=== PATIENT | male | born 1945 | race Caucasian/White ===

== ENCOUNTER 2019-09-21 11:05 | Observation (INO) | payer OTHER, SELFPAY ==
[2019-09-21] VITALS (9 sets, daily range): BP systolic 159–183; BP diastolic 75–100; PULSE 59–91; RESP 0–20; TEMP 36.4–36.6; O2SAT 92–97; BMI 20.9
--- NOTE | 2019-09-21 07:44 | XACV_ITS ---
Wt: 64 kg BSA: 1.77 m2 Any Known Allergies: No known allergies Gender: Male : 1945 Exam Type: Invasive Peripheral Vascular Procedure(s): Procedure Description: Peripheral Cath Diagnostic Procedure Procedure Description: Abdominal aortic angiography Procedure Description: Lower extremities' angiography Exam Priority: Routine Conclusions Abdominal aortic angiogram was performed which showed luminal irregularity, mild infrarenal aortic aneurysmal , right and left renal arteries has luminal irregularity#1 Right common iliac artery has luminal irregularity. Left ostial common iliac artery has mild to moderate stenosis#2 Left and right internal iliac artery has luminal irregularity#3 Right and left external iliac artery has luminal irregularity#8 Left and right common femoral artery has luminal irregularity#9 Right and left profunda femoral artery has luminal irregularity#10 Right then Left SFA has luminal irregularities # 11 Right and left popliteal arteries has luminal irregularities#13 Right and left Tibioperoneal trunk has luminal irregularities #14 Right and left Anterior , posterior tibial and peroneal arteries has luminal irregularities. This is a patient who has lifestyle limiting claudication back pain groin pain upon walking. Patient underwent CT angiogram which was suggestive of highly calcified vessels with questionable moderate stenosis in the lower extremities. Since patient continues to have symptoms therefore he was brought in for peripheral angiogram. Recommendations Continue medical management. Hemodynamic Data Phase:Rest AO : 161.0 mmHg / 72.0 mmHg ( 104.0 mmHg ) @ 4:18:00 AM 133.0 mmHg / 73.0 mmHg ( 95.0 mmHg ) @ 4:26:00 AM 142.0 mmHg / 58.0 mmHg ( 91.0 mmHg ) @ 4:26:00 AM 116.0 mmHg / 52.0 mmHg ( 78.0 mmHg ) @ 4:27:00 AM 141.0 mmHg / 68.0 mmHg ( 100.0 mmHg ) @ 4:39:00 AM Access Site Site: Left Femoral artery Sheath Size: 6 Fr Hemost... Method: Manual Compression Hemost... Success: Successful Procedure Details Findings Procedure Consent Obtained. Pre-Procedure Time Out. Identified patient by full name and date of as verbalized by the patient/guarantor. Does the consent match the physician's order: Yes. Accurate & Complete Informed Consent: Yes. Inpatient/Outpatient History & Physical on Chart: Yes. If H&P is completed, is and addenduem needed: No; If yes, is the addendum complete: N/A. Visualize and Verify Site with Patient/Guarantor: N/A. Relevant Radiology Images available: N/A. Pre-op teaching completed and patient verbalized understanding. The risks, benefits, and alternatives of sedation and/or procedure were discussed by physician. The patient agrees to continue. Procedure started. Correct patient, site and procedure confirmed by cath team. Pre op diagnosis: PVD with bilateral claudication. PERRLA. 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 Lungs clear x 5 lobes. IV Site on Arrival: 18 gauge in the left anticubital. IV Fluids: 0.9% NaCl at KVO. 0 mL infused prior to fence laborer. Pre Procedural Pulses: bilateral dorsalis pedis was 1+. Pre Procedural Pulses: bilateral posterior tibial was 2+. Pre Procedural Pulses: bilateral radial was 2+. Oxygen started at 2liters/min via nasal canula. bilateral groins was prepped with chloroprep then draped in the usual sterile fashion. Physician notified. Baseline sample Acquired. HR: 67 BPM. Equipment: Peripheral. Cardiac Cath Pack. ACIST Manifold Kit Model BT 2000. Heparinized Saline (2 units/mL), 1000 mL bag. Physician arrived. Physician scrubbed in. Time out performed with cath team. Family notified of procedure starting. Lidocaine 1% infiltrated to the left groin. Arterial access obtained with micropuncture set. A 5Fr Contra catheter in over wire. Abdominal aortogram performed in AP @ 10 mL/sec for a total of 30 mL. Abdominal aortogram performed in AP @ 10 mL/sec for a total of 20 mL. Glidewire inserted. A 6 slovenian MPA1 catheter in over wire. Catheter removed over the glide wire. A JJ 5F RIM 65 cm Diagnostic Catheter was advanced over the wire and used for Lower extremity arteriography. A 6 slovenian IM catheter in over wire. Right leg runoff 10 ml for total of 30 ml. Left leg runoff 10 ml for total of 30 ml throught the sheath. Physician scrubbed out. A Manual Compression was successful obtaining hemostatsis at the Left Femoral artery insertion site. Sheath(s) removed and manual pressure held until hemostasis was achieved. Sterile 4x4 and Op-site applied to the puncture site. No oozing or hematoma noted. Post sheath removal instructions were given and the patient verbalized understanding. Post Procedure: Pulses reassessed and unchanged. PERRLA. 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 No VTE prophylaxis required. Medication's Wasted: Lidocaine 1% = 10 mL. Medication's Wasted: Heparin = 1000 units. Medication's Wasted: Other = fentanyl 50 mcg. Total IV fluids: 50 mL. Post-op diagnosis: PVD non obstructive. Complications: none. Estimated blood loss: 5mL-10mL. Procedure completed. Patient transferred by bed to ICU. Vital chart was stopped. Procedure Medications Start: 10:08 AM Stop: 10:08 AM Medication: Versed Amount: 1 mg Route: I.V. Start: 10:08 AM Stop: 10:08 AM Medication: Fentanyl Amount: 25 mcg Route: I.V. Start: 10:13 AM Stop: 10:13 AM Medication: Versed Amount: 1 mg Route: I.V. Start: 10:13 AM Stop: 10:13 AM Medication: Fentanyl Amount: 25 mcg Route: I.V. I, the attending physician, have reviewed and verified all procedure medications. Yes, all medications given per verbal order History/Risk Factors Hypertension: Yes Dyslipidemia: Yes Peripheral Arterial Disease (PAD): Yes Myocardial Infarction (PR): No Obesity: No Renal Disease: No Tobacco Use: Current/Recent(w/in 1 year) Prior Interventions PCI: Yes CABG: No Valve Surgery: No Report Signatures Finalized by:Tomasa Han MD on 10/04/2019 7:52:09 PM
--- NOTE | 2019-09-21 07:50 | SUR.PREOP ---
Pre op note/ MD discussion Patient brought to PRE OP. MD here. Discussion about procedure detail discussed at this time. Awaiting further orders.
--- NOTE | 2019-09-21 08:33 | P.HP_ITS ---
Providers/Chief Complaint Primary Care Provider: Tomasa Han MD History of Present Illness Dae Gupta is a 73 year old male Past medical history significant for Coronary artery disease, hypertension hyperlipidemia lifestyle limiting claudication who has failed exercise therapy, medical management including cilostazol. CT angiogram with runoff was performed showed heavily calcified bilateral common illiacs.Patient think that his claudication in buttock region is getting worse to the point that he cannot perform his daily tasks. He has to sit down after 200 feet for 5-10 minutes to get over the cramps and pains in the buttock region. It is the reason patient has brought in today after detailed discussion 2-3 times during my office sittings through my nurse practitioner and by myself. He is here for peripheral angiogram to assess the severity of the lesion which CTA is ambiguous about. If he has a significant lesions we will proceed with intervention which can include CSI atherectomy/rotablation, usage of non-drug coated or drug-coated balloons and if needed placement of stents which can be drug-coated or non-drug coated. I spent almost 30 minutes with the patient and his in explaining all the risk benefit and alternative for the intervention such as continuous lifestyle modification with conservative management which patient declined and would like to proceed with intervention at this point. Patient has been explained in detail regarding FDA warning about drug-coated balloons, patient has been explained in detail regarding no reflow phenomena complication which can happens during the procedures leading to urgent emergent surgery or loss of limb. He has been explained all the risk benefit and alternative for sedation. He and his agrees to proceed with the intervention. Review of Systems Const: Denies: fever or chills Card: Denies: chest pain, palpitations or irregular heart rhythm Resp: Denies: shortness of breath or productive cough GI: Denies: abdominal pain, nausea or vomiting Musc: Reports: other (Claudication in the buttock region) Neuro: Denies: headache or numbness in extremities Medications/Allergies Home Medications Medication Instructions Recorded Confirmed Last Taken Type L-Arginine(alpha-ketoglutarat) 2,000 mg PO DAILY 09/20/19 09/21/19 09/20/19 22:00 History coenzyme Q10 [Co Q-10] 10 mg PO DAILY 09/20/19 09/21/19 09/20/19 22:00 History omega 8-ygl-cwt-fish oil [Fish Oil] 2 cap PO DAILY 09/20/19 09/21/19 09/20/19 22:00 History Allergies Allergy/AdvReac Type Severity Reaction Status Date / Time No Known Allergies Allergy Verified 09/21/19 09:49 PFSH Acute PFSH: Family History Father Myocardial infarction Social History Smoking and tobacco status: current every day smoker Physical Exam Narrative: EXAM NARRATIVE: GENERAL: Patient is alert, awake and oriented x3. NECK: No jugular vein distension. HEENT: No cyanosis. No icterus. No pallor. HEART: Regular S1 and S2. No murmur, rub or gallop. LUNGS: Clear to auscultate bilaterally. ABDOMEN: Soft, nontender and nondistended. Positive bowel sounds. No guarding, rebound or tenderness. CENTRAL NERVOUS SYSTEM: Grossly nonfocal. EXTREMITIES: Lower extremities without edema bilaterally.Dorsalis pedis 1+ and posterior tibial 2 Data : 09/21/19 09:00 09/21/19 09:00 A&P Assessment and plan (1) Peripheral vascular disease with claudication: Patient has lifestyle limiting claudication. He has failed conservative management including exercise and medical management. He is here today for peripheral angiogram and intervention if needed. As above he has been explained all the risk benefit and alternative for the procedure. He has been explained all the complication regarding the procedure. He and his has given me the consent that they would like to proceed with it. Providing his lab data within normal limit we will proceed. Status: Acute Code(s): I73.9 - Peripheral vascular disease, unspecified Attestations Medical Necessity Statement*: Operative expecting patient's stay to cross more than 2 midnights Coding Level of Care Code New Pt Acute Captain'S Assistant for Chg Fwd Patient Type New History Expanded Problem Focused Exam Expanded Problem Focused Medical Decision Making Moderate Complexity Diagnoses Peripheral vascular disease with claudication I73.9
[2019-09-21] MEDS: diphenhydrAMINE 50 mg Capsule PO (08:48)
[2019-09-21 09:10] LABS: Basophils # 0.1 10^3/uL (0.0-0.1); Basophils % 0.6 %; Eosinophils # 0.4 10^3/uL (0.0-0.8); Eosinophils % 3.9 %; Hemoglobin 13.7 g/dL (11.7-16.6); Lymphocytes # 2.8 10^3/uL (0.8-4.8); Mean Corpuscular HGB Conc 31.9 g/dL (30.0-36.0); Mean Corpuscular Volume 90.9 fL (80-94); Monocytes # 1.2 10^3/uL (0.2-0.9); Neutrophils # 6.2 10^3/uL (1.8-7.7); Neutrophils % 58.2 %; Nucleated Red Blood Cells % 0 %; Platelet Count 292 10^3/cmm (130-400); Red Blood Count 4.73 10^6/uL (4.1-5.3); Red Cell Distribution Width 14.9 % (12.1-15.1); White Blood Count 10.7 10^3/uL (4.0-10.0)
[2019-09-21 09:30] LABS: Anion Gap 13.7 (5-19); Blood Urea Nitrogen 14 mg/dL (8-23); Calcium 10.3 mg/dL (8.5-10.5); Carbon Dioxide 28 mmol/L (22-29); Chloride 99 mmol/L (98-107); Glucose 94 mg/dL (65-115); Osmolality Calculated 280 mOsm/kg (285-295); Potassium 3.7 mmol/L (3.5-5.1); Sodium 137 mmol/L (136-145)
[2019-09-21] MEDS: nitroglycerin 1 gm/inch oint Pkt 1 INCH TOPICAL (11:45)
[2019-09-21] MEDS: hyDRALAzine 20 mg/mL INJ 1 mL 10 MG IVP (11:45)
[2019-09-21] MEDS: HYDROcodone-acetaminophen 5-325 mg Tablet 1 TAB PO (13:06)
[2019-09-21] MEDS: amlodipine 5 mg Tablet PO (13:06)
--- NOTE | 2019-09-21 15:18 | PC.CHAP ---
Pastoral Care Encounter/Spiritual Assessment Type of Contact [] Declined preschool aide visit [] Patient/Family/Request visit [] Outpatient visit [] Follow-up visit [] Physician referral [] Code/Alert [] Routine visit [] Staff referral [] Actively dying [x] Patient sleeping [] Family support [] [] Out of room [] Palliative care [] [] Receiving care in room [] Pre-surgical visit [] Trauma [] Long length of stay [] ICU visit [] Other: Relational/Emotional Strength [] Patient feels connected with others/family/visitors/staff [] Distress [] Loneliness/isolation [] Abandonment Spirituality of Patient [] Person of Griselda [] Attends Sikh of their Griselda [] Believes in Prayer [] Reads Bible or Jew materials [] There are Spiritual issues to be addressed Patrol Supervisor Interventions [] Prayer [] Active listening [] Non-anxious presence [] Spiritual/emotional support [] Crisis/trauma care [] Spiritual counseling [] Bereavement support [] Provided bereavement packet [] Provided Bible/devotional materials [] Provided toy/stuffed animal, coloring book to patient or family member [] Provided Communion [] Anointing/[place] [] Salvation [] Completed spiritual assessment [] Other: Impact on Illness or Injury [] Angry [] Fearful [] Anxious [] Often cries [] Exhaustion [] Unable to work [] Unable to attend religious [] Unable to walk/stand [] Unable to read [] Unable to drive [] Unable to eat/drink [] Unable to sleep [] Unable to be with family [] Patient intubated [] Other: Summary Time spent with patient
--- NOTE | 2019-09-21 17:00 | PC.NURSE ---
Patient walked in the unit. Tolerated well. No c/o chest pain, no shortness of breath. Left groin with drsg intact and unchanged.
== END 2019-09-21 18:48 | disposition home or self-care (01) ==
LOC: ICU 11:19
PROVIDERS: Admitting Provider Internal Medicine Cardiovascular Disease; Family Provider Emergency Medicine Emergency Medical Services; PCP Internal Medicine Cardiovascular Disease; Visit Provider Internal Medicine Cardiovascular Disease
DX: I25.10 Atherosclerotic heart disease of native coronary artery without angina pectoris (principal); I73.9 Peripheral vascular disease, unspecified; I10 Essential (primary) hypertension; E78.5 Hyperlipidemia, unspecified; Z82.49 Family history of ischemic heart disease and other diseases of the circulatory system; F17.210 Nicotine dependence, cigarettes, uncomplicated
CPT/HCPCS: 12345; 75625; 75716; 80048; 85025; 96375; C1769; C1887; C1894; G0378; J0360; J1644; J2001; J2250; J3010; J7030; Q0163; Q9967

== ENCOUNTER 2020-01-21 07:44 | Outpatient (CLI) | payer OTHER, SELFPAY ==
--- NOTE | 2020-01-21 07:49 | MR_ITS ---
WS: [id number] MRI LUMBAR SPINE NONCONTRAST TECHNIQUE: Sagittal T1, T2 and STIR imaging. Axial T1 and T2 imaging. CLINICAL INFORMATION: CHRONIC LOW BACK PAIN FINDINGS: Mild Lumbar curve. No acute compression. Mild disc bulging lumbar spine. Disc desiccation worse at L2 -3. L1-L2: Tiny right pericentral protrusion. Mild facet arthropathy. Spinal canal and foramen are patent . L2-L3: Mild disc bulging with osteophytic ridging. Narrowing of the subarticular recess bilaterally. Mild facet arthropathy. Mild right and no significant left foraminal narrowing. L3-L4: Mild annular bulging with narrowing of the subarticular recess bilaterally. Mild left and no s ignificant right foraminal narrowing. Mild facet arthropathy. L4-L5: Small shallow left pericentral protrusion. Slight impingement traversing left L5 nerve root. M ild right and no significant left foraminal narrowing. Mild facet arthropathy. L5-S1: Mild annular bulging with slight effacement of the ventral thecal sac. Slight encroachment tra versing right greater than left S1 nerve roots. Mild right greater than left foraminal narrowing. Mil d facet arthropathy. Small bilateral renal cysts largest in the left measuring 2.1 CM. Slightly aneurysmal distal abdomina l aorta measuring 2.5 x 2.4 cm AP by transverse. This appears unchanged since the CTA April 13 019 MR/MR lumbar spine wo con* [id number] IMPRESSION: 1. Mild lumbar curve. No acute compression. No high-grade central canal stenos is. 2. Annular bulging L2-3 with narrowing of the subarticular recess bilaterally. Mild to moderate right L2-3 foraminal narrowing. 3. Small left foraminal protrusion L3-4 with slight impingement on the exiting left L3 nerve root. 4. Shallow left pericentral protrusion L4-5 impinges the traversing left L5 ne rve root in the left subarticular recess. 5. Annular bulging L5-S1 eccentric to the right with slight encroachment trave rsing right greater than left S1 nerve roots. Mild right L5-S1 foraminal narrow ing.
== END 2020-01-21 07:45 | disposition home or self-care (01) ==
LOC: RADSHAW 07:47
PROVIDERS: PCP Emergency Medicine Emergency Medical Services; Visit Provider Emergency Medicine Emergency Medical Services
DX: G89.29 Other chronic pain (principal); M51.26 Other intervertebral disc displacement, lumbar region; M48.061 Spinal stenosis, lumbar region without neurogenic claudication
CPT/HCPCS: 72148

== ENCOUNTER → 2020-04-12 12:50 | Outpatient (BNVA) | payer OTHER, SELFPAY | PROVIDERS: PCP Emergency Medicine Emergency Medical Services; Referring Provider Neurological Surgery; Visit Provider Licensed Practical Nurse | DX: R29.898 Other symptoms and signs involving the musculoskeletal system (principal); F17.210 Nicotine dependence, cigarettes, uncomplicated | CPT/HCPCS: 99204 ==

== ENCOUNTER 2020-04-25 06:00 | Outpatient (RCR) | payer OTHER, SELFPAY | END 2020-05-03 23:59 | disposition home or self-care (01) | LOC: GPT 06:00 | PROVIDERS: PCP Emergency Medicine Emergency Medical Services; Referring Provider Licensed Practical Nurse; Visit Provider Licensed Practical Nurse | DX: R53.1 Weakness (principal); R29.898 Other symptoms and signs involving the musculoskeletal system | CPT/HCPCS: 97110; 97161; 97530 ==

== ENCOUNTER 2020-05-04 06:00 | Outpatient (RCR) | payer OTHER, SELFPAY | END 2020-06-03 23:59 | disposition home or self-care (01) | LOC: GPT 06:00 | PROVIDERS: PCP Emergency Medicine Emergency Medical Services; Referring Provider Licensed Practical Nurse; Visit Provider Licensed Practical Nurse | DX: R53.1 Weakness (principal) | CPT/HCPCS: 97110; 97116; 97164; 97530 ==

== ENCOUNTER → 2020-05-10 13:50 | Outpatient (BNVA) | payer OTHER, SELFPAY | PROVIDERS: PCP Emergency Medicine Emergency Medical Services; Visit Provider Licensed Practical Nurse | DX: R29.898 Other symptoms and signs involving the musculoskeletal system (principal); F17.210 Nicotine dependence, cigarettes, uncomplicated | CPT/HCPCS: 99213 ==

== ENCOUNTER 2020-06-04 06:00 | Outpatient (RCR) | payer OTHER, SELFPAY | END 2020-07-03 23:59 | disposition home or self-care (01) | LOC: GPT 06:00 | PROVIDERS: PCP Emergency Medicine Emergency Medical Services; Referring Provider Licensed Practical Nurse; Visit Provider Licensed Practical Nurse | DX: R53.1 Weakness (principal); R29.898 Other symptoms and signs involving the musculoskeletal system | CPT/HCPCS: 97110; 97112; 97530 ==

== ENCOUNTER 2020-08-09 12:55 | Inpatient (IN) | payer OTHER, MEDICARE, SELFPAY ==
[2020-08-09] VITALS (7 sets, daily range): BP systolic 114–186; BP diastolic 64–89; PULSE 50–61; RESP 12–18; TEMP 36.6–37.1; O2SAT 96–99; BMI 19.9
--- NOTE | 2020-08-09 13:08 | XR_ITS ---
WS: [id number] PORTABLE CHEST HISTORY: cp COMPARISON: None available. Mild pulmonary hyperexpansion. No pneumonia. Normal vasculature. No pleural effusion or pneumothorax. Cardiac size: Normal. Mediastinum/Aorta: Mild atherosclerosis aorta. No osseous abnormality seen. XR/XR chest 1V portable [id number] IMPRESSION: Stable chest. No acute cardiopulmonary disease.
--- NOTE | 2020-08-09 13:08 | ECG_ITS ---
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 Measurements Intervals [place] Rate: 59 P: 77 MS: 157 QRS: 66 QRSD: 85 T: 60 QT: 432 QTc: 430 Interpretive Statements SINUS BRADYCARDIA POSSIBLE LEFT ATRIAL ENLARGEMENT [-0.1mV P WAVE IN V1/V2] Compared to ECG 07/21/2017 15:19:14 No significant changes Electronically Signed On 08-09-2020 20:14:26 [employer] by Anjel Spear M.D. [email or web address]
[2020-08-09] MEDS: aspirin 81 mg Chew Tablet PO ×3 (13:34→13:36)
[2020-08-09] MEDS: nitroglycerin 0.4 mg sublingual Tablet SUBLINGUAL (13:36)
--- NOTE | 2020-08-09 13:43 | W.ED.CHESTPA ---
HPI - Chest Pain General: Chief Complaint: Chest Pain Stated Complaint: Chest pains Time Seen by Provider: 08/09/20 12:57 History of Present Illness: HPI narrative: The patient is a 74-year-old male with past medical history of coronary artery disease and 2 MIs who comes to the ER complaining of midsternal chest pressure which feels similar to his previous [place]. He says he has been having it on and off for the past month and taking nitroglycerin which helps relieve his pain however it scared him last night because it woke him from sleep and continued this morning and has been worse. complaint: chest heaviness Pertinent past history: coronary artery disease and prior [place] Timing of current episode: still present Prior episodes: Yes Onset: during rest and awoke with symptoms Pain location: substernal Pain radiation: none Severity: similar to previous episodes Quality: tightness, heaviness and similar to prior [place] Relieving factors: nitroglycerin Exacerbating factors: nothing Associated symptoms: Reports no associated symptoms; Deny abdominal pain, dyspnea or palpitations Review of Systems General: Reports: 10 or more systems reviewed and unremarkable except in HPI and below Const: Denies: fatigue Eyes: Denies: change in vision, blurry vision or eye redness ENMT: Denies: throat pain, swelling of lips/tongue, ear or mastoid pain or nasal congestion Card: Denies: chest pain, palpitations, irregular heart rhythm, edema, dyspnea on exertion or orthopnea Resp: Denies: dyspnea, productive cough or non-productive cough GI: Denies: abdominal pain, diarrhea or GI cramping : Denies: flank pain, urinary frequency or urinary urgency Musc: Denies: neck pain, back pain, extremity pain, joint pain, joint redness, limited range of motion or muscle weakness Skin/Breast: Denies: rash, pruritus, erythema, skin pain or skin tenderness Neuro: Denies: headache(s), numbness in extremities, weakness in extremities, sensory changes, difficulty walking, dizziness, confusion or Slurred speech present Psych: Denies: anxiety or depression Endo: Denies: polyuria All/Imm: Denies: urticaria, throat swelling or tongue swelling PFSH ED PFSH: Medical History (Updated 08/09/20 @ 19:09 by Janis Hidalgo MD) Anxiety BPH (benign prostatic hyperplasia) CAD (coronary artery disease) COPD (chronic obstructive pulmonary disease) Depression HLD (hyperlipidemia) HTN (hypertension) Hypercholesterolemia Leg weakness, bilateral Peripheral vascular disease with claudication PTSD (post-traumatic stress disorder) Surgical History History of coronary artery stent placement Family History Father Myocardial infarction Social History Smoking and tobacco status: current every day smoker Alcohol intake: never Household members: none Marital status: Single Current occupational status: retired History of recent travel: No Physical Exam Const: COMMON NORMALS: no acute distress, average body habitus, patient oriented x3, no limitations, healthy appearing, alert and well nourished GENERAL APPEARANCE: cooperative, comfortable, well kempt and well developed ORIENTATION/CONSCIOUSNESS: Yes awake, Yes oriented to person, Yes oriented to place and Yes oriented to time HENMT: COMMON NORMALS: normocephalic, external ears normal and Normal external nose present HEAD & SCALP: normal to inspection and normocephalic NOSE: Normal external nose present EXTERNAL EAR: Yes external ears normal MOUTH: Normal oral and palatal mucosa present THROAT: posterior oropharynx normal Eye: COMMON NORMALS: Equal, round and reactive pupils present and EOMs intact bilaterally GENERAL EYE: appearance normal, both eyes and all related structures PUPIL: Yes Equal, round and reactive pupils present Neck/C-Spine: COMMON NORMALS: full ROM, no lymphadenopathy, no meningeal signs and no JVD GENERAL: Yes normal visual inspection Lymph: LYMPHATIC: no lymphadenopathy noted Chest: COMMONS NORMALS: normal inspection of the chest and normal palpation of entire chest wall Resp: COMMON NORMALS: normal respiratory effort, No retractions, No use of accessory muscles, clear to auscultation bilaterally and percussion normal EFFORT & INSPECTION: Yes able to speak in complete sentences AUSCULTATION: clear to auscultation bilaterally PERCUSSION: percussion normal Cardio: COMMON NORMALS: no JVD, regular rate, regular rhythm, S1 normal heart sound present, S2 normal heart sound present and Peripheral pulses 2+ throughout RATE: regular rate RHYTHM: regular rhythm HEART SOUNDS: S1 normal heart sound present and S2 normal heart sound present PERIPHERAL PULSES: Peripheral pulses 2+ throughout GI: COMMON NORMALS: Normal to inspection, nondistended, normoactive bowel sounds present, Soft to palpation, non-tender and no masses INSPECTION: Yes normal to inspection PALPATION: Yes Soft to palpation : COMMON NORMALS: Yes no CVA tenderness BLADDER/KIDNEY EXAM: Yes no CVA tenderness Back/Pelvis: COMMON NORMALS: no CVA tenderness, thoracic and lumbar spine normal to inspection, no thoracic nor lumbar tenderness and thoraco-lumbar ROM normal Extremity: COMMON NORMALS: normal to inspection, full ROM, capillary refill normal, no joint enlargement and no pedal edema GENERAL: Yes normal exam except as noted Neuro: COMMON NORMALS: patient oriented x3, CN's II-XII intact bilaterally, moves all extremities, no focal motor deficits, no sensory deficits noted and gait normal SENSORIUM/ORIENTATION: Yes alert, Yes oriented to person, Yes oriented to place and Yes oriented to time MENINGEAL SIGNS: Yes no meningeal signs Psych: COMMON NORMALS: mental status grossly normal, Normal thought process present, cooperative, normal affect and speech normal APPEARANCE: Yes well kempt ATTITUDE: Yes calm SPEECH: Yes normal speech THOUGHT PROCESS: Normal thought process present Skin: COMMON NORMALS: no rashes or lesions noted GENERAL SKIN EXAM: no rashes or lesions noted Course Vital Signs: Vital signs: Vital Signs Temperature 98.7 F 08/09/20 18:56 Pulse Rate 56 L 08/09/20 18:56 Respiratory Rate 18 08/09/20 18:56 Blood Pressure 172/89 08/09/20 18:56 Pulse Oximetry 96 08/09/20 18:56 MDM - Chest Pain MDM Narrative: Medical decision making narrative: The patient came in complaining of typical angina symptoms similar to his previous MIs. Troponin and EKGs were normal. He was stable in the ER and admitted to the floor for observation Lab Data: Labs: Lab Results 08/09/20 08/09/20 08/09/20 Range/Units 13:45 13:45 13:45 WBC 10.1 H (4.0-10.0) 10^3/ uL RBC 4.60 (4.1-5.3) 10^6/u L Hgb 13.8 (11.7-16.6) g/dL Hct 43.6 (42.0-52.0) % MCV 94.8 H (80-94) fL MCH 30.0 (28.0-34.0) pg MCHC 31.7 (30.0-36.0) g/dL RDW 13.9 (12.1-15.1) % Plt Count 251 (130-400) 10^3/c mm MPV 11.0 H (7.4-10.4) fL Neut % (Auto) 53.9 % Lymph % (Auto) 27.4 % [place] % (Auto) 12.1 % Eos % (Auto) 5.6 % Baso % (Auto) 0.7 % Neut # (Auto) 5.45 (1.8-7.7) 10^3/u L Lymph # (Auto) 2.8 (0.8-4.8) 10^3/u L [place] # (Auto) 1.2 H (0.2-0.9) 10^3/u L Eos # (Auto) 0.6 (0.0-0.8) 10^3/u L Baso # (Auto) 0.1 (0.0-0.1) 10^3/u L Nucleated RBC % (a uto) 0 % Nucleated RBCs # 0.0 /100WBC D-Dimer 0.64 H (0-0.59) ug/mIFE U Sodium 138 (136-145) mmol/L Potassium 4.1 (3.5-5.1) mmol/L Chloride 103 (98-107) mmol/L Carbon Dioxide 28 (22-29) mmol/L Anion Gap 11.1 (5-19) BUN 16 (8-23) mg/dL Creatinine 0.8 (0.7-1.2) mg/dL GFR Calculation Not Reportable Glucose 102 (65-115) mg/dL Calculated Osmolal ity 287 (285-295) mOsm/k g Calcium 9.5 (8.5-10.5) mg/dL Total Bilirubin 0.2 (0.15-1.2) mg/dL AST 19 (0-40) U/L ALT 15 (0-41) U/L Alkaline Phosphata se 121 (40-130) IU/L Troponin T Baselin e (0-15) ng/L Troponin T 120 Min ch[place] (0-15) ng/L Delta Troponin T (0-10) ABS# NT-Pro-B Natriuret Pep 484 H (0-125) pg/mL Total Protein 7.1 (6.6-8.7) g/dL Albumin 3.9 (3.5-5.2) g/dL Globulin 3.2 (1.3-4.6) g/dL 08/09/20 08/09/20 Range/Units 13:45 15:40 WBC (4.0-10.0) 10^3/ uL RBC (4.1-5.3) 10^6/u L Hgb (11.7-16.6) g/dL Hct (42.0-52.0) % MCV (80-94) fL MCH (28.0-34.0) pg MCHC (30.0-36.0) g/dL RDW (12.1-15.1) % Plt Count (130-400) 10^3/c mm MPV (7.4-10.4) fL Neut % (Auto) % Lymph % (Auto) % [place] % (Auto) % Eos % (Auto) % Baso % (Auto) % Neut # (Auto) (1.8-7.7) 10^3/u L Lymph # (Auto) (0.8-4.8) 10^3/u L [place] # (Auto) (0.2-0.9) 10^3/u L Eos # (Auto) (0.0-0.8) 10^3/u L Baso # (Auto) (0.0-0.1) 10^3/u L Nucleated RBC % (a uto) % Nucleated RBCs # /100WBC D-Dimer (0-0.59) ug/mIFE U Sodium (136-145) mmol/L Potassium (3.5-5.1) mmol/L Chloride (98-107) mmol/L Carbon Dioxide (22-29) mmol/L Anion Gap (5-19) BUN (8-23) mg/dL Creatinine (0.7-1.2) mg/dL GFR Calculation Glucose (65-115) mg/dL Calculated Osmolal ity (285-295) mOsm/k g Calcium (8.5-10.5) mg/dL Total Bilirubin (0.15-1.2) mg/dL AST (0-40) U/L ALT (0-41) U/L Alkaline Phosphata se (40-130) IU/L Troponin T Baselin e 15 (0-15) ng/L Troponin T 120 Min [place] 14.04 (0-15) ng/L Delta Troponin T -0.96 L (0-10) ABS# NT-Pro-B Natriuret Pep (0-125) pg/mL Total Protein (6.6-8.7) g/dL Albumin (3.5-5.2) g/dL Globulin (1.3-4.6) g/dL Discharge Plan Discharge Admit Provider: Janis Hidalgo Coding Level of Care Code ED Store Promoter for g Fwd Exam Comprehensive
[2020-08-09 14:08] LABS: Basophils # 0.1 10^3/uL (0.0-0.1); Basophils % 0.7 %; Eosinophils # 0.6 10^3/uL (0.0-0.8); Eosinophils % 5.6 %; Hematocrit 43.6 % (42.0-52.0); Hemoglobin 13.8 g/dL (11.7-16.6); Lymphocytes # 2.8 10^3/uL (0.8-4.8); Lymphocytes % 27.4 %; Mean Corpuscular HGB Conc 31.7 g/dL (30.0-36.0); Mean Corpuscular Volume 94.8 fL (80-94); Monocytes # 1.2 10^3/uL (0.2-0.9); Monocytes % 12.1 %; Neutrophils # 5.45 10^3/uL (1.8-7.7); Neutrophils % 53.9 %; Nucleated Red Blood Cells % 0 %; Platelet Count 251 10^3/cmm (130-400); Red Cell Distribution Width 13.9 % (12.1-15.1); White Blood Count 10.1 10^3/uL (4.0-10.0)
[2020-08-09 14:23] LABS: D Dimer 0.64 ug/mIFEU (0-0.59)
[2020-08-09 14:39] LABS: Alanine Aminotransferase 15 U/L (0-41); Albumin Level 3.9 g/dL (3.5-5.2); Alkaline Phosphatase 121 IU/L (40-130); Anion Gap 11.1 (5-19); Aspartate Amino Transferase 19 U/L (0-40); Blood Urea Nitrogen 16 mg/dL (8-23); Calcium 9.5 mg/dL (8.5-10.5); Carbon Dioxide 28 mmol/L (22-29); Chloride 103 mmol/L (98-107); Globulin 3.2 g/dL (1.3-4.6); Glucose 102 mg/dL (65-115); NT Pro B Type Natriuretic Pept 484 pg/mL (0-125); Osmolality Calculated 287 mOsm/kg (285-295); Potassium 4.1 mmol/L (3.5-5.1); Sodium 138 mmol/L (136-145); Total Bilirubin 0.2 mg/dL (0.15-1.2); Total Protein 7.1 g/dL (6.6-8.7)
[2020-08-09 14:55] LABS: Troponin(5th) Baseline 15 ng/L (0-15)
--- NOTE | 2020-08-09 15:08 | ECG_ITS ---
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 Measurements Intervals [place] Rate: 61 P: 79 GA: 150 QRS: 73 QRSD: 84 T: 56 QT: 410 QTc: 416 Interpretive Statements SINUS RHYTHM WITH MARKED SINUS ARRHYTHMIA POSSIBLE LEFT ATRIAL ENLARGEMENT [-0.1mV P WAVE IN V1/V2] Compared to ECG 07/21/2017 15:19:14 Sinus bradycardia no longer present Electronically Signed On 08-09-2020 20:18:36 SUPERVISOR CLOTH WINDING by Anjel Spear M.D. [id number] f
[2020-08-09 16:30] LABS: Troponin 5 2HR 14.04 ng/L (0-15)
[2020-08-09 16:31] LABS: Troponin 5 2HR Delta -0.96 ABS# (0-10)
--- NOTE | 2020-08-09 17:28 | PM.HP ---
Providers/Chief Complaint Admitting Physician: Janis Hidalgo MD Primary Care Provider: Otoniel Yu DO Chief Complaint: Chest pain History of Present Illness Dae Gupta is a 74 year old male with PMHx noted below presents with complaints of chest pain on exertion which he has had for approximately 2 months and up until last night will typically happen with exertion or after he consumes a large meal. Last night he awakened from sleep due to chest discomfort, substernal, pressure-like/squeezing in quality, non-radiating, resolved after having taken nitroglycerin but concerned him enough that he sought medical attention today. He does have a known history of CAD with prior stenting, 1 stent placed in 2013 and 2 stents placed in 2017. 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 He denies any associated symptoms and typically chest pain will resolve after a few minutes of rest or taking sublingual nitroglycerin. He is a chronic smoker but recently quit smoking approximately a week ago. Looking at his medication list it seems that he takes primarily herbal medications with only prescription medication been low-dose aspirin. He had been prescribed other medications including isosorbide mononitrate, statin and beta-cathy which she discontinued at some point last year as he thought they were not working for him. He is currently chest pain-free with relatively normal troponins, no significant delta, no significant ischemic changes on EKG. He is hypertensive and has some bradycardia with heart rates in the 50s, otherwise afebrile and on room air. Discussed need for further work-up including stress testing and better control of blood pressure which he is agreeable to. Review of Systems Const: Reports: change in appetite (decreased appetite) and fatigue; Denies: fever(s) or chills Eyes: Denies: change in vision ENMT: Reports: dry mouth Card: Denies: chest pain, swelling of feet/ankles or lightheadedness Resp: Reports: productive cough (green sputum); Denies: dyspnea GI: Denies: abdominal pain, nausea, vomiting, hematemesis or hematochezia : Reports: urinary frequency; Denies: dysuria Musc: Denies: back pain Skin/Breast: Denies: rash Neuro: Reports: weakness in extremities; Denies: numbness in extremities Psych: Denies: anxiety Medications/Allergies Home Medications Medication Instructions Recorded Confirmed Last Taken Type L-Arginine(alpha-ketoglutarat) 2,000 mg PO DAILY@0900 09/20/19 08/09/20 08/08/20 History coenzyme Q10 [Co Q-10] 10 mg PO DAILY@0900 09/20/19 08/09/20 08/08/20 History omega 3-rdj-ibx-fish oil [Fish Oil] 2 cap PO DAILY@0900 09/20/19 08/09/20 08/08/20 History Cardio For Life 1 tab PO DAILY@0900 08/09/20 08/09/20 08/08/20 History Mercedes's wort See Rx Instructions .ROUTE .COMPLEX 08/09/20 08/09/20 08/08/20 History Vitamin D3 1 tab PO DAILY@0900 08/09/20 08/09/20 08/08/20 History Vitamin E Complex 1 tab PO DAILY@0900 08/09/20 08/09/20 08/08/20 History ascorbic acid (vitamin C) [Vitamin 5,000 mg PO DAILY@0908/09/20 08/09/20 08/08/20 History C] aspirin [Aspir-81] 81 mg PO DAILY@0900 08/09/20 08/09/20 08/09/20 History calcium ydsy-A2-fttioxydo balaji 1 cap PO DAILY@0900 08/09/20 08/09/20 08/08/20 History echinacea 1 cap PO DAILY@0900 08/09/20 08/09/20 08/08/20 History elderberry fruit and flower 1 cap PO DAILY@0900 08/09/20 08/09/20 08/08/20 History garlic oil 5,000 mg PO DAILY@0900 08/09/20 08/09/20 08/08/20 History goldenseal 1 cap PO DAILY@0900 08/09/20 08/09/20 08/08/20 History gotu toyin (Centella asiatica) 1 tab PO DAILY@0900 08/09/20 08/09/20 08/09/20 History hawthorn [Melissa Mg] 500 mg PO DAILY@0900 08/09/20 08/09/20 08/08/20 History horse chestnut 1 cap PO DAILY@0900 08/09/20 08/09/2021 History olive leaf extract 250 mg PO DAILY@0900 08/09/20 08/09/20 08/08/20 History saw palmetto 1 tab PO DAILY@0900 08/09/20 08/09/20 08/08/20 History selenium 1 tab PO DAILY@0900 08/09/20 08/09/20 08/08/20 History vitamin B complex 1 cap PO DAILY@0900 08/09/20 08/09/20 08/08/20 History vitamin K 1 tab PO DAILY@0900 08/09/20 08/09/20 08/08/20 History zinc acetate 50 mg PO DAILY@0900 08/09/20 08/09/20 08/08/20 History Allergies Allergy/AdvReac Type Severity Reaction Status Date / Time No Known Allergies Allergy Verified 05/11/20 11:33 PFSH Acute PFSH: Medical History (Updated 08/09/20 @ 19:09 by Janis Hidalgo MD) Anxiety BPH (benign prostatic hyperplasia) CAD (coronary artery disease) COPD (chronic obstructive pulmonary disease) Depression HLD (hyperlipidemia) HTN (hypertension) Hypercholesterolemia Leg weakness, bilateral Peripheral vascular disease with claudication PTSD (post-traumatic stress disorder) Surgical History History of coronary artery stent placement Family History Father Myocardial infarction Social History Smoking and tobacco status: current every day smoker Alcohol intake: never Household members: none Marital status: Single Current occupational status: retired History of recent travel: No Vitals/I&O/Wt Last Vital Signs Temp 97.9 F 08/09/20 12:57 Pulse 58 L 08/09/20 17:13 Resp 15 08/09/20 17:13 BP 161/80 08/09/20 17:13 Pulse Ox 97 08/09/20 17:13 Weight last 48 hrs Weight 61.235 kg Physical Exam Const: COMMON NORMALS: no acute distress, patient oriented x3 and alert GENERAL APPEARANCE: cooperative and comfortable NUTRITIONAL APPEARANCE: thin ORIENTATION/CONSCIOUSNESS: Yes awake HENMT: COMMON NORMALS: normocephalic, atraumatic, hearing grossly normal bilaterally and moist oral mucous membranes HEAD & SCALP: normocephalic and atraumatic Eye: COMMON NORMALS: Equal, round and reactive pupils present, EOMs intact bilaterally and conjunctivae normal CONJUNCTIVA: Yes conjunctivae normal PUPIL: Yes Equal, round and reactive pupils present Neck/C-Spine: COMMON NORMALS: full ROM GENERAL: Yes normal visual inspection and Yes trachea midline Chest: COMMONS NORMALS: normal inspection of the chest and normal palpation of entire chest wall CHEST: Yes Symmetrical chest wall rise Resp: COMMON NORMALS: normal respiratory effort, No retractions, No use of accessory muscles and clear to auscultation bilaterally EFFORT & INSPECTION: Yes able to speak in complete sentences, Yes symmetric chest movement and No tachypneic AUSCULTATION: clear to auscultation bilaterally OTHER: -on RA Cardio: COMMON NORMALS: regular rate, regular rhythm, S1 normal heart sound present, S2 normal heart sound present and No murmurs present (Cardio) RATE: regular rate RHYTHM: regular rhythm HEART SOUNDS: S1 normal heart sound present and S2 normal heart sound present GI: COMMON NORMALS: Normal to inspection, nondistended, normoactive bowel sounds present, Soft to palpation and non-tender PALPATION: Yes Soft to palpation Extremity: COMMON NORMALS: normal to inspection, full ROM and no clubbing, cyanosis or edema; negative for no pedal edema Neuro: COMMON NORMALS: patient oriented x3, moves all extremities, no focal motor deficits and no sensory deficits noted SENSORIUM/ORIENTATION: Yes alert Psych: COMMON NORMALS: mental status grossly normal, Normal thought process present, cooperative, normal affect and speech normal SPEECH: Yes normal speech THOUGHT PROCESS: Normal thought process present Skin: COMMON NORMALS: no rashes or lesions noted, no jaundice, no petechiae and no mottling GENERAL SKIN EXAM: no rashes or lesions noted Data : 08/09/20 13:45 08/09/20 13:45 A&P Assessment and plan (1) Chest pain: -from history, seems to have underlying angina as has chest pain with exertion or after consuming a large meal, typically in the evenings. Typically alleviated with rest and taking NTG. For the first time, had chest pain last night that woke him up from sleep -has known hx of CAD with prior stenting x 3 -telemetry monitoring -GUSTAVO -troponins x 2 wnl, no significant delta; serial ECGs -stress testing in AM, NPO after midnight -resume ASA, start statin -order Echo -recently quit smoking -start long acting nitrate, BB Status: Acute Qualifiers: Chest pain type: chest pain due to myocardial ischemia Ischemic chest pain type: stable angina pectoris Qualified Code(s): I20.8 - Other forms of angina pectoris (2) HTN (hypertension): -monitor vital signs -start on low dose BB, seems to have discontinued his prescribed meds on his own some time ago Status: Chronic Qualifiers: Hypertension type: essential hypertension Qualified Code(s): I10 - Essential (primary) hypertension (3) CAD (coronary artery disease): -has known hx of CAD s/p stenting x 3 -resume meds Status: Acute Qualifiers: Associated angina: without angina Coronary Disease-Associated Artery/Lesion type: [place] artery [place] vs. transplanted heart: [place] heart Qualified Code(s): I25.10 - Atherosclerotic heart disease of [place] coronary artery without angina pectoris (4) Peripheral vascular disease with claudication: -has known PVD with claudication with peripheral angiogram (09/2019) showing multiple luminal irregularities, mild to moderate stenosis of left ostial common iliac artery Status: Chronic Additional A&P Information -Chronic smoker; recently quit smoking about 1 week ago -COPD, no acute exacerbation, not oxygen dependent at baseline -NPO after midnight -GI ppx with PPI -DVT ppx with lovenox -admit to [facility]SU Attestations Medical Necessity Statement*: Dae Gupta's hospital stay will be less than 2 midnights for management of angina with concern for possible ischemia requiring further workup including stress testing. Time Spent in Patient Care: Greater than 35 minutes (>than 50% of time spent in counselling and/or direct pt care on unit). Coding Level of Care Code Acute Project Control Analyst for Chg Fwd Exam Comprehensive Diagnoses Chest pain I20.8 Chest pain type: chest pain due to myocardial ischemia Ischemic chest pain type: stable angina pectoris HTN (hypertension) I10 Hypertension type: essential hypertension CAD (coronary artery disease) I25.10 Associated angina: without angina Coronary Disease-Associated Artery/Lesion type: [place] artery [place] vs. transplanted heart: [place] heart Peripheral vascular disease with claudication I73.9
--- NOTE | 2020-08-09 18:40 | PC.NURSE ---
TOTAL OF 600 ML OF URINE OUT
[2020-08-09 18:41] LABS: Add Urine Microscopic? NO
[2020-08-09 18:45] LABS: Bilirubin Urine Neg (Negative); Blood Urine Neg (Negative); Glucose Urine UA Norm (Normal); Ketones Urine Negative (Negative); Leukocyte Esterase Urine Negative (Negative); Nitrate Urine Negative (Negative); Protein Urine Neg (Negative); Specific Gravity, Urine 1.015 (1.005-1.030); Urine Appearance Clear (CLEAR); Urine Color Straw (Yellow); Urobilinogen Urine Norm (Negative); pH Urine 6 (5-7)
[2020-08-09 20:46] LABS: Troponin 5 6HR 15.53 ng/L (0-15); Troponin 5 6HR Delta 0.53 ng/L (0-12)
--- NOTE | 2020-08-09 21:21 | ECG_ITS ---
[facility] Test Date: 2020-08-10 Pat Name: Dae Gupta Department: Room: 104 Gender: Male Fancy Needleworker: : 1945 Requested By: Janis Hidalgo Order Number: [id number] Donna MD: Juanjose Drake M.D. Interpretive Statements NAME OF STUDY: LEXISCAN SESTAMIBI STRESS TEST INDICATION: [Chest Pain] Procedure: At the baseline, the blood pressure was 126/93 mmHg,with a heart rate of 57 bpm. The electrocardiogram showed a sinus bradycardia, normal axis with normal ST and T's. The Lexiscan was infused over a duration of 20 seconds. A total of 0.4 mg of Lexiscan was infused. The stress phase was continued for a total of 5 minutes. Heart rate at the end of stress phase was 69 bpm, with a blood pressure of 110/65 mmHg. The EKG at the peak infusion revealed sinus rhythm with no significant ST-T wave changes. Sestamibi was injected 20 seconds after Lexiscan infusion. Blood pressure at the end of recovery phase was 112/73 mmHg, with a heart rate of 86 bpm. Conclusion: 1. Normal EKG response to Lexiscan infusion. 2. No Lexiscan induced chest pain or cardiac arrhythmia. 3. Normal blood pressure and heart rate response. 4. Sestamibi/sestamibi perfusion scan pending; see separate report. Electronically Signed On 08-19-2020 10:06:32 PRODUCT SAFETY LEAD by Juanjose Drake M.D. [id number]
[2020-08-09] MEDS: atorvastatin 40 mg Tablet PO (22:17)
[2020-08-09] MEDS: isosorbide mononitrate ER 30 mg Tablet PO (22:17)
[2020-08-09] MEDS: enoxaparin 40 mg/0.4 mL Syringe SUBCUT (22:17)
[2020-08-09] MEDS: sodium chloride 0.9% 1,000 ML 75 ML IV (22:17)
[2020-08-09] MEDS: metoprolol tartrate 25 mg Tablet PO (22:17)
--- NOTE | 2020-08-09 23:15 | ECG_ITS ---
[facility] Test Date: 2020-08-09 Pat Name: Dae Gupta Department: Room: 104 Gender: Male Food Quality Tester: : 1945 Requested By: Janis Hidalgo Order Number: [id number] Donna MD: Deidre Alegre M.D. Measurements Intervals [place] Rate: 51 P: 74 [place]: 170 QRS: 57 QRSD: 93 T: 41 QT: 486 QTc: 448 Interpretive Statements SINUS BRADYCARDIA WITH OCCASIONAL SUPRAVENTRICULAR PREMATURE COMPLEXES POSSIBLE LEFT ATRIAL ENLARGEMENT [-0.1mV P WAVE IN V1/V2] PROLONGED QT INTERVAL Compared to ECG 08/09/2020 14:53:48 Prolonged QT interval now present Electronically Signed On 08-10-2020 21:33:01 ELECTRICIAN POWERHOUSE by Deidre Alegre M.D. [id number]
--- NOTE | 2020-08-09 23:20 | PC.NURSE ---
Patient states I have arterial disease in the left arm so the blood pressures between my right and left arms will be different. It is best you take blood pressures in the right arm. Patient also states I think I need to see a spinner fixer while I'm here. I have a suspicious mole on my back.
[2020-08-09 23:45] LABS: SARS Covid-2 Antigen Negative (Negative)
[2020-08-10] VITALS (59 sets, daily range): BP systolic 109–140; BP diastolic 54–85; PULSE 46–91; RESP 11–23; TEMP 35.9–36.6; O2SAT 90–98
--- NOTE | 2020-08-10 00:45 | PC.NURSE ---
Dr. Benoit notified of patient's rapid COVID test coming back negative. Ordered to take patient off of isolation precautions.
[2020-08-10] MEDS: acetaminophen 325 mg Tablet 650 MG PO ×2 (03:37→17:28)
--- NOTE | 2020-08-10 03:50 | PC.NURSE ---
Patient's Vitamin C dose was entered incorrectly in med rec as 5000 mg daily. Patient states he takes a total of 2000 mg in a day. This was correct on med rec. Dr. Benoit notified and order changed to match what patient takes at home.
[2020-08-10 04:23] LABS: Chol HDL Ratio 4.73 mg/dL (1.0-5.00); Cholesterol 213 mg/dL (0-200); HDL Cholesterol 45 mg/dL (60-100); LDL Cholesterol Calculated 146 mg/dL (50-129); LDL HDL Ratio 3.24 RATIO (0.00-3.22); Triglycerides 111 mg/dL (0-150)
[2020-08-10 04:33] LABS: Blood Urea Nitrogen 13 mg/dL (8-23); Calcium 8.9 mg/dL (8.5-10.5); Carbon Dioxide 29 mmol/L (22-29); Chloride 104 mmol/L (98-107); Glucose 87 mg/dL (65-115); Magnesium 1.9 mg/dL (1.7-2.3); Osmolality Calculated 287 mOsm/kg (285-295); Sodium 139 mmol/L (136-145); Thyroid Stimulating Hormone 1.95 uIU/mL (0.27-4.20)
--- NOTE | 2020-08-10 06:00 | USCV_ITS ---
Dae Gupta Age: 74 Gender: M : 1945 Exam Date: 08/10/2020 06:02 Ordering Phys: Janis Hidalgo MD Technologist: Norman Dillon Exam Location: [facility] [place] Indication: CHEST PAIN BP: 152 / 80 HR: 55 Rhythm: Sinus Technical Quality: Adequate MEASUREMENTS (Male / Female) Normal Values 2D ECHO LV Diastolic Diameter PLAX 3.7 cm 4.2 - 5.9 / 3.9 - 5.3 cm LV Systolic Diameter PLAX 2.5 cm IVS Diastolic Thickness 1.5 cm 0.6 - 1.0 / 0.6 - 0.9 cm IVS Systolic Thickness 1.4 cm LVPW Diastolic Thickness 1.2 cm 0.6 - 1.0 / 0.6 - 0.9 cm LVPW Systolic Thickness 1.5 cm LVOT Diameter 2.0 cm LV Ejection Fraction 2D Teich 60.5 % LV Ejection Fraction MOD 2C 59.0 % LV Ejection Fraction 2C AL 56.2 % LA Diameter 3.0 cm LA Width 3.6 cm LA Height 3.7 cm RA Width 3.0 cm RA Height 3.9 cm Aorta at Sinotubular Diameter 2.8 cm M-MODE LV Diastolic Diameter MM 4.2 cm 4.2 - 5.9 / 3.9 - 5.3 cm LV Systolic Diameter MM 2.4 cm LV Ejection Fraction MM Teich 76.0 % IVS Diastolic Thickness MM 1.1 cm 0.6 - 1.0 / 0.6 - 0.9 cm IVS Systolic Thickness MM 1.0 cm LVPW Diastolic Thickness MM 1.1 cm 0.6 - 1.0 / 0.6 - 0.9 cm LVPW Systolic Thickness MM 1.4 cm Aortic Annulus Diameter 4.0 cm LA Ao Ratio MM 0.8 MV E Point Septal Separation 0.3 cm DOPPLER AV Peak Velocity 124.0 cm/s LVOT Peak Velocity 90.0 cm/s AV Area Cont Eq vti 2.1 cm squared AV Area Cont Eq pk 2.3 cm squared MV Area PHT 1.7 cm squared Mitral E to A Ratio 0.8 MV E' Velocity 34.0 cm/s Mitral E to MV E' Ratio 6.9 Mitral E to LV E' Lateral Ratio 7.0 Mitral E to LV E' Septal Ratio 6.8 TR Peak Velocity 203.0 cm/s TR Peak Gradient 16.5 mmHg Right Atrial Pressure 3.0 mmHg Pulmonary Artery Systolic Pressu 19.5 mmHg PV Peak Velocity 48.0 cm/s RV Acceleration Time 0.1 s RV Ejection Time 0.4 s RV AcT/ET 0.3 FINDINGS Left Ventricle Normal left ventricular size and systolic function. LVEF is 50 to 55%. No regional wall motion abnormalities are seen. Mild concentric left ventricular hypertrophy is seen. Grade 1 diastolic dysfunction is seen. Right Ventricle The right ventricle is normal in size and function. Right Atrium The right atrium is normal in size. Left Atrium The left atrium is normal in size. Mitral Valve Structurally normal mitral valve without significant stenosis or prolapse. There is mild mitral regurgitation. Aortic Valve Structurally normal aortic valve without significant sclerosis or stenosis. There is no aortic regurgitation. Tricuspid Valve Structurally normal tricuspid valve without significant stenosis or regurgitation. Insufficient TR jet to calculate RVSP. Pulmonic Valve Structurally normal pulmonic valve without significant stenosis. There is no pulmonic regurgitation. Pericardium Normal pericardium without effusion. Aorta Normal ascending aorta dimension. CONCLUSIONS LV systolic function is normal with EF of 50 to 55%. No regional wall motion abnormalities are seen. Mild concentric left ventricular hypertrophy is seen. There are 1 diastolic dysfunction is present. There is mild mitral regurgitation noted. No prior studies are available for comparison. Juanjose Drake MD (Electronically Signed) Final Date: 11 August 2020 17:59 S
[2020-08-10] MEDS: regadenoson 0.4 Mg/5 ml Syringe IVP (08:34)
[2020-08-10] MEDS: aspirin 81 mg EC Tablet PO (09:36)
[2020-08-10] MEDS: ascorbic acid 500 mg Tablet 1000 MG PO ×2 (09:36→17:24)
[2020-08-10] MEDS: pantoprazole DR 40 mg Tablet PO (09:38)
[2020-08-10] MEDS: isosorbide mononitrate ER 30 mg Tablet PO (09:38)
--- NOTE | 2020-08-10 11:00 | PC.CHAP ---
Pastoral Care Encounter/Spiritual Assessment Type of Contact [] Declined route salesman and driver visit [] Patient/Family/Request visit [] Outpatient visit [] Follow-up visit [] Physician referral [] Code/Alert [x] Routine visit [] Staff referral [] Actively dying [] Patient sleeping [] Family support [] [] Out of room [] Palliative care [] [x] Receiving care in room [] Pre-surgical visit [] Trauma [] Long length of stay [] ICU visit [] Other: Relational/Emotional Strength [x] Patient feels connected with others/family/visitors/staff [] Distress [] Loneliness/isolation [] Abandonment Spirituality of Patient [x] Person of Griselda [] Attends Jainism of their Griselda [x] Believes in Prayer [] Reads Bible or Zoroastrian materials [] There are Spiritual issues to be addressed Surface Water Technician Interventions [x] Prayer [x] Active listening [x] Non-anxious presence [x] Spiritual/emotional support [] Crisis/trauma care [x] Spiritual counseling [] Bereavement support [] Provided bereavement packet [] Provided Bible/devotional materials [] Provided toy/stuffed animal, coloring book to patient or family member [] Provided Communion [] Anointing/Severn [] Salvation [x] Completed spiritual assessment [] Other: Impact on Illness or Injury [] Angry [] Fearful [x] Anxious [] Often cries [] Exhaustion [] Unable to work [] Unable to attend taoism [] Unable to walk/stand [] Unable to read [] Unable to drive [] Unable to eat/drink [] Unable to sleep [] Unable to be with family [] Patient intubated [] Other: Summary Has had 3 stents, not sure thinks they give meds at this time what needs to donem has a good attitude Time spent with patient 10 mins
[2020-08-10] MEDS: sodium chloride 0.9% 1,000 ML 75 ML IV (11:16)
--- NOTE | 2020-08-10 13:23 | P.DS_ITS ---
Discharge Providers Date of Admission: 08/09/20 20:54 Date of Discharge: August 12, 2020 Attending Provider at Admission: Janis Hidalgo MD Attending Provider at Discharge: Janis Hidalgo MD Consults: Cardiology, Dr. Drake Primary Care Provider: Otoniel Yu DO Diagnoses at Discharge Discharge Diagnosis (1) Chest pain: Status: Acute Permanent problem details: -Echo: EF=50-55%, no RWMA, G1DD, mild MR -abnormal nuclear stress test with noted small to medium sized reversible perfusion defect noted in inferior and apical lateral wall. s/p coronary angiogram with PCI of mid LCx and stenting (JENNIFER) due to severe instent stenosis. -continue ASA, Plavix -inability to tolerate statins Qualifiers: Chest pain type: chest pain due to myocardial ischemia Ischemic chest pain type: stable angina pectoris Qualified Code(s): I20.8 - Other forms of angina pectoris (2) HTN (hypertension): Status: Chronic Qualifiers: Hypertension type: essential hypertension Qualified Code(s): I10 - Essential (primary) hypertension (3) CAD (coronary artery disease): Status: Chronic Permanent problem details: -has known hx of CAD s/p stenting x 3 Qualifiers: Associated angina: without angina Coronary Disease-Associated Artery/Lesion type: [place] artery [place] vs. transplanted heart: [place] heart Qualified Code(s): I25.10 - Atherosclerotic heart disease of [place] coronary artery without angina pectoris (4) Peripheral vascular disease with claudication: Status: Chronic Permanent problem details: -has known PVD with claudication with peripheral angiogram (09/2019) showing multiple luminal irregularities, mild to moderate stenosis of left ostial common iliac artery Other Information Additional DC diagnoses/information: -Chronic smoker; recently quit smoking about 1 week ago -COPD, no acute exacerbation, not oxygen dependent at baseline Reason for Visit Reason for Visit: Chest pain Hospital Course Hospital Course Patient was admitted to the cardiac stepdown unit and had work-up for chest pain including serial troponins, EKGs, telemetry monitoring, echo and stress testing. He was noted to have an abnormal nuclear stress test as noted below for which cardiology was consulted and recommended coronary angiogram; patient required stenting of LCx. He has been chest pain-free since procedure, hemodynamically stable though with some noted bradycardia potentially due to introduction of beta-cathy so this has been discontinued. He has consistently been on room air. Has had adverse reactions to statins in the past so we will not prescribe this on discharge. He is to continue to follow-up with Dr. Han who is his primary meals on wheels driver as well as his primary care provider. He is to follow-up with Delmis Sotry in 1 week for post cath check. He is advised to seek medical attention immediately should any of his symptoms recur. Of note, initial impression on admission was that observation status would suffice, however, with noted abnormal stress test and additional chest pain with need for coronary angiogram and intervention, he was switched to inpatient status. Physical Exam Const: COMMON NORMALS: no acute distress, patient oriented x3 and alert GENERAL APPEARANCE: cooperative and comfortable NUTRITIONAL APPEARANCE: thin ORIENTATION/CONSCIOUSNESS: Yes awake HENMT: COMMON NORMALS: normocephalic, atraumatic, hearing grossly normal bilaterally and moist oral mucous membranes HEAD & SCALP: normocephalic and atraumatic Eye: COMMON NORMALS: Equal, round and reactive pupils present, EOMs intact bilaterally and conjunctivae normal CONJUNCTIVA: Yes conjunctivae normal PUPIL: Yes Equal, round and reactive pupils present Neck/C-Spine: COMMON NORMALS: full ROM GENERAL: Yes normal visual inspection and Yes trachea midline Chest: COMMONS NORMALS: normal inspection of the chest and normal palpation of entire chest wall CHEST: Yes Symmetrical chest wall rise Resp: COMMON NORMALS: normal respiratory effort, No retractions, No use of accessory muscles and clear to auscultation bilaterally EFFORT & INSPECTION: Yes able to speak in complete sentences, Yes symmetric chest movement and No tachypneic AUSCULTATION: clear to auscultation bilaterally OTHER: -on RA Cardio: COMMON NORMALS: regular rate, regular rhythm, S1 normal heart sound present, S2 normal heart sound present and No murmurs present (Cardio) RATE: regular rate RHYTHM: regular rhythm HEART SOUNDS: S1 normal heart sound present and S2 normal heart sound present GI: COMMON NORMALS: Normal to inspection, nondistended, normoactive bowel sounds present, Soft to palpation and non-tender PALPATION: Yes Soft to palpation Extremity: COMMON NORMALS: normal to inspection, full ROM and no clubbing, cyanosis or edema; negative for no pedal edema Neuro: COMMON NORMALS: patient oriented x3, moves all extremities, no focal motor deficits and no sensory deficits noted SENSORIUM/ORIENTATION: Yes alert Psych: COMMON NORMALS: mental status grossly normal, Normal thought process present, cooperative, normal affect and speech normal SPEECH: Yes normal speech THOUGHT PROCESS: Normal thought process present Skin: COMMON NORMALS: no rashes or lesions noted, no jaundice, no petechiae and no mottling GENERAL SKIN EXAM: no rashes or lesions noted Discharge Data Data Completed and Pending: Completed Studies During Hospitalization Category Date Time Status Sestamibi Stress Test Request Routi ne Exams 08/09/20 21:21 Draft XR chest 1V delmar ble [id number] Stat Exams 08/09/20 13:08 Completed Pending at discharge Category Date Time Status NM shyann perf SPECT r/s* [id number] Routin e Nuc Med 08/10/20 21:21 Taken CV echo complete* [id number] Routine Ultrasound 08/10/20 06:00 Taken Labs from last 24 hours 08/10/20 08/10/20 08/09/20 03:23 03:23 22:20 WBC RBC Hgb Hct MCV MCH MCHC RDW Plt Count MPV Neut % (Auto) Lymph % (Auto) [place] % (Auto) Eos % (Auto) Baso % (Auto) Neut # (Auto) Lymph # (Auto) [place] # (Auto) Eos # (Auto) Baso # (Auto) Nucleated RBC % (a uto) Nucleated RBCs # D-Dimer Sodium 139 Potassium 4.0 Chloride 104 Carbon Dioxide 29 Anion Gap 10.0 BUN 13 Creatinine 0.9 GFR Calculation Not Reportable Glucose 87 Calculated Osmolal ity 287 Calcium 8.9 Magnesium 1.9 Total Bilirubin AST ALT Alkaline Phosphata se Troponin T Baselin e Troponin T 120 Min [place] Delta Troponin T Troponin T Hi Sens 6Hr Troponin T Hi Sens 6Hr [place] NT-Pro-B Natriuret Pep Total Protein Albumin Globulin Triglycerides 111 Cholesterol 213 H LDL Cholesterol, C alc 146 H HDL Cholesterol 45 L LDL/HDL Ratio 3.24 H Cholesterol/HDL Ra mona 4.73 TSH 1.95 Urine Color Urine Appearance Urine pH Ur Specific Gravit y Urine Protein Urine Glucose (UA) Urine Ketones Urine Blood Urine Nitrate Urine Bilirubin Urine Urobilinogen Ur Leukocyte Sol ase SARS-CoV-2 Ag (Rap id) Negative 08/09/20 08/09/20 08/09/20 19:50 18:35 15:40 WBC RBC Hgb Hct MCV MCH MCHC RDW Plt Count MPV Neut % (Auto) Lymph % (Auto) [place] % (Auto) Eos % (Auto) Baso % (Auto) Neut # (Auto) Lymph # (Auto) [place] # (Auto) Eos # (Auto) Baso # (Auto) Nucleated RBC % (a uto) Nucleated RBCs # D-Dimer Sodium Potassium Chloride Carbon Dioxide Anion Gap BUN Creatinine GFR Calculation Glucose Calculated Osmolal ity Calcium Magnesium Total Bilirubin AST ALT Alkaline Phosphata se Troponin T Baselin e Troponin T 120 Min [place] 14.04 Delta Troponin T -0.96 L Troponin T Hi Sens 6Hr 15.53 H Troponin T Hi Sens 6Hr Delta 0.53 NT-Pro-B Natriuret Pep Total Protein Albumin Globulin Triglycerides Cholesterol LDL Cholesterol, C alc HDL Cholesterol LDL/HDL Ratio Cholesterol/HDL Ra mona TSH Urine Color Straw Urine Appearance Clear Urine pH 6 Ur Specific Gravit y 1.015 Urine Protein Neg Urine Glucose (UA) Norm Urine Ketones Negative Urine Blood Neg Urine Nitrate Negative Urine Bilirubin Neg Urine Urobilinogen Norm Ur Leukocyte Sol ase Negative SARS-CoV-2 Ag (Rap id) 08/09/20 08/09/20 08/09/20 13:45 13:45 13:45 WBC RBC Hgb Hct MCV MCH MCHC RDW Plt Count MPV Neut % (Auto) Lymph % (Auto) [place] % (Auto) Eos % (Auto) Baso % (Auto) Neut # (Auto) Lymph # (Auto) [place] # (Auto) Eos # (Auto) Baso # (Auto) Nucleated RBC % (a uto) Nucleated RBCs # D-Dimer 0.64 H Sodium 138 Potassium 4.1 Chloride 103 Carbon Dioxide 28 Anion Gap 11.1 BUN 16 Creatinine 0.8 GFR Calculation Not Reportable Glucose 102 Calculated Osmolal ity 287 Calcium 9.5 Magnesium Total Bilirubin 0.2 AST 19 ALT 15 Alkaline Phosphata se 121 Troponin T Baselin e 15 Troponin T 120 Min [place] Delta Troponin T Troponin T Hi Sens 6Hr Troponin T Hi Sens 6Hr [place] NT-Pro-B Natriuret Pep 484 H Total Protein 7.1 Albumin 3.9 Globulin 3.2 Triglycerides Cholesterol LDL Cholesterol, C alc HDL Cholesterol LDL/HDL Ratio Cholesterol/HDL Ra mona TSH Urine Color Urine Appearance Urine pH Ur Specific Gravit y Urine Protein Urine Glucose (UA) Urine Ketones Urine Blood Urine Nitrate Urine Bilirubin Urine Urobilinogen Ur Leukocyte Sol ase SARS-CoV-2 Ag (Rap id) 08/09/20 13:45 WBC 10.1 H RBC 4.60 Hgb 13.8 Hct 43.6 MCV 94.8 H MCH 30.0 MCHC 31.7 RDW 13.9 Plt Count 251 MPV 11.0 H Neut % (Auto) 53.9 Lymph % (Auto) 27.4 [place] % (Auto) 12.1 Eos % (Auto) 5.6 Baso % (Auto) 0.7 Neut # (Auto) 5.45 Lymph # (Auto) 2.8 [place] # (Auto) 1.2 H Eos # (Auto) 0.6 Baso # (Auto) 0.1 Nucleated RBC % (a uto) 0 Nucleated RBCs # 0.0 D-Dimer Sodium Potassium Chloride Carbon Dioxide Anion Gap BUN Creatinine GFR Calculation Glucose Calculated Osmolal ity Calcium Magnesium Total Bilirubin AST ALT Alkaline Phosphata se Troponin T Baselin e Troponin T 120 Min [place] Delta Troponin T Troponin T Hi Sens 6Hr Troponin T Hi Sens 6Hr [place] NT-Pro-B Natriuret Pep Total Protein Albumin Globulin Triglycerides Cholesterol LDL Cholesterol, C alc HDL Cholesterol LDL/HDL Ratio Cholesterol/HDL Ra mona TSH Urine Color Urine Appearance Urine pH Ur Specific Gravit y Urine Protein Urine Glucose (UA) Urine Ketones Urine Blood Urine Nitrate Urine Bilirubin Urine Urobilinogen Ur Leukocyte Sol ase SARS-CoV-2 Ag (Rap id) Vitals: Last Vital Signs Temp 96.8 F L 08/10/20 11:03 Pulse 62 08/10/20 11:03 Resp 21 H 08/10/20 11:03 BP 109/78 08/10/20 11:03 Pulse Ox 98 08/10/20 11:03 Discharge Plan Discharge Patient Disposition: Home Condition: Stable Prescriptions: New clopidogrel 75 mg Tablet 75 mg PO DAILY 30 Days Qty: 30 RF: 0 metoprolol tartrate 25 mg Tablet 12.5 mg PO BID@0900,2100 Qty: 30 RF: 0 amlodipine 5 mg Tablet 2.5 mg PO DAILY Qty: 60 RF: 3 Continued coenzyme Q10 [Co Q-10] 10 mg Capsule 10 mg PO DAILY@0900 RF: 0 omega 6-dal-all-fish oil [Fish Oil] 1,000 mg (120 mg-180 mg) Capsule 2 cap PO DAILY@0900 RF: 0 L-Arginine(alpha-ketoglutarat) 2,000 MG 2,000 mg PO DAILY@0900 RF: 0 ascorbic acid (vitamin C) [Vitamin C] 1,000 mg Tablet 1,000 mg PO BID RF: 0 zinc acetate 50 mg (zinc) Capsule 50 mg PO DAILY@0900 RF: 0 garlic oil 1,000 mg Capsule 5,000 mg PO DAILY@0900 RF: 0 Lynch Mg 500 mg Capsule 500 mg PO DAILY@0900 RF: 0 vitamin B complex Capsule 1 cap PO DAILY@0900 RF: 0 calcium jufy-Q4-dbwdmgtky balaji 133 mg calcium -133 unit-67 mg Capsule 1 cap PO DAILY@0900 RF: 0 olive leaf extract 250 mg Capsule 250 mg PO DAILY@0900 RF: 0 elderberry fruit and flower 460-115 mg Capsule 1 cap PO DAILY@0900 RF: 0 Cardio For Life 1 tab PO DAILY@0900 RF: 0 [place]'s wort See Rx Instructions .ROUTE .COMPLEX RF: 0 Vitamin D3 1 tab PO DAILY@0900 RF: 0 Vitamin E Complex 1 tab PO DAILY@0900 RF: 0 echinacea 1 cap PO DAILY@0900 RF: 0 goldenseal 1 cap PO DAILY@0900 RF: 0 gotu toyin (Centella asiatica) 1 tab PO DAILY@0900 RF: 0 horse chestnut 1 cap PO DAILY@0900 RF: 0 saw palmetto 1 tab PO DAILY@0900 RF: 0 selenium 1 tab PO DAILY@0900 RF: 0 vitamin K 1 tab PO DAILY@0900 RF: 0 aspirin 81 mg Tablet,Delayed Release (Dr/Ec) 81 mg PO DAILY@0900 Qty: 30 RF: 0 Discharge Orders: Discharge Order (Routine); Ordered 08/12/20 Ordered By: Janis Hidalgo Referrals: Tomasa Han MD [Physician] - 1 month ([facility] will contact to schedule an follow-up appointment with Dr. Han in 1 month. If you haven't heard from them by Friday afternoon. Please call ) Otoniel Yu DO [Primary Care Provider] - 4-7 days (Please call for an follow-up appointment with the [facility] in 4 to 7 days. [phone]) Delmis Story FNP [Nurse Practitioner] - 1 week ([facility] will contact you to schedule an follow-up appointment in 1 week. If you haven't heard from them by Friday afternoon. Please call ) Discharge Diet: Cardiac Discharge Activity: Increase activity as tolerated Patient Instructions: Metoprolol (By mouth), Isosorbide Mononitrate (By mouth), Clopidogrel (By mouth), Left Heart Catheterization (DC), Chest Pain Stoplight, Post Angiogram Home Care Instructions Discharge Attestations Time Spent in Discharge Care*: greater than 30 min Specific Discharge Activities: educating patient, discussing with embedded case manager/social workers/dc planners, documenting/other paperwork and evaluating patient/reviewing data Status at Discharge: Cognitive status at discharge: cognitively intact , Behavioral status at discharge: cooperative and independent in ADL's , Functional status at discharge: independent ambulation Overall status at discharge: patient is progressing back to baseline Quality Metrics Clinical Quality Measures During this hospital stay, did patient experience: None Coding Level of Care Code Acute Pharmacy Technician Per Diem for g Fwd Exam Comprehensive Diagnoses Chest pain I20.8 Chest pain type: chest pain due to myocardial ischemia Ischemic chest pain type: stable angina pectoris HTN (hypertension) I10 Hypertension type: essential hypertension CAD (coronary artery disease) I25.10 Associated angina: without angina Coronary Disease-Associated Artery/Lesion type: [place] artery [place] vs. transplanted heart: [place] heart Peripheral vascular disease with claudication I73.9
--- NOTE | 2020-08-10 17:57 | P.PN_ITS ---
Subjective Subjective: Interval history: Patient sitting comfortably in bed, no apparent distress, no acute overnight events reported. Chest pain-free. Stress testing today. Blood pressure improved. Medications: Reviewed: Yes Medication Review Details: Active Medications Generic Name Dose Route Start Last Admin Trade Name Freq PRN Reason Stop Dose Admin Acetaminophen 650 mg 08/09/20 21:21 08/10/20 17:28 Acetaminophen 32 5 Mg Tablet PO 650 mg Q6H PRN Administration MILD PAIN Aminophylline 25 mg 08/10/20 06:54 Aminophylline 25 Mg/Ml Sdv 10 Ml IVP 08/11/20 06:53 Q2M PRN see dose instruct ions Ascorbic Acid 1,000 mg 08/10/20 09:00 08/10/20 17:24 Ascorbic Acid 50 0 Mg Tablet PO 1,000 mg BID LATOYA Administration Aspirin 81 mg 08/10/20 09:00 08/10/20 09:36 Aspirin 81 Mg Ec Tablet PO 81 mg DAILY@0900 LATOYA Administration Atorvastatin Calci um 40 mg 08/09/20 21:21 08/09/20 22:17 Atorvastatin 40 Mg Tablet PO 40 mg BEDTIME LATOYA Administration Enoxaparin Sodium 40 mg 08/09/20 21:21 08/09/20 22:17 Enoxaparin 40 Mg /0.4 Ml Syringe SUBCUT 40 mg Q24H LATOYA Administration Sodium Chloride 1,000 mls @ 75 ml s/hr 08/09/20 21:21 08/10/20 11:16 Sodium Chloride 0.9% IV 75 mls/hr .[id number] LATOYA Administration Isosorbide Mononit rate 30 mg 08/09/20 21:21 08/10/20 09:38 Isosorbide Draper itrate Er 30 Mg Ta blet PO 30 mg DAILY LATOYA Administration Lorazepam 1 mg 08/09/20 21:21 Lorazepam 2 Mg/M l Inj 1 Ml IVP Q6H PRN ANXIETY Metoprolol Tartrat e 25 mg 08/09/20 21:21 08/10/20 10:13 Metoprolol Tartr ate 25 Mg Tablet PO Not Given BID@0900,2100 LATOYA Nitroglycerin 0.4 mg 08/10/20 06:54 Nitroglycerin 0. 4 Mg Sublingual Ta blet SUBLINGUAL 08/11/20 06:53 Q5M PRN CHEST PAIN Non-Formulary Medi cation 50 mg 08/10/20 09:00 08/10/20 09:39 Zinc Acetate PO Not Given DAILY@0900 [facility] Ondansetron HCl 4 mg 08/09/20 21:21 Ondansetron 2 Mg /Ml Sdv 2 Ml IVP Q6H PRN NAUSEA AND VOMITI NG Ondansetron HCl 4 mg 08/10/20 06:54 Ondansetron 2 Mg /Ml Sdv 2 Ml IVP Q2M PRN NAUSEA Pantoprazole Sodiu m 40 mg 08/10/20 09:00 08/10/20 09:[address] 40 Mg Tablet PO 40 mg DAILY LATOYA Administration Yzspmqv-Cul-Fvo Reductase Inhibitor Adverse Reaction (Intermediate, Verified 08/10/20 13:25) ADR-Cramping of the Muscles Vitals/I&O/Wt Last Vital Signs Temp 96.7 F L 08/10/20 15:31 Pulse 62 08/10/20 15:31 Resp 14 08/10/20 15:31 BP 118/54 08/10/20 15:31 Pulse Ox 96 08/10/20 15:31 08/10/20 08/10/20 08/10/20 06:59 14:59 22:59 Intake Total 300 / 300 1062.5 / 1062.5 Output Total 550 / 750 400 / 400 Balance -250 / -450 662.5 / 662.5 Weight last 48 hrs Weight 61.689 kg Weight 61.235 kg Physical Exam Const: COMMON NORMALS: no acute distress, patient oriented x3 and alert GENERAL APPEARANCE: cooperative and comfortable NUTRITIONAL APPEARANCE: thin ORIENTATION/CONSCIOUSNESS: Yes awake OTHER: -very pleasant, sitting up in bed HENMT: COMMON NORMALS: normocephalic, atraumatic, hearing grossly normal bilaterally and moist oral mucous membranes HEAD & SCALP: normocephalic and atraumatic Eye: COMMON NORMALS: Equal, round and reactive pupils present, EOMs intact bilaterally and conjunctivae normal CONJUNCTIVA: Yes conjunctivae normal PUPIL: Yes Equal, round and reactive pupils present Neck/C-Spine: COMMON NORMALS: full ROM GENERAL: Yes normal visual inspection and Yes trachea midline Chest: COMMONS NORMALS: normal inspection of the chest and normal palpation of entire chest wall CHEST: Yes Symmetrical chest wall rise Resp: COMMON NORMALS: normal respiratory effort, No retractions, No use of accessory muscles and clear to auscultation bilaterally EFFORT & INSPECTION: Yes able to speak in complete sentences, Yes symmetric chest movement and No tachypneic AUSCULTATION: clear to auscultation bilaterally OTHER: -on RA Cardio: COMMON NORMALS: regular rate, regular rhythm, S1 normal heart sound present, S2 normal heart sound present and No murmurs present (Cardio) RATE: regular rate RHYTHM: regular rhythm HEART SOUNDS: S1 normal heart sound present and S2 normal heart sound present GI: COMMON NORMALS: Normal to inspection, nondistended, normoactive bowel sounds present, Soft to palpation and non-tender PALPATION: Yes Soft to palpation Extremity: COMMON NORMALS: normal to inspection, full ROM and no clubbing, cyanosis or edema; negative for no pedal edema Neuro: COMMON NORMALS: patient oriented x3, moves all extremities, no focal motor deficits and no sensory deficits noted SENSORIUM/ORIENTATION: Yes alert Psych: COMMON NORMALS: mental status grossly normal, Normal thought process present, cooperative, normal affect and speech normal SPEECH: Yes normal speech THOUGHT PROCESS: Normal thought process present Skin: COMMON NORMALS: no rashes or lesions noted, no jaundice, no petechiae and no mottling GENERAL SKIN EXAM: no rashes or lesions noted Data : 08/09/20 13:45 08/10/20 03:23 A&P Assessment and plan (1) Chest pain: -from history, seems to have underlying angina as has chest pain with exertion or after consuming a large meal, typically in the evenings. Typically alleviated with rest and taking NTG. For the first time, had chest pain last night that woke him up from sleep -has known hx of CAD with prior stenting x 3 -telemetry monitoring -GUSTAVO -troponins noted, no significant delta; serial ECGs with no significant ischemic changes noted -stress testing with noted small to medium sized reversible perfusion defect no wes in inferior and apical lateral wall. Cardiology consult requested -continue ASA, reports previous adverse reactions to statins -Echo report pending -recently quit smoking -continue long acting nitrate, BB now on hold due to noted bradycardia Status: Acute Qualifiers: Chest pain type: chest pain due to myocardial ischemia Ischemic chest pain type: stable angina pectoris Qualified Code(s): I20.8 - Other forms of angina pectoris (2) HTN (hypertension): -continue to monitor vital signs -noted to be bradycardic on low dose BB, seems to have discontinued his prescribed meds on his own some time ago Status: Chronic Qualifiers: Hypertension type: essential hypertension Qualified Code(s): I10 - Essential (primary) hypertension (3) CAD (coronary artery disease): -has known hx of CAD s/p stenting x 3 -continue meds Status: Chronic Qualifiers: Coronary Disease-Associated Artery/Lesion type: [place] artery [place] vs. transplanted heart: [place] heart Associated angina: without angina Qualified Code(s): I25.10 - Atherosclerotic heart disease of [place] coronary artery without angina pectoris (4) Peripheral vascular disease with claudication: -has known PVD with claudication with peripheral angiogram (09/2019) showing multiple luminal irregularities, mild to moderate stenosis of left ostial common iliac artery Status: Chronic Additional A&P Information -Chronic smoker; recently quit smoking about 1 week ago -COPD, no acute exacerbation, not oxygen dependent at baseline -NPO after midnight if need for angiogram -GI ppx with PPI -DVT ppx with lovenox Attestations Medical Necessity Statement*: Patient requires hospitalization due to noted abnormal stress test requiring further workup including possible coronary angiogram. Time Spent in Patient Care: 16 - 35 minutes (>than 50% of time spent in counselling and/or direct pt care on unit) . Coding Level of Care Code Acute Doctor Of Podiatry for Chg Fwd Diagnoses Chest pain I20.8 Chest pain type: chest pain due to myocardial ischemia Ischemic chest pain type: stable angina pectoris HTN (hypertension) I10 Hypertension type: essential hypertension CAD (coronary artery disease) I25.10 Coronary Disease-Associated Artery/Lesion type: [place] artery [place] vs. transplanted heart: [place] heart Associated angina: without angina Peripheral vascular disease with claudication I73.9
--- NOTE | 2020-08-10 18:13 | P.CONIM_ITS ---
Providers/Reason For Consult Consulting Physican/Specialty*: Juanjose Drake/cardiology Reason for Consult*: Chest Pain/abnormal stress test Attending Physician: Janis Hidalgo MD Primary Care Provider: Otoniel Yu DO History of Present Illness History of Present Illness Dae Gupta is a 74 year old male with PMHx noted below presented with complaints of chest pain on exertion which he has had for approximately 2 months and up until last night will typically happen with exertion or after he consumes a large meal. Night before admission, he awakened from sleep due to chest discomfort, substernal, pressure-like/squeezing in quality, non-radiating, resolved after having taken nitroglycerin but concerned him enough that he sought medical attention. He does have a known history of CAD with prior stenting, 1 stent placed in 2012 and 2 stents placed in 2017. 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 Patient underwent nuclear stress test today that showed reversible ischemia of inferior and apical lateral wall. Cardiology was consulted for recommendation regarding further work-up. According to patient he is still having on and off chest pain since coming to the hospital. Review of Systems Const: Reports: change in appetite (decreased appetite) and fatigue; Denies: fever(s) or chills Eyes: Denies: change in vision ENMT: Reports: dry mouth Card: Reports: chest pain; Denies: swelling of feet/ankles or lightheadedness Resp: Reports: productive cough (green sputum); Denies: dyspnea GI: Denies: abdominal pain, nausea, vomiting, hematemesis or hematochezia : Reports: urinary frequency; Denies: dysuria Musc: Denies: back pain Skin/Breast: Denies: rash Neuro: Reports: weakness in extremities; Denies: numbness in extremities Psych: Denies: anxiety Meds/Allergies Home Medications and Allergies Home Medications Medication Instructions Recorded Confirmed Last Taken Type L-Arginine(alpha-ketoglutarat) 2,000 mg PO DAILY@89909/20/19 08/09/20 08/08/20 History coenzyme Q10 [Co Q-10] 10 mg PO DAILY@89909/20/19 08/09/20 08/08/20 History omega 9-xpa-fbk-fish oil [Fish Oil] 2 cap PO DAILY@0909/20/19 08/09/20 08/08/20 History Cardio For Life 1 tab PO DAILY@0900 08/09/20 08/09/20 08/08/20 History [place]'s wort See Rx Instructions .ROUTE .COMPLEX 08/09/20 08/09/20 08/08/20 History Vitamin D3 1 tab PO DAILY@0900 08/09/20 08/09/20 08/08/20 History Vitamin E Complex 1 tab PO DAILY@0900 08/09/20 08/09/20 08/08/20 History ascorbic acid (vitamin C) [Vitamin 1,000 mg PO BID 08/09/20 08/10/20 08/08/20 History C] calcium wwxm-U6-ttguaxmqu balaji 1 cap PO DAILY@0900 08/09/20 08/09/20 08/08/20 History echinacea 1 cap PO DAILY@0900 08/09/20 08/09/20 08/08/20 History elderberry fruit and flower 1 cap PO DAILY@0900 08/09/20 08/09/20 08/08/20 History garlic oil 5,000 mg PO DAILY@0900 08/09/20 08/09/20 08/08/20 History goldenseal 1 cap PO DAILY@0900 08/09/20 08/09/20 08/08/20 History gotu toyin (Centella asiatica) 1 tab PO DAILY@0900 08/09/20 08/09/20 08/09/20 History hawthorn [Melissa Mg] 500 mg PO DAILY@0900 08/09/20 08/09/20 08/08/20 History horse chestnut 1 cap PO DAILY@0900 08/09/20 08/09/20 08/08/20 History olive leaf extract 250 mg PO DAILY@0900 08/09/20 08/09/20 08/08/20 History saw palmetto 1 tab PO DAILY@0900 08/09/20 08/09/20 08/08/20 History selenium 1 tab PO DAILY@0900 08/09/20 08/09/20 08/08/20 History vitamin B complex 1 cap PO DAILY@0900 08/09/20 08/09/20 08/08/20 History vitamin K 1 tab PO DAILY@0900 08/09/20 08/09/2008/08/21 History zinc acetate 50 mg PO DAILY@0900 08/09/20 08/09/20 08/08/20 History aspirin 81 mg PO DAILY@0900 #30 tab 08/10/20 Unknown Rx isosorbide mononitrate 30 mg PO DAILY #30 tab 08/10/20 Unknown Rx Allergies Allergy/AdvReac Type Severity Reaction Status Date / Time Fdcgyre-Fdg-Khb Reductase AdvReac Intermediate ADR-Cramping Verified 08/10/20 13:25 Inhibitor of the Muscles Current Medications Current Medications Generic Name Dose Route Start Last Admin Trade Name Freq PRN Reason Stop Dose Admin Acetaminophen 650 mg 08/09/20 21:21 08/10/20 17:28 Acetaminophen 325 Mg Tablet PO 650 mg Q6H PRN Administration MILD PAIN Ascorbic Acid 1,000 mg 08/10/20 09:00 08/10/20 17:24 Ascorbic Acid 500 Mg Tablet PO 1,000 mg BID LATOYA Administration Aspirin 81 mg 08/10/20 09:00 08/10/20 09:36 Aspirin 81 Mg Ec Tablet PO 81 mg DAILY@0900 LATOYA Administration Enoxaparin Sodium 40 mg 08/09/20 21:21 08/09/20 22:17 Enoxaparin 40 Mg/0.4 Ml Syringe SUBCUT 40 mg Q24H LATOYA Administration Sodium Chloride 1,000 mls @ 75 mls/hr 08/09/20 21:21 08/10/20 11:16 Sodium Chloride 0.9% IV 75 mls/hr .[id number] LATOYA Administration Isosorbide Mononitrate 30 mg 08/09/20 21:21 08/10/20 09:38 Isosorbide Mononitrate Er 30 Mg Tablet PO 30 mg DAILY LATOYA Administration Metoprolol Tartrate 25 mg 08/09/20 21:21 08/10/20 10:13 Metoprolol Tartrate 25 Mg Tablet PO Not Given BID@0900,2100 [facility] Non-Formulary Medication 50 mg 08/10/20 09:00 08/10/20 09:39 Zinc Acetate PO Not Given DAILY@0900 LATOYA Pantoprazole Sodium 40 mg 08/10/20 09:00 08/10/20 09:[address] 40 Mg Tablet PO 40 mg DAILY LATOYA Administration PFSH Acute PFSH: Medical History Anxiety BPH (benign prostatic hyperplasia) CAD (coronary artery disease) -has known hx of CAD s/p stenting x 3 COPD (chronic obstructive pulmonary disease) Depression HLD (hyperlipidemia) HTN (hypertension) -bradycardic with BB, even low dose Hypercholesterolemia Leg weakness, bilateral Peripheral vascular disease with claudication -has known PVD with claudication with peripheral angiogram (09/2019) showing multiple luminal irregularities, mild to moderate stenosis of left ostial common iliac artery PTSD (post-traumatic stress disorder) Surgical History History of coronary artery stent placement Family History Father Myocardial infarction Social History Smoking and tobacco status: current every day smoker Alcohol intake: never Household members: none Marital status: Single Current occupational status: retired History of recent travel: No Vitals/I&O/Wt Last Vital Signs Temp 96.7 F L 08/10/20 15:31 Pulse 62 08/10/20 15:31 Resp 14 08/10/20 15:31 BP 118/54 08/10/20 15:31 Pulse Ox 96 08/10/20 15:31 08/10/20 08/10/20 08/10/20 06:59 14:59 22:59 Intake Total 300 / 300 1062.5 / 1062.5 Output Total 550 / 750 400 / 400 250 / 650 Balance -250 / -450 662.5 / 662.5 -250 / 412.5 Weight last 48 hrs Weight 136 lb Weight 135 lb Physical Exam Const: COMMON NORMALS: no acute distress, patient oriented x3 and alert GENERAL APPEARANCE: cooperative and comfortable NUTRITIONAL APPEARANCE: thin ORIENTATION/CONSCIOUSNESS: Yes awake OTHER: Pleasant HENMT: COMMON NORMALS: normocephalic, atraumatic, hearing grossly normal bilaterally and moist oral mucous membranes HEAD & SCALP: normocephalic and atraumatic Eye: COMMON NORMALS: Equal, round and reactive pupils present, EOMs intact bilaterally and conjunctivae normal CONJUNCTIVA: Yes conjunctivae normal PUPIL: Yes Equal, round and reactive pupils present Neck/C-Spine: COMMON NORMALS: full ROM GENERAL: Yes normal visual inspection and Yes trachea midline Chest: COMMONS NORMALS: normal inspection of the chest and normal palpation of entire chest wall CHEST: Yes Symmetrical chest wall rise Resp: COMMON NORMALS: normal respiratory effort, No retractions, No use of accessory muscles and clear to auscultation bilaterally EFFORT & INSPECTION: Yes able to speak in complete sentences, Yes symmetric chest movement and No tachypneic AUSCULTATION: clear to auscultation bilaterally OTHER: -on RA Cardio: COMMON NORMALS: regular rate, regular rhythm, S1 normal heart sound present, S2 normal heart sound present and No murmurs present (Cardio) RATE: regular rate RHYTHM: regular rhythm HEART SOUNDS: S1 normal heart sound present and S2 normal heart sound present GI: COMMON NORMALS: Normal to inspection, nondistended, normoactive bowel sounds present, Soft to palpation and non-tender PALPATION: Yes Soft to palpation Extremity: COMMON NORMALS: normal to inspection, full ROM and no clubbing, cyanosis or edema; negative for no pedal edema Neuro: COMMON NORMALS: patient oriented x3, moves all extremities, no focal motor deficits and no sensory deficits noted SENSORIUM/ORIENTATION: Yes alert Psych: COMMON NORMALS: mental status grossly normal, Normal thought process present, cooperative, normal affect and speech normal SPEECH: Yes normal speech THOUGHT PROCESS: Normal thought process present Skin: COMMON NORMALS: no rashes or lesions noted, no jaundice, no petechiae and no mottling GENERAL SKIN EXAM: no rashes or lesions noted A&P Assessment and plan (1) Abnormal stress test: Status: Acute (2) Chest pain: Status: Acute Qualifiers: Chest pain type: chest pain due to myocardial ischemia Ischemic chest pain type: stable angina pectoris Qualified Code(s): I20.8 - Other forms of angina pectoris (3) HTN (hypertension): Status: Chronic Qualifiers: Hypertension type: essential hypertension Qualified Code(s): I10 - Essential (primary) hypertension (4) CAD (coronary artery disease): Status: Chronic Qualifiers: Coronary Disease-Associated Artery/Lesion type: [place] artery [place] vs. transplanted heart: [place] heart Associated angina: without angina Qualified Code(s): I25.10 - Atherosclerotic heart disease of [place] coronary artery without angina pectoris (5) Peripheral vascular disease with claudication: Status: Chronic Patient is having typical chest pain symptoms and has abnormal stress test. Given the symptoms started within the last 2 months and have been worsening, waking him up from sleeping we should proceed with coronary angiography with possible percutaneous coronary intervention. I had a detailed discussion with patient regarding our recommendations. He agrees with undergoing coronary angiography. Risks and benefits of the procedure have been described. Risks including bleeding, infection, abnormal heart rhythm, heart attack, stroke, renal function worsening or have been described. Patient understands the risks and benefits and wants to proceed with the procedure. Continue aspirin. Blood pressure controlled with current medications. N.p.o. past midnight Further recommendations after coronary angiography is performed. Coding Level of Care Code Acute Cyber Workforce Developer And Manager for salma Reyesd Diagnoses Abnormal stress test R94.39 Chest pain I20.8 Chest pain type: chest pain due to myocardial ischemia Ischemic chest pain type: stable angina pectoris HTN (hypertension) I10 Hypertension type: essential hypertension CAD (coronary artery disease) I25.10 Coronary Disease-Associated Artery/Lesion type: [place] artery [place] vs. transplanted heart: [place] heart Associated angina: without angina Peripheral vascular disease with claudication I73.9
[2020-08-10] MEDS: enoxaparin 40 mg/0.4 mL Syringe SUBCUT (20:19)
--- NOTE | 2020-08-10 21:21 | NMCV_ITS ---
NM shyann perf SPECT r/s* [id number] Ashley Guptan Age: 74 Gender: M : 1945 Exam Date: 08/10/2020 07:16 Ordering Phys: Janis Hidalgo MD Technologist: SELAM Ulloa Exam Location: [facility] Indications: Chest pain STRESS TEST [facility] for [facility] IMAGE PROTOCOL Rest/Stress 1 Lexiscan Day Radiopharmaceutical Dose (mCi) Administration Site Administered by Rest: Tc-99m 11.0 IV SELAM Ulloa Sestamibi Stress:Tc-99m 32.7 IV SELAM Ulloa Sestamibi Rest: 10-Aug-2020 60 Discovery 630 Stress: 10-Aug-2020 45 Discovery 630 0.4mg Lexiscan. Images obtained in supine and prone position. SPECT RESULTS Technical Quality: Good Raw Data Analysis: Normal Image Corrections: No attenuation or motion correction applied Summed Stress Score: 3 Summed Rest Score: 0 Summed Difference Score: 3 PERFUSION FINDINGS There is a small to medium sized reversible defect noted in inferior and apical lateral wall. FUNCTIONAL RESULTS (calculated via Gated SPECT) Stress Image LV EF (%): 51 Stress EDV (mL):84 TID: 1.17 Stress ESV (mL):41 FUNCTIONAL FINDINGS: LV systolic function is normal with EF of 51%. IMPRESSIONS 1. There is small to medium sized reversible perfusion defect noted in inferior and apical lateral wall. This likely represents ischemia. 2. LV systolic function is normal with EF of 51%. Juanjose Drake MD (Electronically Signed) Final Date: 10 August 2020 15:44 S
--- NOTE | 2020-08-10 21:51 | PC.NURSE ---
Spoke with Dr. Benoit hospitalist instructional coordinator regarding this patient's order for metoprolol 25mg po. At the time of attempted administration the patient's heart rate was 50-55 sustained. Telephone order with readback received to hold this dose.
[2020-08-11] VITALS (52 sets, daily range): BP systolic 81–166; BP diastolic 49–97; PULSE 56–92; RESP 10–27; TEMP 36.2–36.9; O2SAT 92–99
[2020-08-11] MEDS: sodium chloride 0.9% 1,000 ML 75 ML IV ×2 (00:15→13:26)
[2020-08-11] MEDS: diphenhydrAMINE 50 mg Capsule PO (06:19)
--- NOTE | 2020-08-11 07:00 | XACV_ITS ---
Exam Room: [facility] Ht: 175 cm Wt: 62 kg BSA: 1.73 m2 Gender: Male : 1945 Any Known Allergies: Other Exam Priority: Routine Procedure(s): Procedure Description: Diagnostic procedure Procedure Description: PCI procedure Procedure Description: Drug Eluting Coronary Stent Procedure Description: PTCA Procedure Description: Miscellaneous Procedure Description: ACT Procedure Description: Coronary Angiography Diagnostic Cath Status: Urgent Diagnostic Findings * LAD has luminal irregularities. It gives rise to 2 diagonal branches without significant disease.. * RCA is a small nondominant vessel. No significant stenosis seen. * There are prior stents seen in proximal to mid left circumflex artery and large OM branch. There is severe in-stent restenosis in proximal section of left circumflex stent. pCIRC to Mid Circumflex Coronary Artery: Severe 80% stenosis, [place]: 3 flow. * LM has 0% stenosis. * Coronary angiography shows left dominance. PCI Status: Urgent PCI Indication: New Onset Angina <= 2 months Interventional Findings * We used XB 3 guide catheter to engage left main artery. A 0.014 run-through guidewire was used to cross the proximal to mid left circumflex artery stenosis and was placed in distal left circumflex artery. We predilated the stenosis using 2.5 x 12 mm semicompliant balloon. This was followed by placement of 3.0 x 18 mm resolute [place] drug-eluting stent. We will dilated the distal stent in-stent restenosis with a 2.75 x 8 mm NC balloon. At this time final angiogram was performed that showed excellent stent expansion, [place]-3 flow and no residual stenosis. Guidewire and guide catheter were removed. TR band was placed to achieve hemostasis. Patient left the Completions Engineer in a stable condition.. * pCIRC to Mid Circumflex Coronary Artery: 80% stenosis treated with Drug Eluting Stent. 0% residual stenosis, [place]: 3 flow. * Mid Circumflex Coronary Artery: 80% stenosis treated with AB TREK 2.50X12 RX BALLOON, SIMONE R MYKEL 3.0X18 JENNIFER, and MDFreeman FIGUEROA EUPHORA RX [id number] BALLOON. 0% residual stenosis, [place]: 3 flow. Conclusions 1. There is severe coronary artery disease with one vessel disease. 2. pCIRC to Mid Circumflex Coronary Artery was treated with Drug Eluting Stent. Recommendations * Transfer back to CSU. * Aspirin and Plavix for at least 1 year. * Patient is intolerant to statin therapy. * Beta-cathy therapy. * Follow-up with Dr. Han in 1 month. Interventional RX Recommendation: PCI w/o planned CABG Diagnostic RX Recommendation: PCI w/o planned CABG Pressures Phase:Rest AO : 150 / 90 ( 116 ) @ 1:31:00 AM 162 / 75 ( 115 ) @ 1:34:00 AM 186 / 97 ( 137 ) @ 1:38:00 AM 145 / 56 ( 93 ) @ 1:48:00 AM 173 / 85 ( 126 ) @ 1:49:00 AM 168 / 71 ( 111 ) @ 1:56:00 AM Clinical Evaluation EBL: 5mL-10mL Procedural Details Procedure Consent Obtained. Current Diagnosis : NSTEMI. Pre-Procedure Time Out. Identified patient by full name and date of as verbalized by the patient/guarantor. Does the consent match the physician's order: Yes. Accurate & Complete Informed Consent: Yes. Inpatient/Outpatient History & Physical on Chart: Yes. If H&P is completed, is and addenduem needed: Yes; If yes, is the addendum complete: N/A. Visualize and Verify Site with Patient/Guarantor: N/A. Relevant Radiology Images available: Yes. Pre-op teaching completed and patient verbalized understanding. The risks, benefits, and alternatives of sedation and/or procedure were discussed by physician. The patient agrees to continue. Procedure started. [facility] Clinical Fraility Score: 3: Managing Well. Completions Engineer Indications: Suspected CAD. Chest Pain Symptom Assessment: Typical Angina Symptoms. Correct patient, site and procedure confirmed by cath team. Current diagnosis: NSTEMI. PERRLA. Strong, equal hand brine purifier bilaterally. Lungs clear x 5 lobes. IV Site on Arrival: 18 gauge in the left anticubital. IV Fluids: 0.9% NaCl at KVO. 400 mL infused prior to laborer/key man. Pre Procedural Pulses: right radial was 3+. Oxygen started at 2liters/min via nasal canula. right groin was prepped with chloroprep then draped in the usual sterile fashion. right radial was prepped with chloroprep then draped in the usual sterile fashion. Baseline sample Acquired. HR: 58 BPM. Physician arrived. Patient's family unavailable. Physician scrubbed in. Immediate Pre-Procedure Time Out. Correct Patient: Yes; Correct Procedure: Yes; Correct Site: Yes; Correct Patient Position: Yes; Correct Supplies: Yes; Dried Flammable Prep: Yes; Blood Products Available: N/A;. Lidocaine 1% infiltrated to the right radial. Arterial access obtained. A 5 equatorial guinean TIG catheter in over wire. Multiple views taken of left coronary artery. Catheter redirected to the RCA. Multiple views taken of right coronary artery. Catheter removed over the exchange wire. 6 equatorial guinean XB 3 guide catheter was inserted over the wire. Runthrough guidewire was advanced through the guide catheter to lesion in the mid Circ. Inflation number : 1 A AB TREK 2.50X12 RX BALLOON was prepped and advanced across the Mid CX , then inflated to 12 BRYNN for 0:28 seconds. Inflation number: 2 The AB TREK 2.50X12 RX BALLOON was reinflated across the Mid CX, to 16 BRYNN for 0:15 seconds. Balloon out. Results checked. Inflation Number : 3 Lázaro Franz MYKEL 3.0X18 JENNIFER -Lot Number# _[id number] Exp: 05/04/2022 was prepped and advanced across the Mid CX. The stent was deployed at 12 BRYNN for 0:38 seconds. Stent balloon out over wire. Results checked. Inflation number : 4 A MDT NC EUPHORA RX [id number] BALLOON was prepped and advanced across the Mid CX , then inflated to 18 BRYNN for 0:32 seconds. Inflation number: 5 The MDT NC EUPHORA RX [id number] BALLOON was reinflated across the Mid CX, to 16 BRYNN for 0:25 seconds. Balloon out. Wire out. Guide catheter out. ACT drawn. Results 234 seconds. Therapeutic limits - pre-heparin administration 90-150 seconds and monitoring heparin during a vascular procedure >250 seconds. Physician scrubbed out. TR band placed. Hemostasis obtained. A TR Band was successful obtaining hemostatsis at the Right Radial artery insertion site. Post Procedure: Pulses reassessed and unchanged. PERRLA. Strong, equal hand brine purifier bilaterally. No VTE prophylaxis required. Contrast type used: Omnipaque 300 mgI/mL, 500 mL bottle. Medication's Wasted: Lidocaine 1% = 18 mL. Medication's Wasted: Nitro = 49.6 mcg. Medication's Wasted: Heparin = 4000 units. Total IV fluids: 50 mL. Post-op diagnosis: CAD. Complications: None. Estimated blood loss: 5mL-10mL. Procedure completed. Patient transferred by wheelchair to 1st floor. Vital chart was stopped. Access Site Site: Right Radial artery Sheath Size: 6 Fr Hemostasis Method: TR Band Hemostasis Success: Successful Procedure Medications Start: 7:23 AM Stop: 7:23 AM Medication: Versed Amount: 1 mg Route: I.V. Start: 7:23 AM Stop: 7:23 AM Medication: Fentanyl Amount: 50 mcg Route: I.V. Start: 7:29 AM Stop: 7:29 AM Medication: Nitrogylcerin Amount: 200 mcg Route: I.A. Start: 7:31 AM Stop: 7:31 AM Medication: Heparin Amount: 5000 units Route: I.V. Start: 7:38 AM Stop: 7:38 AM Medication: Heparin Amount: 2000 units Route: I.V. Start: 7:43 AM Stop: 7:43 AM Medication: Hydralazine Amount: 10 mg Route: I.V. Start: 7:55 AM Stop: 7:55 AM Medication: Nitrogylcerin Amount: 200 mcg Route: I.A. Start: 7:57 AM Stop: 7:57 AM Medication: Plavix Amount: 600 mg Route: P.O. Start: 8:01 AM Stop: 8:01 AM Medication: Versed Amount: 1 mg Route: I.V. Start: 8:02 AM Stop: 8:02 AM Medication: Fentanyl Amount: 50 mcg Route: I.V. I, the attending physician, have reviewed and verified all procedure medications. Yes, all medications given per verbal order History/Risk Factors Hypertension: No Dyslipidemia: Yes Peripheral Arterial Disease (PAD): Yes Myocardial Infarction (WI): No Obesity: No Renal Disease: No Tobacco Use: Current/Recent(w/in 1 year) Prior Interventions PCI: Yes CABG: No Valve Surgery: No Date of PCI: 09/21/2018 Report Signatures Finalized by Juanjose Drake MD on 08/12/2020 06:42 PM
--- NOTE | 2020-08-11 07:21 | W.PM.OPSUD ---
Surgery/Procedure H&P Update DATE OF PROCEDURE: August 11, 2020 DATE H&P PERFORMED: 08/10/20 H&P UPDATE INFORMATION: I have reviewed H&P completed within last 30 days, I have examined patient prior to procedure and No changes to prior documentation PREOP DIAGNOSIS: Worsening angina/abnormal stress test PRIMARY INDICATION FOR PROCEDURE: Worsening angina/abnormal stress test PLANNED PROCEDURE: Left heart cath/ possible percutaneous coronary intervention PATIENT REASSESSED PRIOR TO SEDATION, WITH NO CHANGE NOTED: Yes PHYSICAL EXAM: alert, oriented x 3 and clear to auscultation bilaterally AIRWAY EVAL/ANESTHESIA PLAN: ASA II, Risks, benefits & alternatives of sedation and/or procedure discussed and Patient agrees to continue as planned
--- NOTE | 2020-08-11 08:14 | PM.PN ---
Subjective Subjective: Interval history: Patient taken to laborer concrete paving this AM due to noted abnormal stress test; had stenting of circumflex. Findings discussed with Dr. Drake. Had 900 mL urine output overnight, afebrile, hemodynamically stable, on RA. Reports episode of chest pain early this AM before going to laborer concrete paving and upon his return, now resolved following dose of Fentanyl. TR band in place, no complaints currently, hoping to go home tomorrow. Medications: Reviewed: Yes Medication Review Details: Active Medications Generic Name Dose Route Start Last Admin Trade Name Freq PRN Reason Stop Dose Admin Acetaminophen 650 mg 08/09/20 21:21 08/10/20 17:28 Acetaminophen 32 5 Mg Tablet PO 650 mg Q6H PRN Administration MILD PAIN Ascorbic Acid 1,000 mg 08/10/20 09:00 08/10/20 17:24 Ascorbic Acid 50 0 Mg Tablet PO 1,000 mg BID LATOYA Administration Aspirin 81 mg 08/10/20 09:00 08/10/20 09:36 Aspirin 81 Mg Ec Tablet PO 81 mg DAILY@0900 LATOYA Administration Clopidogrel Bisulf ate 75 mg 08/12/20 09:00 Clopidogrel 75 M g Tablet PO DAILY LATOYA Enoxaparin Sodium 40 mg 08/09/20 21:21 08/10/20 20:19 Enoxaparin 40 Mg /0.4 Ml Syringe SUBCUT 40 mg Q24H LATOYA Administration Sodium Chloride 1,000 mls @ 75 ml s/hr 08/09/20 21:21 08/11/20 00:15 Sodium Chloride 0.9% IV 75 mls/hr .[id number] LATOYA Administration Sodium Chloride 1,000 mls @ 50 ml s/hr 08/10/20 21:43 08/11/20 00:06 Sodium Chloride 0.9% IV 08/11/20 17:42 Not Given .Q20H ONE Isosorbide Mononit rate 30 mg 08/09/20 21:21 08/10/20 09:38 Isosorbide [place] itrate Er 30 Mg Ta blet PO 30 mg DAILY LATOYA Administration Lorazepam 1 mg 08/09/20 21:21 Lorazepam 2 Mg/M l Inj 1 Ml IVP Q6H PRN ANXIETY Metoprolol Tartrat e 25 mg 08/09/20 21:21 08/10/20 21:50 Metoprolol Tartr ate 25 Mg Tablet PO Not Given BID@0900,2100 [facility] Non-Formulary Medi cation 50 mg 08/10/20 09:00 08/10/20 09:39 Zinc Acetate PO Not Given DAILY@0900 [facility] Ondansetron HCl 4 mg 08/09/20 21:21 Ondansetron 2 Mg /Ml Sdv 2 Ml IVP Q6H PRN NAUSEA AND VOMITI NG Ondansetron HCl 4 mg 08/10/20 06:54 Ondansetron 2 Mg /Ml Sdv 2 Ml IVP Q2M PRN NAUSEA Pantoprazole Sodiu m 40 mg 08/10/20 09:00 08/10/20 09:[address] 40 Mg Tablet PO 40 mg DAILY [facility] Administration Iqghysr-Doy-Vwo Reductase Inhibitor Adverse Reaction (Intermediate, Verified 08/10/20 13:25) ADR-Cramping of the Muscles Vitals/I&O/Wt Last Vital Signs Temp 97.7 F 08/11/20 04:00 Pulse 89 08/11/20 06:00 Resp 17 08/11/20 04:00 BP 166/97 08/11/20 04:00 Pulse Ox 96 08/11/20 04:00 08/10/20 08/11/20 08/11/20 22:59 06:59 14:59 Intake Total 973.75 / 2036.25 Output Total 450 / 850 700 / 1550 Balance -450 / 212.5 273.75 / 486.25 Weight last 48 hrs Weight 58.74 kg Weight 61.689 kg Weight 61.235 kg Physical Exam Const: COMMON NORMALS: no acute distress, patient oriented x3 and alert GENERAL APPEARANCE: cooperative and comfortable NUTRITIONAL APPEARANCE: thin ORIENTATION/CONSCIOUSNESS: Yes awake OTHER: -very pleasant, sitting up in bed HENMT: COMMON NORMALS: normocephalic, atraumatic, hearing grossly normal bilaterally and moist oral mucous membranes HEAD & SCALP: normocephalic and atraumatic Eye: COMMON NORMALS: Equal, round and reactive pupils present, EOMs intact bilaterally and conjunctivae normal CONJUNCTIVA: Yes conjunctivae normal PUPIL: Yes Equal, round and reactive pupils present Neck/C-Spine: COMMON NORMALS: full ROM GENERAL: Yes normal visual inspection and Yes trachea midline Chest: COMMONS NORMALS: normal inspection of the chest and normal palpation of entire chest wall CHEST: Yes Symmetrical chest wall rise Resp: COMMON NORMALS: normal respiratory effort, No retractions, No use of accessory muscles and clear to auscultation bilaterally EFFORT & INSPECTION: Yes able to speak in complete sentences, Yes symmetric chest movement and No tachypneic AUSCULTATION: clear to auscultation bilaterally OTHER: -on RA Cardio: COMMON NORMALS: regular rate, regular rhythm, S1 normal heart sound present, S2 normal heart sound present and No murmurs present (Cardio) RATE: regular rate RHYTHM: regular rhythm HEART SOUNDS: S1 normal heart sound present and S2 normal heart sound present GI: COMMON NORMALS: Normal to inspection, nondistended, normoactive bowel sounds present, Soft to palpation and non-tender PALPATION: Yes Soft to palpation Extremity: COMMON NORMALS: normal to inspection, full ROM and no clubbing, cyanosis or edema; negative for no pedal edema NARRATIVE EXTREMITY EXAM: -TR band in place on R wrist Neuro: COMMON NORMALS: patient oriented x3, moves all extremities, no focal motor deficits and no sensory deficits noted SENSORIUM/ORIENTATION: Yes alert Psych: COMMON NORMALS: mental status grossly normal, Normal thought process present, cooperative, normal affect and speech normal SPEECH: Yes normal speech THOUGHT PROCESS: Normal thought process present Skin: COMMON NORMALS: no rashes or lesions noted, no jaundice, no petechiae and no mottling GENERAL SKIN EXAM: no rashes or lesions noted Data : 08/09/20 13:45 08/10/20 03:23 A&P Assessment and plan (1) Chest pain: -from history, seems to have underlying angina as has chest pain with exertion or after consuming a large meal, typically in the evenings. Typically alleviated with rest and taking NTG. For the first time, had chest pain last night that woke him up from sleep -has known hx of CAD with prior stenting x 3 -telemetry monitoring -GUSTAVO -troponins noted, no significant delta; serial ECGs with no significant ischemic changes noted -stress testing with noted small to medium sized reversible perfusion defect noted in inferior and apical lateral wall. Cath today with stenting of circumflex -cardiology consult by Dr. Drake appeciated -continue ASA, reports previous adverse reactions to statins -Echo report pending -recently quit smoking -continue long acting nitrate, BB now on hold due to noted bradycardia Status: Acute Qualifiers: Chest pain type: chest pain due to myocardial ischemia Ischemic chest pain type: stable angina pectoris Qualified Code(s): I20.8 - Other forms of angina pectoris (2) HTN (hypertension): -continue to monitor vital signs -noted to be bradycardic on low dose BB, seems to have discontinued his prescribed meds on his own some time ago Status: Chronic Qualifiers: Hypertension type: essential hypertension Qualified Code(s): I10 - Essential (primary) hypertension (3) CAD (coronary artery disease): -has known hx of CAD s/p stenting x 3 -continue meds Status: Chronic Qualifiers: Associated angina: without angina Coronary Disease-Associated Artery/Lesion type: [place] artery [place] vs. transplanted heart: [place] heart Qualified Code(s): I25.10 - Atherosclerotic heart disease of [place] coronary artery without angina pectoris (4) Peripheral vascular disease with claudication: -has known PVD with claudication with peripheral angiogram (09/2019) showing multiple luminal irregularities, mild to moderate stenosis of left ostial common iliac artery Status: Chronic Additional A&P Information -Chronic smoker; recently quit smoking about 1 week ago -COPD, no acute exacerbation, not oxygen dependent at baseline -NPO after midnight, resume cardiac diet when appropriate -GI ppx with PPI -DVT ppx with lovenox Attestations Medical Necessity Statement*: Patient requires hospitalization for continued management of CAD with additional stenting due to noted angina and abnormal stress test. Time Spent in Patient Care: 16 - 35 minutes (>than 50% of time spent in counselling and/or direct pt care on unit). Coding Level of Care Code Acute Director Child for g Fwd Exam Comprehensive Diagnoses Chest pain I20.8 Chest pain type: chest pain due to myocardial ischemia Ischemic chest pain type: stable angina pectoris HTN (hypertension) I10 Hypertension type: essential hypertension CAD (coronary artery disease) I25.10 Associated angina: without angina Coronary Disease-Associated Artery/Lesion type: [place] artery [place] vs. transplanted heart: [place] heart Peripheral vascular disease with claudication I73.9
--- NOTE | 2020-08-11 08:29 | ECG_ITS ---
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 Measurements Intervals [place] Rate: 78 P: 75 MT: 157 QRS: 48 QRSD: 100 T: 60 QT: 417 QTc: 476 Interpretive Statements SINUS RHYTHM POSSIBLE LEFT ATRIAL ENLARGEMENT [-0.1mV P WAVE IN V1/V2] Compared to ECG 08/09/2020 23:53:13 Sinus bradycardia no longer present Prolonged QT interval no longer present Electronically Signed On 08-11-2020 17:16:29 PLATING DEPARTMENT HELPER by Juanjose Drake M.D. [id number]
[2020-08-11] MEDS: nitroglycerin 0.4 mg sublingual Tablet SUBLINGUAL (08:41)
[2020-08-11] MEDS: fentaNYL 50 mcg/mL INJ 2mL 12.5 MCG IVP (08:44)
[2020-08-11] MEDS: ascorbic acid 500 mg Tablet 1000 MG PO ×2 (09:05→17:02)
[2020-08-11] MEDS: pantoprazole DR 40 mg Tablet PO (09:06)
[2020-08-11] MEDS: aspirin 81 mg EC Tablet PO (09:06)
[2020-08-11] MEDS: metoprolol tartrate 25 mg Tablet PO (09:06)
--- NOTE | 2020-08-11 09:30 | PC.NURSE ---
Patient to CSU from labour market economist at 0820. 2 nurse verification of right wrist radial access. TR band intact, no hematoma noted. VSS. Patient reports chest pain, possible telemetry changes noted. [address] Drake rounded on patient, physician reviewed 12 lead. Verbal order received to give patient SL nitro and 12.5 mcg of fentanyl IVP. If CP is not relieved within 10 minutes, obtain another 12 lead EKG. Call physician if any changes. After administering nitro and fentanyl BP was 98/72. Verbal order from Dr. Drake to administer metoprolol now, hold imdur for one hour. If SBP is >100, give imdur. RBVO
[2020-08-11] MEDS: isosorbide mononitrate ER 30 mg Tablet PO (10:33)
--- NOTE | 2020-08-11 15:07 | PC.RESP ---
SMOKING CESSATION AND PULMONARY REHAB INFORMATION SENT TO PATIENT.
--- NOTE | 2020-08-11 16:51 | PC.NURSE ---
TR band off at 1645 per protocol. Site asymptomatic. dressing applied. Nurse to continue to monitor.
--- NOTE | 2020-08-11 18:40 | PC.NURSE ---
Shift Summary CP has resolved, no further episodes. TR band is off. Insertion site asymptomatic. 2 nurse verification at bedside.
[2020-08-11] MEDS: acetaminophen 325 mg Tablet 650 MG PO (20:01)
--- NOTE | 2020-08-11 20:24 | PC.NURSE ---
Spoke with Dr. Alegre Promotions Executive Producer radio division captain regarding this patient's dose of metoprolol 25mg po. The patient's blood pressure on the left arm was 82/57 ([id number]) with a heart rate of 79. 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 The blood pressure could not be checked on the right arm due to a percutanious heart cauterization via the right radial artery that occured less than 24 hours ago. His blood pressure was rechecked on the left ankle with a reading of 110/63 with a map of 78 however his heart rate was only 61. When the patient is resting his baseline heart rate generally gets in the mid 50s. New orders received to give half of the dose 12.5 mg Metoprolol PO for this administration via telephone order with readback.
[2020-08-11] MEDS: enoxaparin 40 mg/0.4 mL Syringe SUBCUT (20:35)
[2020-08-11] MEDS: metoprolol tartrate 25 mg Tablet 12.5 MG PO (20:36)
--- NOTE | 2020-08-11 22:33 | P.PN_ITS ---
Subjective Subjective: Interval history: Patient is s/p PCI of mid LCx today. He had severe instent restenosis that was treated with JENNIFER x1 . He is feeling well. Denies complaints of chest pain, shortness of breath or palpitations. Vitals/I&O/Wt Last Vital Signs Temp 98.4 F 08/11/20 19:04 Pulse 69 08/11/20 22:00 Resp 18 08/11/20 20:00 BP 82/57 08/11/20 20:00 Pulse Ox 94 08/11/20 20:00 08/11/20 08/11/20 08/11/20 06:59 14:59 22:59 Intake Total 973.75 / 2036.25 1691.25 / 1691.25 240 / 1931.25 Output Total 700 / 1550 680 / 680 350 / 1030 Balance 273.75 / 486.25 1011.25 / 1011.25 -110 / 901.25 Weight last 48 hrs Weight 129 lb 8 oz Weight 136 lb Physical Exam Const: COMMON NORMALS: no acute distress, patient oriented x3 and alert GENERAL APPEARANCE: cooperative and comfortable NUTRITIONAL APPEARANCE: thin ORIENTATION/CONSCIOUSNESS: Yes awake OTHER: Pleasant HENMT: COMMON NORMALS: normocephalic, atraumatic, hearing grossly normal bilaterally and moist oral mucous membranes HEAD & SCALP: normocephalic and atraumatic Eye: COMMON NORMALS: Equal, round and reactive pupils present, EOMs intact bilaterally and conjunctivae normal CONJUNCTIVA: Yes conjunctivae normal PUPIL: Yes Equal, round and reactive pupils present Neck/C-Spine: COMMON NORMALS: full ROM GENERAL: Yes normal visual inspection and Yes trachea midline Chest: COMMONS NORMALS: normal inspection of the chest and normal palpation of entire chest wall CHEST: Yes Symmetrical chest wall rise Resp: COMMON NORMALS: normal respiratory effort, No retractions, No use of accessory muscles and clear to auscultation bilaterally EFFORT & INSPECTION: Yes able to speak in complete sentences, Yes symmetric chest movement and No tachypneic AUSCULTATION: clear to auscultation bilaterally OTHER: -on RA Cardio: COMMON NORMALS: regular rate, regular rhythm, S1 normal heart sound present, S2 normal heart sound present and No murmurs present (Cardio) RATE: regular rate RHYTHM: regular rhythm HEART SOUNDS: S1 normal heart sound present and S2 normal heart sound present GI: COMMON NORMALS: Normal to inspection, nondistended, normoactive bowel sounds present, Soft to palpation and non-tender PALPATION: Yes Soft to palpation Extremity: COMMON NORMALS: normal to inspection, full ROM and no clubbing, cyanosis or edema; negative for no pedal edema Neuro: COMMON NORMALS: patient oriented x3, moves all extremities, no focal motor deficits and no sensory deficits noted SENSORIUM/ORIENTATION: Yes alert Psych: COMMON NORMALS: mental status grossly normal, Normal thought process present, cooperative, normal affect and speech normal SPEECH: Yes normal speech THOUGHT PROCESS: Normal thought process present Skin: COMMON NORMALS: no rashes or lesions noted, no jaundice, no petechiae and no mottling GENERAL SKIN EXAM: no rashes or lesions noted Data : 08/09/20 13:45 08/10/20 03:23 A&P Assessment and plan (1) Chest pain: Status: Acute Qualifiers: Chest pain type: chest pain due to myocardial ischemia Ischemic chest pain type: stable angina pectoris Qualified Code(s): I20.8 - Other forms of angina pectoris (2) Abnormal stress test: Status: Acute (3) HTN (hypertension): Status: Chronic Qualifiers: Hypertension type: essential hypertension Qualified Code(s): I10 - Essential (primary) hypertension (4) CAD (coronary artery disease): Status: Chronic Qualifiers: Coronary Disease-Associated Artery/Lesion type: [place] artery [place] vs. transplanted heart: [place] heart Associated angina: without angina Qualified Code(s): I25.10 - Atherosclerotic heart disease of [place] coronary artery without angina pectoris (5) Peripheral vascular disease with claudication: Status: Chronic Patient was having typical chest pain symptoms and had abnormal stress test. He underwent coronary angiogram with PCI of mid LCx severe instent restenosis with JENNIFER x 1. He is doing well. Continue aspirin and Plavix for atleast 1 year. Blood pressure controlled with current medications doses including metoprolol He could not tolerate statins in the past. Patient can be discharged tomorrow morning with followup with Dr Han in office Attestations Medical Necessity Statement*: Care expected to cross 2 midnights. Coding Level of Care Code Acute Tableau Developer for Denisse Gardner Diagnoses Chest pain I20.8 Chest pain type: chest pain due to myocardial ischemia Ischemic chest pain type: stable angina pectoris Abnormal stress test R94.39 HTN (hypertension) I10 Hypertension type: essential hypertension CAD (coronary artery disease) I25.10 Coronary Disease-Associated Artery/Lesion type: [place] artery [place] vs. transplanted heart: [place] heart Associated angina: without angina Peripheral vascular disease with claudication I73.9
--- NOTE | 2020-08-11 22:47 | PC.NURSE ---
Spoke with Dr. Davis regarding this patient's continued headache despite Tylenol administration. New orders received see OCT.
[2020-08-11] MEDS: ketorolac 30 mg/mL INJ 15 MG IVP (23:15)
[2020-08-12 01:56] VITALS: BP 139/73; PULSE 64; RESP 8; O2SAT 95
[2020-08-12 05:00] VITALS: BP 142/70; PULSE 65; RESP 18; TEMP 36.6; O2SAT 96
[2020-08-12 05:43] VITALS: PULSE 82
[2020-08-12 05:57] LABS: Basophils # 0.1 10^3/uL (0.0-0.1); Basophils % 0.9 %; Eosinophils # 0.5 10^3/uL (0.0-0.8); Eosinophils % 4.2 %; Hematocrit 38.8 % (42.0-52.0); Hemoglobin 12.4 g/dL (11.7-16.6); Lymphocytes # 2.9 10^3/uL (0.8-4.8); Lymphocytes % 26.8 %; Mean Corpuscular Hemoglobin 29.8 pg (28.0-34.0); Mean Corpuscular Volume 93.3 fL (80-94); Mean Platelet Volume 11.4 fL (7.4-10.4); Monocytes # 1.3 10^3/uL (0.2-0.9); Monocytes % 11.9 %; Neutrophils # 6.11 10^3/uL (1.8-7.7); Nucleated Red Blood Cells % 0 %; Platelet Count 224 10^3/cmm (130-400); Red Blood Count 4.16 10^6/uL (4.1-5.3); Red Cell Distribution Width 14.1 % (12.1-15.1); White Blood Count 10.9 10^3/uL (4.0-10.0)
[2020-08-12 07:07] VITALS: BP 141/67; PULSE 73; RESP 23; TEMP 37.3; O2SAT 95
[2020-08-12 07:56] LABS: Anion Gap 16.2 (5-19); Blood Urea Nitrogen 19 mg/dL (8-23); Carbon Dioxide 24 mmol/L (22-29); Chloride 105 mmol/L (98-107); Glucose 82 mg/dL (65-115); Osmolality Calculated 293 mOsm/kg (285-295); Potassium 4.2 mmol/L (3.5-5.1); Sodium 141 mmol/L (136-145)
--- NOTE | 2020-08-12 08:53 | P.PN_ITS ---
Subjective Subjective: Interval history: No acute overnight events, remains chest pain free, VSS. Eager to go home. Medications: Reviewed: Yes Medication Review Details: Active Medications Generic Name Dose Route Start Last Admin Trade Name Freq PRN Reason Stop Dose Admin Acetaminophen 650 mg 08/09/20 21:21 08/11/20 20:01 Acetaminophen 32 5 Mg Tablet PO 650 mg Q6H PRN Administration MILD PAIN Ascorbic Acid 1,000 mg 08/10/20 09:00 08/11/20 17:02 Ascorbic Acid 50 0 Mg Tablet PO 1,000 mg BID LATOYA Administration Aspirin 81 mg 08/10/20 09:00 08/11/20 09:06 Aspirin 81 Mg Ec Tablet PO 81 mg DAILY@0900 [facility] Administration Clopidogrel Bisulf ate 75 mg 08/12/20 09:00 Clopidogrel 75 M g Tablet PO DAILY [facility] Enoxaparin Sodium 40 mg 08/09/20 21:21 08/11/20 20:35 Enoxaparin 40 Mg /0.4 Ml Syringe SUBCUT 40 mg Q24H [facility] Administration Isosorbide Mononit rate 30 mg 08/09/20 21:21 08/11/20 10:33 Isosorbide [place] itrate Er 30 Mg Ta blet PO 30 mg DAILY [facility] Administration Lorazepam 1 mg 08/09/20 21:21 Lorazepam 2 Mg/M l Inj 1 Ml IVP Q6H PRN ANXIETY Metoprolol Tartrat e 12.5 mg 08/12/20 09:00 Metoprolol Tartr ate 25 Mg Tablet PO BID@0900,2100 [facility] Nitroglycerin 0.4 mg 08/11/20 08:37 08/11/20 08:41 Nitroglycerin 0. 4 Mg Sublingual Ta blet SUBLINGUAL 1 tab Q5M PRN Administration CHEST PAIN Non-Formulary Medi cation 50 mg 08/10/20 09:00 08/11/20 08:47 Zinc Acetate PO Not Given DAILY@0900 [facility] Ondansetron HCl 4 mg 08/09/20 21:21 Ondansetron 2 Mg /Ml Sdv 2 Ml IVP Q6H PRN NAUSEA AND VOMITI NG Ondansetron HCl 4 mg 08/10/20 06:54 Ondansetron 2 Mg /Ml Sdv 2 Ml IVP Q2M PRN NAUSEA Pantoprazole Sodiu m 40 mg 08/10/20 09:00 08/11/20 09:[address] 40 Mg Tablet PO 40 mg DAILY LATOYA Administration [id number] Reductase Inhibitor Adverse Reaction (Intermediate, Verified 08/10/20 13:25) ADR-Cramping of the Muscles Vitals/I&O/Wt Last Vital Signs Temp 99.1 F 08/12/20 07:07 Pulse 73 08/12/20 07:07 Resp 23 H 08/12/20 07:07 BP 141/67 08/12/20 07:07 Pulse Ox 95 08/12/20 07:07 08/11/20 08/12/20 08/12/20 22:59 06:59 14:59 Intake Total 240 / 1931.25 Output Total 350 / 1030 1050 / 2080 Balance -110 / 901.25 -1050 / -148.75 Weight last 48 hrs Weight 58.74 kg Physical Exam Const: COMMON NORMALS: no acute distress, patient oriented x3 and alert GENERAL APPEARANCE: cooperative and comfortable NUTRITIONAL APPEARANCE: thin ORIENTATION/CONSCIOUSNESS: Yes awake OTHER: -very pleasant, sitting up in bed HENMT: COMMON NORMALS: normocephalic, atraumatic, hearing grossly normal bilaterally and moist oral mucous membranes HEAD & SCALP: normocephalic and atraumatic Eye: COMMON NORMALS: Equal, round and reactive pupils present, EOMs intact bilaterally and conjunctivae normal CONJUNCTIVA: Yes conjunctivae normal PUPIL: Yes Equal, round and reactive pupils present Neck/C-Spine: COMMON NORMALS: full ROM GENERAL: Yes normal visual inspection and Yes trachea midline Chest: COMMONS NORMALS: normal inspection of the chest and normal palpation of entire chest wall CHEST: Yes Symmetrical chest wall rise Resp: COMMON NORMALS: normal respiratory effort, No retractions, No use of accessory muscles and clear to auscultation bilaterally EFFORT & INSPECTION: Yes able to speak in complete sentences, Yes symmetric chest movement and No tachypneic AUSCULTATION: clear to auscultation bilaterally OTHER: -on RA Cardio: COMMON NORMALS: regular rate, regular rhythm, S1 normal heart sound present, S2 normal heart sound present and No murmurs present (Cardio) RATE: regular rate RHYTHM: regular rhythm HEART SOUNDS: S1 normal heart sound present and S2 normal heart sound present GI: COMMON NORMALS: Normal to inspection, nondistended, normoactive bowel sounds present, Soft to palpation and non-tender PALPATION: Yes Soft to palpation Extremity: COMMON NORMALS: normal to inspection, full ROM and no clubbing, cyanosis or edema; negative for no pedal edema NARRATIVE EXTREMITY EXAM: -clean dressing in place on R wrist Neuro: COMMON NORMALS: patient oriented x3, moves all extremities, no focal mo tor deficits and no sensory deficits noted SENSORIUM/ORIENTATION: Yes alert Psych: COMMON NORMALS: mental status grossly normal, Normal thought process present, cooperative, normal affect and speech normal SPEECH: Yes normal speech THOUGHT PROCESS: Normal thought process present Skin: COMMON NORMALS: no rashes or lesions noted, no jaundice, no petechiae and no mottling GENERAL SKIN EXAM: no rashes or lesions noted Data : 08/12/20 04:33 08/12/20 04:33 A&P Assessment and plan (1) Chest pain: -from history, seems to have underlying angina as has chest pain with exertion or after consuming a large meal, typically in the evenings. Typically alleviated with rest and taking NTG. For the first time, had chest pain last night that woke him up from sleep -has known hx of CAD with prior stenting x 3 -telemetry monitoring -GUSTAVO -troponins noted, no significant delta; serial ECGs with no significant ischemic changes noted -stress testing with noted small to medium sized reversible perfusion defect noted in inferior and apical lateral wall. s/p cath with PCI of mid LCX and stenting (JENNIFER) due to noted severe instent stenosis -cardiology consult by Dr. Drake appeciated -continue ASA, reports previous adverse reactions to statins -Echo: EF=50-55%, no RWMA, G1DD, mild MR -recently quit smoking -continue long acting nitrate, BB now on hold due to noted bradycardia Status: Acute Qualifiers: Chest pain type: chest pain due to myocardial ischemia Ischemic chest pain type: stable angina pectoris Qualified Code(s): I20.8 - Other forms of angina pectoris (2) HTN (hypertension): -continue to monitor vital signs -noted to be bradycardic on low dose BB, seems to have discontinued his prescribed meds on his own some time ago Status: Chronic Qualifiers: Hypertension type: essential hypertension Qualified Code(s): I10 - Essential (primary) hypertension (3) CAD (coronary artery disease): -has known hx of CAD s/p stenting x 3 -continue meds Status: Chronic Qualifiers: Associated angina: without angina Coronary Disease-Associated Artery/Lesion type: [place] artery [place] vs. transplanted heart: [place] heart Qualified Code(s): I25.10 - Atherosclerotic heart disease of [place] coronary artery without angina pectoris (4) Peripheral vascular disease with claudication: -has known PVD with claudication with peripheral angiogram (09/2019) showing multiple luminal irregularities, mild to moderate stenosis of left ostial common iliac artery Status: Chronic Additional A&P Information -Chronic smoker; recently quit smoking about 1 week ago -COPD, no acute exacerbation, not oxygen dependent at baseline -NPO after midnight, resume cardiac diet when appropriate -GI ppx with PPI -DVT ppx with lovenox Attestations Medical Necessity Statement*: Discharge home today Time Spent in Patient Care: less than 15 minutes (>than 50% of time spent in counselling and/or direct pt care on unit) . Coding Level of Care Code Acute School Photographer for g Fwd Exam Comprehensive Diagnoses Chest pain I20.8 Chest pain type: chest pain due to myocardial ischemia Ischemic chest pain type: stable angina pectoris HTN (hypertension) I10 Hypertension type: essential hypertension CAD (coronary artery disease) I25.10 Associated angina: without angina Coronary Disease-Associated Artery/Lesion type: [place] artery [place] vs. transplanted heart: [place] heart Peripheral vascular disease with claudication I73.9
--- NOTE | 2020-08-12 09:10 | P.PN_ITS ---
Subjective Subjective: Interval history: Patient is doing well. He denies any complaints of chest pain, shortness of breath or palpitations. He has been noticing headaches since starting Imdur. He underwent successful revascularization using JENNIFER x1 to mid left circumflex artery. His right radial access site is normal. Vitals/I&O/Wt Last Vital Signs Temp 99.1 F 08/12/20 07:07 Pulse 73 08/12/20 07:07 Resp 23 H 08/12/20 07:07 BP 141/67 08/12/20 07:07 Pulse Ox 95 08/12/20 07:07 08/11/20 08/12/20 08/12/20 22:59 06:59 14:59 Intake Total 240 / 1931.25 Output Total 350 / 1030 1050 / 2080 Balance -110 / 901.25 -1050 / -148.75 Weight last 48 hrs Weight 129 lb 8 oz Physical Exam Narrative: EXAM NARRATIVE: GENERAL: Patient is alert, awake and oriented x3. [] NECK: No jugular vein distension. [] HEENT: No cyanosis. No icterus. No pallor. [] HEART: Regular S1 and S2. No murmur, rub or gallop. [] LUNGS: Clear to auscultate bilaterally. [] ABDOMEN: Soft, nontender and nondistended. Positive bowel sounds. No guarding, rebound or tenderness. [] CENTRAL NERVOUS SYSTEM: Grossly nonfocal. [] EXTREMITIES: Lower extremities with no edema bilaterally. Pulses palpable in the lower extremities, both dorsalis pedis and posterior tibial. [] Data : 08/12/20 04:33 08/12/20 04:33 A&P Assessment and plan (1) Chest pain: Status: Acute Qualifiers: Chest pain type: chest pain due to myocardial ischemia Ischemic chest pain type: stable angina pectoris Qualified Code(s): I20.8 - Other forms of angina pectoris (2) Abnormal stress test: Status: Acute (3) HTN (hypertension): Status: Chronic Qualifiers: Hypertension type: essential hypertension Qualified Code(s): I10 - Essential (primary) hypertension (4) CAD (coronary artery disease): Status: Chronic Qualifiers: Coronary Disease-Associated Artery/Lesion type: [place] artery [place] vs. transplanted heart: [place] heart Associated angina: without angina Qualified Code(s): I25.10 - Atherosclerotic heart disease of [place] coronary artery without angina pectoris (5) Peripheral vascular disease with claudication: Status: Chronic Patient was having typical chest pain symptoms and had abnormal stress test. He underwent coronary angiogram with PCI of mid LCx severe instent restenosis with JENNIFER x 1. He is doing well. Continue aspirin and Plavix for atleast 1 year. Continue metoprolol 12.5 mg twice daily. Will stop Imdur as patient complains of headaches since starting it. Initiate amlodipine 2.5 mg daily. He could not tolerate statins in the past. Patient can be discharged today with followup with Dr Han in office Attestations Medical Necessity Statement*: Care expected to cross 2 midnights. Coding Level of Care Code Acute Events Associate for Denisse Gardner Diagnoses Chest pain I20.8 Chest pain type: chest pain due to myocardial ischemia Ischemic chest pain type: stable angina pectoris Abnormal stress test R94.39 HTN (hypertension) I10 Hypertension type: essential hypertension CAD (coronary artery disease) I25.10 Coronary Disease-Associated Artery/Lesion type: [place] artery [place] vs. transplanted heart: [place] heart Associated angina: without angina Peripheral vascular disease with claudication I73.9
[2020-08-12] MEDS: amlodipine 5 mg Tablet 2.5 MG PO (09:42)
[2020-08-12] MEDS: ascorbic acid 500 mg Tablet 1000 MG PO (09:44)
[2020-08-12] MEDS: aspirin 81 mg EC Tablet PO (09:45)
[2020-08-12] MEDS: clopidogrel 75 mg Tablet PO (09:46)
--- NOTE | 2020-08-12 10:00 | PC.NURSE ---
Meds to bed Pt meds was sent to [facility] pharmacy. pt was okay with it. [facility] and [facility]. Talked to pharmacy regarding a bottle of imdur which was discontinued and the bottle was not opened. pt was wondering if he can't get a refund. Pharmacy notified and they will take the imdur back if it has not opened and refund it. Informed pt and he verbalizes understanding.
[2020-08-12] MEDS: metoprolol tartrate 25 mg Tablet 12.5 MG PO (10:12)
--- NOTE | 2020-08-12 10:50 | PC.CHAP ---
Pastoral Care Encounter/Spiritual Assessment Type of Contact [] Declined die stamper visit [] Patient/Family/Request visit [] Outpatient visit [XX] Follow-up visit [] Physician referral [] Code/Alert [] Routine visit [] Staff referral [] Actively dying [] Patient sleeping [] Family support [] [] Out of room [] Palliative care [] [] Receiving care in room [] Pre-surgical visit [] Trauma [] Long length of stay [] ICU visit [] Other: Relational/Emotional Strength [XX] Patient feels connected with others/family/visitors/staff [] Distress [] Loneliness/isolation [] Abandonment Spirituality of Patient [] Person of Griselda [] Attends Uatsdin of their Griselda [] Believes in Prayer [] Reads Bible or Mormon materials [] There are Spiritual issues to be addressed Endodontist Interventions [] Prayer [XX] Active listening [XX] Non-anxious presence [] Spiritual/emotional support [] Crisis/trauma care [] Spiritual counseling [] Bereavement support [] Provided bereavement packet [] Provided Bible/devotional materials [] Provided toy/stuffed animal, coloring book to patient or family member [] Provided Communion [] Anointing/Evening Shade [] Salvation [XX] Completed spiritual assessment [] Other: Impact on Illness or Injury [] Angry [] Fearful [] Anxious [] Often cries [] Exhaustion [] Unable to work [] Unable to attend religion [] Unable to walk/stand [] Unable to read [] Unable to drive [] Unable to eat/drink [] Unable to sleep [] Unable to be with family [] Patient intubated [] Other: Summary: Pt soon to be discharged. His focus was on going home. The stent procedure was not a surprise; he did well. Pt in good spirits and declined any additional emotional or spiritual support, including prayer. Time spent with patient: 5 mins
[2020-08-12 11:03] VITALS: BP 152/74; PULSE 74; RESP 21; TEMP 36.5; O2SAT 97
--- NOTE | 2020-08-12 11:53 | PC.NURSE ---
stent card given.
--- NOTE | 2020-08-12 13:15 | PC.NURSE ---
Discharge to home Instructed pt to ff-up with his pcp and mba internship as instructed. Educated pt on checking his BP at home and keep a log. pt verbalizes. Educated pt on his new meds actions, timing, dosing and duration. Pt verbalizes understanding. Discharge packet provided. ushered pt via wheelchair.
== END 2020-08-12 13:15 | disposition home or self-care (01) | DRG 246 ==
LOC: ER 17:29 → CSU 19:35
PROVIDERS: Internal Medicine; Admitting Provider Family Medicine; Emergency Provider Family Medicine; PCP Emergency Medicine Emergency Medical Services; Visit Provider Family Medicine
PROC: 027034Z Dilation of Coronary Artery, One Artery with Drug-eluting Intraluminal Device, Percutaneous Approach (ICD-10-PCS; principal; 2020-08-11 07:00)
PROC: 027034Z Dilation of Coronary Artery, One Artery with Drug-eluting Intraluminal Device, Percutaneous Approach (ICD-10-PCS; 2020-08-11 07:00)
DX: T82.855A Stenosis of coronary artery stent, initial encounter (principal); I21.4 Non-ST elevation (NSTEMI) myocardial infarction; Y71.2 Prosthetic and other implants, materials and accessory cardiovascular devices associated with adverse incidents; I25.10 Atherosclerotic heart disease of native coronary artery without angina pectoris; Z95.5 Presence of coronary angioplasty implant and graft; Z87.891 Personal history of nicotine dependence; F41.9 Anxiety disorder, unspecified; N40.0 Benign prostatic hyperplasia without lower urinary tract symptoms; J44.9 Chronic obstructive pulmonary disease, unspecified; F32.9 Major depressive disorder, single episode, unspecified; E78.5 Hyperlipidemia, unspecified; I10 Essential (primary) hypertension; E78.00 Pure hypercholesterolemia, unspecified; I73.9 Peripheral vascular disease, unspecified; F43.10 Post-traumatic stress disorder, unspecified
CPT/HCPCS: 12345; 36415; 71045; 78452; 80048; 80053; 80061; 81003; 83735; 83880; 84443; 84484; 85025; 85347; 85378; 87426; 93005; 93017; 93306; 93454; 96372; 99282; A9500; C1725; C1769; C1874; C1887; C1894; C9600; G0378; J0360; J1644; J1650; J1885; J2250; J2785; J3010; J3490; J7030; Q0163; Q9967

== ENCOUNTER → 2020-08-23 10:50 | Outpatient (BNVA) | payer OTHER, SELFPAY | PROVIDERS: PCP Emergency Medicine Emergency Medical Services; Referring Provider Emergency Medicine Emergency Medical Services; Visit Provider Urology | DX: R97.20 Elevated prostate specific antigen [PSA] (principal); N20.1 Calculus of ureter; R39.89 Other symptoms and signs involving the genitourinary system; N40.1 Benign prostatic hyperplasia with lower urinary tract symptoms; N43.42 Spermatocele of epididymis, multiple | CPT/HCPCS: 80048; 81003; 84153 ==

== ENCOUNTER → 2020-10-31 09:53 | Outpatient (BNVA) | payer OTHER, SELFPAY | PROVIDERS: PCP Emergency Medicine Emergency Medical Services; Visit Provider Urology | DX: R39.89 Other symptoms and signs involving the genitourinary system (principal) | CPT/HCPCS: 84153 ==

== ENCOUNTER → 2020-11-01 11:00 | Outpatient (BNVA) | payer OTHER, SELFPAY | PROVIDERS: PCP Emergency Medicine Emergency Medical Services; Visit Provider Urology | DX: N40.1 Benign prostatic hyperplasia with lower urinary tract symptoms (principal); R97.20 Elevated prostate specific antigen [PSA]; R39.89 Other symptoms and signs involving the genitourinary system; N52.9 Male erectile dysfunction, unspecified; F17.210 Nicotine dependence, cigarettes, uncomplicated | CPT/HCPCS: 81003 ==

== ENCOUNTER → 2021-02-06 14:38 | Outpatient (BNVA) | payer OTHER, SELFPAY | PROVIDERS: PCP Emergency Medicine Emergency Medical Services; Visit Provider Urology | DX: N40.1 Benign prostatic hyperplasia with lower urinary tract symptoms (principal) | CPT/HCPCS: 81003 ==

== ENCOUNTER 2021-02-26 12:58 | Emergency (ER) | payer OTHER, SELFPAY ==
[2021-02-26 13:48] VITALS: BP 110/69; PULSE 88; RESP 18; TEMP 36.7; O2SAT 96; BMI 20.3
[2021-02-26 14:39] VITALS: BP 119/74; PULSE 70; RESP 14; O2SAT 97
--- NOTE | 2021-02-26 14:45 | US_ITS ---
WS: [id number] US soft tissue head neck [id number] REASON FOR EXAM: pain,lump right side of neck FINDINGS: The area that the patient indicates a palpable abnormality is the carotid bulb by ultrasound evaluati on. There is a small lymph node 9 x 4 mm, not significant, just inferior to the carotid bulb. There is plaque and wall thickening but no evidence of dissection. No definite fluid or other finding s of inflammatory changes identified. No other findings noted. US/US soft tissue head neck [id number] IMPRESSION: The region of the right neck the patient indicates is painful with a lump is a carotid bulb without any finding that would explain pain.
--- NOTE | 2021-02-26 14:46 | ED_ITS ---
HPI - Neck Pain/Injury General: Chief Complaint: Neck Pain/Injury Stated Complaint: Pain in R side of neck Time Seen by Provider: 02/26/21 14:41 History of Present Illness: HPI Narrative: Patient with history of lump in neck since Friday. Pain was all way up to 6 on Friday and worsened during the weekend, is taken ibuprofen, and he says it feels better pain to 1 now went to be a day they sent him over here for an ultrasound. Patient is a smoker MD complaint: neck pain Onset (ago): day(s) Associated symptoms: Denies headache(s) or nausea Review of Systems Const: Denies: fever(s), chills or body aches Eyes: Denies: change in vision or blurry vision ENMT: Denies: throat pain or nasal congestion Card: Denies: chest pain or dyspnea on exertion Resp: Denies: dyspnea, productive cough or non-productive cough GI: Denies: abdominal pain, nausea or vomiting : Denies: difficulty urinating Musc: Denies: extremity pain Skin/Breast: Reports: other (Lump right side of the neck improving been there since Friday); Denies: rash Neuro: Denies: headache(s) Psych: Denies: anxiety or depression Antonio/Lymph: Denies: easy bruising PFSH ED PFSH: Medical History Abnormal prostate exam Abnormal stress test Anxiety BPH (benign prostatic hyperplasia) BPH loc w urin obs/LUTS CAD (coronary artery disease) -has known hx of CAD s/p stenting x 3 COPD (chronic obstructive pulmonary disease) Depression Elevated PSA Erectile dysfunction HLD (hyperlipidemia) HTN (hypertension) Hypercholesterolemia Leg weakness, bilateral Peripheral vascular disease with claudication -has known PVD with claudication with peripheral angiogram (09/2019) showing multiple luminal irregularities, mild to moderate stenosis of left ostial common iliac artery PTSD (post-traumatic stress disorder) Spermatocele of epididymis, multiple Surgical History History of coronary artery stent placement Family History Father , at age 64 Myocardial infarction Mother , in her 80's Dementia Social History Alcohol intake: never Household members: none Marital status: Single Current occupational status: retired History of recent travel: No Physical Exam Const: COMMON NORMALS: no acute distress GENERAL APPEARANCE: cooperative HENMT: COMMON NORMALS: normocephalic, EAC's normal, TM's normal bilaterally and Normal external nose present HEAD & SCALP: normal to inspection and norm ocephalic FACE & SINUS: normal facial exam NOSE: Normal external nose present EXTERNAL AUDITORY CANAL: EAC's normal TYMPANIC MEMBRANE: TM's normal bilaterally MOUTH: Normal oral and palatal mucosa present THROAT: posterior oropharynx normal Lymph: OTHER: Swollen area right side of neck about 3 inches down from TMJ Skin: COMMON NORMALS: no rashes or lesions noted GENERAL SKIN EXAM: no rashes or lesions noted Course Vital Signs: Vital signs: Vital Signs Temperature 98.1 F 02/26/21 13:48 Pulse Rate 70 02/26/21 14:39 Respiratory Rate 14 02/26/21 14:39 Blood Pressure 119/74 02/26/21 14:39 Pulse Oximetry 97 02/26/21 14:39 MDM - Neck Pain/Injury MDM Narrative: Medical decision making narrative: Discussed radiology results with patient. Appears to be a carotid bulb/possible reactive lymphadenopathy Discharge Plan Discharge Patient Disposition: Home Clinical Impression: Acute neck pain Condition: Stable Prescriptions: No Action mushroom PO DAILY RF: 0 beta carotene 15 mg tablet PO DAILY RF: 0 clopidogrel 75 mg tablet 75 mg PO DAILY Qty: 90 RF: 4 metoprolol tartrate 25 mg tablet 12.5 mg PO BID@0900,2100 Qty: 90 RF: 2 clear lungs PO DAILY RF: 0 anneliese strenght beta sitisterol PO DAILY RF: 0 k-2 5,000 mcg PO DAILY RF: 0 devils claw PO DAILY RF: 0 power chelita with vitamin c PO DAILY PRNRF: 0 coenzyme Q10 [Co Q-10] 10 mg Capsule 10 mg PO DAILY@0900 RF: 0 L-Arginine(alpha-ketoglutarat) 2,000 MG 2,000 mg PO DAILY@0900 RF: 0 vitamin B complex Capsule 1 cap PO DAILY@0900 RF: 0 calcium xzoa-L9-ihkdordyl balaji 133 mg calcium -133 unit-67 mg Capsule 1 cap PO DAILY@0900 RF: 0 Cardio For Life 1 tab PO DAILY@0900 RF: 0 Vitamin D3 1 tab PO DAILY@0900 RF: 0 Vitamin E Complex 1 tab PO DAILY@0900 RF: 0 saw palmetto 1 tab PO DAILY@0900 RF: 0 selenium 1 tab PO DAILY@0900 RF: 0 vitamin K 1 tab PO DAILY@0900 RF: 0 olive leaf extract 250 mg capsule 250 mg PO DAILY@0900 PRNRF: 0 garlic oil 1,000 mg capsule 5,000 mg PO DAILY@0900 PRNRF: 0 horse chestnut 1 cap PO DAILY@0900 PRNRF: 0 Discharge Orders: Discharge ED (Routine); Ordered 02/26/21 Ordered By: Nghia Romero Referrals: Otoniel Yu DO [Primary Care Provider] - Discharge Diet: Usual diet Discharge Activity: Resume usual activity Activity Restrictions/Additional Instructions: [facility] concerning problems about your [facility]. Coding Level of Care Code ED Adaptive Physical Education Specialist for Denisse Fwveronica Exam Expanded Problem Focused
== END 2021-02-26 15:57 | disposition home or self-care (01) ==
PROVIDERS: Emergency Provider Nurse Practitioner Family; PCP Emergency Medicine Emergency Medical Services
DX: M54.2 Cervicalgia (principal); I25.10 Atherosclerotic heart disease of native coronary artery without angina pectoris; J44.9 Chronic obstructive pulmonary disease, unspecified; E78.5 Hyperlipidemia, unspecified; I10 Essential (primary) hypertension; E78.00 Pure hypercholesterolemia, unspecified; Z95.5 Presence of coronary angioplasty implant and graft
CPT/HCPCS: 76536; 99282

== ENCOUNTER → 2021-05-07 13:08 | Outpatient (BNVA) | payer OTHER, SELFPAY | PROVIDERS: PCP Emergency Medicine Emergency Medical Services; Visit Provider Nurse Practitioner Family | DX: R97.20 Elevated prostate specific antigen [PSA] (principal) | CPT/HCPCS: 84153 ==

== ENCOUNTER → 2021-05-08 14:00 | Outpatient (BNVA) | payer OTHER, SELFPAY | PROVIDERS: PCP Emergency Medicine Emergency Medical Services; Visit Provider Urology | DX: N40.1 Benign prostatic hyperplasia with lower urinary tract symptoms (principal); R97.20 Elevated prostate specific antigen [PSA] | CPT/HCPCS: 81003 ==

== ENCOUNTER → 2021-10-25 14:57 | Outpatient (BNVA) | payer OTHER, SELFPAY | PROVIDERS: PCP Emergency Medicine Emergency Medical Services; Visit Provider Nurse Practitioner Family | DX: I25.10 Atherosclerotic heart disease of native coronary artery without angina pectoris (principal); I10 Essential (primary) hypertension; F17.200 Nicotine dependence, unspecified, uncomplicated | CPT/HCPCS: 99214 ==

== ENCOUNTER 2021-11-10 12:03 | Inpatient (IN) | payer OTHER, MEDICARE, SELFPAY ==
[2021-11-10] VITALS (10 sets, daily range): BP systolic 114–137; BP diastolic 70–92; PULSE 50–68; RESP 13–21; TEMP 36.5–36.8; O2SAT 94–98; BMI 18.4; BMI 19.3
--- NOTE | 2021-11-10 12:11 | ECG_ITS ---
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 Measurements Intervals [place] Rate: 59 P: 82 AL: 147 QRS: 71 QRSD: 90 T: 43 QT: 413 QTc: 409 Interpretive Statements SINUS BRADYCARDIA POSSIBLE LEFT ATRIAL ENLARGEMENT [-0.1mV P-WAVE IN V1/V2] Compared to ECG 08/11/2020 08:34:38 Sinus rhythm no longer present Electronically Signed On 11-10-2021 19:06:23 CDT by Anjel Spear M.D. [id number]
--- NOTE | 2021-11-10 12:11 | XRR_ITS ---
PROCEDURE INFORMATION: Exam: XR Chest Exam date and time: 11/10/2021 12:28 PM Age: 75 years old Clinical indication: Pain; Chest pressure; Additional info: Chst pain TECHNIQUE: Imaging protocol: XR of the chest. Views: 1 view. COMPARISON: CR XR chest 1V portable [id number] 08/09/2020 1:06 PM FINDINGS: Lungs: The lungs are over-inflated with flattening of the diaphragm which is consistent with emphysema. No pulmonary infiltrates. Pleural spaces: Unremarkable. No pleural effusion. No pneumothorax. Heart/Mediastinum: Unremarkable. No cardiomegaly. Bones/joints: Unremarkable. XR/XR chest 1V portable [id number] IMPRESSION: Overinflated lungs consistent with emphysema. No acute abnormality.
--- NOTE | 2021-11-10 12:18 | W.ED.CHESTPA ---
HPI - Chest Pain General: Chief Complaint: Chest Pain Stated Complaint: chest pain Time Seen by Provider: 11/10/21 12:17 Source: patient Mode of arrival: ambulatory Limitations: no limitations History of Present Illness: 75-year-old male presents to the emergency room with complaint of chest pain. He is chest pain for the last several weeks. He had 3 episodes in the last week or so where he is used nitroglycerin usually is associated with exertion the episodes of be getting more intense with each episode and then today he had one that began while at rest. The time he taken nitroglycerin it takes 5 to 10 minutes it resolves. The most recent one is about an hour and 1/2 to 2 hours prior to presentation at that particular episode he had pain radiating to his left arm which was a new symptom for him. Patient is a known history of coronary artery disease and previously has had a total of 4 stents with the last one being sometime around 2016 the first 1 in 2012. Patient is a former smoker he quit about 1 week ago. He does not have any history of diabetes. Tells me he also has a left subclavian artery stenosis and at times when he is walking his right leg will go numb for short period of time he does not get any claudication however. MD complaint: chest pain Pertinent past history: coronary artery disease Onset (ago): week(s) Timing of current episode: episodic Prior episodes: Yes Onset: during rest and during exertion Pain location: substernal and left chest Pain radiation: left arm Severity: moderate Quality: tightness, aching and heaviness Relieving factors: nitroglycerin Exacerbating factors: exertion Associated symptoms: Reports dyspnea; Deny abdominal pain, diaphoresis, fever(s), leg edema, nausea, palpitations, sense of impending doom, syncope or vomiting Treatment prior to arrival: nitroglycerin Risk Factors: Coronary artery disease risk factors: smoking history Review of Systems Const: Denies: fever(s), chills, body aches or diaphoresis ENMT: Denies: throat pain, ear or mastoid pain, nasal discharge or nasal congestion Card: Denies: palpitations or syncope Resp: Reports: dyspnea GI: Denies: abdominal pain, nausea or vomiting : Denies: flank pain, dysuria, urinary frequency or urinary urgency Skin/Breast: Denies: rash or pruritus [facility] PFSH: Medical History Abnormal prostate exam Abnormal stress test Anxiety BPH (benign prostatic hyperplasia) BPH loc w urin obs/LUTS CAD (coronary artery disease) -has known hx of CAD s/p stenting x 3 COPD (chronic obstructive pulmonary disease) Depression Elevated PSA Erectile dysfunction HLD (hyperlipidemia) HTN (hypertension) Hypercholesterolemia Leg weakness, bilateral Peripheral vascular disease with claudication -has known PVD with claudication with peripheral angiogram (09/2019) showing multiple luminal irregularities, mild to moderate stenosis of left ostial common iliac artery PTSD (post-traumatic stress disorder) Spermatocele of epididymis, multiple Surgical History History of coronary artery stent placement Family History Father , at age 64 Myocardial infarction Mother , in her 80's Dementia Social History Smoking and tobacco status: current every day smoker Alcohol intake: never Household members: none Marital status: Single Current occupational status: retired History of recent travel: No Physical Exam Const: GENERAL APPEARANCE: cooperative and comfortable ORIENTATION/CONSCIOUSNESS: Yes awake, Yes oriented to person, Yes oriented to place and Yes oriented to time HENMT: COMMON NORMALS: normocephalic, atraumatic, hearing grossly normal bilaterally, external ears normal, EAC's normal, TM's normal bilaterally, Normal nasal mucous membranes and turbinates present, moist oral mucous membranes and oropharynx normal HEAD & SCALP: normocephalic and atraumatic NOSE: Normal nasal mucous membranes and turbinates present EXTERNAL EAR: Yes external ears normal EXTERNAL AUDITORY CANAL: EAC's normal TYMPANIC MEMBRANE: TM's normal bilaterally Eye: COMMON NORMALS: Equal, round and reactive pupils present, EOMs intact bilaterally, conjunctivae normal and no scleral icterus CONJUNCTIVA: Yes conjunctivae normal PUPIL: Yes Equal, round and reactive pupils present Neck/C-Spine: COMMON NORMALS: full ROM, no lymphadenopathy, supple and no JVD Lymph: LYMPHATIC: no lymphadenopathy noted and no lymphedema noted Resp: COMMON NORMALS: normal respiratory effort, No retractions, No use of accessory muscles and clear to auscultation bilaterally AUSCULTATION: clear to auscultation bilaterally Cardio: COMMON NORMALS: no JVD, regular rate, regular rhythm and No murmurs present (Cardio) RATE: regular rate RHYTHM: regular rhythm GI: COMMON NORMALS: Soft to palpation and No hepatosplenomegaly present AUSCULTATION: Yes normoactive bowel sounds PALPATION: Yes Soft to palpation, No Tenderness to palpation present (GI), No Guarding due to palpation present (GI) and Yes No hepatosplenomegaly present Extremity: COMMON NORMALS: normal to inspection, capillary refill normal, no clubbing, cyanosis or edema, no calf tenderness and no pedal edema Neuro: SENSORIUM/ORIENTATION: Yes oriented to person, Yes oriented to place and Yes oriented to time Skin: COMMON NORMALS: no rashes or lesions noted GENERAL SKIN EXAM: no rashes or lesions noted Course Vital Signs: Vital signs: Vital Signs Temperature 98.2 F 11/10/21 12:12 Pulse Rate 67 11/10/21 12:45 Respiratory Rate 18 11/10/21 12:45 Blood Pressure 123/80 11/10/21 12:45 Pulse Oximetry 94 11/10/21 12:45 MDM - Chest Pain Medical Decision Making No acute ST changes on the EKG. Patient is pain-free at this time he has a fairly significant heart score he told me his last intervention was in 2016 however reviewing his chart I found he did have an angiogram in August 2019 when he had a RCA stent placed at that time. He the year prior he had an abdominal aortogram and examination of his lower extremities because of intermittent claudication he still has some of the claudication he described to me today although it sounds more neurogenic in nature. Patient states he had been taking clopidogrel but he cannot recall exactly when he stopped he thinks he took it for a full year but has not been taking it for some time now not on his medicine list he is on isosorbide mononitrate 30 a day. He is given aspirin and topical nitro half-inch will admit to the hospitalist due to his high heart score and his increasing anginal symptoms cardiology consulted. Medical Records I reviewed the patient's medical records. Lab Data I reviewed the patient's lab results. : 11/10/21 12:28 11/10/21 12:28 Radiology Impressions Chest X-Ray 11/10/21 12:11 IMPRESSION: Overinflated lungs consistent with emphysema. No acute abnormality. Laboratory Results WBC 9.2 10^3/uL (4.0-10.0) 11/10/21 12: RBC 4.50 10^6/uL (4.1-5.3) 11/10/21 12:28 Hgb 13.4 g/dL (11.7-16.6) 11/10/21 12:28 Hct 41.7 % (42.0-52.0) L 11/10/21 12:28 MCV 92.7 fl (80-94) 11/10/21 12:28 MCH 29.8 pg (28.0-34.0) 11/10/21 12: MCHC 32.1 g/dL (30.0-36.0) 11/10/21 12: RDW 14.6 % (12.1-15.1) 11/10/21 12:28 Plt Count 238 10^3/cmm (130-400) 11/10/21 12:28 MPV 11.1 fL (7.4-10.4) H 11/10/21 12:28 Neut % (Auto) 56.7 % 11/10/21 12:28 Lymph % (Auto) 25.4 % 11/10/21 12:28 [place] % (Auto) 11.9 % 11/10/21 12:28 Eos % (Auto) 4.9 % 11/10/21 12: Baso % (Auto) 0.9 % 11/10/21 12:28 Neut # (Auto) 5.19 10^3/uL (1.8-7.7) 11/10/21 12:28 Lymph # (Auto) 2.3 10^3/uL (0.8-4.8) 11/10/21 12:28 [place] # (Auto) 1.1 10^3/uL (0.2-0.9) H 11/10/21 12:28 Eos # (Auto) 0.5 10^3/uL (0.0-0.8) 11/10/21 12:28 Baso # (Auto) 0.1 10^3/uL (0.0-0.1) 11/10/21 12:28 Nucleated RBC % (auto) 0 % 11/10/21 12:28 Nucleated RBCs # 0.0 /100WBC 11/10/21 12:28 Sodium 137 mmol/L (136-145) 11/10/21 12:28 Potassium 4.4 mmol/L (3.5-5.1) 11/10/21 12:28 Chloride 103 mmol/L (98-107) 11/10/21 12:28 Carbon Dioxide 27 mmol/L (22-29) 11/10/21 12:28 Anion Gap 11.4 (5-19) 11/10/21 12:28 BUN 13 mg/dL (8-23) 11/10/21 12:28 Creatinine 0.9 mg/dL (0.7-1.2) 11/10/21 12:28 GFR Calculation Not Reportable 11/10/21 12:28 Glucose 76 mg/dL (65-115) 11/10/21 12:28 Calculated Osmolality 283 mOsm/kg (285-295) L 11/10/21 12:28 Calcium 9.3 mg/dL (8.5-10.5) 11/10/21 12:28 Troponin T Baseline 23 ng/L (0-15) H 11/10/21 12:50 Discharge Plan Discharge Patient Disposition: Admitted As Inpatient Clinical Impression: Unstable angina pectoris, CAD (coronary artery disease), Peripheral vascular disease with claudication Condition: Stable Prescriptions: No Action beta carotene 15 mg tablet PO DAILY 0RF nitroglycerin 0.4 mg tablet, sublingual 0.4 mg sublingual Q5M PRN0RF Rx Instructions: do not exceed 3 doses per episode tamsulosin 0.4 mg capsule 0.4 mg PO .at bedtime Qty: 90 3RF clear lungs PO DAILY 0RF anneliese strenght beta sitisterol PO DAILY 0RF k-2 5,000 mcg PO DAILY 0RF devils claw PO DAILY 0RF power chelita with vitamin c PO DAILY PRN0RF isosorbide mononitrate 30 mg tablet extended release 24 hr 15 mg PO DAILY Qty: 90 1RF coenzyme Q10 [Co Q-10] 10 mg Capsule 10 mg PO DAILY@0900 0RF L-Arginine(alpha-ketoglutarat) 2,000 MG 2,000 mg PO DAILY@0900 0RF vitamin B complex Capsule 1 cap PO DAILY@0900 0RF calcium dbov-C0-xkkduftev balaji 133 mg calcium -133 unit-67 mg Capsule 1 cap PO DAILY@0900 0RF Cardio For Life 1 tab PO DAILY@0900 0RF Vitamin D3 1 tab PO DAILY@0900 0RF Vitamin E Complex 1 tab PO DAILY@0900 0RF saw palmetto 1 tab PO DAILY@0900 0RF selenium 1 tab PO DAILY@0900 0RF vitamin K 1 tab PO DAILY@0900 0RF olive leaf extract 250 mg capsule 250 mg PO DAILY@0900 PRN0RF garlic oil 1,000 mg capsule 5,000 mg PO DAILY@0900 PRN0RF horse chestnut 1 cap PO DAILY@0900 PRN0RF Referrals: Otoniel Yu DO [Primary Care Provider] - Coding Level of Care Code ED Visual Merchandising Specialist for Chavezg Fwd Exam Comprehensive
[2021-11-10 12:46] LABS: Basophils # 0.1 10^3/uL (0.0-0.1); Basophils % 0.9 %; Eosinophils # 0.5 10^3/uL (0.0-0.8); Eosinophils % 4.9 %; Hematocrit 41.7 % (42.0-52.0); Hemoglobin 13.4 g/dL (11.7-16.6); Lymphocytes # 2.3 10^3/uL (0.8-4.8); Lymphocytes % 25.4 %; Mean Corpuscular HGB Conc 32.1 g/dL (30.0-36.0); Mean Corpuscular Hemoglobin 29.8 pg (28.0-34.0); Mean Corpuscular Volume 92.7 fl (80-94); Mean Platelet Volume 11.1 fL (7.4-10.4); Monocytes # 1.1 10^3/uL (0.2-0.9); Monocytes % 11.9 %; Neutrophils # 5.19 10^3/uL (1.8-7.7); Neutrophils % 56.7 %; Nucleated Red Blood Cells % 0 %; Platelet Count 238 10^3/cmm (130-400); Red Cell Distribution Width 14.6 % (12.1-15.1); White Blood Count 9.2 10^3/uL (4.0-10.0)
[2021-11-10 13:01] LABS: Blood Urea Nitrogen 13 mg/dL (8-23); Calcium 9.3 mg/dL (8.5-10.5); Carbon Dioxide 27 mmol/L (22-29); Chloride 103 mmol/L (98-107); Glucose 76 mg/dL (65-115); Osmolality Calculated 283 mOsm/kg (285-295); Sodium 137 mmol/L (136-145)
[2021-11-10 13:07] LABS: Anion Gap 11.4 (5-19); Potassium 4.4 mmol/L (3.5-5.1)
[2021-11-10 13:24] LABS: Troponin(5th) Baseline 23 ng/L (0-15)
[2021-11-10] MEDS: nitroglycerin 1 gm/inch oint Pkt 0.5 INCH TOPICAL (14:10)
[2021-11-10] MEDS: aspirin 81 mg Chew Tablet 324 MG PO (14:10)
--- NOTE | 2021-11-10 14:11 | ECG_ITS ---
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 Measurements Intervals [place] Rate: 57 P: 76 IL: 160 QRS: 58 QRSD: 82 T: 37 QT: 443 QTc: 434 Interpretive Statements SINUS BRADYCARDIA WITH SINUS ARRHYTHMIA POSSIBLE LEFT ATRIAL ENLARGEMENT [-0.1mV P-WAVE IN V1/V2] Compared to ECG 11/10/2021 12:20:04 No significant changes Electronically Signed On 11-10-2021 19:09:57 CDT by Anjel Spear M.D. [id number]
--- NOTE | 2021-11-10 14:19 | P.HP_ITS ---
Providers/Chief Complaint Admitting Physician: Tomasa Hughes MD Primary Care Provider: Otoniel Yu DO Chief Complaint: chest pain History of Present Illness Dae Gupta is a 75 year old male who has established history of coronary disease, last known intervention 08/29/2020 mid left circumflex, he also has history of hypertension, peripheral arterial disease status post angiogram 2019 mild to moderate stenosis of left ostial common iliac artery, history of prostate cancer, presented to the hospital for chief complaint of chest pain. Patient is stating that he has stopped taking his aspirin since starting of the seizure, he has been taking a lot of herbal medications. For last few weeks he has been having on and off chest pain which she describing as achy in nature he would experience chest pain, midsternal which would radiate towards his left arm, initially it was on exertion now it has been happening at the time of rest, last night he woke up multiple times because of worsening of chest pain. He came to the hospital around 10 AM. He has not experienced any shortness of breath, fever, diaphoresis, orthopnea, PND. In the ER first troponin is 23, he is chest pain-free has Nitropaste on his chest, EKG without ischemic or infarctive changes Chest x-ray unremarkable Normal hemodynamically I have started him on aspirin, Plavix ER physician has consulted Dr. Spear Review of Systems Const: Denies: fever(s) Eyes: Denies: change in vision ENMT: Denies: throat pain Card: Reports: chest pain Resp: Denies: dyspnea GI: Denies: abdominal pain or excessive flatus : Denies: flank pain Musc: Denies: neck pain Skin/Breast: Denies: rash Neuro: Denies: headache(s) Psych: Denies: anxiety Endo: Denies: polyuria All/Imm: Denies: urticaria Medications/Allergies Home Medications Medication Instructions Recorded Confirmed Last Taken Type coenzyme Q10 10 mg capsule (Co 10 mg PO DAILY@0900 09/20/19 10/25/21 08/08/20 History Q-10) Cardio For Life 1 tab PO DAILY@0900 08/09/20 10/25/21 08/08/20 History Vitamin D3 1 tab PO DAILY@89908/09/20 10/25/21 08/08/20 History Vitamin E Complex 1 tab PO DAILY@00 08/09/20 10/25/21 08/08/20 History saw palmetto 1 tab PO DAILY@0900 08/09/20 10/25/21 08/08/20 History selenium 1 tab PO DAILY@0900 08/09/20 10/25/21 08/08/20 History vitamin B complex 1 cap PO DAILY@0900 08/09/20 10/25/21 08/08/20 History vitamin K 1 tab PO DAILY@0900 08/09/20 10/25/21 08/08/20 History clear lungs PO DAILY 08/23/20 10/25/21 Unknown History garlic 1,000 mg capsule (garlic 5,000 mg PO DAILY@0900 PRN 01/23/21 10/25/21 Unknown History oil) nitroglycerin 0.4 mg sublingual 0.4 mg SUBLINGUAL Q5M PRN 10/25/21 10/25/21 Unknown History tablet isosorbide mononitrate 30 mg 15 mg PO DAILY #90 tab 11/09/21 Unknown Rx tablet,extended release 24 hr aspirin 81 mg chewable tablet 81 mg PO DAILY 11/10/21 11/10/21 11/09/21 History Allergies Allergy/AdvReac Type Severity Reaction Status Date / Time Ivlodlg-KCW-EvD Reductase AdvReac Intermediate ADR-Cramping Verified 10/25/21 15:08 Inhibitor of the [Jrqgtww-Hqh-Hbu Reductase Muscles Inhibitor] tamsulosin AdvReac chest pains Verified 10/25/21 15:08 PFSH Acute PFSH: Medical History Abnormal prostate exam Abnormal stress test Anxiety BPH (benign prostatic hyperplasia) BPH loc w urin obs/LUTS CAD (coronary artery disease) -has known hx of CAD s/p stenting x 3 COPD (chronic obstructive pulmonary disease) Depression Elevated PSA Erectile dysfunction HLD (hyperlipidemia) HTN (hypertension) Hypercholesterolemia Leg weakness, bilateral Peripheral vascular disease with claudication -has known PVD with claudication with peripheral angiogram (09/2019) showing multiple luminal irregularities, mild to moderate stenosis of left ostial common iliac artery PTSD (post-traumatic stress disorder) Spermatocele of epididymis, multiple Surgical History History of coronary artery stent placement Family History Father , at age 64 Myocardial infarction Mother , in her 80's Dementia Social History Smoking and tobacco status: current every day smoker Alcohol intake: never Household members: none Marital status: Single Current occupational status: retired History of recent travel: No Vitals/I&O/Wt Last Vital Signs Temp 98.2 F 11/10/21 12:12 Pulse 67 11/10/21 12:45 Resp 18 11/10/21 12:45 BP 123/80 11/10/21 12:45 Pulse Ox 94 11/10/21 12:45 Weight last 48 hrs Weight 56.699 kg Physical Exam Narrative: Patient is comfortable No active chest pain Nitropaste on Hemodynamically stable S1, S2 Pleasant Cooperative Well-groomed Lean S1, S2 Abdomen soft No signs of edema Pleasant cooperative Appropriate mood and affect Saturating well on room air Data : 11/10/21 12:28 11/10/21 12:28 A&P Assessment and plan (1) Unstable angina pectoris: Status: Acute (2) Peripheral vascular disease with claudication: Status: Acute (3) Elevated PSA: Status: Acute (4) Erectile dysfunction: Status: Acute Qualifiers: Erectile dysfunction type: unspecified Qualified Code(s): N52.9 - Male erectile dysfunction, unspecified (5) CAD (coronary artery disease): Status: Acute Plan Unstable angina No signs of ischemia or infarction on EKG Hold off on initiating ACS protocol Dr. Spear consulted Continue cardiac diet for now Chest pain-free On Nitropaste Established coronary disease, noncompliant with medications, he has been taking herbal medications, started aspirin, Plavix, BPH: Continue tamsulosin Tamsulosin is not associated with chest pain Cardiac diet for now Serial troponin and EKG No active leg pain He consider himself fairly active He is full code DVT prophylaxis Lovenox Attestations Medical Necessity Statement*: Anticipating less than 2 midnights in the hospital for further evaluation and management of chest pain, cardiology is consulted, further plan will be made after consultation Time Spent in Patient Care: 40mins Coding Level of Care Code Acute Superannuation Funds Manager for g Fwd Diagnoses Unstable angina pectoris I20.0 Peripheral vascular disease with claudication I73.9 Elevated PSA R97.20 Erectile dysfunction N52.9 Erectile dysfunction type: unspecified CAD (coronary artery disease) I25.10
--- NOTE | 2021-11-10 14:34 | PC.NURSE ---
Report called, transfer pending room being ready.
--- NOTE | 2021-11-10 15:17 | P.CONIM_ITS ---
Providers/Reason For Consult Consulting Physician/Specialty*: KACIE Spear MD/cardiology Reason for Consult*: Patient with chest pain/history of coronary artery disease, status post multiple PCI's, now presenting with chest pain and elevated troponin T Mr. Gupta is known to have coronary artery disease. He has been having episodes of chest pain for the last 2 weeks. He has been having chest pains almost every day, each time lasting anywhere from 10 to 15 minutes and then goes away by itself or with a sublingual nitro. So far he took nitroglycerin 3 times. Last night, he was having chest pain throughout. Initially the pain was mild to moderate. Usually the pain is confined to the lower substernal region. Her last night the pain was radiating to the left arm. He did not have any associated nausea, vomiting or sweating. He may have had some shortness of breath. No palpitation or dizziness. As he woke up this morning, he was feeling better. As he started getting up and moving around, started having the pain again. For this reason, he decided to come to the hospital. His friend brought him to the hospital emergency room. He has not had any recurrence of chest pain since then. At the time of my examination, patient is pain-free. His initial troponin T was 23. The 2-hour and a 6-hour troponin T's are pending. In 2012, he presented with acute myocardial infarction. At that time he was airlifted to [facility]. He had PCI of the circumflex artery at that time. In 2016, he presented with unstable anginal symptoms to this hospital. He was transferred to the [facility] where he underwent a cardiac catheterization followed by PCI. In August 2020, he came to this hospital with clinical features consistent with a non-ST elevation myocardial infarction. Cardiac colorization revealed high-grade in-stent stenosis in the circumflex artery. He underwent PCI by Dr. Drake. He has been on Plavix for a year. Then he stopped taking the Plavix and aspirin on his own. He denies any fever or chills. No cough. No unusual shortness of breath. Patient has a history of posttraumatic stress disorder. Also known to have left subclavian artery occlusion? And peripheral artery disease. No history for CVA. No history for any kidney disease, liver disease or bleeding disorders. Requesting Physician: Dr. Hughes Attending Physician: Tomasa Hughes MD Primary Care Provider: Otoniel Yu, DO History of Present Illness History of Present Illness Dae Gupta is a 75 year old male ?He does have a known history of CAD with prior stenting, 1 stent placed in 2012 and 2 stents placed in 2017.? He is typically seen at the [facility] and follows up with Dr. Han as his psychologist experimental. Review of Systems Narrative: CONSTITUTIONAL: No fever or chills. EYES: No blurring of vision or other visual disturbances lately. ENT: No hoarseness of voice, auditory disturbances or sore throat. CARDIOVASCULAR: As mentioned above. RESPIRATORY: No significant cough. GASTROINTESTINAL: No hematemesis or melena. GENITOURINARY: No dysuria or hematuria. INTEGUMENTARY: No skin rashes or history of skin cancer. NEURO: No transient ischemic attacks or amaurosis. PSYCHIATRIC: History of posttraumatic stress disorder HEMATOLOGIC: No bleeding disorders or significant anemia. ENDOCRINE: No history of polyuria or polydipsia. MUSCULOSKELETAL: No recent joint pain or swelling. ALLERGY/IMMUNOLOGY: As mentioned above. Medications/Allergies Home Medications Medication Instructions Recorded Confirmed Last Taken Type coenzyme Q10 10 mg capsule (Co 10 mg PO DAILY@0900 09/20/19 11/10/21 11/09/21 History Q-10) Cardio For Life 1 tab PO DAILY@0900 08/09/20 11/10/21 11/09/21 History Vitamin D3 1 tab PO DAILY@0900 08/09/20 11/10/21 11/09/21 History Vitamin E Complex 1 tab PO DAILY@0900 08/09/20 11/10/21 11/09/21 History saw palmetto 1 tab PO DAILY@0900 08/09/20 11/10/21 11/09/21 History selenium 1 tab PO DAILY@0900 08/09/20 11/10/21 11/09/21 History vitamin B complex 1 cap PO DAILY@0900 08/09/20 11/10/21 11/09/21 History vitamin K 1 tab PO DAILY@0900 08/09/20 11/10/21 11/09/21 History clear lungs 1 tab PO DAILY 08/23/20 11/10/21 11/09/21 History garlic 1,000 mg capsule (garlic 5,000 mg PO DAILY@0900 PRN 01/23/21 11/10/21 Unknown History oil) nitroglycerin 0.4 mg sublingual 0.4 mg SUBLINGUAL Q5M PRN 10/25/21 11/10/21 Unknown History tablet isosorbide mononitrate 30 mg 15 mg PO DAILY #90 tab 11/09/21 11/10/21 Unknown Rx tablet,extended release 24 hr aspirin 81 mg chewable tablet 81 mg PO DAILY 11/10/21 11/10/21 11/09/21 History Allergies Allergy/AdvReac Type Severity Reaction Status Date / Time Yltjoeo-JOS-XvT Reductase AdvReac Intermediate ADR-Cramping Verified 10/25/21 15:08 Inhibitor of the [Mdxhtke-Xqb-Hcx Reductase Muscles Inhibitor] tamsulosin AdvReac chest pains Verified 10/25/21 15:08 PFSH Acute PFSH: Medical History Abnormal prostate exam Abnormal stress test Anxiety BPH (benign prostatic hyperplasia) BPH loc w urin obs/LUTS CAD (coronary artery disease) -has known hx of CAD s/p stenting x 3 COPD (chronic obstructive pulmonary disease) Depression Elevated PSA Erectile dysfunction HLD (hyperlipidemia) HTN (hypertension) Hypercholesterolemia Leg weakness, bilateral Peripheral vascular disease with claudication -has known PVD with claudication with peripheral angiogram (09/2019) showing multiple luminal irregularities, mild to moderate stenosis of left ostial common iliac artery PTSD (post-traumatic stress disorder) Spermatocele of epididymis, multiple Surgical History History of coronary artery stent placement Family History Father , at age 64 Myocardial infarction Mother , in her 80's Dementia Social History Smoking and tobacco status: current every day smoker Alcohol intake: never Household members: none Marital status: Single Current occupational status: retired History of recent travel: No Vitals/I&O/Wt Last Vital Signs Temp 98.2 F 11/10/21 12:12 Pulse 61 11/10/21 14:24 Resp 18 11/10/21 14:24 BP 137/92 11/10/21 14:24 Pulse Ox 96 11/10/21 14:24 Weight last 48 hrs Weight 125 lb Physical Exam Narrative: GENERAL: The patient is alert and oriented times three. Not in any acute distress. Lean HEENT: No significant pallor, icterus or lymphadenopathy. The pupils are reactant to light. Oral cavity: There are no mucous membrane lesions. Funduscopic examination: The fundus is not visualized. NECK: Trachea appears to be central. No masses noted. No JVD or thyromegaly appreciated. No carotid bruit. RESPIRATORY: Chest is symmetrical. No intercostals muscle retraction or any accessory muscle activation. There is no chest wall tenderness. Breath sounds are heard bilaterally. No rales or rhonchi heard. No evidence of any consolidation. BREASTS: Deferred. HEART: The PMI is in the 5th left intercostals space just inside the midclavicular line. No palpable precordial events. S1 and S2 are normal. No S3 or S4 heard. No pericardial rub or any click heard. ABDOMEN: No vessel pulsations or distention. No tenderness. No organomegaly appreciated. No abdominal bruit. Bowel sounds are normally heard. : Deferred. RECTAL: Deferred. LYMPHATIC: No lymphadenopathy noted in the neck or groin. EXTREMITIES: No edema or cyanosis. No clubbing. The peripheral pulses are palpable and fairly good volume and amplitude. The left radial pulses relatively weak. MUSCULOSKELETAL: No acute joint deformities or swelling. SKIN: There are no significant scars or skin rash noted. NEUROPSYCHIATRIC: The patient is alert and oriented x3. Appears to be in a good mood. The higher functions are grossly within normal limits. No tremors or rigidity noted. Data : 11/10/21 12:28 11/10/21 12:28 Other Labs: Laboratory Last Values WBC 9.2 10^3/uL (4.0-10.0) 11/10/21 12:28 RBC 4.50 10^6/uL (4.1-5.3) 11/10/21 12:28 Hgb 13.4 g/dL (11.7-16.6) 11/10/21 12:28 Hct 41.7 % (42.0-52.0) L 11/10/21 12:28 MCV 92.7 fl (80-94) 11/10/21 12: MCH 29.8 pg (28.0-34.0) 11/10/21 12: MCHC 32.1 g/dL (30.0-36.0) 11/10/21 12: RDW 14.6 % (12.1-15.1) 11/10/21 12:28 Plt Count 238 10^3/cmm (130-400) 11/10/21 12:28 MPV 11.1 fL (7.4-10.4) H 11/10/21 12:28 Neut % (Auto) 56.7 % 11/10/21 12: Lymph % (Auto) 25.4 % 11/10/21 12: [place] % (Auto) 11.9 % 11/10/21 12: Eos % (Auto) 4.9 % 11/10/21 12: Baso % (Auto) 0.9 % 11/10/21 12: Neut # (Auto) 5.19 10^3/uL (1.8-7.7) 11/10/21 12:28 Lymph # (Auto) 2.3 10^3/uL (0.8-4.8) 11/10/21 12:28 [place] # (Auto) 1.1 10^3/uL (0.2-0.9) H 11/10/21 12:28 Eos # (Auto) 0.5 10^3/uL (0.0-0.8) 11/10/21 12: Baso # (Auto) 0.1 10^3/uL (0.0-0.1) 11/10/21 12: Nucleated RBC % (auto) 0 % 11/10/21 12: Nucleated RBCs # 0.0 /100WBC 11/10/21 12:28 Sodium 137 mmol/L (136-145) 11/10/21 12:28 Potassium 4.4 mmol/L (3.5-5.1) 11/10/21 12:28 Chloride 103 mmol/L (98-107) 11/10/21 12:28 Carbon Dioxide 27 mmol/L (22-29) 11/10/21 12:28 Anion Gap 11.4 (5-19) 11/10/21 12:28 BUN 13 mg/dL (8-23) 11/10/21 12:28 Creatinine 0.9 mg/dL (0.7-1.2) 11/10/21 12:28 GFR Calculation Not Reportable 11/10/21 12:28 Glucose 76 mg/dL (65-115) 11/10/21 12:28 Calculated Osmolality 283 mOsm/kg (285-295) L 11/10/21 12:28 Calcium 9.3 mg/dL (8.5-10.5) 11/10/21 12:28 Troponin T Baseline 23 ng/L (0-15) H 11/10/21 12:50 Peripheral angiogram on 09/21/2019: My impression: #1 Right? common iliac artery has luminal irregularity. Left ostial common iliac artery has mild to moderate stenosis#2 Left and right internal iliac artery has luminal irregularity#3 Right and left external iliac artery has luminal irregularity#8 Left and? right common femoral artery has luminal irregularity#9 Right and left profunda femoral artery has luminal irregularity#10 Right then Left SFA has luminal irregularities # 11 Right and left? popliteal arteries has luminal irregularities#13 Right and left Tibioperoneal trunk has luminal irregularities #14 Right and left Anterior , posterior tibial and peroneal arteries has luminal irregularities. Coronary angiogram on 08/11/2020: My impression: * LAD has luminal irregularities. It gives rise to 2 diagonal branches without significant disease.. ? * RCA is a small nondominant vessel.? No significant stenosis seen. ? * There are prior stents seen in proximal to mid left circumflex artery and large OM branch.? There is severe in-stent restenosis in proximal section of left circumflex stent.? pCIRC to Mid Circumflex Coronary Artery: Severe 80% stenosis, [place]: 3 flow. ? * LM has 0% stenosis. ? * Coronary angiography shows left dominance. EKG 1: My Interpretation: Sinus bradycardia with a heart rate of 57 bpm. Possible left atrial large man. No acute ST-T changes. Repeat EKG also has similar findings. No significant ST-T changes. EKG computer-generated impression: Chest X-Ray 11/10/21 12:11 IMPRESSION: Overinflated lungs consistent with emphysema. No acute abnormality. A&P Assessment and plan (1) Atherosclerotic heart disease of [place] coronary artery with unstable angina pectoris: Patient symptoms may suggest unstable angina. EKG is unremarkable. Elevated troponin T, suggesting a non-ST elevation myocardial infarction. Currently the patient is asymptomatic. The vital signs remained stable. Patient may be started on subcu Lovenox. I may go ahead and give him Plavix 30 mg p.o. now followed by 75 mg p.o. daily. May continue on the aspirin. Also may start him on a statin drug. Based on his clinical progress, further recommendations will be made. An echocardiogram to be helpful to evaluate LV function and rule out any other pathology. Status: Acute (2) Peripheral vascular disease with claudication: Patient currently has no specific symptoms of peripheral arterial insufficiency. He has good dorsalis pedis and posterior tibial pulses bilaterally. Status: Acute (3) Dyslipidemia: I may start him on Lipitor 40 mg p.o. now and daily. Status: Acute (4) Elevated blood pressure reading: We will start him on a low-dose of BRANDT inhibitor namely lisinopril 5 mg p.o. now and daily. Status: Acute Plan Based on the patient's clinical progress and the results of the above, further recommendations will be made. Thank you for the opportunity to eval this patient make these recommendations Coding Level of Care Code Acute Drafter Electromechanical for Denisse Gardner History Detailed Exam Detailed Medical Decision Making High Complexity Diagnoses Peripheral vascular disease with claudication I73.9 Atherosclerotic heart disease of [place] coronary artery with unstable angina pectoris I25.110 Dyslipidemia E78.5 Elevated blood pressure reading R03.0
[2021-11-10 15:28] LABS: Troponin 5 2HR 26.93 ng/L (0-15)
[2021-11-10 15:43] LABS: Troponin 5 2HR Delta 3.93 ABS# (0-10)
--- NOTE | 2021-11-10 16:07 | USCV_ITS ---
Transthoracic Echo Dae Gupta Age: 75 Gender: M : 1945 Exam Date: 11/10/2021 23:54 Ordering Phys: Anjel Spear MD ([email or web address]) Technologist: Yuniel Colby Exam Location: [facility] [place] Indication: chest pain hx of cad BP: 122 / 72 HR: 54 Rhythm: Sinus Technical Quality: Adequate MEASUREMENTS (Male / Female) Normal Values 2D ECHO LV Diastolic Diameter PLAX 4.1 cm 4.2 - 5.9 / 3.9 - 5.3 cm LV Systolic Diameter PLAX 2.6 cm IVS Diastolic Thickness 0.9 cm 0.6 - 1.0 / 0.6 - 0.9 cm IVS Systolic Thickness 1.5 cm LVPW Diastolic Thickness 1.8 cm 0.6 - 1.0 / 0.6 - 0.9 cm LVPW Systolic Thickness 2.2 cm LVOT Diameter 1.9 cm LV Ejection Fraction 2D Teich 53.9 % LV Ejection Fraction MOD 2C 58.8 % LV Ejection Fraction 2C AL 61.1 % LA Diameter 3.0 cm LA Width 4.8 cm LA Height 3.2 cm Aorta at Sinotubular Diameter 2.7 cm M-MODE Aortic Annulus Diameter 2.9 cm LA Ao Ratio MM 0.9 MV E Point Septal Separation 0.5 cm DOPPLER AV Peak Velocity 92.0 cm/s LVOT Peak Velocity 73.0 cm/s AV Area Cont Eq vti 2.5 cm squared AV Area Cont Eq pk 2.3 cm squared MV Area PHT 2.9 cm squared Mitral E to A Ratio 0.7 MV E' Velocity 31.0 cm/s Mitral E to MV E' Ratio 5.8 Mitral E to LV E' Lateral Ratio 5.8 Mitral E to LV E' Septal Ratio 5.8 TR Peak Velocity 66.8 cm/s TR Peak Gradient 1.8 mmHg TR Mean Velocity 58.0 cm/s TR Mean Gradient 1.4 mmHg TR Velocity Time Integral 17.4 cm PV Peak Velocity 97.0 cm/s FINDINGS Left Ventricle Normal LV size with ejection fraction 55%. Relative hypokinesia of the basal inferolateral wall segment. Right Ventricle The right ventricle is normal in size and function. Right Atrium The right atrium is normal in size. Left Atrium The left atrium is normal in size. Mitral Valve Trace mitral valve regurgitation. Aortic Valve Thickened aortic valve. Tricuspid Valve No gross abnormalities noted Pulmonic Valve Trace pulmonary valve regurgitation. Pericardium Normal pericardium without effusion. Aorta Normal ascending aorta dimension. CONCLUSIONS Normal LV size with ejection fraction 55%. Relative hypokinesia of the basal inferolateral wall segment. Trace pulmonary valve regurgitation. Trace mitral valve regurgitation. Thickened aortic valve. Technically somewhat difficult study Compared to the study from 08/10/2020, there may not be a significant change Dr Anjel Spear MD FACC (Electronically Signed) Final Date: 11 November 2021 08:49 S
[2021-11-10 16:12] LABS: Thyroid Stimulating Hormone 1.38 uIU/mL (0.27-4.20)
[2021-11-10] MEDS: clopidogrel 300 mg Tablet PO (16:36)
[2021-11-10] MEDS: enoxaparin 60 mg/0.6 mL Syringe SUBCUT (16:36)
--- NOTE | 2021-11-10 18:11 | ECG_ITS ---
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 Measurements Intervals [place] Rate: 56 P: 77 UT: 155 QRS: 67 QRSD: 94 T: 54 QT: 454 QTc: 438 Interpretive Statements SINUS BRADYCARDIA POSSIBLE LEFT ATRIAL ENLARGEMENT [-0.1mV P-WAVE IN V1/V2] Compared to ECG 11/10/2021 14:08:06 Sinus arrhythmia no longer present Electronically Signed On 11-10-2021 19:10:13 CDT by Anjel Spear M.D. [email or web address] [email or web address] ([email or web address])[id number]
[2021-11-10] MEDS: lisinopril 5 mg Tablet PO (18:21)
--- NOTE | 2021-11-10 18:43 | PC.NURSE ---
admitted into room 104 from er via w/c.report received.pt is alert and oriented x 4.sb on monitor.significant cardiac history with last cardiac stent placed 08/24.states stopped plavix on his own about 6 months ago .denies chest pain at present.states has had chest pain off and on for about [address] lara examined pt.pt loaded with 300 mg plavix and therapeutic dose of lovenox given as ordered.oriented to room environment .instructed to notify staff for any chest pain,dizziness,sob,or for any concerns at all.pt verb understanding of instructions
[2021-11-10 19:15] LABS: D Dimer 0.71 ug/mIFEU (0-0.59)
[2021-11-10 19:22] LABS: Troponin 5 6HR 27.28 ng/L (0-15)
[2021-11-10 19:26] LABS: Troponin 5 6HR Delta 4.28 ng/L (0-12)
[2021-11-10 19:47] LABS: Amphetamines Screen Urine Negative (Negative); Barbiturates Screen Urine Negative (Negative); Benzodiazepines Screen Urine Negative (Negative); Cocaine Screen Urine Negative (Negative); Opiate Screen Urine Negative (Negative); PCP Screen Urine Negative (Negative); THC Screen Urine Negative (Negative)
[2021-11-11] VITALS (16 sets, daily range): BP systolic 101–141; BP diastolic 58–81; PULSE 48–79; RESP 8–19; TEMP 36.4–37; O2SAT 93–100
[2021-11-11] MEDS: enoxaparin 60 mg/0.6 mL Syringe SUBCUT (04:10)
[2021-11-11 05:56] LABS: Basophils # 0.1 10^3/uL (0.0-0.1); Basophils % 0.9 %; Eosinophils # 0.5 10^3/uL (0.0-0.8); Eosinophils % 5.3 %; Hematocrit 40.3 % (42.0-52.0); Lymphocytes # 2.4 10^3/uL (0.8-4.8); Lymphocytes % 28.2 %; Mean Corpuscular HGB Conc 32.3 g/dL (30.0-36.0); Mean Corpuscular Hemoglobin 29.7 pg (28.0-34.0); Mean Platelet Volume 11.4 fL (7.4-10.4); Monocytes # 1.2 10^3/uL (0.2-0.9); Monocytes % 13.5 %; Neutrophils # 4.43 10^3/uL (1.8-7.7); Neutrophils % 51.9 %; Nucleated Red Blood Cells % 0 %; Platelet Count 227 10^3/cmm (130-400); Red Blood Count 4.38 10^6/uL (4.1-5.3); Red Cell Distribution Width 14.5 % (12.1-15.1); White Blood Count 8.5 10^3/uL (4.0-10.0)
[2021-11-11 06:21] LABS: Anion Gap 13.3 (5-19); Blood Urea Nitrogen 13 mg/dL (8-23); Calcium 9.5 mg/dL (8.5-10.5); Carbon Dioxide 27 mmol/L (22-29); Chloride 104 mmol/L (98-107); Glucose 89 mg/dL (65-115); Magnesium 2.2 mg/dL (1.7-2.3); Osmolality Calculated 290 mOsm/kg (285-295); Potassium 4.3 mmol/L (3.5-5.1); Sodium 140 mmol/L (136-145)
[2021-11-11] MEDS: clopidogrel 75 mg Tablet PO (08:09)
[2021-11-11] MEDS: aspirin 81 mg EC Tablet PO (08:09)
--- NOTE | 2021-11-11 08:32 | P.PN_ITS ---
Subjective Subjective: This morning patient is doing well overnight other than low heart rate he has not been experiencing any chest pain shortness of breath confusion He has been started on ACS protocol prior Dr. Spear I have asked him to stay n.p.o. until today's evaluation by Dr. Spear He is not on any AV karine blocking agent I have asked his nurse to remove Nitropaste his blood pressure is 107/70 mmHg At the time my evaluation heart rate is 78, sinus bradycardia on EKG, incomplete right bundle branch block Vitals/I&O/Wt Last Vital Signs Temp 97.9 F 11/11/21 08:00 Pulse 78 11/11/21 08:00 Resp 12 11/11/21 08:00 BP 101/70 11/11/21 08:00 Pulse Ox 95 11/11/21 08:00 11/10/21 11/11/21 11/11/21 22:59 06:59 14:59 Intake Total 600 / 600 0 / 600 Output Total 600 / 600 200 / 200 Balance 600 / 600 -600 / 0 -200 / -200 Weight last 48 hrs Weight 59.421 kg Weight 56.699 kg Physical Exam Narrative: Patient is laying comfortably in his bed Saturating well on room air Not bradycardic at the time of evaluation No chest pain confusion or shortness of breath Doing well on room air Nonfocal neuro exam Abdomen soft Data : 11/11/21 04:44 11/11/21 04:44 A&P Assessment and plan (1) Dyslipidemia: Status: Acute (2) Atherosclerotic heart disease of [place] coronary artery with unstable angina pectoris: Status: Acute (3) Unstable angina pectoris: Status: Acute (4) Peripheral vascular disease with claudication: Status: Acute (5) CAD (coronary artery disease): Status: Acute (6) Bradycardia: Status: Acute Plan 75-year-old male who has history of established coronary disease, last stent placedin August last year has stopped taking aspirin and Plavix, he is on multiple herbal medications presented with unstable angina presentation, cardiology started ACS protocol, troponin and EKG unremarkable Unstable angina ACS protocol started I will keep him n.p.o. until Dr. Spear's evaluation today No active chest pain Condition incomplete bundle branch block Echo is pending Continue aspirin, Plavix, he is allergic to statins, holding indoor because of low blood pressure, there is some reports of using Viagra in the past as well would avoid nitrates at the time of discharge Hold lisinopril for now because of low blood pressure Remove Nitropaste Complaining of headache due to nitro Peripheral arterial disease without acute exacerbation Would recommend long-term aspirin use No active discomfort at rest or exertion Sinus bradycardia Noted overnight No active chest pain Incomplete bundle branch block Heart rate is better in the morning Likely vagal tone overnight Modified diet after cardiology evaluation Full code DVT prophylaxis currently on therapeutic regimen of Lovenox Echo is pending D-dimer unremarkable Attestations Medical Necessity Statement*: Likely will be discharged on Friday Time Spent in Patient Care: 30min Coding Level of Care Code Acute Lean Manager for Chavezg Fwd Diagnoses Dyslipidemia E78.5 Atherosclerotic heart disease of [place] coronary artery with unstable angina pectoris I25.110 Unstable angina pectoris I20.0 Peripheral vascular disease with claudication I73.9 CAD (coronary artery disease) I25.10 Bradycardia R00.1
--- NOTE | 2021-11-11 10:27 | PM.PN ---
Subjective Subjective: Patient is feeling okay. He has not had any significant chest pain, since hospital admission. His initial troponin T was found to be elevated. The echocardiogram which revealed relative hypokinesia of the inferolateral wall segment. Medications: Medication Review Details: Current Medications Acetaminophen (Acetaminophen 500 Mg Tablet) 500 mg PO Q4H PRN PRN Reason: fever Al Hydrox/Mg Hydrox/Simethicone (Jmww-Cqi-Acicctswe-Paolo 30 Ml Udc) 30 ml PO Q15M PRN PRN Reason: INDIGESTION Albuterol/Ipratropium (Ipratropium-Albuterol 3 Ml Neb) 3 ml INHALATION Q6H PRN PRN Reason: SHORTNESS OF BREATH Aspirin (Aspirin 81 Mg Ec Tablet) 81 mg PO DAILY [facility] Last Admin: 11/11/21 08:09 Dose: 81 mg Documented by: Atropine Sulfate (Atropine 1 Mg/Ml Sdv 1 Ml) 0.5 mg IVP PRN PRN PRN Reason: Symptomatic bradycardia Clopidogrel Bisulfate (Clopidogrel 75 Mg Tablet) 75 mg PO DAILY [facility] Last Admin: 11/11/21 08:09 Dose: 75 mg Documented by: Diphenhydramine HCl (Diphenhydramine 50 Mg Capsule) 50 mg PO ONCE ONE Stop: 11/11/21 10:24 Enoxaparin Sodium (Enoxaparin 60 Mg/0.6 Ml Syringe) 60 mg SUBCUT Q12H [facility] Last Admin: 11/11/21 04:10 Dose: 60 mg Documented by: Dextrose/Sodium Chloride (Dextrose 5%-Sod Chloride 0.45%) 1,000 mls @ 125 mls/hr IV .Q8H [facility] Isosorbide Mononitrate (Isosorbide Mononitrate Er 30 Mg Tablet) 15 mg PO DAILY [facility] Last Admin: 11/11/21 08:09 Dose: Not Given Documented by: Lisinopril (Lisinopril 5 Mg Tablet) 5 mg PO DAILY [facility] Last Admin: 11/11/21 08:09 Dose: Not Given Documented by: Magnesium Hydroxide (Magnesium Hydroxide 30 Ml Udc) 30 ml PO DAILY PRN PRN Reason: CONSTIPATION Morphine Sulfate (Morphine Ir 15 Mg Tablet) 15 mg PO Q6H PRN PRN Reason: pAIN Naloxone HCl (Naloxone 0.4 Mg/Ml Sdv) 0.1 mg IVP Q2M PRN PRN Reason: RESPIRATORY RATE < 8/MIN Nitroglycerin (Nitroglycerin 0.4 Mg Sublingual Tablet) 0.4 mg SUBLINGUAL Q5M PRN PRN Reason: CHEST PAIN Ondansetron HCl (Ondansetron 2 Mg/Ml Sdv 2 Ml) 4 mg IVP Q6H PRN PRN Reason: NAUSEA AND VOMITING Senna/Docusate Sodium (Sennosides-Docusate Tablet) 1 tab PO DAILY [facility] Last Admin: 11/11/21 08:12 Dose: Not Given Documented by: Tamsulosin HCl (Tamsulosin 0.4 Mg Capsule) 0.4 mg PO BEDTIME [facility] Last Admin: 11/10/21 19:52 Dose: Not Given Documented by: Temazepam (Temazepam 15 Mg Capsule) 15 mg PO BEDTIME PRN PRN Reason: INSOMNIA Vitals/I&O/Wt Last Vital Signs Temp 97.9 F 11/11/21 08:00 Pulse 78 11/11/21 08:00 Resp 12 11/11/21 08:00 BP 101/70 11/11/21 08:00 Pulse Ox 95 11/11/21 08:00 11/10/21 11/11/21 11/11/21 22:59 06:59 14:59 Intake Total 600 / 600 0 / 600 0 / 0 Output Total 600 / 600 200 / 200 Balance 600 / 600 -600 / 0 -200 / -200 Weight last 48 hrs Weight 131 lb Weight 125 lb Physical Exam Narrative: GENERAL: The patient is alert and oriented times three. Not in any acute distress. Lean HEENT: No significant pallor, icterus or lymphadenopathy. The pupils are symmetrical NECK: Trachea appears to be central. No masses noted. No JVD or thyromegaly appreciated. No carotid bruit. RESPIRATORY: Chest is symmetrical. No intercostals muscle retraction or any accessory muscle activation. There is no chest wall tenderness. Breath sounds are heard bilaterally. No rales or rhonchi heard. No evidence of any consolidation. BREASTS: Deferred. HEART: The PMI is in the 5th left intercostals space just inside the midclavicular line. No palpable precordial events. S1 and S2 are normal. No S3 or S4 heard. No pericardial rub or any click heard. ABDOMEN: No vessel pulsations or distention. No tenderness. No organomegaly appreciated. No abdominal bruit. Bowel sounds are normally heard. : Deferred. RECTAL: Deferred. LYMPHATIC: No lymphadenopathy noted in the neck or groin. EXTREMITIES: No edema or cyanosis. No clubbing. The peripheral pulses are palpable and fairly good volume and amplitude. The left radial pulses relatively weak. MUSCULOSKELETAL: No acute joint deformities or swelling. SKIN: There are no significant scars or skin rash noted. NEUROPSYCHIATRIC: The patient is alert and oriented x3. Appears to be in a good mood. The higher functions are grossly within normal limits. No tremors or rigidity noted. Data : 11/11/21 04:44 11/11/21 04:44 Other Labs: Laboratory Last Values WBC 8.5 10^3/uL (4.0-10.0) 11/11/21 04:44 RBC 4.38 10^6/uL (4.1-5.3) 11/11/21 04:44 Hgb 13.0 g/dL (11.7-16.6) 11/11/21 04:44 Hct 40.3 % (42.0-52.0) L 11/11/21 04:44 MCV 92.0 fl (80-94) 11/11/21 04:44 MCH 29.7 pg (28.0-34.0) 11/11/21 04:44 MCHC 32.3 g/dL (30.0-36.0) 11/11/21 04:44 RDW 14.5 % (12.1-15.1) 11/11/21 04:44 Plt Count 227 10^3/cmm (130-400) 11/11/21 04:44 MPV 11.4 fL (7.4-10.4) H 11/11/21 04:44 Neut % (Auto) 51.9 % 11/11/21 04:44 Lymph % (Auto) 28.2 % 11/11/21 04:44 Brantley % (Auto) 13.5 % 11/11/21 04:44 Eos % (Auto) 5.3 % 11/11/21 04:44 Baso % (Auto) 0.9 % 11/11/21 04:44 Neut # (Auto) 4.43 10^3/uL (1.8-7.7) 11/11/21 04:44 Lymph # (Auto) 2.4 10^3/uL (0.8-4.8) 11/11/21 04:44 Brantley # (Auto) 1.2 10^3/uL (0.2-0.9) H 11/11/21 04:44 Eos # (Auto) 0.5 10^3/uL (0.0-0.8) 11/11/21 04:44 Baso # (Auto) 0.1 10^3/uL (0.0-0.1) 11/11/21 04:44 Nucleated RBC % (auto) 0 % 11/11/21 04:44 Nucleated RBCs # 0.0 /100WBC 11/11/21 04:44 D-Dimer 0.71 ug/mIFEU (0-0.59) H 11/10/21 18:45 Sodium 140 mmol/L (136-145) 11/11/21 04:44 Potassium 4.3 mmol/L (3.5-5.1) 11/11/21 04:44 Chloride 104 mmol/L (98-107) 11/11/21 04:44 Carbon Dioxide 27 mmol/L (22-29) 11/11/21 04:44 Anion Gap 13.3 (5-19) 11/11/21 04:44 BUN 13 mg/dL (8-23) 11/11/21 04:44 Creatinine 0.8 mg/dL (0.7-1.2) 11/11/21 04:44 GFR Calculation Not Reportable 11/11/21 04:44 Glucose 89 mg/dL (65-115) 11/11/21 04:44 Calculated Osmolality 290 mOsm/kg (285-295) 11/11/21 04:44 Calcium 9.5 mg/dL (8.5-10.5) 11/11/21 04:44 Magnesium 2.2 mg/dL (1.7-2.3) 11/11/21 04:44 Magnesium Cancelled 11/11/21 04:44 Troponin T Baseline 23 ng/L (0-15) H 11/10/21 12:50 Troponin T 120 Minute 26.93 ng/L (0-15) H 11/10/21 14:45 Delta Troponin T 3.93 ABS# (0-10) 11/10/21 14:45 Troponin T Hi Sens 6Hr 27.28 ng/L (0-15) H 11/10/21 18:45 Troponin T Hi Sens 6Hr Delta 4.28 ng/L (0-12) 11/10/21 18:45 TSH 1.38 uIU/mL (0.27-4.20) 11/10/21 12:50 Urine Opiates Screen Negative ng/mL (Negative) 11/10/21 19:00 Ur Barbiturates Screen Negative ng/mL (Negative) 11/10/21 19:00 Ur Phencyclidine Scrn Negative ng/mL (Negative) 11/10/21 19:00 Ur Amphetamines Screen Negative ng/mL (Negative) 11/10/21 19:00 U Benzodiazepines Scrn Negative ng/mL (Negative) 11/10/21 19:00 Urine Cocaine Screen Negative ng/mL (Negative) 11/10/21 19:00 U Marijuana (THC) Screen Negative ng/mL (Negative) 11/10/21 19:00 A&P Assessment and plan (1) Atherosclerotic heart disease of [place] coronary artery with unstable angina pectoris: In view of the patient's presenting symptoms and elevated troponin T, in order to further evaluate his coronary status, a cardiac catheterization would be appropriate. The risk of bleeding, hematoma, vascular injury, myocardial infarction, CVA, renal failure and other concomitant complications were explained in detail. Patient understood this well and consented to proceed. We may coordinate scheduling the procedure as early as possible. CHEST X-RAY: [] ECHOCARDIOGRAM: [] PREVIOUS CATH/CABG: [] OTHER RADIOLOGY: [] Status: Acute (2) Peripheral vascular disease with claudication: Patient currently has no specific symptoms of peripheral arterial insufficiency. He has good dorsalis pedis and posterior tibial pulses bilaterally. Status: Acute (3) Dyslipidemia: May continue on the current medications Status: Acute (4) Elevated blood pressure reading: Patient seems to be responding to the medication. Currently the blood pressure is in the normal range. We will continue on the current medications. Status: Acute Plan After reviewing the results of the cardiac catheterization, further management decisions will be made. Attestations Medical Necessity Statement*: Patient requires continued hospital stay for close monitoring and further management Coding Level of Care Code Acute Private Inquiry Agent for Denisse Fwveronica History Detailed Exam Detailed Medical Decision Making Moderate Complexity Diagnoses Atherosclerotic heart disease of [place] coronary artery with unstable angina pectoris I25.110 Peripheral vascular disease with claudication I73.9 Dyslipidemia E78.5 Elevated blood pressure reading R03.0
[2021-11-11] MEDS: dextrose 5%-sod chloride 0.45% 1,000 ML 125 ML IV (11:16)
--- NOTE | 2021-11-11 13:35 | XACV_ITS ---
Exam Room: 2 Ht: 175 cm Wt: 59 kg BSA: 1.69 m2 Gender: Male : 1945 Any Known Allergies: Other Exam Priority: Routine Procedure(s): Procedure Description: Diagnostic procedure Procedure Description: Left ventriculography Procedure Description: Coronary Angiography Rainer ALMANZAR; Diagnostic Cath Status: Elective Diagnostic Findings * The patient actually after he was found to be totally occluded. So coronary angiogram was performed through the right femoral artery. Patient was found to have heavy plaques in the iliac artery as well. * The left main is a medium caliber short vessel with no significant stenotic lesion. * The left no TIAs or amaurosis descending artery is a medium caliber vessel which appears to wrap around the LV apex. The proximal LAD was found to have a tubular around 50% narrowing. The first diagonal branch also was found to have proximal around 50% tubular narrowing. The mid LAD was found to have 20 to 30% diffuse tubular narrowing. Distal LAD was found no significant lesions.. * The circumflex artery is the dominant vessel which appears to bifurcate proximally giving off a high obtuse marginal branch. A long stented segment starting from the proximal circumflex artery into the mid circumflex was noted. A high-grade in-stent stenosis was noted just above the origin of the first obtuse marginal branch. There was a long stented segment in the first obtuse marginal branch extending up to the ostium. High-grade in-stent stenosis was noted near the ostium of the first obtuse marginal artery as well. Multiple overlapping of stents were noted in the mid circumflex, near to the origin of the obtuse marginal branch. There is 40% stenosis in the obtuse marginal branch, distal to the stented area. No other significant stenotic lesions were noted.. * The right coronary artery is a nondominant small caliber vessel with no significant stenotic lesions. Conclusions 1. 75-year-old white male with a history of coronary disease, status post multiple PCI's in the circumflex artery, presenting with prolonged episode of chest pain and elevated troponin T. The clinical features where consistent with a non-ST elevation myocardial infarction. For further evaluation of his coronary status, a repeat cardiac catheterization was recommended. Patient underwent left heart catheterization with left and right coronary angiogram today. The findings are as follows.. 2. 1. Short left main with no significant is lesions. 2. 50% tubular narrowing in the proximal LAD. Mild diffuse disease in the mid LAD. 3. High-grade in-stent stenosis in the proximal circumflex artery and near to the ostium of the first obtuse marginal branch. Nondominant right coronary artery with no significant lesions.LVEDP of 22 mmHg. incidentally the patient was found to have occluded axillary artery and heavy plaques in the right iliac artery.. 3. I reviewed and discussed the cardiac catheterization data with the Dr. Spivey. Intervention of the circumflex and obtuse marginal artery lesions were thought to be technically challenging and with a high chance of restenosis. The better option was thought to be a surgical revascularization. It was discussed with the patient. Patient is agreeable for surgical intervention. We will be consulting Dr. Wilson to consider surgical coronary revascularization. Diagnostic RX Recommendation: CABG LV EDP: 22 mmHg Left Ventriculography Findings: * LV gram was not performed. LVEDP was 20 mmHg. Pressures Phase:Rest AO : 88 / 26 ( 50 ) @ 3:45:00 PM 148 / 72 ( 102 ) @ 3:46:00 PM 149 / 74 ( 103 ) @ 3:46:00 PM 138 / 76 ( 103 ) @ 3:57:00 PM LV : 161 / 0 / 16 @ 3:46:00 PM 154 / -6 / 11 @ 3:46:00 PM Valves Phase:DefaultPhase AV : 9.0 @ 3:20:40 PM AV Mean Gradient: 11.0 @ 3:20:40 PM Clinical Evaluation EBL: 5mL-10mL Procedural Details Pre-Procedure Time Out. Identified patient by full name and date of as verbalized by the patient/guarantor. Does the consent match the physician's order: Yes. Accurate & Complete Informed Consent: Yes. Inpatient/Outpatient History & Physical on Chart: Yes. If H&P is completed, is and addenduem needed: Yes; If yes, is the addendum complete: Yes. Visualize and Verify Site with Patient/Guarantor: N/A. Relevant Radiology Images available: Yes. Pre-op teaching completed and patient verbalized understanding. The risks, benefits, and alternatives of sedation and/or procedure were discussed by physician. The patient agrees to continue. Procedure started. [facility] Clinical Fraility Score: 3: Managing Well. [place] Indications: ACS > 24 hours. Chest Pain Symptom Assessment: Typical Angina Symptoms. Cardiovascular Instability: No. Patient's family unavailable. Mr Gupta stated to this nurse that he would call his family after the procedure when he gets back to his room. Equipment: 6F - Radial. Cardiac Cath Pack. ACJust around Us Manifold Kit Model BT 2000. Heparinized Saline (2 units/mL), 1000 mL bag. Physician arrived. Physician scrubbed in. Immediate Pre-Procedure Time Out. Correct Patient: Yes; Correct Procedure: Yes; Correct Site: Yes; Correct Patient Position: Yes; Correct Supplies: Yes; Dried Flammable Prep: Yes; Blood Products Available: N/A;. Lidocaine 1% infiltrated to the right radial. Arterial access obtained. A 5 rwandan Amrit catheter in over wire. right radial was prepped with chloroprep then draped in the usual sterile fashion. right groin was prepped with chloroprep then draped in the usual sterile fashion. Wire out, hand injection performed. Unable to thread wire past clavicle region, will move to femoral access. Correct patient, site and procedure confirmed by cath team. PERRLA. Strong, equal hand sql ssis developer bilaterally. Lungs clear x 5 lobes. IV Site on Arrival: 20 gauge in the right anticubital. IV Fluids: 0.9% NaCl at KVO. 0 mL infused prior to laborer. Pre Procedural Pulses: bilateral dorsalis pedis was Doppled. Pre Procedural Pulses: bilateral posterior tibial was Doppled. Pre Procedural Pulses: bilateral radial was 2+. Oxygen started at 2liters/min via nasal canula. Physician notified. A TR Band was successful obtaining hemostatsis at the Right Radial artery insertion site. Baseline sample Acquired. HR: 75 BPM. Lidocaine 1% infiltrated to the right groin. Arterial access obtained with micropuncture set. A 5 rwandan JR4 catheter in over wire. Standard wire out, hand injection performed. Standard wire in. Standard wire out. Glidewire in through the JR catheter. Glidewire out. Hand injection performed. Current Diagnosis : NSTEMI. Catheter removed over the standard wire. A 5 rwandan JR4 catheter in over the glidewire. EDP Sample taken: LV 161/-1,16; HR: 103 BPM; SpO2: 98%. Pullback taken: LV 154/-7,11; AO 148/72(102); Mean: 11mmHg, Peak to Peak: 9mmHg, SEP: 19sec/min; HR: 75 BPM; SpO2: 98%. Catheter removed over the exchange wire. A 5 rwandan JL4 catheter in over exchange wire. Multiple views taken of right coronary artery. Multiple views taken of left coronary artery. Dr Spear and Dr Spivey reviewing cine. Side port of sheath attached to Normal Saline flush at KVO to maintain patency. Catheter removed over the standard wire. Sheath(s) removed and manual pressure held until hemostasis was achieved. Sterile 4x4 and Op-site applied to the puncture site. No oozing or hematoma noted. Post sheath removal instructions were given and the patient verbalized understanding. A Manual Compression was successful obtaining hemostatsis at the Right Femoral artery insertion site. Post Procedure: Pulses reassessed and unchanged. PERRLA. Strong, equal hand sql ssis developer bilaterally. No VTE prophylaxis required. Medication's Wasted: Heparin = 4500 units. Medication's Wasted: Nitro = 49.8 mg. Total IV fluids: 336 mL. Post-op diagnosis: High grade in-stent stenosis of the OM and mid CX. Moderate diseaes in the LAD. Complications: none. Estimated blood loss: 5mL-10mL. Responsiveness - Normal response to verbal stimuli; alert and oriented, PERRLA. Airway - Unaffected, no intervention required; spontaneous ventilation. Circulation: W/N/L, pulses unchanged. Nausea/Vomiting: No. Vital chart was stopped. Procedure completed. Patient transferred by bed to 1st floor. Access Site Site: Right Femoral artery Sheath Size: 5 Fr Hemostasis Method: Manual Compression Hemostasis Success: Successful Site: Right Radial artery Sheath Size: 6 Fr Hemostasis Method: TR Band Hemostasis Success: Successful Procedure Medications Start: 2:09 PM Stop: 2:09 PM Medication: Benadryl Amount: 25 mg Route: I.V. Start: 2:09 PM Stop: 2:09 PM Medication: Versed Amount: 1 mg Route: I.V. Start: 2:09 PM Stop: 2:09 PM Medication: Fentanyl Amount: 50 mcg Route: I.V. Start: 2:32 PM Stop: 2:32 PM Medication: Versed Amount: 1 mg Route: I.V. Start: 2:33 PM Stop: 2:33 PM Medication: Fentanyl Amount: 25 mcg Route: I.V. Start: 2:45 PM Stop: 2:45 PM Medication: Heparin Amount: 1500 units Route: I.V. I, the attending physician, have reviewed and verified all procedure medications. Yes, all medications given per verbal order History/Risk Factors Hypertension: Yes Dyslipidemia: Yes Peripheral Arterial Disease (PAD): Yes Myocardial Infarction (ME): No Obesity: Yes Renal Disease: Yes Tobacco Use: Current/Recent(w/in 1 year) Dialysis: Current Prior Interventions PCI: Yes CABG: No Valve Surgery: No Date of PCI: 08/11/2020 Report Signatures Finalized by Dr Anjel Spear MD [facility] on 11/11/2021 09:45 PM
--- NOTE | 2021-11-11 13:37 | W.PM.OPSUD ---
Surgery/Procedure H&P Update DATE OF PROCEDURE: November 11, 2021 DATE H&P PERFORMED: 11/10/21 H&P UPDATE INFORMATION: I have reviewed H&P completed within last 30 days, I have examined patient prior to procedure and No changes to prior documentation PREOP DIAGNOSIS: Worsening angina/abnormal stress test PRIMARY INDICATION FOR PROCEDURE: Unstable angina/elevated troponin T/previous multiple PCI PLANNED PROCEDURE: Operation Date: 11/11/21 14:00 Proposed Procedures p Cardiac Catheterization(Left) - Anjel Spear MD Left heart catheterization with left and right coronary angiogram, LV angiogram and possible PCI PATIENT REASSESSED PRIOR TO SEDATION, WITH NO CHANGE NOTED: Yes PHYSICAL EXAM: alert, oriented x 3, clear to auscultation bilaterally and regular rate & rhythm AIRWAY EVAL/ANESTHESIA PLAN: normal airway, ASA III, Monitored Anesthesia, Local Anesthesia, Risks, benefits & alternatives of sedation and/or procedure discussed and Patient agrees to continue as planned
[2021-11-12] VITALS (13 sets, daily range): BP systolic 92–141; BP diastolic 57–80; PULSE 54–86; RESP 11–24; TEMP 36.3–36.7; O2SAT 93–98
[2021-11-12] MEDS: sennosides-docusate Tablet 1 TAB PO (08:10)
[2021-11-12] MEDS: isosorbide mononitrate ER 30 mg Tablet 15 MG PO (08:10)
[2021-11-12] MEDS: aspirin 81 mg EC Tablet PO (08:10)
--- NOTE | 2021-11-12 09:50 | PC.CHAP ---
Pastoral Care Encounter/Spiritual Assessment Type of Contact [] Declined special needs teacher visit [] Patient/Family/Request visit [] Outpatient visit [] Follow-up visit [] Physician referral [] Code/Alert [x] Routine visit [] Staff referral [] Actively dying [] Patient sleeping [] Family support [] [] Out of room [] Palliative care [] [] Receiving care in room [] Pre-surgical visit [] Trauma [] Long length of stay [] ICU visit [] Other: Relational/Emotional Strength [] Patient feels connected with others/family/visitors/staff [] Distress [] Loneliness/isolation [] Abandonment Spirituality of Patient [] Person of Griselda [] Attends Sikhism of their Griselda [] Believes in Prayer [] Reads Bible or Anabaptist materials [] There are Spiritual issues to be addressed Range Rider Interventions [x] Prayer [x] Active listening [x] Non-anxious presence [x] Spiritual/emotional support [] Crisis/trauma care [] Spiritual counseling [] Bereavement support [] Provided bereavement packet [] Provided Bible/devotional materials [] Provided toy/stuffed animal, coloring book to patient or family member [] Provided Communion [] Anointing/Ramer [] Salvation [x] Completed spiritual assessment [] Other: Impact on Illness or Injury [] Angry [] Fearful [] Anxious [] Often cries [] Exhaustion [] Unable to work [] Unable to attend sabianist [] Unable to walk/stand [] Unable to read [] Unable to drive [] Unable to eat/drink [] Unable to sleep [] Unable to be with family [] Patient intubated [] Other: Summary experienced a couple of little twinges... waiting for doctor Time spent with patient 10 min
[2021-11-12] MEDS: metoprolol tartrate 25 mg Tablet 12.5 MG PO ×2 (10:33→19:37)
--- NOTE | 2021-11-12 10:57 | P.PN_ITS ---
Subjective Subjective: No acute events overnight. Patient being followed by cardiology. Patient did report he does have chest pains on and off that last for a few seconds. He was started on Toprol this morning by Dr. Spear. Blood pressure and heart rate have been stable. He is awaiting cardiothoracic surgery consult. Medications: Medication Review Details: Reviewed Vitals/I&O/Wt Last Vital Signs Temp 97.9 F 11/12/21 08:07 Pulse 81 11/12/21 08:39 Resp 16 11/12/21 08:39 BP 125/78 11/12/21 08:07 Pulse Ox 94 11/12/21 08:39 11/11/21 11/12/21 11/12/21 22:59 06:59 14:59 Intake Total 1009.167 / 1009.167 240 / 1249.167 240 / 240 Output Total 725 / 1075 700 / 1775 400 / 400 Balance 284.167 / -65.833 -460 / -525.833 -160 / -160 Weight last 48 hrs Weight 59.421 kg Weight 56.699 kg Physical Exam Narrative: Patient is laying comfortably in his bed. Thin frail appearing male sitting up in bed. Saturating well on room air Normal S1-S2, chest pain not reproducible at this time. Lungs clear to auscultation with diminished breath sounds at bases. Nonfocal neuro exam Abdomen soft No lower extremity edema. ? Data : 11/11/21 04:44 11/11/21 04:44 A&P Assessment and plan (1) Atherosclerotic heart disease of [place] coronary artery with unstable angina pectoris: Status: Acute (2) Peripheral vascular disease with claudication: Status: Acute (3) CAD (coronary artery disease): Status: Acute (4) Unstable angina: Status: Acute Plan 75-year-old male who has history of established coronary disease, last stent placed in August last year has stopped taking aspirin and Plavix, he is on multiple herbal medications presented with unstable angina presentation, cardiology started ACS protocol, troponin and EKG unremarkable. Patient went for an angiogram which revealed high-grade stenosis and lesions were not stent double. Patient has been recommended CABG. Cardiothoracic surgery consult has been placed for further recommendations and evaluation. Unstable angina Complete 48 hours of ACS protocol. Echo completed, cardiac angiogram completed. Official report pending. Awaiting CT surgery consult today. Continue aspirin Plavix, Imdur. Avoid Viagra at discharge. Toprol added today. Lisinopril on hold due to low blood pressure previously. Will monitor blood pressure and be started when able Peripheral arterial disease without acute exacerbation Would recommend long-term aspirin use No active discomfort at rest or exertion Sinus bradycardia Incomplete bundle branch block Heart rate is better in the morning Likely vagal tone overnight Toprol started today by cardiology. Cardiac diet. Full code DVT prophylaxis?Lovenox D-dimer unremarkable Attestations Medical Necessity Statement*: >24 hr. needs cts eval Coding Level of Care Code Acute Dining Service Supervisor for Chg Fwd Diagnoses Atherosclerotic heart disease of [place] coronary artery with unstable angina pectoris I25.110 Peripheral vascular disease with claudication I73.9 CAD (coronary artery disease) I25.10 Unstable angina I20.0 Time Spent (min) 15
--- NOTE | 2021-11-12 13:05 | USCV_ITS ---
Dae Gupta Age: 75 Gender: M : 1945 Exam Date: 11/12/2021 15:13 Ordering Phys: Milton Wilson MD (Andy) ([email or web address]) Technologist: Norman Dillon [place] [facility] [place]: [place] RIGHT LEFT LOWER EXTREMITY Diameter Diameter (cm) (cm) 0.31 High Thigh 0.40 0.32 Mid Thigh 0.34 0.34 Above Knee 0.39 0.32 Below Knee 0.37 0.24 Mid Calf 0.21 0.21 Ankle 0.21 RIGHT LEFT Findings The veins identified as above performed no evidence of thrombosis. Conclusions Patent normal caliber veins bilaterally in the lower extremities No evidence of thrombosis Venous dimensions as mentioned above Dr Anjel Spear MD [facility] (Electronically Signed) Final Date: 12 November 2021 22:45 S
--- NOTE | 2021-11-12 13:06 | PM.CONSULT ---
Providers/Reason For Consult Consulting Physician/Specialty*: Dr. Wilson/cardiothoracic surgery Reason for Consult*: Unstable angina with severe circumflex coronary artery disease not addressable percutaneously Requesting Physician: Dr. Spear/cardiology Attending Physician: Ethel Elise MD Primary Care Provider: Otoniel Yu DO History of Present Illness History of Present Illness Dae Gupta is a 75 year old male whom I been consulted on in relation to severe recurrent proximal circumflex artery disease he has had 3 prior interventions dating back to 2012, 2016, and again 2020 all addressing the similar area in the proximal dominant circumflex artery. RCA is nondominant and small. LAD does not have substantial disease. He presented with chest pain which is been present for over 12 hours and he states was similar to what he has known previously to be his anginal equivalent. He was acutely treated medically with improvement of his pain. He did have a troponin leak. He was evaluated by Dr. Spear and underwent left heart catheterization yesterday revealing recurrent disease and restenosis in the circumflex artery at the stented region. This was evaluated by Dr. Spivey who felt that related to the prior interventions of numerous stents in this area that percutaneous approach would not be the best modality at this time. Therefore I been consulted to consider surgery revascularization. Currently, Mr. Gupta is resting comfortably in room 104 of the cardiac stepdown unit. He did have a bit of chest discomfort yesterday which resolved spontaneously very quickly. He has no other complaints. Has a long history of tobacco use and is smoked up until the time of his presentation. He has emphysematous changes on his chest x-ray no no history for oxygen dependency. Review of Systems Const: Denies: fever(s), chills, change in appetite, change in weight, fatigue or night sweats Eyes: Denies: change in vision or blurry vision ENMT: Denies: odynophagia or hoarseness Card: Reports: chest pain, lightheadedness, pre-syncope and dyspnea on exertion; Denies: palpitations, irregular heart rhythm, edema or swelling of feet/ankles Resp: Denies: dyspnea, productive cough, pain on inspiration or hemoptysis GI: Denies: abdominal pain, nausea, vomiting, dysphagia, heartburn or change in bowel habits : Denies: difficulty urinating, dysuria, urinary frequency, urinary urgency or urinary hesitancy Musc: Denies: extremity pain or extremity swelling Skin/Breast: Denies: rash Neuro: Denies: headache(s), numbness in extremities, weakness in extremities or sensory changes Psych: Denies: anxiety, depression or change in appetite Endo: Denies: polyuria, polydipsia or cold intolerance Antonio/Lymph: Denies: easy bruising, easy bleeding, petechiae or enlarged lymph nodes Medications/Allergies Home Medications Medication Instructions Recorded Confirmed Last Taken Type coenzyme Q10 10 mg capsule (Co 10 mg PO DAILY@0900 09/20/19 11/10/21 11/09/21 History Q-10) Cardio For Life 1 tab PO DAILY@0900 08/09/20 11/10/21 11/09/21 History Vitamin D3 1 tab PO DAILY@0900 08/09/20 11/10/21 11/09/21 History Vitamin E Complex 1 tab PO DAILY@0900 08/09/20 11/10/21 11/09/21 History saw palmetto 1 tab PO DAILY@0900 08/09/20 11/10/21 11/09/21 History selenium 1 tab PO DAILY@0900 08/09/20 11/10/21 11/09/21 History vitamin B complex 1 cap PO DAILY@0900 08/09/20 11/10/21 11/09/21 History vitamin K 1 tab PO DAILY@0900 08/09/20 11/10/21 11/09/21 History clear lungs 1 tab PO DAILY 08/23/20 11/10/21 11/09/21 History garlic 1,000 mg capsule (garlic 5,000 mg PO DAILY@0900 PRN 01/23/21 11/10/21 Unknown History oil) nitroglycerin 0.4 mg sublingual 0.4 mg SUBLINGUAL Q5M PRN 10/25/21 11/10/21 Unknown History tablet isosorbide mononitrate 30 mg 15 mg PO DAILY #90 tab 11/09/21 11/10/21 Unknown Rx tablet,extended release 24 hr aspirin 81 mg chewable tablet 81 mg PO DAILY 11/10/21 11/10/21 11/09/21 History Allergies Allergy/AdvReac Type Severity Reaction Status Date / Time Eozfzwa-REV-FfD Reductase AdvReac Intermediate ADR-Cramping Verified 10/25/21 15:08 Inhibitor of the [Vkcxwbn-Jxe-Ghk Reductase Muscles Inhibitor] tamsulosin AdvReac chest pains Verified 10/25/21 15:08 Current Medications Generic Name Dose Route Start Last Admin Trade Name David GANN Reason Stop Dose Admin Aspirin 81 mg 11/11/21 09:00 11/12/21 08:10 Aspirin 81 Mg Ec Tablet PO 81 mg DAILY LATOYA Administration Isosorbide Mononitrate 15 mg 11/11/21 09:00 11/12/21 08:10 Isosorbide Mononitrate Er 30 Mg Tablet PO 15 mg DAILY LATOYA Administration Lisinopril 5 mg 11/10/21 16:55 11/11/21 08:09 Lisinopril 5 Mg Tablet PO Not Given DAILY LATOYA Senna/Docusate Sodium 1 tab 11/11/21 09:00 11/12/21 08:10 Sennosides-Docusate Tablet PO 1 tab DAILY LATOYA Administration Tamsulosin HCl 0.4 mg 11/10/21 21:00 11/10/21 19:52 Tamsulosin 0.4 Mg Capsule PO Not Given BEDTIME LATOYA PFSH Acute PFSH: Medical History Abnormal prostate exam Abnormal stress test Anxiety BPH (benign prostatic hyperplasia) BPH loc w urin obs/LUTS CAD (coronary artery disease) -has known hx of CAD s/p stenting x 3 COPD (chronic obstructive pulmonary disease) Depression Elevated PSA Erectile dysfunction HLD (hyperlipidemia) HTN (hypertension) Hypercholesterolemia Leg weakness, bilateral Peripheral vascular disease with claudication -has known PVD with claudication with peripheral angiogram (09/2019) showing multiple luminal irregularities, mild to moderate stenosis of left ostial common iliac artery PTSD (post-traumatic stress disorder) Spermatocele of epididymis, multiple Surgical History History of coronary artery stent placement Family History Father , at age 64 Myocardial infarction Mother , in her 80's Dementia Social History Smoking and tobacco status: current every day smoker Alcohol intake: never Household members: none Marital status: Single Current occupational status: retired History of recent travel: No Vitals/I&O/Wt Last Vital Signs Temp 97.9 F 11/12/21 08:07 Pulse 74 11/12/21 11:40 Resp 11 L 11/12/21 11:40 BP 101/60 11/12/21 11:40 Pulse Ox 96 11/12/21 11:40 11/11/21 11/12/21 11/12/21 22:59 06:59 14:59 Intake Total 1009.167 / 1009.167 240 / 1249.167 240 / 240 Output Total 725 / 1075 700 / 1775 400 / 400 Balance 284.167 / -65.833 -460 / -525.833 -160 / -160 Weight last 48 hrs Weight 131 lb Physical Exam Const: COMMON NORMALS: patient oriented x3 HENMT: COMMON NORMALS: normocephalic, atraumatic, hearing grossly normal bilaterally and external ears normal HEAD & SCALP: normocephalic and atraumatic EXTERNAL EAR: Yes external ears normal Eye: COMMON NORMALS: Equal, round and reactive pupils present, EOMs intact bilaterally and no scleral icterus PUPIL: Yes Equal, round and reactive pupils present Neck/C-Spine: COMMON NORMALS: full ROM, no lymphadenopathy and No carotid bruits Chest: COMMONS NORMALS: normal inspection of the chest and normal palpation of entire chest wall Resp: COMMON NORMALS: clear to auscultation bilaterally AUSCULTATION: clear to auscultation bilaterally and abnormal I/E ratio Cardio: COMMON NORMALS: regular rate, regular rhythm and S1 normal heart sound present RATE: regular rate RHYTHM: regular rhythm HEART SOUNDS: S1 normal heart sound present PERIPHERAL PULSES: radial pulses present positive right diminished and femoral pulses present positive bilateral 2+ GI: COMMON NORMALS: Normal to inspection, nondistended, normoactive bowel sounds present, Soft to palpation, no masses and no bruits PALPATION: Yes Soft to palpation Extremity: COMMON NORMALS: no clubbing, cyanosis or edema Neuro: COMMON NORMALS: patient oriented x3, no focal motor deficits and no sensory deficits noted Psych: COMMON NORMALS: mental status grossly normal, Normal thought process present, cooperative, normal affect and speech normal SPEECH: Yes normal speech THOUGHT PROCESS: Normal thought process present Data : 11/12/21 13:22 11/12/21 13:22 A&P Assessment and plan (1) Atherosclerotic heart disease of [place] coronary artery with unstable angina pectoris: 75-year-old gentleman with complex in-stent restenosis of the proximal circumflex artery with at least 3 prior interventions dating back to 2012. Left heart catheterization yesterday by Dr. Spear confirmed in-stent restenosis. Dr. Spivey does not feel that it is advisable to consider intervention in this region related to the numerous stents and prior procedures. I have reviewed the left heart catheterization. I have discussed very frankly Mr. Gupta the opinion of our cardiology colleagues and the recommendation to consider surgery revascularization. Rationale for this was carefully reviewed. I utilized our written education materials to review his anatomy and the general conduct of coronary artery bypass grafting. I discussed very frankly related to his heavy tobacco use and potential pulmonary complications. As well, he has received Plavix up until yesterday., Therefore, he will have an increased bleeding risk. Given his ongoing episodes of unstable angina, even while at rest with medical management, I feel it prudent to consider expeditious revascularization..; Details and risks of CABG were carefully and frankly reviewed. Risks discussed include the possibility of , stroke, heart attack, major bleeding possibly requiring the need to reopen chest, infection, pneumonia, organ failure, failure to benefit, early closure of the bypass grafts, inability to complete the procedure, prolonged hospitalization, blood clots to lungs or other organs, need for further interventions, continued pain after surgery, need for future surgery, and possible long-term bleeding risk secondary to medication requirements. All questions were answered. Mr. Gupta stated understanding. We will proceed with preoperative evaluation with appropriate diagnostic studies in preparation for tentative CABG tomorrow midday. Increased risk related to his unstable angina, in-stent restenosis of the circumflex artery, and long history of tobacco use were frankly reviewed. All questions have been answered. He wishes to proceed. Status: Acute Consult Attestations Medical Necessity Statement: High-grade circumflex artery in-stent restenosis. Coding Level of Care Code Acute Wireless Technician for Denisse Gardner Diagnoses Atherosclerotic heart disease of [place] coronary artery with unstable angina pectoris I25.110
--- NOTE | 2021-11-12 13:09 | PC.NURSE ---
Addendum entered by Leticia Felix RN 11/12/21 13:10: instructions to stop lovenox Original Note: spoke with Dr muller about starting lovenox with possible procedure tomorrow
[2021-11-12 13:32] LABS: Basophils # 0.1 10^3/uL (0.0-0.1); Basophils % 0.7 %; Eosinophils # 0.4 10^3/uL (0.0-0.8); Eosinophils % 4.2 %; Hematocrit 40.5 % (42.0-52.0); Hemoglobin 13.2 g/dL (11.7-16.6); Lymphocytes # 1.9 10^3/uL (0.8-4.8); Lymphocytes % 21.7 %; Mean Corpuscular HGB Conc 32.6 g/dL (30.0-36.0); Monocytes # 1.2 10^3/uL (0.2-0.9); Monocytes % 13.9 %; Neutrophils % 59.3 %; Nucleated Red Blood Cells % 0 %; Platelet Count 235 10^3/cmm (130-400); Red Cell Distribution Width 14.6 % (12.1-15.1); White Blood Count 8.6 10^3/uL (4.0-10.0)
--- NOTE | 2021-11-12 13:47 | PC.OT ---
OT pre op CABG education completed. Will await orders post surgery.
[2021-11-12] MEDS: chlorhexidine gluconate 4% Btl 118 mL 1 APPLIC TOPICAL ×2 (14:00→19:38)
[2021-11-12 14:05] LABS: Alanine Aminotransferase 10 U/L (0-41); Albumin Level 3.6 g/dL (3.5-5.2); Alkaline Phosphatase 126 IU/L (40-130); Anion Gap 12.3 (5-19); Aspartate Amino Transferase 13 U/L (0-40); Blood Urea Nitrogen 14 mg/dL (8-23); Calcium 9.4 mg/dL (8.5-10.5); Carbon Dioxide 27 mmol/L (22-29); Chloride 100 mmol/L (98-107); Free T4 Free Thyroxine 1.03 ng/dL (0.82-1.77); Globulin 2.4 g/dL (1.3-4.6); Glucose 122 mg/dL (65-115); Osmolality Calculated 282 mOsm/kg (285-295); Potassium 4.3 mmol/L (3.5-5.1); Sodium 135 mmol/L (136-145); Thyroid Stimulating Hormone 1.97 uIU/mL (0.27-4.20); Total Bilirubin 0.3 mg/dL (0.15-1.2)
[2021-11-12 17:28] LABS: INR 0.97 (0.8-1.2); Partial Thromboplastin Time 28.6 SECONDS (23.9-36.7)
--- NOTE | 2021-11-12 17:45 | PM.PN ---
Subjective Subjective: Patient had a few episodes of chest pain through the night. The episodes spontaneously resolved. Does not have any pain this morning. His vital signs remained stable. No hematoma bleeding from the groin. Medications: Medication Review Details: Current Medications Acetaminophen (Acetaminophen 500 Mg Tablet) 500 mg PO Q4H PRN PRN Reason: fever Al Hydrox/Mg Hydrox/Simethicone (Yyep-Hhp-Ojvfmldvp-Paolo 30 Ml Udc) 30 ml PO Q15M PRN PRN Reason: INDIGESTION Al Hydrox/Mg Hydrox/Simethicone (Okts-Zlt-Hgyqaobjt-Paolo 30 Ml Udc) 30 ml PO Q15M PRN PRN Reason: INDIGESTION Albuterol/Ipratropium (Ipratropium-Albuterol 3 Ml Neb) 3 ml INHALATION Q6H PRN PRN Reason: SHORTNESS OF BREATH Aspirin (Aspirin 81 Mg Ec Tablet) 81 mg PO DAILY [facility] Last Admin: 11/12/21 08:10 Dose: 81 mg Documented by: Atropine Sulfate (Atropine 1 Mg/Ml Sdv 1 Ml) 0.5 mg IVP PRN PRN PRN Reason: Symptomatic bradycardia Atropine Sulfate (Atropine 1 Mg/Ml Sdv 1 Ml) 0.5 mg IVP PRN PRN PRN Reason: Symptomatic bradycardia Chlorhexidine Gluconate (Chlorhexidine Gluconate 0.12% Btl 473 Ml) 15 ml MUCOUS MEM BID [facility] Chlorhexidine Gluconate (Chlorhexidine Gluconate 4% Btl 118 Ml) 1 applic TOPICAL BID [facility] Last Admin: 11/12/21 14:00 Dose: 1 applic Documented by: Enoxaparin Sodium (Enoxaparin 40 Mg/0.4 Ml Syringe) 40 mg SUBCUT Q24H [facility] Last Admin: 11/12/21 13:09 Dose: Not Given Documented by: Papaverine HCl 240 mg/ N/A/ (Sodium Chloride) 40 mls @ 0 mls/hr IV ONCE ONE Stop: 11/13/21 06:01 Cefuroxime Sodium 1,500 mg/ (Sodium Chloride) 50 mls @ 100 mls/hr IV ONCE ONE Stop: 11/13/21 06:29 Cefuroxime Sodium 1,500 mg/ (Sodium Chloride) 50 mls @ 100 mls/hr IV ONCE ONE Stop: 11/13/21 12:29 Isosorbide Mononitrate (Isosorbide Mononitrate Er 30 Mg Tablet) 15 mg PO DAILY [facility] Last Admin: 11/12/21 08:10 Dose: 15 mg Documented by: Lisinopril (Lisinopril 5 Mg Tablet) 5 mg PO DAILY [facility] Last Admin: 11/11/21 08:09 Dose: Not Given Documented by: Magnesium Hydroxide (Magnesium Hydroxide 30 Ml Udc) 30 ml PO DAILY PRN PRN Reason: CONSTIPATION Magnesium Hydroxide (Magnesium Hydroxide 30 Ml Udc) 30 ml PO DAILY PRN PRN Reason: CONSTIPATION Metoprolol Tartrate (Metoprolol Tartrate 25 Mg Tablet) 12.5 mg PO BID@0900,2100 [facility] Morphine Sulfate (Morphine Ir 15 Mg Tablet) 15 mg PO Q6H PRN PRN Reason: pAIN Mupirocin (Mupirocin Oint 22 Gm) 1 applic NASAL BID [facility] Naloxone HCl (Naloxone 0.4 Mg/Ml Sdv) 0.1 mg IVP Q2M PRN PRN Reason: RESPIRATORY RATE < 8/MIN Nitroglycerin (Nitroglycerin 0.4 Mg Sublingual Tablet) 0.4 mg SUBLINGUAL Q5M PRN PRN Reason: CHEST PAIN Ondansetron HCl (Ondansetron 2 Mg/Ml Sdv 2 Ml) 4 mg IVP Q6H PRN PRN Reason: NAUSEA AND VOMITING Senna/Docusate Sodium (Sennosides-Docusate Tablet) 1 tab PO DAILY [facility] Last Admin: 11/12/21 08:10 Dose: 1 tab Documented by: Tamsulosin HCl (Tamsulosin 0.4 Mg Capsule) 0.4 mg PO BEDTIME [facility] Last Admin: 11/10/21 19:52 Dose: Not Given Documented by: Temazepam (Temazepam 15 Mg Capsule) 15 mg PO BEDTIME PRN PRN Reason: INSOMNIA Vitals/I&O/Wt Last Vital Signs Temp 97.9 F 11/12/21 08:07 Pulse 64 11/12/21 16:20 Resp 12 11/12/21 16:20 BP 92/57 11/12/21 16:20 Pulse Ox 94 11/12/21 16:20 11/12/21 11/12/21 11/12/21 06:59 14:59 22:59 Intake Total 240 / 1249.167 360 / 360 Output Total 700 / 1775 700 / 700 Balance -460 / -525.833 -340 / -340 Physical Exam Narrative: GENERAL: The patient is alert and oriented times three. Not in any acute distress. Lean HEENT: No significant pallor, icterus or lymphadenopathy. The pupils are symmetrical NECK: Trachea appears to be central. No masses noted. No JVD or thyromegaly appreciated. No carotid bruit. RESPIRATORY: Chest is symmetrical. No intercostals muscle retraction or any accessory muscle activation. There is no chest wall tenderness. Breath sounds are heard bilaterally. No rales or rhonchi heard. No evidence of any consolidation. BREASTS: Deferred. HEART: The PMI is in the 5th left intercostals space just inside the midclavicular line. No palpable precordial events. S1 and S2 are normal. No S3 or S4 heard. No pericardial rub or any click heard. ABDOMEN: No vessel pulsations or distention. No tenderness. No organomegaly appreciated. No abdominal bruit. Bowel sounds are normally heard. : Deferred. RECTAL: Deferred. LYMPHATIC: No lymphadenopathy noted in the neck or groin. EXTREMITIES: No edema or cyanosis. No clubbing. The peripheral pulses are weak bilaterally. Dorsalis pedis pulses are nonpalpable on both sides. the left radial pulses relatively weak. MUSCULOSKELETAL: No acute joint deformities or swelling. SKIN: There are no significant scars or skin rash noted. NEUROPSYCHIATRIC: The patient is alert and oriented x3. Appears to be in a good mood. The higher functions are grossly within normal limits. No tremors or rigidity noted. Data : 11/12/21 13:22 11/12/21 13:22 A&P Assessment and plan (1) Atherosclerotic heart disease of [place] coronary artery with unstable angina pectoris: She had a cardiac catheterization yesterday. He was found to have high-grade lesion in the circumflex and the obtuse marginal artery. Moderate disease in the proximal LAD. LVEDP 22 mmHg. Has unstable anginal symptoms. In view of the recurrent stenosis of the circumflex artery lesions, surgical revascularization was thought to be appropriate. Patient was evaluated by Dr. Wilson. His surgery is tentatively scheduled for tomorrow. Status: Acute (2) Peripheral vascular disease with claudication: Patient currently has no specific symptoms of peripheral arterial insufficiency. May continue on the current medications. Status: Acute (3) Dyslipidemia: May continue on the current medications Status: Acute (4) Elevated blood pressure reading: Patient seems to be responding to the medication. Currently the blood pressure is in the normal range. We will continue on the current medications. Status: Acute Plan Patient is scheduled for coronary artery bypass surgery by Dr. Wilson tomorrow. Attestations Medical Necessity Statement*: Patient requires continued hospital stay for close monitoring and further management Coding Level of Care Code Acute Rn Emergency for Denisse Fwd History Detailed Exam Detailed Medical Decision Making Moderate Complexity Diagnoses Atherosclerotic heart disease of [place] coronary artery with unstable angina pectoris I25.110 Peripheral vascular disease with claudication I73.9 Dyslipidemia E78.5 Elevated blood pressure reading R03.0
[2021-11-12] MEDS: mupirocin oint 22 gm 1 APPLIC NASAL (18:00)
[2021-11-12] MEDS: chlorhexidine gluconate 0.12% Btl 473 mL 15 ML MUCOUS MEM (18:01)
[2021-11-12 18:09] LABS: Add Urine Microscopic? NO; Charge for UA Resulting for Rev
[2021-11-12 18:25] LABS: Bilirubin Urine Neg (Negative); Blood Urine Neg (Negative); Glucose Urine UA Norm (Normal); Ketones Urine Negative (Negative); Leukocyte Esterase Urine Negative (Negative); Nitrate Urine Negative (Negative); Protein Urine Neg (Negative); Specific Gravity, Urine 1.015 (1.005-1.030); Urine Appearance Clear (CLEAR); Urine Color Yellow (Yellow); Urobilinogen Urine Norm (Negative); pH Urine 7 (5-7)
[2021-11-13] VITALS (29 sets, daily range): BP systolic 65–129; BP diastolic 45–77; PULSE 51–110; RESP 9–22; TEMP 36.6–37.7; O2SAT 92–100
[2021-11-13 04:59] LABS: Basophils # 0.1 10^3/uL (0.0-0.1); Basophils % 0.7 %; Eosinophils # 0.6 10^3/uL (0.0-0.8); Hematocrit 41.4 % (42.0-52.0); Hemoglobin 13.3 g/dL (11.7-16.6); Lymphocytes # 2.3 10^3/uL (0.8-4.8); Lymphocytes % 20.7 %; Mean Corpuscular HGB Conc 32.1 g/dL (30.0-36.0); Mean Corpuscular Hemoglobin 29.5 pg (28.0-34.0); Mean Corpuscular Volume 91.8 fl (80-94); Mean Platelet Volume 11.1 fL (7.4-10.4); Monocytes # 1.7 10^3/uL (0.2-0.9); Neutrophils # 6.44 10^3/uL (1.8-7.7); Neutrophils % 58.1 %; Nucleated Red Blood Cells % 0 %; Platelet Count 226 10^3/cmm (130-400); Red Blood Count 4.51 10^6/uL (4.1-5.3); Red Cell Distribution Width 14.5 % (12.1-15.1); White Blood Count 11.1 10^3/uL (4.0-10.0)
[2021-11-13] MEDS: chlorhexidine gluconate 4% Btl 118 mL 1 APPLIC TOPICAL (05:15)
[2021-11-13 05:25] LABS: Anion Gap 13.2 (5-19); Blood Urea Nitrogen 17 mg/dL (8-23); Calcium 9.6 mg/dL (8.5-10.5); Carbon Dioxide 24 mmol/L (22-29); Chloride 105 mmol/L (98-107); Glucose 99 mg/dL (65-115); Magnesium 2.3 mg/dL (1.7-2.3); Osmolality Calculated 288 mOsm/kg (285-295); Potassium 4.2 mmol/L (3.5-5.1); Sodium 138 mmol/L (136-145)
--- NOTE | 2021-11-13 07:06 | P.PN_ITS ---
Subjective Subjective: Appears in good spirits this morning, though understandably, a bit nervous. Denies any chest pain. Lovenox and aspirin to be held this morning. Vitals/I&O/Wt Last Vital Signs Temp 98 F 11/13/21 03:02 Pulse 56 L 11/13/21 03:05 Resp 22 H 11/13/21 03:02 BP 120/77 11/13/21 03:02 Pulse Ox 92 11/13/21 03:02 11/12/21 11/13/21 11/13/21 22:59 06:59 14:59 Intake Total 120 / 480 200 / 680 Output Total 200 / 900 1050 / 1950 Balance -80 / -420 -850 / -1270 Physical Exam Chest: COMMONS NORMALS: normal inspection of the chest and normal palpation of entire chest wall Resp: COMMON NORMALS: normal respiratory effort and clear to auscultation bilaterally AUSCULTATION: clear to auscultation bilaterally Cardio: COMMON NORMALS: regular rate, regular rhythm, S1 normal heart sound present and No murmurs present (Cardio) RATE: regular rate RHYTHM: regular rhythm HEART SOUNDS: S1 normal heart sound present Extremity: COMMON NORMALS: normal to inspection and no clubbing, cyanosis or edema Data : 11/13/21 04:49 11/13/21 04:49 A&P Assessment and plan (1) Atherosclerotic heart disease of [place] coronary artery with unstable angina pectoris: For CABG later this morning. All questions answered. Mr. Gupta is eager to proceed. Status: Acute Attestations Medical Necessity Statement*: In-stent restenosis of the circumflex artery with unstable angina. Coding Level of Care Code Acute Cut Roll Machine Offbearer for Denisse Gardner Diagnoses Atherosclerotic heart disease of [place] coronary artery with unstable angina pectoris I25.110
--- NOTE | 2021-11-13 07:12 | PC.NURSE ---
received bedside report from ira quiroz. Dr. Moreno at bedside. Reviewed poc, cabg scheduled for 11 am. pt has no needs at this time. assumed care of patient.
[2021-11-13] MEDS: metoprolol tartrate 25 mg Tablet 12.5 MG PO (08:05)
[2021-11-13] MEDS: isosorbide mononitrate ER 30 mg Tablet 15 MG PO (08:05)
[2021-11-13] MEDS: mupirocin oint 22 gm 1 APPLIC NASAL (08:05)
--- NOTE | 2021-11-13 08:07 | PC.NURSE ---
Dr Moreno in cathode ray tube assembler procedure johnson MOREIRA confirmed with him about PO metoprolol and imdur ok to give now patient took prescribed dose with a small sip of water at this time
--- NOTE | 2021-11-13 10:16 | ANES.PREANE2 ---
Pre-Anesthetic Assessment Height/Weight: Height 1.75 m Weight 59.421 kg Temp Pulse Resp BP Pulse Ox 98 F 85 18 120/77 96 11/13/21 03:02 11/13/21 07:48 11/13/21 07:48 11/13/21 03:02 11/13/21 07:48 Preop Diagnosis: Coronary artery disease Operation Date: 11/11/21 14:00 Proposed Procedures p Cardiac Catheterization(Left) - Anjel Spear MD Operation Date: 11/13/21 11:10 Proposed Procedures p CABG(Not Applicable) - Milton Wilson MD Familial anesthetic complications: None Was Beta [place] taken within 24 hours: N/A Was Clonidine taken within 24 hours: N/A Social Tobacco and No alcohol Exam alert, oriented x 3, clear to auscultation bilaterally and regular rate & rhythm Airway Submandibular: within normal limits Cervical ROM: within normal limits Mallampati: Class II Dentition: false (upper) Comments: Comments: poor dentition on lower Pulmonary Chronic Obstructive Pulmonary Disease CV/HEM Arrythmia, Coronary Artery Disease (stents), Hypertension, Myocardial Infarction and Peripheral Vascular Disease Metabolic Hyperlipidemia Anesthetic Plan ASA status: 4 Anesthesia: General Other: A.line, CVL/PAC, DAISY, transfusion OK Medications/Allergies Home Medications Medication Instructions Recorded Confirmed Last Taken Type coenzyme Q10 10 mg capsule (Co 10 mg PO DAILY@0900 09/20/19 11/10/21 11/09/21 History Q-10) Cardio For Life 1 tab PO DAILY@0900 08/09/20 11/10/21 11/09/21 History Vitamin D3 1 tab PO DAILY@0900 08/09/20 11/10/21 11/09/21 History Vitamin E Complex 1 tab PO DAILY@0900 08/09/20 11/10/21 11/09/21 History saw palmetto 1 tab PO DAILY@0900 08/09/20 11/10/21 11/09/21 History selenium 1 tab PO DAILY@0900 08/09/20 11/10/21 11/09/21 History vitamin B complex 1 cap PO DAILY@0900 08/09/20 11/10/21 11/09/21 History vitamin K 1 tab PO DAILY@0900 08/09/20 11/10/21 11/09/21 History clear lungs 1 tab PO DAILY 08/23/20 11/10/21 11/09/21 History garlic 1,000 mg capsule (garlic 5,000 mg PO DAILY@0900 PRN 01/23/21 11/10/21 Unknown History oil) nitroglycerin 0.4 mg sublingual 0.4 mg SUBLINGUAL Q5M PRN 10/25/21 11/10/21 Unknown History tablet isosorbide mononitrate 30 mg 15 mg PO DAILY #90 tab 11/09/21 11/10/21 Unknown Rx tablet,extended release 24 hr aspirin 81 mg chewable tablet 81 mg PO DAILY 11/10/21 11/10/21 11/09/21 History Allergies Allergy/AdvReac Type Severity Reaction Status Date / Time Jfixftb-KUC-RmR Reductase AdvReac Intermediate ADR-Cramping Verified 10/25/21 15:08 Inhibitor of the [Qyqdfin-Tlx-Dcs Reductase Muscles Inhibitor] tamsulosin AdvReac chest pains Verified 10/25/21 15:08 Current Medications Generic Name Dose Route Start Last Admin Trade Name David PRN Reason Stop Dose Admin Aspirin 81 mg 11/11/21 09:00 11/13/21 07:10 Aspirin 81 Mg Ec Tablet PO Not Given DAILY [facility] Chlorhexidine Gluconate 15 ml 11/12/21 18:00 11/12/21 18:01 Chlorhexidine Gluconate 0.12% Btl 473 Ml MUCOUS MEM 15 ml BID LATOYA Administration Chlorhexidine Gluconate 1 applic 11/12/21 14:00 11/13/21 05:15 Chlorhexidine Gluconate 4% Btl 118 Ml TOPICAL 1 applic BID [facility] Administration Enoxaparin Sodium 40 mg 11/12/21 12:00 11/12/21 13:09 Enoxaparin 40 Mg/0.4 Ml Syringe SUBCUT Not Given Q24H [facility] Isosorbide Mononitrate 15 mg 11/11/21 09:00 11/13/21 08:05 Isosorbide Mononitrate Er 30 Mg Tablet PO 15 mg DAILY [facility] Administration Lisinopril 5 mg 11/10/21 16:55 11/11/21 08:09 Lisinopril 5 Mg Tablet PO Not Given DAILY [facility] Metoprolol Tartrate 12.5 mg 11/12/21 21:00 11/13/21 08:05 Metoprolol Tartrate 25 Mg Tablet PO 12.5 mg BID@0900,2100 [facility] Administration Mupirocin 1 applic 11/12/21 18:00 11/13/21 08:05 Mupirocin Oint 22 Gm NASAL 1 applic BID LATOYA Administration Senna/Docusate Sodium 1 tab 11/11/21 09:00 11/13/21 08:39 Sennosides-Docusate Tablet PO Not Given DAILY LATOYA Tamsulosin HCl 0.4 mg 11/10/21 21:00 11/10/21 19:52 Tamsulosin 0.4 Mg Capsule PO Not Given BEDTIME [facility] Anesthesia Medical History Abnormal prostate exam Abnormal stress test Anxiety BPH (benign prostatic hyperplasia) BPH loc w urin obs/LUTS CAD (coronary artery disease) -has known hx of CAD s/p stenting x 3 COPD (chronic obstructive pulmonary disease) Depression Elevated PSA Erectile dysfunction HLD (hyperlipidemia) HTN (hypertension) Hypercholesterolemia Leg weakness, bilateral Peripheral vascular disease with claudication -has known PVD with claudication with peripheral angiogram (09/2019) showing multiple luminal irregularities, mild to moderate stenosis of left ostial common iliac artery PTSD (post-traumatic stress disorder) Spermatocele of epididymis, multiple Surgical History History of coronary artery stent placement Family History Father , at age 64 Myocardial infarction Mother , in her 80's Dementia Social History Smoking and tobacco status: current every day smoker Alcohol intake: never Household members: none Marital status: Single Current occupational status: retired History of recent travel: No Data Anesthesia : 11/13/21 04:49 11/13/21 04:49 Short CBC 11/12/21 11/13/21 Range/Units 13:22 04:49 WBC 8.6 11.1 H (4.0-10.0) 10^3/uL Hgb 13.2 13.3 (11.7-16.6) g/dL Hct 40.5 L 41.4 L (42.0-52.0) % MCV 92.0 91.8 (80-94) fl Plt Count 235 226 (130-400) 10^3/cmm Neut % (Auto) 59.3 58.1 % Neut # (Auto) 5.10 6.44 (1.8-7.7) 10^3/uL BMP 11/12/21 11/13/21 13:22 04:49 Sodium 135 L 138 Potassium 4.3 4.2 Chloride 100 105 Carbon Dioxide 27 24 BUN 14 17 Creatinine 0.9 0.8 Glucose 122 H 99 Calcium 9.4 9.6 Liver Function 11/12/21 Range/Units 13:22 Total Bilirubin 0.3 (0.15-1.2) mg/dL Direct Bilirubin 0.20 (0.00-0.30) mg/dL AST 13 (0-40) U/L ALT 10 (0-41) U/L Alkaline Phosphatase 126 (40-130) IU/L Albumin 3.6 (3.5-5.2) g/dL Urine 11/12/21 Range/Units 18:02 Urine Color Yellow (Yellow) Urine Appearance Clear (CLEAR) Urine pH 7 (5-7) Ur Specific [place] 1.015 (1.005-1.030) Urine Protein Neg (Negative) Urine Glucose (UA) Norm (Normal) Urine Ketones Negative (Negative) Urine Nitrate Negative (Negative) Urine Bilirubin Neg (Negative) Ur Leukocyte Esterase Negative (Negative) Blood Bank 11/12/21 13:22 Blood Type O Positive Rho(D) Type Positive Antibody Screen Negative Coags 11/12/21 13:22 PT 13.20 INR 0.97 APTT 28.6 Cardiac Studies: Echocardiogram 11/10/21 Echocardiogram Ultrasound 08/10/20 Sestamibi Stress Test (Cardiology) 08/09/20
--- NOTE | 2021-11-13 10:50 | PC.NURSE ---
or nurse here to take patient. all belongings sent with patient, prep completed for surgery per orders.
[2021-11-13] MEDS: HYDROmorphone 1 mg/mL INJ 1 mL 0.5 MG IVP (11:21)
[2021-11-13] MEDS: sodium chloride 0.9% 1,000 ML 30 ML IV (11:21)
--- NOTE | 2021-11-13 11:25 | XRR_ITS ---
PROCEDURE INFORMATION: Exam: XR Chest Exam date and time: 11/13/2021 6:35 PM Age: 75 years old Clinical indication: Screening exam; Other screening; Prior surgery; Surgery date: Post-operative (0-2 days); Surgery type: Open heart surgery today. ; Additional info: Status post open heart. In or 1. Will call when ready TECHNIQUE: Imaging protocol: XR of the chest. Views: 1 view. COMPARISON: CR (CHEST, ) 11/10/2021 12:28 PM FINDINGS: Tubes, catheters and devices: [place]-Rosenda catheter tip overlies the pulmonary outflow tract. Enteric tube tip near the GE junction. Large bore left-sided chest tube with tip at the lateral mid lung. Lungs: Pulmonary vascular congestion without significant edema. No focal consolidation. The apices and right costophrenic angle are excluded from the field of view. Pleural spaces: No visible pleural effusion or pneumothorax. Heart/Mediastinum: Unremarkable. No cardiomegaly. Bones/joints: Median sternotomy wires. XR/XR chest 1V portable [id number] IMPRESSION: 1. Postoperative radiograph with evidence of mild pulmonary vascular congestion but no significant edema. 2. Support devices as described. Enteric tube tip near the GE junction, consider advancing for more secure placement.
[2021-11-13 11:31] LABS: Glucose Point of Care 100 mg/dL (70-110)
[2021-11-13] MEDS: diphenhydrAMINE 50 mg/mL SDV 1mL 12.5 MG IVP (11:35)
--- NOTE | 2021-11-13 11:53 | SUR.PREOP ---
blood glucose 100mg/dL
--- NOTE | 2021-11-13 11:54 | SUR.PREOP ---
relief of nausea. resting comfortably.denies chest pain. SB on monitor.
--- NOTE | 2021-11-13 12:08 | P.PN_ITS ---
Subjective Subjective: No acute events overnight. Patient will be going for CABG today. He states he is doing well and did not have any chest pain overnight. Denies shortness of breath. Vitals/I&O/Wt Last Vital Signs Temp 98.8 F 11/13/21 10:53 Pulse 51 L 11/13/21 12:03 Resp 12 11/13/21 12:03 BP 119/74 11/13/21 12:03 Pulse Ox 95 11/13/21 12:03 11/12/21 11/13/21 11/13/21 22:59 06:59 14:59 Intake Total 120 / 480 200 / 680 Output Total 200 / 900 1050 / 1950 Balance -80 / -420 -850 / -1270 Physical Exam Narrative: Patient is laying comfortably in his bed.? Saturating well on room air Normal S1-S2, chest pain not reproducible at this time. Lungs clear to auscultation with diminished breath sounds at bases. Nonfocal neuro exam Abdomen soft No lower extremity edema. Data : 11/13/21 04:49 11/13/21 04:49 A&P Assessment and plan (1) Unstable angina: Status: Acute (2) Dyslipidemia: Status: Acute (3) Peripheral vascular disease with claudication: Status: Acute (4) Erectile dysfunction: Status: Acute Qualifiers: Erectile dysfunction type: unspecified Qualified Code(s): N52.9 - Male erectile dysfunction, unspecified (5) CAD (coronary artery disease): Status: Acute Plan 75-year-old male who has history of established coronary disease, last stent placed in August last year has stopped taking aspirin and Plavix, he is on multiple herbal medications presented with unstable angina presentation, cardiology started ACS protocol, troponin and EKG unremarkable.? Patient went for an angiogram which revealed high-grade stenosis and lesions were not stent double.? Patient will be going for CABG today. #Unstable angina #Peripheral arterial disease #Sinus bradycardia #Abnormal angiogram, CABG candidate Complete 48 hours of ACS protocol.? Echo completed, cardiac angiogram completed.? Official report pending.? CT surgery consult complete. Continue aspirin Plavix, Imdur., Beta-cathy. Avoid Viagra at discharge. Patient will be going for CABG today. Cardiac diet. Full code DVT prophylaxis?on hold for surgery today. D-dimer unremarkable Attestations Medical Necessity Statement*: Requires inpatient level of care. Will be going for CABG today. Coding Level of Care Code Acute Two Way Radio Technician for Chg Fwd Diagnoses Unstable angina I20.0 Dyslipidemia E78.5 Peripheral vascular disease with claudication I73.9 Erectile dysfunction N52.9 Erectile dysfunction type: unspecified CAD (coronary artery disease) I25.10 Time Spent (min) 15
[2021-11-13] MEDS: cefUROXime 1,500 MG in sodium chloride 0.9% (plus) 50 ML 100 MG IV ×2 (13:35→17:26)
[2021-11-13] MEDS: vancomycin 1,000 MG SDV 3000 MG IRRIGATION (14:20)
[2021-11-13] MEDS: heparin, porcine 1,000 unit/mL INJ 10 mL 1750 UNIT IRRIGATION (14:20)
[2021-11-13] MEDS: DOBUTamine drip 500 MG/250 ML PREMIX 5.35 MG IV (19:00)
[2021-11-13] MEDS: nitroglycerin drip 50 MG/250 ML PREMIX IV (19:00)
[2021-11-13] MEDS: propofol 1,000 MG/100 ML INJ 3.57 MG IV (19:00)
[2021-11-13] MEDS: insulin regular-human 250 UNIT in sodium chloride 0.9% 250 ML IV (19:00)
--- NOTE | 2021-11-13 19:21 | ECG_ITS ---
[facility] Test Date: 2021-11-13 Pat Name: Dae Gupta Department: Room: ICU11 Gender: Male Bottom Presser: : 1945 Requested By: Milton Wilson Order Number: [id number] Donna MD: Deidre Alegre M.D. Measurements Intervals [place] Rate: 110 P: 92 MT: 130 QRS: 72 QRSD: 84 T: 226 QT: 321 QTc: 436 Interpretive Statements SINUS TACHYCARDIA ST DEVIATION AND MODERATE T-WAVE ABNORMALITY, CONSIDER ANTEROLATERAL ISCHEMIA [-0.1+ mV T-WAVE IN V3-V6] ST DEVIATION AND MODERATE T-WAVE ABNORMALITY, CONSIDER INFERIOR ISCHEMIA [-0.1+ mV T-WAVE IN II/aVF] Compared to ECG 11/10/2021 17:53:28 T-wave abnormality now present Possible ischemia now present Sinus bradycardia no longer present Electronically Signed On 11-14-2021 6:47:03 CDT by Deidre Alegre M.D. [id number]
--- NOTE | 2021-11-13 19:43 | P.OP_ITS ---
Operative Report Date of procedure: November 13, 2021 Pre-op diagnosis: Preop Diagnosis Coronary artery disease Post-op diagnosis: same Procedure done: Coronary artery bypass grafting x1 utilizing reverse saphenous vein graft from the aorta to the distal obtuse marginal branch of the circumflex artery. Pathology: none sent Surgeon: Milton Wilson Anesthesia: General Complications: None Brief History: Mr. Gupta is a pleasant 75-year-old gentleman with a several year history of coronary artery disease involving the proximal circumflex artery. He states he has had prior interventions back in 2012, 2016, 2020, all involving the proximal circumflex artery. Mr. Gupta presented this hospitalization with again chest discomfort which lasted over 12 hours. He was evaluated and found to have a troponin leak. He underwent left heart catheterization by Dr. Spear and was revealed to have in-stent restenosis in the proximal circumflex vessel. This was evaluated by Dr. Spivey and it was felt that related to the several previous interventions, and surgical revascularization should be considered. I had a lengthy discussion with Mr. Gupta concerning coronary artery bypass grafting. Details the risk of the procedure were carefully reviewed. Preoperative patient education was completed. He wished to proceed. Appropriate consents have been reviewed and signed. Procedure: Details and risks of the surgery were carefully and frankly explained to the patient and the family. Particular risks of this surgery carefully reviewed with them included the possibility of , stroke, heart attack, major bleeding, infection, pneumonia, pain, organ failure, failure to benefit, early closure of the bypass grafts, prolonged hospital stay and subsequent need for further procedures. Increased risks for complications secondary to long history of tobacco use, recent Plavix administration up until the day prior to surgery, and recurrent proximal circumflex disease were carefully reviewed. Mr. Gupta stated that he did understand these increased risks. All questions were answered and appropriate consents were reviewed and signed. Preoperative education for the patient and the family included both written and video materials. He wished to proceed with plans for attempted surgical revascularization for severe coronary artery disease of the circumflex artery. PROCEDURE: Preoperative evaluation was obtained from our Anesthesia colleagues and adequate IVs were confirmed. Mr. Gupta was then taken to the Operating Room Suite where general anesthesia was induced. Appropriate invasive monitoring lines were placed, including large bore peripheral IVs, central line, [place]-Rosenda catheter, Hinson catheter and associated monitoring leads. . After careful positioning on the Operating Room table, the patient was subsequently sterilely prepped and draped. Due to inconsistent readings from the left radial arterial line, I placed a left femoral arterial line which was much more stable. Saphenous vein was harvested by endoscopic technique from the right thigh. Branches were secured with ligature and clips and the vein was extracted from the tunnel without tension. It was then flushed with a Heparin and albumin solution and prepared for grafting. Vein harvest sites were irrigated, platelet poor plasma infused into the tunnel and port sites closed with 3-0 and 4-0 Vicryl Plus suture. Simultaneously with vein harvesting, a median sternotomy was created utilizing a #10 scalpel blade with hemostasis controlled with cautery. After reaching the sternal table, the sternum was divided with a reciprocating saw. Bleeding was controlled with cautery and judicious use of bone wax. Due to the distal aspect of the terminal portion of the obtuse marginal branch of the circumflex artery as well as hyperinflation of his lungs due to longstanding tobacco use, I elected not to harvest the internal mammary artery as I was concerned of potential stretch if used as a primary conduit. . The sternum was then and the pericardium opened and secured with stay sutures. After inspection, 2-0 pledgeted Ethibond sutures were placed at cannulation sites, at which time the patient was fully heparinized. Next, the heart was cannulated with a 22-[place]ijani aortic cannula, two-stage venous cannula and aortic root vent. The patient was subsequently placed on cardiopulmonary bypass and cooled systemically to 34 degrees. Aortic cross-clamp was then carefully placed and 4 degree Celsius cold blood cardioplegia was administered through the aortic root in antegrade fashion. Prompt diastolic arrest was obtained. Left ventricular decompression was confirmed. The heart was cooled systemically with iced saline with an insulation pad in place to protect the phrenic nerve. Throughout the cross-clamp period, at 20-30 minute intervals, antegrade blood cardioplegia was administered to maintain asystole. We then inspected the cardiac surface and coronary anatomy. Terminal portion of the obtuse marginal branch was found posteriorly and distally of the inferior surface. It was carefully exposed and the distal vessel was opened up with a [place] blade. It was 2 mm in size. A 2 mm shunt was placed. A portion of saphenous vein was then brought into the field and anastomosed in an end to side fashion with running 7-0 Prolene to this coronary vessel. Just prior to securing the anastomosis, the intracoronary shunt was removed. This vein was brought up to the aorta where a 4 mm aortotomy was created and the proximal anastomosis was completed with running 5-0 Prolene suture. Systemic temperature was allowed to drift during this anastomosis and active systemic cooling was not utilized. Following this, aortic cross-clamp was released and de-airing maneuvers were performed through the aortic root vent, as well as being confirmed by transesophageal echocardiography. Dobutamine at 3 mcg per kilogram per minute was administered with good chronotropic and inotropic affect. The heart returned to spontaneous sinus rhythm and did not require cardioversion or pacing. After adequate recovery from the cross-clamp period and confirmation of cardiac stability, the patient was weaned from bypass without difficulty. Venous cannula was removed. Heparin was reversed with Protamine and confirmed by measurement of activated clotting time. The heart was then decannulated and cannulation sites were oversewn as required. Pacing wires were placed and brought through the skin and secured. Radiopaque marker was placed on the vein graft at the level of aorta. Two mediastinal drains were placed and connected to Pleur-evac suction. The wound was carefully irrigated and hemostasis was confirmed. Ankeney retractor was removed and sponge and needle count was correct. The sternum was then reapproximated very carefully with interrupted #7 stainless steel wire with Surgicel strips used beneath the sternal table. Fascia was closed with #1 Vicryl suture with the next layers being closed with 2-0 and 3-0 suture. The skin was reapproximated carefully in a subcuticular manner. Sterile dressings were applied, followed by a vacuum-assisted dressing. Mr. Gupta was carefully removed from the operating room table and transferred to the Intensive Care Unit. Dr. Spear was notified of our operative findings and procedure details.
[2021-11-13 20:08] LABS: Basophils % 0.3 %; Eosinophils # 0.1 10^3/uL (0.0-0.8); Eosinophils % 0.8 %; Hematocrit 32.3 % (42.0-52.0); Hemoglobin 10.6 g/dL (11.7-16.6); Lymphocytes # 1.4 10^3/uL (0.8-4.8); Lymphocytes % 11.3 %; Mean Corpuscular HGB Conc 32.8 g/dL (30.0-36.0); Mean Corpuscular Hemoglobin 31.1 pg (28.0-34.0); Mean Corpuscular Volume 94.7 fl (80-94); Mean Platelet Volume 10.5 fL (7.4-10.4); Monocytes # 1.3 10^3/uL (0.2-0.9); Monocytes % 10.8 %; Neutrophils # 9.04 10^3/uL (1.8-7.7); Nucleated Red Blood Cells % 0 %; Platelet Count 178 10^3/cmm (130-400); Red Blood Count 3.41 10^6/uL (4.1-5.3); Red Cell Distribution Width 14.7 % (12.1-15.1); White Blood Count 11.9 10^3/uL (4.0-10.0)
[2021-11-13 20:23] LABS: INR 1.23 (0.8-1.2); Partial Thromboplastin Time 29.7 SECONDS (23.9-36.7)
[2021-11-13 20:26] LABS: Anion Gap 15.5 (5-19); Blood Urea Nitrogen 15 mg/dL (8-23); Calcium 7.9 mg/dL (8.5-10.5); Carbon Dioxide 21 mmol/L (22-29); Chloride 111 mmol/L (98-107); Glucose 112 mg/dL (65-115); Magnesium 3.3 mg/dL (1.7-2.3); Osmolality Calculated 298 mOsm/kg (285-295); Potassium 4.5 mmol/L (3.5-5.1); Sodium 143 mmol/L (136-145)
[2021-11-13] MEDS: albumin 12.5 GM/250 ML VIAL IV (20:54)
[2021-11-13 20:56] LABS: ABG PCO2 35.2 mmHg (35-45); ABG PH Result 7.39 (7.35-7.45); Alveolar-Arterial Oxygen Gradi 36.2 mmHg (5-10); Arterial Blood Gas Hematocrit 24.9 % (42-52); Blood Gas Sample Site Femoral, right; Blood Gas Sample Type Arterial; HCO3 ABG 21.5 mmol/L (22-26); HGB O2 Sat 98.3 % (95-100); Ionized Calcium Level - ABG 1.1 mmol/L (1.1-1.4); Methemoglobin 0.8 % (0.4-1.5); Oxygen Device VENT; Oxygen Saturation ABG > 100.0; Potassium Level - ABG 4.1 mmol/L (3.5-5.0); Total Hemoglobin 8.1 g/dL (14-18)
[2021-11-13] MEDS: fentaNYL 50 mcg/mL INJ 2mL IVP ×2 (21:17→22:41)
[2021-11-13] MEDS: sodium chloride 0.9% 1,000 ML 75 ML IV (22:29)
[2021-11-13 22:40] LABS: Basophils # 0.1 10^3/uL (0.0-0.1); Basophils % 0.4 %; Eosinophils # 0.1 10^3/uL (0.0-0.8); Eosinophils % 0.5 %; Hematocrit 28.9 % (42.0-52.0); Hemoglobin 9.5 g/dL (11.7-16.6); Lymphocytes # 1.4 10^3/uL (0.8-4.8); Lymphocytes % 9.7 %; Mean Corpuscular HGB Conc 32.9 g/dL (30.0-36.0); Mean Corpuscular Hemoglobin 30.1 pg (28.0-34.0); Mean Corpuscular Volume 91.5 fl (80-94); Mean Platelet Volume 10.5 fL (7.4-10.4); Monocytes % 14.2 %; Neutrophils # 10.62 10^3/uL (1.8-7.7); Neutrophils % 74.7 %; Nucleated Red Blood Cells % 0 %; Platelet Count 205 10^3/cmm (130-400); Red Blood Count 3.16 10^6/uL (4.1-5.3); Red Cell Distribution Width 14.9 % (12.1-15.1); White Blood Count 14.2 10^3/uL (4.0-10.0)
[2021-11-13 23:01] LABS: Anion Gap 12.2 (5-19); Blood Urea Nitrogen 15 mg/dL (8-23); Calcium 8.1 mg/dL (8.5-10.5); Carbon Dioxide 22 mmol/L (22-29); Chloride 110 mmol/L (98-107); Glucose 100 mg/dL (65-115); Osmolality Calculated 291 mOsm/kg (285-295); Potassium 4.2 mmol/L (3.5-5.1); Sodium 140 mmol/L (136-145)
[2021-11-13] MEDS: aspirin 81 mg Chew Tablet PO (23:57)
[2021-11-13] MEDS: oxyCODONE-APAP 5-325 mg Tablet PO (23:57)
[2021-11-14] VITALS (42 sets, daily range): BP systolic 94–140; BP diastolic 53–85; PULSE 87–108; RESP 3–94; TEMP 36.7–37.9; O2SAT 95–100
[2021-11-14 00:10] LABS: Glucose Point of Care 102 mg/dL (70-110)
[2021-11-14 00:10] LABS: Glucose Point of Care 83 mg/dL (70-110)
[2021-11-14 00:10] LABS: Glucose Point of Care 103 mg/dL (70-110)
[2021-11-14 00:10] LABS: Glucose Point of Care 83 mg/dL (70-110)
[2021-11-14 00:10] LABS: Glucose Point of Care 100 mg/dL (70-110)
[2021-11-14 00:10] LABS: Glucose Point of Care 104 mg/dL (70-110)
[2021-11-14] MEDS: fentaNYL 50 mcg/mL INJ 2mL IVP ×9 (01:37→23:12)
[2021-11-14 03:06] LABS: Anion Gap 13.1 (5-19); Blood Urea Nitrogen 18 mg/dL (8-23); Carbon Dioxide 22 mmol/L (22-29); Chloride 110 mmol/L (98-107); Glucose 96 mg/dL (65-115); Glucose Fasting 96 mg/dL (74-106); Magnesium 2.7 mg/dL (1.7-2.3); Osmolality Calculated 294 mOsm/kg (285-295); Potassium 4.1 mmol/L (3.5-5.1); Sodium 141 mmol/L (136-145)
[2021-11-14 03:07] LABS: ABG PCO2 25.4 mmHg (35-45); ABG PH Result 7.49 (7.35-7.45); Alveolar-Arterial Oxygen Gradi 9.5 mmHg (5-10); Base Excess ABG -2.9 mmol/L (-2.0-2.0); Blood Gas Sample Site Femoral, left; Blood Gas Sample Type Arterial; Carboxyhemoglobin 1.1 %THgb (0.4-20.1); HCO3 ABG 19.5 mmol/L (22-26); HGB O2 Sat 94.8 % (95-100); Ionized Calcium Level - ABG 1.1 mmol/L (1.1-1.4); Oxygen Device VENT; Oxygen Saturation ABG 96.8; PO2 ABG 69.7 mmHg (80.0-100.0); Potassium Level - ABG 3.6 mmol/L (3.5-5.0); Total Hemoglobin 9.1 g/dL (14-18)
[2021-11-14 03:16] LABS: INR 1.22 (0.8-1.2); Partial Thromboplastin Time 27.9 SECONDS (23.9-36.7)
[2021-11-14 03:28] LABS: Basophils % 0.3 %; Eosinophils % 0.2 %; Hematocrit 27.6 % (42.0-52.0); Hemoglobin 9.1 g/dL (11.7-16.6); Lymphocytes # 1.1 10^3/uL (0.8-4.8); Lymphocytes % 9.1 %; Mean Corpuscular Hemoglobin 30.5 pg (28.0-34.0); Mean Corpuscular Volume 92.6 fl (80-94); Mean Platelet Volume 11.2 fL (7.4-10.4); Monocytes # 1.5 10^3/uL (0.2-0.9); Monocytes % 13.1 %; Neutrophils # 8.87 10^3/uL (1.8-7.7); Neutrophils % 76.9 %; Nucleated Red Blood Cells % 0 %; Platelet Count 206 10^3/cmm (130-400); Red Blood Count 2.98 10^6/uL (4.1-5.3); Red Cell Distribution Width 15.4 % (12.1-15.1); White Blood Count 11.5 10^3/uL (4.0-10.0)
--- NOTE | 2021-11-14 05:46 | PM.PN ---
Subjective Subjective: Postop day #1 status post CABG. Rather uneventful night as reported by nurses. One episode of arrhythmia for about 10 seconds around 3 AM which resolved spontaneously. Chest tube output 569 cc since surgery. Chest x-ray at 315 this morning was very clear. Cardiac silhouette is narrow. Mediastinum is unremarkable. Support lines are in good position. Inotrope is all. Cardiac index 2.1. Heart rate 100. Blood pressure 1 20-1 30 systolic. Intake and output is up approximate 1.1 L. Vitals/I&O/Wt Last Vital Signs Temp 98.6 F 11/13/21 19:43 Pulse 99 11/14/21 04:45 Resp 14 11/14/21 04:45 BP 112/58 11/14/21 04:45 Pulse Ox 97 11/14/21 04:45 11/13/21 11/13/21 11/14/21 14:59 22:59 06:59 Intake Total / 3482.454 / 3572.454 81.272 / 3653.726 Output Total 1969 / 1969 552 / 2522 Balance 90 / 90 1512.454 / 1602.454 -470.728 / 1131.726 Physical Exam Chest: COMMONS NORMALS: normal inspection of the chest OTHER: Wound VAC dressing and support lines are in position. Chest wall is stable. Resp: COMMON NORMALS: clear to auscultation bilaterally AUSCULTATION: clear to auscultation bilaterally OTHER: Remains orally intubated. Sedation is off. Beginning to arouse. Cardio: COMMON NORMALS: regular rate, S1 normal heart sound present and No murmurs present (Cardio) RATE: regular rate HEART SOUNDS: S1 normal heart sound present OTHER: Some noise from the mediastinal drains. GI: OTHER: Hypoactive bowel sounds. Abdomen is soft and nondistended. Extremity: COMMON NORMALS: no clubbing, cyanosis or edema Urinary Catheter Management: Hinson: Cath Placed During This Visit: yes Reason for Continuing Indwelling Catheter: Accurate Measurement of Urinary Output in Critically Ill Patients Urinary Catheter Date of Insertion: 11/13/21 Urinary Catheter Time of Insertion: 13:18 Data : 11/14/21 02:10 11/14/21 02:10 A&P Assessment and plan (1) Status post aorto-coronary artery bypass graft: POD #1 status post CABG Plan: CBC, BMP, chest x-ray a.m. Aspirin 81 mg daily; metoprolol 12.5 mg twice daily; Lipitor 40 mg nightly Continue ventilator weaning with plans for extubation later this morning. Up on side of bed or in chair this afternoon Will discontinue PA catheter later this morning. Status: Acute Attestations Medical Necessity Statement*: Postop day #1 status post CABG Coding Level of Care Code Acute Mule Spinner for Denisse Gardner Diagnoses Status post aorto-coronary artery bypass graft Z95.1
--- NOTE | 2021-11-14 06:00 | ECG_ITS ---
[facility] Test Date: 2021-11-14 Pat Name: Dae Gupta Department: Room: ICU11 Gender: Male Assurance Services Manager Health Care: : 1945 Requested By: Milton Wilson Order Number: [id number] Donna MD: Anjel Spear M.D. Measurements Intervals [place] Rate: 94 P: 80 NC: 143 QRS: 67 QRSD: 89 T: 32 QT: 351 QTc: 440 Interpretive Statements SINUS RHYTHM NONSPECIFIC T-WAVE ABNORMALITY Compared to ECG 11/13/2021 21:17:22 Sinus tachycardia no longer present Possible ischemia no longer present T-wave abnormality still present Electronically Signed On 11-14-2021 23:31:43 CDT by Anjel Spear M.D. [id number]
--- NOTE | 2021-11-14 06:00 | XR_ITS ---
WS: [id number] PORTABLE CHEST HISTORY: pod#1 s/p cabg COMPARISON: 11/13/2021 Endotracheal tube is in good position. Nasogastric tube is not in good position. The proximal port en ds in the mid to distal esophagus and the distal port just above above the GE junction. [place]-Rosenda cat heter is present with tip directed towards the RIGHT outflow tract. There is an additional right-side d central line with tip terminating in the mid SVC. Single left-sided chest tube. There is a very tin y apical pneumothorax. Mild hyperexpansion of the lungs. Significantly improved aeration as compared to the prior study. The re is less pulmonary edema. Focal area of minimal atelectasis or pleural fluid along the fissure in t he RIGHT lower lung. There is small LEFT pleural effusion. Small mediastinal drains. Cardiac size: Normal. Mediastinum/Aorta: Normal mediastinum. No osseous abnormality seen. XR/XR chest 1V portable [id number] IMPRESSION: 1. Marked improvement in aeration and pulmonary edema as seen on 11/13/2021. Mi nimal atelectasis or fluid along the fissure in the RIGHT lower lung. 2. Status post CABG. 3. Nasogastric tube in unsatisfactory position. The tip is above the GE juncti on. 4. Single left-sided chest tube. Very tiny LEFT apical pneumothorax.
[2021-11-14] MEDS: metoprolol tartrate 25 mg Tablet 12.5 MG PO (06:18)
[2021-11-14] MEDS: oxyCODONE-APAP 5-325 mg Tablet PO ×2 (06:19→19:05)
--- NOTE | 2021-11-14 07:20 | ANE.PACU2 ---
Inpatient post-anesthesia follow up: Airway intact: Yes (Intubated) Vital signs: Temperature 98.6 F Pulse Rate 96 Respiratory Rate 12 Blood Pressure 112/58 Pulse Oximetry 98 Oxygen Delivery Me thod Room Air Oxygen Flow Rate 100 Fraction of Inspir ed Oxygen 25 Hydration adequate: Yes Nausea and vomiting: No Pain level: 3 Mental status: Baseline (Mostly baseline, awake and following commands)
[2021-11-14 07:22] LABS: Glucose Point of Care 90 mg/dL (70-110)
[2021-11-14 07:22] LABS: Glucose Point of Care 93 mg/dL (70-110)
[2021-11-14 07:22] LABS: Glucose Point of Care 90 mg/dL (70-110)
[2021-11-14 07:22] LABS: Glucose Point of Care 87 mg/dL (70-110)
[2021-11-14 07:22] LABS: Glucose Point of Care 89 mg/dL (70-110)
[2021-11-14 07:22] LABS: Glucose Point of Care 94 mg/dL (70-110)
[2021-11-14 07:22] LABS: Glucose Point of Care 96 mg/dL (70-110)
[2021-11-14 07:57] LABS: ABG PCO2 39.7 mmHg (35-45); ABG PH Result 7.35 (7.35-7.45); Arterial Blood Gas Hematocrit 36.3 % (42-52); Base Excess ABG -3.6 mmol/L (-2.0-2.0); Blood Gas Sample Site Not specified; Blood Gas Sample Type Arterial; Carboxyhemoglobin 0.8 %THgb (0.4-20.1); HCO3 ABG 21.8 mmol/L (22-26); HGB O2 Sat 98.7 % (95-100); Ionized Calcium Level - ABG 1.1 mmol/L (1.1-1.4); Methemoglobin 0.7 % (0.4-1.5); Oxygen Saturation ABG > 100.0; Potassium Level - ABG 3.9 mmol/L (3.5-5.0); Total Hemoglobin 11.8 g/dL (14-18)
[2021-11-14 08:03] LABS: ABG PCO2 35.4 mmHg (35-45); ABG PH Result 7.43 (7.35-7.45); Arterial Blood Gas Hematocrit 21.5 % (42-52); Blood Gas Sample Site Not specified; Blood Gas Sample Type Arterial; Carboxyhemoglobin 1.1 %THgb (0.4-20.1); HCO3 ABG 23.2 mmol/L (22-26); HGB O2 Sat 97.9 % (95-100); Methemoglobin 1.5 % (0.4-1.5); Oxygen Saturation ABG > 100.0; Potassium Level - ABG 5.3 mmol/L (3.5-5.0)
[2021-11-14 08:05] LABS: ABG PCO2 36.4 mmHg (35-45); ABG PH Result 7.46 (7.35-7.45); Arterial Blood Gas Hematocrit 23.5 % (42-52); Base Excess ABG 1.7 mmol/L (-2.0-2.0); Blood Gas Sample Site Not specified; Blood Gas Sample Type Arterial; Carboxyhemoglobin 1.2 %THgb (0.4-20.1); HCO3 ABG 25.7 mmol/L (22-26); Methemoglobin 1.3 % (0.4-1.5); Oxygen Saturation ABG > 100.0; Potassium Level - ABG 5.4 mmol/L (3.5-5.0); Total Hemoglobin 7.7 g/dL (14-18)
[2021-11-14 08:06] LABS: ABG PCO2 36.8 mmHg (35-45); ABG PH Result 7.44 (7.35-7.45); Arterial Blood Gas Hematocrit 27.2 % (42-52); Base Excess ABG 0.6 mmol/L (-2.0-2.0); Blood Gas Sample Site Not specified; Blood Gas Sample Type Arterial; HCO3 ABG 24.7 mmol/L (22-26); HGB O2 Sat 98.2 % (95-100); Methemoglobin 1.2 % (0.4-1.5); Oxygen Saturation ABG > 100.0; Potassium Level - ABG 5.5 mmol/L (3.5-5.0); Total Hemoglobin 8.9 g/dL (14-18)
[2021-11-14 08:07] LABS: ABG PCO2 42.7 mmHg (35-45); ABG PH Result 7.36 (7.35-7.45); Arterial Blood Gas Hematocrit 27.7 % (42-52); Base Excess ABG -1.1 mmol/L (-2.0-2.0); Blood Gas Sample Site Not specified; Blood Gas Sample Type Arterial; Carboxyhemoglobin 1.2 %THgb (0.4-20.1); HCO3 ABG 24.3 mmol/L (22-26); HGB O2 Sat 96.8 % (95-100); Ionized Calcium Level - ABG 1.3 mmol/L (1.1-1.4); Methemoglobin 1.5 % (0.4-1.5); Oxygen Saturation ABG 99.5; Potassium Level - ABG 4.7 mmol/L (3.5-5.0)
[2021-11-14 08:15] LABS: ABG PCO2 42.5 mmHg (35-45); ABG PH Result 7.36 (7.35-7.45); Base Excess ABG -1.7 mmol/L (-2.0-2.0); HCO3 ABG 23.7 mmol/L (22-26); Oxygen Saturation ABG 88.2; PO2 ABG 55.2 mmHg (80.0-100.0)
[2021-11-14 08:16] LABS: Arterial Blood Gas Hematocrit 25.3 % (42-52); Blood Gas Sample Type VENOUS; Carboxyhemoglobin 1.3 %THgb (0.4-20.1); HGB O2 Sat 85.8 % (95-100); Methemoglobin 1.4 % (0.4-1.5); Total Hemoglobin 8.3 g/dL (14-18)
[2021-11-14 08:20] LABS: Glucose Point of Care 74 mg/dL (70-110)
--- NOTE | 2021-11-14 08:22 | PC.OT ---
HOLD OT EVALUATION TODAY DUE TO PATIENT INTUBATED
--- NOTE | 2021-11-14 08:42 | PC.RESP ---
pt extubated and placed on 3lpm nc tolerated well
--- NOTE | 2021-11-14 08:50 | PC.NURSE ---
Extubated PT following all commands. Pt extubated with the help of RT and nursing. Pt placed on 3L nasal canula. Pt's contact Janis notified per pt wishes.
[2021-11-14 09:19] LABS: Glucose Point of Care 96 mg/dL (70-110)
[2021-11-14] MEDS: pantoprazole 40 mg SDV IVP (09:34)
--- NOTE | 2021-11-14 09:46 | PM.PN ---
Subjective Subjective: Seen this morning. Patient got extubated around 8:30 AM. He states he is having pain while breathing and is requesting pain medication. No acute events overnight reported by nursing staff. Chest x-ray reviewed. Vitals/I&O/Wt Last Vital Signs Temp 98.6 F 11/13/21 19:43 Pulse 96 11/14/21 06:00 Resp 16 11/14/21 07:29 BP 112/58 11/14/21 04:45 Pulse Ox 98 11/14/21 07:29 11/13/21 11/14/21 11/14/21 22:59 06:59 14:59 Intake Total 3482.454 / 3572.454 183.350 / 3755.804 2400 / 2400 Output Total 1969 / 1969 609 / 2579 1367 / 1367 Balance 1512.454 / 1602.454 -425.650 / 7687.736 4448 / 1033 Weight last 48 hrs Weight 64.864 kg Physical Exam Narrative: General: Alert oriented x3, patient seen laying in bed HEENT: Normocephalic, atraumatic, EOMI, normal respiratory effort. Patient extubated at 8:30 AM. Cardio: Regular rate rhythm, normal S1-S2, no murmurs, mediastinal drains in place. Drains draining freely. Right IJ line present. Respiratory: Slightly diminished air entry bilaterally, no gross wheezes or rhonchi. Does complain of pain every time he breathes. GI: Abdomen soft, nontender, nondistended, bowel sounds + Behavior: Appropriate and cooperative Extremities: Pulses 2+, no edema, no cyanosis Urinary Catheter Management: Hinson: Cath Placed During This Visit: yes Reason for Continuing Indwelling Catheter: Accurate Measurement of Urinary Output in Critically Ill Patients Urinary Catheter Date of Insertion: 11/13/21 Urinary Catheter Time of Insertion: 13:18 Data : 11/14/21 02:10 11/14/21 02:10 A&P Assessment and plan (1) Status post aorto-coronary artery bypass graft: Status: Acute (2) Unstable angina: Status: Acute (3) Dyslipidemia: Status: Acute (4) Peripheral vascular disease with claudication: Status: Acute (5) CAD (coronary artery disease): Status: Acute Plan 75-year-old male who has history of established coronary disease, last stent placed in August last year has stopped taking aspirin and Plavix, he is on multiple herbal medications presented with unstable angina presentation, cardiology started ACS protocol, troponin and EKG unremarkable.? Patient went for an angiogram which revealed high-grade stenosis and lesions were not stent double.? Patient had CABG 11/13/2021. Today is postop day 1. #CABG 11/13/2021 #Unstable angina #Peripheral arterial disease #Sinus bradycardia #Abnormal angiogram, CABG candidate Complete 48 hours of ACS protocol.? Echo completed, cardiac angiogram completed.? Today's postop day 1. Patient has been extubated. He does complain of pain when he breathes. We will manage pain. We will follow recommendations from CT surgery for further management. Continue aspirin Plavix, Imdur.,? Beta-cathy.? Avoid Viagra at discharge. Full code Attestations Medical Necessity Statement*: Requires ICU level care. Patient is post CABG 11/13/2021. Coding Level of Care Code Acute Instructional Assistant for Denisse Gardner Diagnoses Status post aorto-coronary artery bypass graft Z95.1 Unstable angina I20.0 Dyslipidemia E78.5 Peripheral vascular disease with claudication I73.9 CAD (coronary artery disease) I25.10
--- NOTE | 2021-11-14 11:04 | PC.SOCIAL ---
IMM update IMM updated with patient. Verbalized an understanding. Copy PG 2 provided. Initialled, dated, timed, and placed in chart.
[2021-11-14 11:57] LABS: Glucose Point of Care 102 mg/dL (70-110)
--- NOTE | 2021-11-14 13:27 | PC.NURSE ---
D/C swan and cordis Warren and Cordis d/c per phys orders. Pt tolerated well and no signs of ectopy.
[2021-11-14] MEDS: morphine 4 mg/mL SDV 1 mL 2 MG IVP ×2 (13:54→17:06)
[2021-11-14] MEDS: aspirin 81 mg Chew Tablet PO (14:34)
--- NOTE | 2021-11-14 15:30 | PC.NURSE ---
Dressing change [place] to right leg removed. No edema noted. Both island dressings removed. Sites show minimal bruising and dermabond is dry. Both sites painted with betadine and [place] applied.
[2021-11-14 18:17] LABS: Glucose Point of Care 112 mg/dL (70-110)
[2021-11-14] MEDS: metoprolol tartrate 25 mg Tablet PO (20:28)
[2021-11-14] MEDS: tamsulosin 0.4 mg Capsule PO (20:29)
[2021-11-14 20:41] LABS: Glucose Point of Care 112 mg/dL (70-110)
--- NOTE | 2021-11-14 20:51 | PC.NURSE ---
Patient has tamulosin listed as an adverse reaction. Medication is ordered to be administered. Patient states he does not have an allergy to the medication. He thought it was contributing to his chest pain, but does not know that for sure. He says that it does help and would like to continue taking it.
[2021-11-15] VITALS (50 sets, daily range): BP systolic 108–180; BP diastolic 53–99; PULSE 76–103; RESP 12–41; TEMP 36.6–37.4; O2SAT 86–98
[2021-11-15] MEDS: oxyCODONE-APAP 5-325 mg Tablet PO ×2 (00:58→11:33)
[2021-11-15] MEDS: morphine 4 mg/mL SDV 1 mL 2 MG IVP (03:05)
[2021-11-15 05:19] LABS: Basophils # 0.1 10^3/uL (0.0-0.1); Basophils % 0.4 %; Eosinophils # 0.1 10^3/uL (0.0-0.8); Eosinophils % 0.5 %; Hematocrit 26.8 % (42.0-52.0); Hemoglobin 8.7 g/dL (11.7-16.6); Lymphocytes # 1.7 10^3/uL (0.8-4.8); Lymphocytes % 11.6 %; Mean Corpuscular HGB Conc 32.5 g/dL (30.0-36.0); Mean Corpuscular Hemoglobin 30.6 pg (28.0-34.0); Mean Corpuscular Volume 94.4 fl (80-94); Mean Platelet Volume 11.2 fL (7.4-10.4); Monocytes # 2.4 10^3/uL (0.2-0.9); Monocytes % 16.8 %; Neutrophils # 10.01 10^3/uL (1.8-7.7); Neutrophils % 70.3 %; Nucleated Red Blood Cells % 0 %; Platelet Count 180 10^3/cmm (130-400); Red Blood Count 2.84 10^6/uL (4.1-5.3); Red Cell Distribution Width 15.3 % (12.1-15.1); White Blood Count 14.3 10^3/uL (4.0-10.0)
[2021-11-15] MEDS: fentaNYL 50 mcg/mL INJ 2mL IVP ×2 (05:34→13:17)
[2021-11-15 05:39] LABS: Anion Gap 14.4 (5-19); Blood Urea Nitrogen 17 mg/dL (8-23); Calcium 8.6 mg/dL (8.5-10.5); Carbon Dioxide 23 mmol/L (22-29); Chloride 104 mmol/L (98-107); Glucose 123 mg/dL (65-115); Osmolality Calculated 287 mOsm/kg (285-295); Potassium 4.4 mmol/L (3.5-5.1); Sodium 137 mmol/L (136-145)
--- NOTE | 2021-11-15 06:00 | XR_ITS ---
WS: [id number] Portable AP semiupright chest, 11/15/2021 Clinical Data: POD #2 status post CABG Comparison: Portable chest, 11/14/2021 Findings: The [place]-Ros[place] catheter has been removed. The endotracheal tube and nasogastric tube are no longer present. Mediastinal tubes are unchanged. There is a right internal jugular venous catheter en ding in the superior vena cava. There is an inferior vena caval catheter which appears to end in the superior vena cava. A left chest tube remains in position. Bilateral lower lobe atelectasis and/or ef fusion have developed since yesterday. The left apical pneumothorax is no longer present. Midline dara rnotomy sutures are present There are monitor leads on the chest wall. There is a poor inspiratory ef fort which accentuates the heart size. XR/XR chest 1V portable [id number] Impression: 1. Removal of multiple tubes. 2. Left chest tube, right internal jugular venous catheter, mediastinal tube an d right internal jugular venous catheter remain in position. 3. Bibasilar atelectasis and/or effusions have developed.
--- NOTE | 2021-11-15 06:55 | PC.NURSE ---
Left femoral art line removed. Pressure dressing applied. Site is clean and clear. No hematoma.
[2021-11-15 07:42] LABS: Glucose Point of Care 133 mg/dL (70-110)
--- NOTE | 2021-11-15 07:52 | PM.PN ---
Subjective Subjective: Postop day #2 status post CABG. Making steady progress. Chest tube output 222 cc past 24 hours. No arrhythmias. Mild tachycardia in the low 90s. Systolic blood pressure 130. Postop sternotomy discomfort under good control. Chest x-ray reveals that he appears to be developing a right pleural effusion. He does have a right pleural drain and though it is situated medially. Vitals/I&O/Wt Last Vital Signs Temp 99.3 F 11/15/21 07:00 Pulse 92 11/15/21 06:00 Resp 18 11/15/21 06:00 BP 136/72 11/15/21 06:00 Pulse Ox 95 11/15/21 06:00 11/14/21 11/15/21 11/15/21 22:59 06:59 14:59 Intake Total 250 / 2850 1200 / 4050 Output Total 700 / 2176 576 / 2752 Balance -450 / 674 624 / 1298 Weight last 48 hrs Weight 142 lb 3.17 oz Weight 143 lb Physical Exam Chest: COMMONS NORMALS: normal inspection of the chest and normal palpation of entire chest wall OTHER: Dressings and drains are in good position. Chest wall is stable. Resp: OTHER: Decreased breath sounds in the bases, right greater than left, consistent with right pleural effusion Cardio: COMMON NORMALS: regular rate, regular rhythm, S1 normal heart sound present and No murmurs present (Cardio) RATE: regular rate RHYTHM: regular rhythm HEART SOUNDS: S1 normal heart sound present GI: OTHER: Abdomen is soft with hypoactive bowel sounds. Urinary Catheter Management: Hinson: Cath Placed During This Visit: yes, but has since been removed by the nurse Reason for Continuing Indwelling Catheter: Decision to DC Catheter Urinary Catheter Date of Insertion: 11/13/21 Urinary Catheter Time of Insertion: 13:18 Date Urinary Catheter Removed: 11/15/21 Time Urinary Catheter Discontinued: 05:54 Data : 11/15/21 04:47 11/15/21 04:47 A&P Assessment and plan (1) Status post aorto-coronary artery bypass graft: Postop day #2 status post CABG. Right pleural effusion. Anemia. Plan: Lasix 20 mg IV now. Transfuse 1 unit packed RBCs. CBC, BMP, chest x-ray in a.m. Increase activity. I will assess tachycardia later with follow-up H&H. If this is adequate and he remains tachycardic, will consider increasing metoprolol. Status: Acute Attestations Medical Necessity Statement*: Postop day #2 status post CABG Coding Level of Care Code Acute Business Analytics Analyst for Denisse Gardner Diagnoses Status post aorto-coronary artery bypass graft Z95.1
[2021-11-15] MEDS: FUROsemide 10 mg/mL SDV 2mL 20 MG IVP (08:05)
[2021-11-15] MEDS: metoprolol tartrate 25 mg Tablet PO ×2 (08:05→20:53)
[2021-11-15] MEDS: aspirin 81 mg Chew Tablet PO (08:05)
[2021-11-15] MEDS: mupirocin oint 22 gm 1 APPLIC NASAL ×2 (08:11→17:06)
[2021-11-15] MEDS: chlorhexidine gluconate 0.12% Btl 473 mL 15 ML MUCOUS MEM ×2 (08:11→17:06)
[2021-11-15] MEDS: sodium chloride 0.9% (100 ml) 100 ML 25 ML (09:41)
--- NOTE | 2021-11-15 11:43 | P.PN_ITS ---
Subjective Subjective: Postop day 2 status post CABG. No acute events overnight. Patient seen this morning. He states he is feeling much better compared to yesterday. He still has pain/discomfort but it is improved compared to yesterday. Hemoglobin 8.7 this morning. He has been ordered 1 unit packed RBC. Vitals/I&O/Wt Last Vital Signs Temp 98.3 F 11/15/21 09:38 Pulse 94 11/15/21 11:00 Resp 21 H 11/15/21 11:33 BP 149/79 11/15/21 11:00 Pulse Ox 98 11/15/21 11:33 11/14/21 11/15/21 11/15/21 22:59 06:59 14:59 Intake Total 250 / 2850 1200 / 4050 260 / 260 Output Total 700 / 2176 576 / 2752 952 / 952 Balance -450 / 674 624 / 1298 -692 / -692 Weight last 48 hrs Weight 64.5 kg Weight 64.864 kg Physical Exam Narrative: General: Alert oriented x3, patient seen laying in bed with pillow in his lap. Patient taking sips of water. HEENT: Normocephalic, atraumatic, EOMI, normal respiratory effort.? Patient extubated at 8:30 AM. Cardio: Regular rate rhythm, normal S1-S2, no murmurs, mediastinal drains in place.? Drains draining freely. Right IJ line present. Respiratory: Slightly diminished air entry bilaterally, mild crackles at right base, no gross wheezes or rhonchi.? Does complain of pain every time he breathes.? GI: Abdomen soft, nontender, nondistended, bowel sounds + with slightly hypoactive. Behavior: Appropriate and cooperative Extremities: no edema, no cyanosis ? Urinary Catheter Management: Hinson: Cath Placed During This Visit: yes, but has since been removed by the nurse Reason for Continuing Indwelling Catheter: Decision to DC Catheter Urinary Catheter Date of Insertion: 11/13/21 Urinary Catheter Time of Insertion: 13:18 Date Urinary Catheter Removed: 11/15/21 Time Urinary Catheter Discontinued: 05:54 Data : 11/15/21 04:47 11/15/21 04:47 A&P Assessment and plan (1) Status post aorto-coronary artery bypass graft: Status: Acute (2) Unstable angina: Status: Acute (3) Bradycardia: Status: Acute (4) Dyslipidemia: Status: Acute (5) Atherosclerotic heart disease of [place] coronary artery with unstable angina pectoris: Status: Acute (6) Peripheral vascular disease with claudication: Status: Acute Plan 75-year-old male who has history of established coronary disease, last stent placed in August last year has stopped taking aspirin and Plavix, he is on multiple herbal medications presented with unstable angina presentation, cardiology started ACS protocol, troponin and EKG unremarkable.? Patient went for an angiogram which revealed high-grade stenosis and lesions were not stent double.? Patient had CABG 11/13/2021.? Today is postop day 2. #CABG 11/13/2021 #Unstable angina #Peripheral arterial disease #Sinus bradycardia #Abnormal angiogram, CABG candidate Complete 48 hours of ACS protocol.? Echo completed, cardiac angiogram completed.? Today's postop day 2.? Patient has been extubated, [place]-Rosenda removed. Right pleural effusion noted. Lasix 20 IV ordered this morning by Dr. Wilson. Hemoglobin 8.7. 1 unit packed RBC ordered as well. Continue monitoring H&H. We will follow recommendations from CT surgery for further management. Continue aspirin Plavix, Imdur.,? Beta-cathy.? Avoid Viagra at discharge. Full code Attestations Medical Necessity Statement*: Status post CABG postop day 2. Requires ICU [facility] care. Coding Level of Care Code Acute Advertisement Compositor for Denisse Fwveronica Diagnoses Status post aorto-coronary artery bypass graft Z95.1 Unstable angina I20.0 Bradycardia R00.1 Dyslipidemia E78.5 Atherosclerotic heart disease of [place] coronary artery with unstable angina pectoris I25.110 Peripheral vascular disease with claudication I73.9
[2021-11-15 11:46] LABS: Glucose Point of Care 128 mg/dL (70-110)
[2021-11-15 17:05] LABS: Glucose Point of Care 134 mg/dL (70-110)
--- NOTE | 2021-11-15 17:50 | PM.PN ---
Subjective Subjective: Patient status post single-vessel coronary artery bypass surgery. Currently is extubated. Chest tube is still in place. Seems to be slowly recuperating. The vital signs are stable. Remains afebrile. No arrhythmias on the monitor. Medications: Medication Review Details: Current Medications Aspirin (Aspirin 81 Mg Ec Tablet) 81 mg PO DAILY [facility] Last Admin: 11/13/21 07:10 Dose: Not Given Documented by: Aspirin (Aspirin 81 Mg Chew Tablet) 81 mg PO DAILY [facility] Last Admin: 11/15/21 08:05 Dose: 81 mg Documented by: Chlorhexidine Gluconate (Chlorhexidine Gluconate 0.12% Btl 473 Ml) 15 ml MUCOUS MEM BID [facility] Last Admin: 11/15/21 17:06 Dose: 15 ml Documented by: Chlorhexidine Gluconate (Chlorhexidine Gluconate 0.12% Btl 473 Ml) 15 ml MUCOUS MEM BID [facility] Last Admin: 11/15/21 17:01 Dose: Not Given Documented by: Dextrose (Dextrose 50% Syringe 50 Ml) 25 ml IVP ONCE PRN; Protocol PRN Reason: hypoglycemia protocol Dextrose (Dextrose 50% Syringe 50 Ml) 50 ml IVP PRN PRN; Protocol PRN Reason: hypoglycemia protocol Epinephrine (Racepinephrine 0.5 Ml Neb) 0.5 ml INHALATION Q6H.RESPIRATORY PRN PRN Reason: Stridor Fentanyl (Fentanyl 50 Mcg/Ml Inj 2ml) 50 mcg IVP Q1H PRN PRN Reason: SEVERE PAIN Last Admin: 11/15/21 13:17 Dose: 50 mcg Documented by: Glucagon (Glucagon 1 Mg/Ml Inj 1 Ml) 1 mg IM ONCE PRN; Protocol PRN Reason: Adult Acute Hypoglycemia Prot Hydralazine HCl (Hydralazine 20 Mg/Ml Inj 1 Ml) 5 mg IVP ONCE PRN PRN Reason: Systolic BP > 140 mmHg Dobutamine HCl/Dextrose (Dobutamine Drip) 500 mg in 250 mls @ 0 mls/hr IV .Q0M PRN; Protocol PRN Reason: Cardiac Output Last Titration: 11/14/21 02:00 Dose: 0 mcg/kg/min, 0 mls/hr Documented by: Dopamine HCl/Dextrose (Intropin Drip) 400 mg in 250 mls @ 11.141 mls/hr IV CONT PRN; Protocol PRN Reason: Hypotension Albumin Human (Albumin) 12.5 gm in 250 mls @ 600 mls/hr IV PRN PRN PRN Reason: For CVP < 4 or SBP< 90 Last Infusion: 11/13/21 21:20 Dose: Infused Documented by: Dextrose (D5w) 500 mls @ 100 mls/hr IV ONCE PRN; Protocol PRN Reason: Adult Acute Hypoglycemia Prot Norepinephrine Bitartrate 4 mg (/ Dextrose) 254 mls @ 10.583 mls/hr IV .Q24H PRN; Protocol PRN Reason: HYPOTENSION Last Titration: 11/13/21 21:40 Dose: 0 mcg/min, 0 mls/hr Documented by: Phenylephrine HCl 25 mg/ (Sodium Chloride) 252.5 mls @ 0 mls/hr IV .Q0M PRN; Protocol PRN Reason: HYPOTENSION Nitroglycerin/Dextrose (Nitroglycerin Drip) 50 mg in 250 mls @ 0 mls/hr IV .Q0M [facility]; Protocol Last Titration: 11/13/21 20:45 Dose: 0 mcg/min, 0 mls/hr Documented by: Sodium Nitroprusside 50 mg/ (Dextrose) 252 mls @ 0 mls/hr IV .Q0M [facility]; Protocol Propofol (Diprivan) 1,000 mg in 100 mls @ 0 mls/hr IV .Q0M [facility]; Protocol Last Titration: 11/14/21 02:15 Dose: 0 mcg/kg/min, 0 mls/hr Documented by: Labetalol HCl 300 mg/ Sodium (Chloride) 300 mls @ 0 mls/hr IV .Q0M [facility]; Protocol Insulin Human Lispro (Insulin Lispro 100 Unit/1 Ml) 0 unit SUBCUT WM&BEDTIME [facility]; Protocol Last Admin: 11/15/21 17:03 Dose: Not Given Documented by: Labetalol HCl (Labetalol 5 Mg/Ml Sdv 20ml) 10 mg IVP Q5M PRN PRN Reason: Systolic BP >140 mmHG Metoprolol Tartrate (Metoprolol Tartrate 25 Mg Tablet) 25 mg PO BID@0900,2100 [facility] Last Admin: 11/15/21 08:05 Dose: 25 mg Documented by: Midazolam HCl (Midazolam 1 Mg/Ml Inj 2 Ml) 1 mg IVP Q1H PRN PRN Reason: Sedation for [place] score < 4. Morphine Sulfate (Morphine 4 Mg/Ml Sdv 1 Ml) 2 mg IVP Q1H PRN PRN Reason: BREAKTHROUGH PAIN Last Admin: 11/15/21 03:05 Dose: 2 mg Documented by: Mupirocin (Mupirocin Oint 22 Gm) 1 applic NASAL BID [facility] Last Admin: 11/15/21 17:06 Dose: 1 applic Documented by: Naloxone HCl (Naloxone 0.4 Mg/Ml Sdv) 0.1 mg IVP Q2M PRN PRN Reason: RESPIRATORY RATE < 8/MIN Naloxone HCl (Naloxone 0.4 Mg/Ml Sdv) 0.1 mg IVP Q2M PRN PRN Reason: OPIATERV Nitroglycerin (Nitroglycerin 0.4 Mg Sublingual Tablet) 0.4 mg SUBLINGUAL Q5M PRN PRN Reason: CHEST PAIN Ondansetron HCl (Ondansetron 2 Mg/Ml Sdv 2 Ml) 4 mg IVP Q6H PRN PRN Reason: NAUSEA Oxycodone/Acetaminophen (Oxycodone-Apap 5-325 Mg Tablet) 1 - 2 tab PO Q6H PRN PRN Reason: MILD TO MODERATE PAIN Last Admin: 11/15/21 11:33 Dose: 2 tab Documented by: Tamsulosin HCl (Tamsulosin 0.4 Mg Capsule) 0.4 mg PO BEDTIME [facility] Last Admin: 11/14/21 20:29 Dose: 0.4 mg Documented by: Temazepam (Temazepam 15 Mg Capsule) 15 mg PO BEDTIME PRN PRN Reason: INSOMNIA Vitals/I&O/Wt Last Vital Signs Temp 98.3 F 11/15/21 09:38 Pulse 84 11/15/21 16:30 Resp 20 H 11/15/21 16:30 BP 129/67 11/15/21 16:30 Pulse Ox 93 11/15/21 16:30 11/15/21 11/15/21 11/15/21 06:59 14:59 22:59 Intake Total 1200 / 4050 730 / 730 Output Total 576 / 2752 1002 / 1002 150 / 1152 Balance 624 / 1298 -272 / -272 -150 / -422 Weight last 48 hrs Weight 142 lb 3.17 oz Weight 143 lb Physical Exam Narrative: GENERAL: The patient is alert and oriented times three. Not in any acute distress. HEENT: Minimal pallor. No icterus or lymphadenopathy. Oral cavity: There are no mucous membrane lesions. NECK: Trachea appears to be central. No masses noted. No JVD or thyromegaly appreciated. RESPIRATORY: Sternotomy wound has a wound VAC. Chest tubes are in place. Breath sounds are heard bilaterally with no rales or rhonchi. BREASTS: Deferred. HEART: The heart sounds are normal. No S3 or S4. No significant murmurs. No pericardial rub ABDOMEN: No vessel pulsations or distention. No tenderness. No organomegaly appreciated. Bowel sounds are normally heard. : Deferred. RECTAL: Deferred. LYMPHATIC: No lymphadenopathy noted in the neck. EXTREMITIES: No edema or cyanosis. No clubbing. MUSCULOSKELETAL: No acute joint deformities or swelling SKIN: There are no significant rashes or ecchymosis NEUROPSYCHIATRIC: The patient is alert and oriented x3. Appears to be in a good mood. No tremors or rigidity noted. Urinary Catheter Management: Hinson: Cath Placed During This Visit: yes, but has since been removed by the nurse Reason for Continuing Indwelling Catheter: Decision to DC Catheter Urinary Catheter Date of Insertion: 11/13/21 Urinary Catheter Time of Insertion: 13:18 Date Urinary Catheter Removed: 11/15/21 Time Urinary Catheter Discontinued: 05:54 Data : 11/15/21 04:47 11/15/21 04:47 Other Labs: Laboratory Last Values WBC 14.3 10^3/uL (4.0-10.0) H 11/15/21 04:47 RBC 2.84 10^6/uL (4.1-5.3) L 11/15/21 04:47 Hgb 8.7 g/dL (11.7-16.6) L 11/15/21 04:47 Hct 26.8 % (42.0-52.0) L 11/15/21 04:47 MCV 94.4 fl (80-94) H 11/15/21 04:47 MCH 30.6 pg (28.0-34.0) 11/15/21 04:47 MCHC 32.5 g/dL (30.0-36.0) 11/15/21 04:47 RDW 15.3 % (12.1-15.1) H 11/15/21 04:47 Plt Count 180 10^3/cmm (130-400) 11/15/21 04:47 MPV 11.2 fL (7.4-10.4) H 11/15/21 04:47 Neut % (Auto) 70.3 % 11/15/21 04:47 Lymph % (Auto) 11.6 % 11/15/21 04:47 [place] % (Auto) 16.8 % 11/15/21 04:47 Eos % (Auto) 0.5 % 11/15/21 04:47 Baso % (Auto) 0.4 % 11/15/21 04:47 Neut # (Auto) 10.01 10^3/uL (1.8-7.7) H 11/15/21 04:47 Lymph # (Auto) 1.7 10^3/uL (0.8-4.8) 11/15/21 04:47 [place] # (Auto) 2.4 10^3/uL (0.2-0.9) H 11/15/21 04:47 Eos # (Auto) 0.1 10^3/uL (0.0-0.8) 11/15/21 04:47 Baso # (Auto) 0.1 10^3/uL (0.0-0.1) 11/15/21 04:47 Nucleated RBC % (auto) 0 % 11/15/21 04:47 Nucleated RBCs # 0.0 /100WBC 11/15/21 04:47 PT 15.70 SECONDS (12.1-14.9) H 11/14/21 02:10 PT Cancelled 11/14/21 02:10 INR 1.22 (0.8-1.2) H 11/14/21 02:10 INR Cancelled 11/14/21 02:10 APTT 27.9 SECONDS (23.9-36.7) 11/14/21 02:10 D-Dimer 0.71 ug/mIFEU (0-0.59) H 11/10/21 18:45 Specimen Type Arterial 11/14/21 03:05 Sample Site Femoral, left 11/14/21 03:05 ABG pH 7.49 (7.35-7.45) H 11/14/21 03:05 ABG pCO2 25.4 mmHg (35-45) L 11/14/21 03:05 ABG pO2 69.7 mmHg (80.0-100.0) L 11/14/21 03:05 ABG HCO3 19.5 mmol/L (22-26) L 11/14/21 03:05 ABG O2 Saturation 96.8 11/14/21 03:05 ABG Base Excess -2.9 mmol/L (-2.0-2.0) L 11/14/21 03:05 Russel Test N/a 11/14/21 03:05 A-a O2 Gradient 9.5 mmHg (5-10) 11/14/21 03:05 Hematocrit 28.0 % (42-52) L 11/14/21 03:05 Hgb O2 Saturation 94.8 % (95-100) L 11/14/21 03:05 Carboxyhemoglobin 1.1 %THgb (0.4-20.1) 11/14/21 03:05 Methemoglobin 1.0 % (0.4-1.5) 11/14/21 03:05 Total Hemoglobin 9.1 g/dL (14-18) L 11/14/21 03:05 Sodium 144.0 mmol/L (131-143) H 11/14/21 03:05 Potassium 3.6 mmol/L (3.5-5.0) 11/14/21 03:05 Glucose 90.0 mg/dL (70-115) 11/14/21 03:05 Ionized Calcium 1.1 mmol/L (1.1-1.4) 11/14/21 03:05 O2 Delivery Device Vent 11/14/21 03:05 SIMV 14.0 11/13/21 20:20 FiO2 25.0 % 11/14/21 03:05 Tidal Volume 0.60 11/14/21 03:05 PEEP 5.0 cmH20 11/14/21 03:05 Process Control Programmer ID [email or web address] 11/14/21 03:05 Sodium 137 mmol/L (136-145) 11/15/21 04:47 Potassium 4.4 mmol/L (3.5-5.1) 11/15/21 04:47 Chloride 104 mmol/L (98-107) 11/15/21 04:47 Carbon Dioxide 23 mmol/L (22-29) 11/15/21 04:47 Anion Gap 14.4 (5-19) 11/15/21 04:47 BUN 17 mg/dL (8-23) 11/15/21 04:47 Creatinine 0.7 mg/dL (0.7-1.2) 11/15/21 04:47 GFR Calculation Not Reportable 11/15/21 04:47 Glucose 123 mg/dL (65-115) H 11/15/21 04:47 POC Glucose 134 mg/dL (70-110) H 11/15/21 17:03 Fasting Glucose 96 mg/dL (74-106) 11/14/21 02:10 Calculated Osmolality 287 mOsm/kg (285-295) 11/15/21 04:47 Calcium 8.6 mg/dL (8.5-10.5) 11/15/21 04:47 Magnesium 2.7 mg/dL (1.7-2.3) H 11/14/21 02:10 Total Bilirubin 0.3 mg/dL (0.15-1.2) 11/12/21 13:22 Direct Bilirubin 0.20 mg/dL (0.00-0.30) 11/12/21 13:22 AST 13 U/L (0-40) 11/12/21 13:22 ALT 10 U/L (0-41) 11/12/21 13:22 Alkaline Phosphatase 126 IU/L (40-130) 11/12/21 13:22 Troponin T Baseline 23 ng/L (0-15) H 11/10/21 12:50 Troponin T 120 Minute 26.93 ng/L (0-15) H 11/10/21 14:45 Delta Troponin T 3.93 ABS# (0-10) 11/10/21 14:45 Troponin T Hi Sens 6Hr 27.28 ng/L (0-15) H 11/10/21 18:45 Troponin T Hi Sens 6Hr Delta 4.28 ng/L (0-12) 11/10/21 18:45 Total Protein 6.0 g/dL (6.6-8.7) L 11/12/21 13:22 Albumin 3.6 g/dL (3.5-5.2) 11/12/21 13:22 Globulin 2.4 g/dL (1.3-4.6) 11/12/21 13:22 TSH 1.97 uIU/mL (0.27-4.20) 11/12/21 13:22 Free T4 1.03 ng/dL (0.82-1.77) 11/12/21 13:22 Urine Color Yellow (Yellow) 11/12/21 18:02 Urine Appearance Clear (CLEAR) 11/12/21 18: Urine pH 7 (5-7) 11/12/21 18:02 Ur Specific [place] 1.015 (1.005-1.030) 11/12/21 18:02 Urine Protein Neg (Negative) 11/12/21 18:02 Urine Glucose (UA) Norm (Normal) 11/12/21 18:02 Urine Ketones Negative (Negative) 11/12/21 18:02 Urine Blood Neg (Negative) 11/12/21 18: Urine Nitrate Negative (Negative) 11/12/21 18: Urine Bilirubin Neg (Negative) 11/12/21 18:02 Urine Urobilinogen Norm mg/dL (Negative) 11/12/21 18:02 Ur Leukocyte Esterase Negative (Negative) 11/12/21 18:02 Urine Opiates Screen Negative ng/mL (Negative) 11/10/21 19:00 Ur Barbiturates Screen Negative ng/mL (Negative) 11/10/21 19:00 Ur Phencyclidine Scrn Negative ng/mL (Negative) 11/10/21 19:00 Ur Amphetamines Screen Negative ng/mL (Negative) 11/10/21 19:00 U Benzodiazepines Scrn Negative ng/mL (Negative) 11/10/21 19:00 Urine Cocaine Screen Negative ng/mL (Negative) 11/10/21 19:00 U Marijuana (THC) Screen Negative ng/mL (Negative) 11/10/21 19:00 Blood Type O Positive 11/12/21 13:22 Rho(D) Type Positive 11/12/21 13:22 Antibody Screen Negative 11/12/21 13:22 Crossmatch See Detail 11/12/21 13:22 CXR: My impression: Near normal cardiac silhouette. Has minimal pulmonary venous congestion. Some features of atelectasis and minimal pleural effusions bilaterally A&P Assessment and plan (1) Atherosclerotic heart disease of [place] coronary artery with unstable angina pectoris: Patient status post single-vessel coronary bypass surgery, currently seems to be stable. Vital signs are stable. Status: Acute (2) Status post aorto-coronary artery bypass graft: Patients seems to be recuperating fairly well. No signs of infection or bleeding. Vital signs remained stable. May continue on the current medication. Status: Acute (3) Elevated blood pressure reading: Since the blood pressure is in the normal range, patient may not require any medication changes at this time. Advised to continue on the current measures. Status: Acute (4) Peripheral vascular disease with claudication: Since the patient has no specific symptoms of peripheral artery insufficiency, is advised to continue on the current medications and exercise program. Current medications were reviewed. May start on Plavix, once the chest tube is removed Status: Resolved Plan May continue on the current medications. Attestations Medical Necessity Statement*: Patient requires continued hospital stay for close monitoring and further management Coding Level of Care Code Acute Ekg Tech for Denisse Gardner History Detailed Exam Detailed Medical Decision Making Moderate Complexity Diagnoses Peripheral vascular disease with claudication I73.9 Atherosclerotic heart disease of [place] coronary artery with unstable angina pectoris I25.110 Elevated blood pressure reading R03.0 Status post aorto-coronary artery bypass graft Z95.1
--- NOTE | 2021-11-15 20:30 | PC.NURSE ---
Dr. Wilson gave order to remove central line via telephone.
[2021-11-15 20:44] LABS: Glucose Point of Care 175 mg/dL (70-110)
[2021-11-15] MEDS: insulin lispro 100 unit/1 mL SUBCUT (20:54)
[2021-11-16] VITALS (55 sets, daily range): BP systolic 99–155; BP diastolic 52–80; PULSE 76–94; RESP 5–33; TEMP 36.6–37.1; O2SAT 79–98
[2021-11-16] MEDS: morphine 4 mg/mL SDV 1 mL 2 MG IVP ×3 (00:37→09:06)
[2021-11-16] MEDS: oxyCODONE-APAP 5-325 mg Tablet PO ×2 (02:23→19:31)
[2021-11-16 02:57] LABS: Basophils % 0.2 %; Eosinophils # 0.1 10^3/uL (0.0-0.8); Eosinophils % 0.9 %; Hematocrit 29.5 % (42.0-52.0); Hemoglobin 9.5 g/dL (11.7-16.6); Lymphocytes # 1.6 10^3/uL (0.8-4.8); Lymphocytes % 11.5 %; Mean Corpuscular HGB Conc 32.2 g/dL (30.0-36.0); Mean Corpuscular Hemoglobin 29.1 pg (28.0-34.0); Mean Corpuscular Volume 90.5 fl (80-94); Mean Platelet Volume 11.5 fL (7.4-10.4); Monocytes # 2.3 10^3/uL (0.2-0.9); Monocytes % 16.5 %; Neutrophils # 9.92 10^3/uL (1.8-7.7); Neutrophils % 70.5 %; Nucleated Red Blood Cells % 0 %; Platelet Count 183 10^3/cmm (130-400); Red Blood Count 3.26 10^6/uL (4.1-5.3); Red Cell Distribution Width 16.1 % (12.1-15.1); White Blood Count 14.1 10^3/uL (4.0-10.0)
[2021-11-16 03:17] LABS: Anion Gap 12.8 (5-19); Blood Urea Nitrogen 18 mg/dL (8-23); Calcium 8.7 mg/dL (8.5-10.5); Carbon Dioxide 27 mmol/L (22-29); Chloride 102 mmol/L (98-107); Glucose 137 mg/dL (65-115); Osmolality Calculated 290 mOsm/kg (285-295); Potassium 3.8 mmol/L (3.5-5.1); Sodium 138 mmol/L (136-145)
--- NOTE | 2021-11-16 06:00 | XR_ITS ---
WS: [id number] Portable AP upright chest, 11/16/2021 Clinical Data: pod#3 s/p cabg Comparison: Portable chest, 11/15/2021 Findings: The right internal jugular venous catheter has been removed. The inferior vena caval cathet er remains in position. The heart is normal. The mediastinal tubes not changed. The left chest tube r emains in position. No pneumothorax is seen. There is bibasilar atelectasis with more on the right. Monitor leads are on the chest wall. XR/XR chest 1V portable [id number] Impression: 1. No change in bibasilar atelectasis. 2. Removal of right internal jugular venous catheter.
[2021-11-16 07:40] LABS: Glucose Point of Care 119 mg/dL (70-110)
--- NOTE | 2021-11-16 07:56 | ECG_ITS ---
[facility] Test Date: 2021-11-16 Pat Name: Dae Gupta Department: Room: ICU11 Gender: Male Inspector Penetrant: : [id number] Requested By: Milton Wilson Order Number: [id number] Donna MD: Anjel Spear M.D. Measurements Intervals [place] Rate: 93 P: 57 VT: 139 QRS: 33 QRSD: 86 T: 0 QT: 348 QTc: 433 Interpretive Statements SINUS RHYTHM WITH OCCASIONAL ECTOPIC PREMATURE COMPLEXES NONSPECIFIC T-WAVE ABNORMALITY Compared to ECG 11/14/2021 06:24:23 No significant changes Electronically Signed On 11-16-2021 18:17:58 CDT by Anjel Spear M.D. [email or web address]
--- NOTE | 2021-11-16 08:35 | P.PN_ITS ---
Subjective Subjective: Postop day #3 status post CABG. Quite a bit of chest tube discomfort this morning, though vital signs and laboratory data unremarkable. Chest x-ray reveals some slight improvement in the right lower lobe atelectasis/effusion. Mediastinum is otherwise unremarkable. EKG this morning reveals normal sinus rhythm with no acute changes. Chest tube output 230 cc past 24 hours. Vitals/I&O/Wt Last Vital Signs Temp 98.7 F 11/16/21 04:00 Pulse 78 11/16/21 08:25 Resp 20 H 11/16/21 07:48 BP 126/71 11/16/21 07:30 Pulse Ox 96 11/16/21 08:25 11/15/21 11/16/21 11/16/21 22:59 06:59 14:59 Intake Total 700 / 1530 Output Total 250 / 1252 431 / 1683 Balance 450 / 278 -431 / -153 Weight last 48 hrs Weight 63 lb 5 oz Weight 142 lb 3.17 oz Physical Exam Chest: COMMONS NORMALS: normal inspection of the chest and normal palpation of entire chest wall OTHER: Chest wall is stable. Drains are in good position. Drains were discontinued today. Pacing wire was discontinued. Resp: COMMON NORMALS: normal respiratory effort, No use of accessory muscles and clear to auscultation bilaterally (Slightly decreased in the right base consistent with probable small effusio) AUSCULTATION: clear to auscultation bilaterally (Slightly decreased in the right base consistent with probable small effusio) Cardio: COMMON NORMALS: regular rate, regular rhythm, S1 normal heart sound present and No murmurs present (Cardio) RATE: regular rate RHYTHM: regular rhythm HEART SOUNDS: S1 normal heart sound present GI: COMMON NORMALS: Normal to inspection, nondistended, normoactive bowel sounds present Extremity: COMMON NORMALS: no clubbing, cyanosis or edema Urinary Catheter Management: Hinson: Cath Placed During This Visit: yes, but has since been removed by the nurse Reason for Continuing Indwelling Catheter: Decision to DC Catheter Urinary Catheter Date of Insertion: 11/13/21 Urinary Catheter Time of Insertion: 13:18 Date Urinary Catheter Removed: 11/15/21 Time Urinary Catheter Discontinued: 05:54 Data : 11/16/21 02:22 11/16/21 02:22 A&P Assessment and plan (1) Status post aorto-coronary artery bypass graft: Postop day #3 status post CABG. Mediastinal and pleural drain is discontinued. Temporary pacing wire discontinued. Plan: Continue increasing activity and pulmonary toilet. May consider transfer to [facility] (intermediate care) later this afternoon or tomorrow. We will need to arrange home health services. I did visit with his significant other today. We also learned that he does have a daughter in [place]. During our preop evaluation he would not give us any family contact information Greatly appreciate the expertise and oversight of our cardiology and hospitalist colleagues. Status: Acute Attestations Medical Necessity Statement*: Postop day #3 status post CABG Coding Level of Care Code Acute Pull Out Operator for Chg Fwd Diagnoses Status post aorto-coronary artery bypass graft Z95.1
[2021-11-16] MEDS: metoprolol tartrate 25 mg Tablet PO ×2 (09:25→20:48)
[2021-11-16] MEDS: aspirin 81 mg Chew Tablet PO (09:25)
[2021-11-16] MEDS: chlorhexidine gluconate 0.12% Btl 473 mL 15 ML MUCOUS MEM ×2 (09:28→17:31)
[2021-11-16] MEDS: mupirocin oint 22 gm 1 APPLIC NASAL ×2 (09:28→17:31)
--- NOTE | 2021-11-16 10:19 | P.PN_ITS ---
Subjective Subjective: All the chest tubes are discontinued today. Vital signs remained stable. Afebrile. Has some cough. No unusual shortness of breath. Intake output is satisfactory. Medications: Medication Review Details: Current Medications Aspirin (Aspirin 81 Mg Ec Tablet) 81 mg PO DAILY [facility] Last Admin: 11/13/21 07:10 Dose: Not Given Documented by: Aspirin (Aspirin 81 Mg Chew Tablet) 81 mg PO DAILY [facility] Last Admin: 11/16/21 09:25 Dose: 81 mg Documented by: Chlorhexidine Gluconate (Chlorhexidine Gluconate 0.12% Btl 473 Ml) 15 ml MUCOUS MEM BID [facility] Last Admin: 11/16/21 09:28 Dose: 15 ml Documented by: Chlorhexidine Gluconate (Chlorhexidine Gluconate 0.12% Btl 473 Ml) 15 ml MUCOUS MEM BID [facility] Last Admin: 11/16/21 09:07 Dose: Not Given Documented by: Dextrose (Dextrose 50% Syringe 50 Ml) 25 ml IVP ONCE PRN; Protocol PRN Reason: hypoglycemia protocol Dextrose (Dextrose 50% Syringe 50 Ml) 50 ml IVP PRN PRN; Protocol PRN Reason: hypoglycemia protocol Epinephrine (Racepinephrine 0.5 Ml Neb) 0.5 ml INHALATION Q6H.RESPIRATORY PRN PRN Reason: Stridor Fentanyl (Fentanyl 50 Mcg/Ml Inj 2ml) 50 mcg IVP Q1H PRN PRN Reason: SEVERE PAIN Last Admin: 11/15/21 13:17 Dose: 50 mcg Documented by: Glucagon (Glucagon 1 Mg/Ml Inj 1 Ml) 1 mg IM ONCE PRN; Protocol PRN Reason: Adult Acute Hypoglycemia Prot Hydralazine HCl (Hydralazine 20 Mg/Ml Inj 1 Ml) 5 mg IVP ONCE PRN PRN Reason: Systolic BP > 140 mmHg Dobutamine HCl/Dextrose (Dobutamine Drip) 500 mg in 250 mls @ 0 mls/hr IV .Q0M PRN; Protocol PRN Reason: Cardiac Output Last Titration: 11/14/21 02:00 Dose: 0 mcg/kg/min, 0 mls/hr Documented by: Dopamine HCl/Dextrose (Intropin Drip) 400 mg in 250 mls @ 11.141 mls/hr IV CONT PRN; Protocol PRN Reason: Hypotension Albumin Human (Albumin) 12.5 gm in 250 mls @ 600 mls/hr IV PRN PRN PRN Reason: For CVP < 4 or SBP< 90 Last Infusion: 11/13/21 21:20 Dose: Infused Documented by: Dextrose (D5w) 500 mls @ 100 mls/hr IV ONCE PRN; Protocol PRN Reason: Adult Acute Hypoglycemia Prot Norepinephrine Bitartrate 4 mg (/ Dextrose) 254 mls @ 10.583 mls/hr IV .Q24H PRN; Protocol PRN Reason: HYPOTENSION Last Titration: 11/13/21 21:40 Dose: 0 mcg/min, 0 mls/hr Documented by: Phenylephrine HCl 25 mg/ (Sodium Chloride) 252.5 mls @ 0 mls/hr IV .Q0M PRN; Protocol PRN Reason: HYPOTENSION Nitroglycerin/Dextrose (Nitroglycerin Drip) 50 mg in 250 mls @ 0 mls/hr IV .Q0M LATOYA; Protocol Last Titration: 11/13/21 20:45 Dose: 0 mcg/min, 0 mls/hr Documented by: Sodium Nitroprusside 50 mg/ (Dextrose) 252 mls @ 0 mls/hr IV .Q0M LATOYA; Protocol Propofol (Diprivan) 1,000 mg in 100 mls @ 0 mls/hr IV .Q0M [facility]OYA; Protocol Last Titration: 11/14/21 02:15 Dose: 0 mcg/kg/min, 0 mls/hr Documented by: Labetalol HCl 300 mg/ Sodium (Chloride) 300 mls @ 0 mls/hr IV .Q0M LATOYA; Protocol Insulin Human Lispro (Insulin Lispro 100 Unit/1 Ml) 0 unit SUBCUT WM&BEDTIME [facility]OYA; Protocol Last Admin: 11/16/21 07:58 Dose: Not Given Documented by: Labetalol HCl (Labetalol 5 Mg/Ml Sdv 20ml) 10 mg IVP Q5M PRN PRN Reason: Systolic BP >140 mmHG Metoprolol Tartrate (Metoprolol Tartrate 25 Mg Tablet) 25 mg PO BID@0900,2100 [facility] Last Admin: 11/16/21 09:25 Dose: 25 mg Documented by: Midazolam HCl (Midazolam 1 Mg/Ml Inj 2 Ml) 1 mg IVP Q1H PRN PRN Reason: Sedation for [place] score < 4. Morphine Sulfate (Morphine 4 Mg/Ml Sdv 1 Ml) 2 mg IVP Q1H PRN PRN Reason: BREAKTHROUGH PAIN Last Admin: 11/16/21 09:06 Dose: 2 mg Documented by: Mupirocin (Mupirocin Oint 22 Gm) 1 applic NASAL BID [facility] Last Admin: 11/16/21 09:28 Dose: 1 applic Documented by: Naloxone HCl (Naloxone 0.4 Mg/Ml Sdv) 0.1 mg IVP Q2M PRN PRN Reason: RESPIRATORY RATE < 8/MIN Naloxone HCl (Naloxone 0.4 Mg/Ml Sdv) 0.1 mg IVP Q2M PRN PRN Reason: OPIATERV Nitroglycerin (Nitroglycerin 0.4 Mg Sublingual Tablet) 0.4 mg SUBLINGUAL Q5M PRN PRN Reason: CHEST PAIN Ondansetron HCl (Ondansetron 2 Mg/Ml Sdv 2 Ml) 4 mg IVP Q6H PRN PRN Reason: NAUSEA Oxycodone/Acetaminophen (Oxycodone-Apap 5-325 Mg Tablet) 1 - 2 tab PO Q6H PRN PRN Reason: MILD TO MODERATE PAIN Last Admin: 11/16/21 02:23 Dose: 2 tab Documented by: Tamsulosin HCl (Tamsulosin 0.4 Mg Capsule) 0.4 mg PO BEDTIME [facility] Last Admin: 11/15/21 21:02 Dose: Not Given Documented by: Temazepam (Temazepam 15 Mg Capsule) 15 mg PO BEDTIME PRN PRN Reason: INSOMNIA Vitals/I&O/Wt Last Vital Signs Temp 97.8 F 11/16/21 09:30 Pulse 89 11/16/21 10:00 Resp 18 11/16/21 10:00 BP 138/74 11/16/21 10:00 Pulse Ox 93 11/16/21 09:30 11/15/21 11/16/21 11/16/21 22:59 06:59 14:59 Intake Total 700 / 1530 60 / 60 Output Total 250 / 1252 431 / 1683 200 / 200 Balance 450 / 278 -431 / -153 -140 / -140 Weight last 48 hrs Weight 63 lb 5 oz Weight 142 lb 3.17 oz Physical Exam Narrative: GENERAL: The patient is alert and oriented times three. Not in any acute distress. HEENT: Minimal pallor.? No icterus or lymphadenopathy.? Oral cavity: There are no mucous membrane lesions. NECK: Trachea appears to be central. No masses noted. No JVD or thyromegaly appreciated. RESPIRATORY: Sternotomy wound has a wound VAC.? Chest tubes are currently discontinued. Breath sounds are heard bilaterally. Diminished breath sounds at the right base. Occasional coarse crackles in the bases. BREASTS: Deferred. HEART: The heart sounds are normal.? No S3 or S4. ? No significant murmurs.? No pericardial rub ABDOMEN: No vessel pulsations or distention. No tenderness. No organomegaly appreciated.? Bowel sounds are normally heard. : Deferred. RECTAL: Deferred. LYMPHATIC: No lymphadenopathy noted in the neck. EXTREMITIES: No edema or cyanosis. No clubbing. MUSCULOSKELETAL: No acute joint deformities or swelling SKIN: There are no significant rashes or ecchymosis NEUROPSYCHIATRIC: The patient is alert and oriented x3. Appears to be in a good mood. No tremors or rigidity noted. Urinary Catheter Management: Hinson: Cath Placed During This Visit: yes, but has since been removed by the nurse Reason for Continuing Indwelling Catheter: Decision to DC Catheter Urinary Catheter Date of Insertion: 11/13/21 Urinary Catheter Time of Insertion: 13:18 Date Urinary Catheter Removed: 11/15/21 Time Urinary Catheter Discontinued: 05:54 Data : 11/16/21 02:22 11/16/21 02:22 Other Labs: Laboratory Last Values WBC 14.1 10^3/uL (4.0-10.0) H 11/16/21 02:22 RBC 3.26 10^6/uL (4.1-5.3) L 11/16/21 02:22 Hgb 9.5 g/dL (11.7-16.6) L 11/16/21 02:22 Hct 29.5 % (42.0-52.0) L 11/16/21 02:22 MCV 90.5 fl (80-94) 11/16/21 02:22 MCH 29.1 pg (28.0-34.0) 11/16/21 02: MCHC 32.2 g/dL (30.0-36.0) 11/16/21 02:22 RDW 16.1 % (12.1-15.1) H 11/16/21 02:22 Plt Count 183 10^3/cmm (130-400) 11/16/21 02:22 MPV 11.5 fL (7.4-10.4) H 11/16/21 02: Neut % (Auto) 70.5 % 11/16/21 02: Lymph % (Auto) 11.5 % 11/16/21 02: [place] % (Auto) 16.5 % 11/16/21 02: Eos % (Auto) 0.9 % 11/16/21 02: Baso % (Auto) 0.2 % 11/16/21 02: Neut # (Auto) 9.92 10^3/uL (1.8-7.7) H 11/16/21 02:22 Lymph # (Auto) 1.6 10^3/uL (0.8-4.8) 11/16/21 02: [place] # (Auto) 2.3 10^3/uL (0.2-0.9) H 11/16/21 02: Eos # (Auto) 0.1 10^3/uL (0.0-0.8) 11/16/21 02: Baso # (Auto) 0.0 10^3/uL (0.0-0.1) 11/16/21 02: Nucleated RBC % (auto) 0 % 11/16/21 02: Nucleated RBCs # 0.0 /100WBC 11/16/21 02:22 PT 15.70 SECONDS (12.1-14.9) H 11/14/21 02:10 PT Cancelled 11/14/21 02:10 INR 1.22 (0.8-1.2) H 11/14/21 02:10 INR Cancelled 11/14/21 02:10 APTT 27.9 SECONDS (23.9-36.7) 11/14/21 02:10 D-Dimer 0.71 ug/mIFEU (0-0.59) H 11/10/21 18:45 Specimen Type Arterial 11/14/21 03:05 Sample Site Femoral, left 11/14/21 03:05 ABG pH 7.49 (7.35-7.45) H 11/14/21 03:05 ABG pCO2 25.4 mmHg (35-45) L 11/14/21 03:05 ABG pO2 69.7 mmHg (80.0-100.0) L 11/14/21 03:05 ABG HCO3 19.5 mmol/L (22-26) L 11/14/21 03:05 ABG O2 Saturation 96.8 11/14/21 03:05 ABG Base Excess -2.9 mmol/L (-2.0-2.0) L 11/14/21 03:05 Russel Test N/a 11/14/21 03:05 A-a O2 Gradient 9.5 mmHg (5-10) 11/14/21 03:05 Hematocrit 28.0 % (42-52) L 11/14/21 03:05 Hgb O2 Saturation 94.8 % (95-100) L 11/14/21 03:05 Carboxyhemoglobin 1.1 %THgb (0.4-20.1) 11/14/21 03:05 Methemoglobin 1.0 % (0.4-1.5) 11/14/21 03:05 Total Hemoglobin 9.1 g/dL (14-18) L 11/14/21 03:05 Sodium 144.0 mmol/L (131-143) H 11/14/21 03:05 Potassium 3.6 mmol/L (3.5-5.0) 11/14/21 03:05 Glucose 90.0 mg/dL (70-115) 11/14/21 03:05 Ionized Calcium 1.1 mmol/L (1.1-1.4) 11/14/21 03:05 O2 Delivery Device Vent 11/14/21 03:05 SIMV 14.0 11/13/21 20:20 FiO2 25.0 % 11/14/21 03:05 Tidal Volume 0.60 11/14/21 03:05 PEEP 5.0 cmH20 11/14/21 03:05 Industrial Equipment Mechanic ID ellpe 11/14/21 03:05 Sodium 138 mmol/L (136-145) 11/16/21 02:22 Potassium 3.8 mmol/L (3.5-5.1) 11/16/21 02:22 Chloride 102 mmol/L (98-107) 11/16/21 02:22 Carbon Dioxide 27 mmol/L (22-29) 11/16/21 02:22 Anion Gap 12.8 (5-19) 11/16/21 02:22 BUN 18 mg/dL (8-23) 11/16/21 02:22 Creatinine 0.6 mg/dL (0.7-1.2) L 11/16/21 02:22 GFR Calculation Not Reportable 11/16/21 02:22 Glucose 137 mg/dL (65-115) H 11/16/21 02:22 POC Glucose 119 mg/dL (70-110) H 11/16/21 07:38 Fasting Glucose 96 mg/dL (74-106) 11/14/21 02:10 Calculated Osmolality 290 mOsm/kg (285-295) 11/16/21 02:22 Calcium 8.7 mg/dL (8.5-10.5) 11/16/21 02:22 Magnesium 2.7 mg/dL (1.7-2.3) H 11/14/21 02:10 Total Bilirubin 0.3 mg/dL (0.15-1.2) 11/12/21 13:22 Direct Bilirubin 0.20 mg/dL (0.00-0.30) 11/12/21 13:22 AST 13 U/L (0-40) 11/12/21 13:22 ALT 10 U/L (0-41) 11/12/21 13:22 Alkaline Phosphatase 126 IU/L (40-130) 11/12/21 13:22 Troponin T Baseline 23 ng/L (0-15) H 11/10/21 12:50 Troponin T 120 Minute 26.93 ng/L (0-15) H 11/10/21 14:45 Delta Troponin T 3.93 ABS# (0-10) 11/10/21 14:45 Troponin T Hi Sens 6Hr 27.28 ng/L (0-15) H 11/10/21 18:45 Troponin T Hi Sens 6Hr Delta 4.28 ng/L (0-12) 11/10/21 18:45 Total Protein 6.0 g/dL (6.6-8.7) L 11/12/21 13:22 Albumin 3.6 g/dL (3.5-5.2) 11/12/21 13:22 Globulin 2.4 g/dL (1.3-4.6) 11/12/21 13:22 TSH 1.97 uIU/mL (0.27-4.20) 11/12/21 13:22 Free T4 1.03 ng/dL (0.82-1.77) 11/12/21 13:22 Urine Color Yellow (Yellow) 11/12/21 18:02 Urine Appearance Clear (CLEAR) 11/12/21 18:02 Urine pH 7 (5-7) 11/12/21 18:02 Ur Specific [place] 1.015 (1.005-1.030) 11/12/21 18:02 Urine Protein Neg (Negative) 11/12/21 18:02 Urine Glucose (UA) Norm (Normal) 11/12/21 18:02 Urine Ketones Negative (Negative) 11/12/21 18:02 Urine Blood Neg (Negative) 11/12/21 18:02 Urine Nitrate Negative (Negative) 11/12/21 18:02 Urine Bilirubin Neg (Negative) 11/12/21 18:02 Urine Urobilinogen Norm mg/dL (Negative) 11/12/21 18:02 Ur Leukocyte Esterase Negative (Negative) 11/12/21 18:02 Urine Opiates Screen Negative ng/mL (Negative) 11/10/21 19:00 Ur Barbiturates Screen Negative ng/mL (Negative) 11/10/21 19:00 Ur Phencyclidine Scrn Negative ng/mL (Negative) 11/10/21 19:00 Ur Amphetamines Screen Negative ng/mL (Negative) 11/10/21 19:00 U Benzodiazepines Scrn Negative ng/mL (Negative) 11/10/21 19:00 Urine Cocaine Screen Negative ng/mL (Negative) 11/10/21 19:00 U Marijuana (THC) Screen Negative ng/mL (Negative) 11/10/21 19:00 Blood Type O Positive 11/12/21 13:22 Rho(D) Type Positive 11/12/21 13:22 Antibody Screen Negative 11/12/21 13:22 Crossmatch See Detail 11/12/21 13:22 EKG 3: My Interpretation: Sinus rhythm at the rate of [address]-T changes in the inferior leads. Occasional PVCs. EKG computer-generated impression: Chest X-Ray 11/16/21 06:00 Borderline cardiac silhouette. Bibasilar atelectasis, more so on the right side. Small pleural effusion on the right side A&P Assessment and plan (1) Atherosclerotic heart disease of [place] coronary artery with unstable angina pectoris: Patient status post single-vessel coronary bypass surgery, day #3, currently seems to be stable. Vital signs are stable. We will continue on the current medication. Restart Plavix tomorrow, if okay with Dr. Wilson. May continue on the other current medications Status: Acute (2) Status post aorto-coronary artery bypass graft: Patients seems to be recuperating fairly well. No signs of infection or bleeding. Vital signs remained stable. May continue on the current medication. Status: Acute (3) Elevated blood pressure reading: Since the blood pressure is in the normal range, patient may not require any medication changes at this time. Advised to continue on the current measures. Status: Acute (4) Peripheral vascular disease with claudication: Since the patient has no specific symptoms of peripheral artery insufficiency, is advised to continue on the current medications and exercise program. Current medications were reviewed. May start on Plavix, once the chest tube is removed Status: Resolved Plan May continue on the current medications. Attestations Medical Necessity Statement*: Patient requires continued hospital stay for close monitoring and further management Coding Level of Care Code Acute Card Game Operator for Denisse Fwd History Expanded Problem Focused Exam Detailed Medical Decision Making Low Complexity Diagnoses Atherosclerotic heart disease of [place] coronary artery with unstable angina pectoris I25.110 Status post aorto-coronary artery bypass graft Z95.1 Elevated blood pressure reading R03.0 Peripheral vascular disease with claudication I73.9
--- NOTE | 2021-11-16 10:53 | PC.CHAP ---
Pastoral Care Encounter/Spiritual Assessment Type of Contact [] Declined molding and trim installer visit [] Patient/Family/Request visit [] Outpatient visit [] Follow-up visit [] Physician referral [] Code/Alert [x] Routine visit [] Staff referral [] Actively dying [] Patient sleeping [] Family support [] [] Out of room [] Palliative care [] [] Receiving care in room [] Pre-surgical visit [] Trauma [] Long length of stay [x] ICU visit [] Other: Relational/Emotional Strength [] Patient feels connected with others/family/visitors/staff [] Distress [] Loneliness/isolation [] Abandonment Spirituality of Patient [] Person of Griselda [] Attends Gnosticism of their Griselda [] Believes in Prayer [] Reads Bible or Hoahaoism materials [] There are Spiritual issues to be addressed Curriculum Development Coordinator Interventions [x] Prayer [] Active listening [] Non-anxious presence [] Spiritual/emotional support [] Crisis/trauma care [] Spiritual counseling [] Bereavement support [] Provided bereavement packet [] Provided Bible/devotional materials [] Provided toy/stuffed animal, coloring book to patient or family member [] Provided Communion [] Anointing/Sn[place] [] Salvation [x] Completed spiritual assessment [] Other: Impact on Illness or Injury [] Angry [] Fearful [] Anxious [] Often cries [] Exhaustion [] Unable to work [] Unable to attend congregation [] Unable to walk/stand [] Unable to read [] Unable to drive [] Unable to eat/drink [] Unable to sleep [] Unable to be with family [] Patient intubated [] Other: Summary Time spent with patient
[2021-11-16 11:27] LABS: Glucose Point of Care 119 mg/dL (70-110)
[2021-11-16] MEDS: magnesium lactate 84 mg Tablet PO (11:45)
--- NOTE | 2021-11-16 12:29 | P.PN_ITS ---
Subjective Subjective: Seen this morning. Patient feels much better compared to yesterday. Says he had a lot of discomfort this morning when drains are being taken out. He got nauseous yesterday after eating. Today is postop day 3. EKG normal sinus rhythm. Vitals/I&O/Wt Last Vital Signs Temp 97.8 F 11/16/21 09:30 Pulse 82 11/16/21 11:30 Resp 23 H 11/16/21 11:30 BP 130/65 11/16/21 11:30 Pulse Ox 95 11/16/21 11:30 11/15/21 11/16/21 11/16/21 22:59 06:59 14:59 Intake Total 700 / 1530 60 / 60 Output Total 250 / 1252 431 / 1683 200 / 200 Balance 450 / 278 -431 / -153 -140 / -140 Weight last 48 hrs Weight 28.718 kg Weight 64.5 kg Physical Exam 2 Narrative: General: Alert oriented x3, patient seen laying in bed.? Significant other at bedside. HEENT: Normocephalic, atraumatic, EOMI, normal respiratory effort.? On nasal cannula. Cardio: Regular rate rhythm, normal S1-S2, no murmurs, wound VAC in place at sternotomy site. Respiratory: Slightly diminished air entry bilaterally, no gross wheezes or rhonchi. GI: Abdomen soft, nontender, nondistended, bowel sounds normoactive. Behavior: Appropriate and cooperative Extremities: no edema, no cyanosis Urinary Catheter Management: Hinson: Cath Placed During This Visit: yes, but has since been removed by the nurse Reason for Continuing Indwelling Catheter: Decision to DC Catheter Urinary Catheter Date of Insertion: 11/13/21 Urinary Catheter Time of Insertion: 13:18 Date Urinary Catheter Removed: 11/15/21 Time Urinary Catheter Discontinued: 05:54 Data : 11/16/21 02:22 11/16/21 02:22 A&P Assessment and plan (1) Status post aorto-coronary artery bypass graft: Status: Acute (2) Unstable angina: Status: Acute (3) Bradycardia: Status: Acute (4) Elevated blood pressure reading: Status: Acute (5) Dyslipidemia: Status: Acute (6) Atherosclerotic heart disease of [place] coronary artery with unstable angina pectoris: Status: Acute (7) Unstable angina pectoris: Status: Acute (8) Elevated PSA: Status: Acute (9) CAD (coronary artery disease): Status: Acute (10) Erectile dysfunction: Status: Acute Qualifiers: Erectile dysfunction type: unspecified Qualified Code(s): N52.9 - Male erectile dysfunction, unspecified (11) BPH loc w urin obs/LUTS: Status: Acute Plan #CABG 11/13/2021 #Unstable angina #Peripheral arterial disease #Sinus bradycardia #Abnormal angiogram, CABG candidate Complete 48 hours of ACS protocol.? Echo completed, cardiac angiogram completed.? Today's postop day 3.? Mediastinal and pleural drain discontinued. Temporary pacing wire discontinued. Continue increasing activity and pulmonary toilet. Potential transfer to floor today or tomorrow We will follow recommendations from CT surgery for further management. Full code Attestations Medical Necessity Statement*: > 24-48 hr stay. Coding Level of Care Code Acute Applications Manager for g Fwd Diagnoses Status post aorto-coronary artery bypass graft Z95.1 Unstable angina I20.0 Bradycardia R00.1 Elevated blood pressure reading R03.0 Dyslipidemia E78.5 Atherosclerotic heart disease of [place] coronary artery with unstable angina pectoris I25.110 Unstable angina pectoris I20.0 Elevated PSA R97.20 CAD (coronary artery disease) I25.10 Erectile dysfunction N52.9 Erectile dysfunction type: unspecified BPH loc w urin obs/LUTS N40.1
--- NOTE | 2021-11-16 15:49 | PC.SOCIAL ---
IMM Update pg 2 of IMM updated and reviewed w/ patient. Copy provided and copy in chart updated.
[2021-11-16 17:15] LABS: Glucose Point of Care 182 mg/dL (70-110)
[2021-11-16] MEDS: insulin lispro 100 unit/1 mL SUBCUT (17:38)
[2021-11-16 20:32] LABS: Glucose Point of Care 114 mg/dL (70-110)
[2021-11-16] MEDS: tamsulosin 0.4 mg Capsule PO (20:49)
[2021-11-17] VITALS (44 sets, daily range): BP systolic 90–167; BP diastolic 52–85; PULSE 75–104; RESP 14–27; TEMP 36.7–36.9; O2SAT 83–98
[2021-11-17] MEDS: oxyCODONE-APAP 5-325 mg Tablet PO ×3 (05:37→17:46)
[2021-11-17 07:17] LABS: Glucose Point of Care 120 mg/dL (70-110)
[2021-11-17] MEDS: magnesium lactate 84 mg Tablet PO (08:50)
[2021-11-17] MEDS: aspirin 81 mg Chew Tablet PO (08:51)
[2021-11-17] MEDS: metoprolol tartrate 25 mg Tablet PO ×2 (08:51→20:00)
[2021-11-17] MEDS: chlorhexidine gluconate 0.12% Btl 473 mL 15 ML MUCOUS MEM ×2 (08:55→17:36)
[2021-11-17] MEDS: mupirocin oint 22 gm 1 APPLIC NASAL ×2 (08:55→17:36)
--- NOTE | 2021-11-17 10:16 | PM.PN ---
Subjective Subjective: Seen this morning. He says he feels a lot better but has not had a bowel movement so far. Diet was advanced to cardiac diet today. No acute events overnight. Vitals/I&O/Wt Last Vital Signs Temp 98.5 F 11/17/21 06:00 Pulse 91 11/17/21 09:30 Resp 18 11/17/21 09:30 BP 103/67 11/17/21 09:30 Pulse Ox 89 L 11/17/21 09:30 11/16/21 11/17/21 11/17/21 22:59 06:59 14:59 Intake Total 720 / 1280 120 / 1400 Output Total 375 / 575 575 / 1150 Balance 345 / 705 -455 / 250 Weight last 48 hrs Weight 61.5 kg Weight 28.718 kg Physical Exam Narrative: General: Alert oriented x3, patient seen sitting up in bed appearing comfortable. Having his breakfast. Wound VAC in place. HEENT: Normocephalic, atraumatic, EOMI, normal respiratory effort.? On room air at this time. Cardio: Regular rate rhythm, normal S1-S2, no murmurs, wound VAC in place at sternotomy site. Respiratory: Slightly diminished air entry bilaterally, no gross wheezes or rhonchi. GI: Abdomen soft, nontender, nondistended, bowel sounds normoactive. Behavior: Appropriate and cooperative Extremities: no edema, no cyanosis Urinary Catheter Management: Hinson: Cath Placed During This Visit: yes, but has since been removed by the nurse Reason for Continuing Indwelling Catheter: Decision to DC Catheter Urinary Catheter Date of Insertion: 11/13/21 Urinary Catheter Time of Insertion: 13:18 Date Urinary Catheter Removed: 11/15/21 Time Urinary Catheter Discontinued: 05:54 Data : 11/17/21 10:39 11/17/21 10:39 A&P Assessment and plan (1) Unstable angina: Status: Acute (2) Status post aorto-coronary artery bypass graft: Status: Acute (3) Dyslipidemia: Status: Acute (4) Atherosclerotic heart disease of [place] coronary artery with unstable angina pectoris: Status: Acute (5) CAD (coronary artery disease): Status: Acute (6) BPH loc w urin obs/LUTS: Status: Acute Plan #CABG 11/13/2021 #Unstable angina #Peripheral arterial disease #Sinus bradycardia #Abnormal angiogram, CABG candidate Complete 48 hours of ACS protocol.? Echo completed, cardiac angiogram completed.? Today's postop day 4.? Mediastinal and pleural drain discontinued.? Temporary pacing wire discontinued. Continue increasing activity and pulmonary toilet.? We will follow recommendations from CT surgery for further management. Transfer to floor today cardiac diet stool softener restart plavix Full code Attestations Medical Necessity Statement*: potential dc in AM Coding Level of Care Code Acute Track Moving Machine Operator for Chg Fwd Diagnoses Unstable angina I20.0 Status post aorto-coronary artery bypass graft Z95.1 Dyslipidemia E78.5 Atherosclerotic heart disease of [place] coronary artery with unstable angina pectoris I25.110 CAD (coronary artery disease) I25.10 BPH loc w urin obs/LUTS N40.1
[2021-11-17 11:20] LABS: Basophils % 0.3 %; Eosinophils # 0.1 10^3/uL (0.0-0.8); Eosinophils % 0.7 %; Hematocrit 31.4 % (42.0-52.0); Hemoglobin 10.1 g/dL (11.7-16.6); Lymphocytes # 1.5 10^3/uL (0.8-4.8); Lymphocytes % 11.9 %; Mean Corpuscular HGB Conc 32.2 g/dL (30.0-36.0); Mean Corpuscular Hemoglobin 29.6 pg (28.0-34.0); Mean Corpuscular Volume 92.1 fl (80-94); Mean Platelet Volume 11.4 fL (7.4-10.4); Monocytes # 1.8 10^3/uL (0.2-0.9); Monocytes % 14.2 %; Neutrophils # 8.89 10^3/uL (1.8-7.7); Neutrophils % 72.3 %; Nucleated Red Blood Cells % 0 %; Platelet Count 239 10^3/cmm (130-400); Red Blood Count 3.41 10^6/uL (4.1-5.3); Red Cell Distribution Width 15.3 % (12.1-15.1); White Blood Count 12.3 10^3/uL (4.0-10.0)
--- NOTE | 2021-11-17 11:27 | PM.PN ---
Subjective Subjective: Postop day #4 s/p CABG x1 (SVG to circumflex by Dr. Wilson) Patient was seen sitting in chair. Mediastinal and pleural drains were discontinued yesterday and temporary pacing wire were discontinued yesterday as well. No events on telemetry. Vitals/I&O/Wt Last Vital Signs Temp 98.5 F 11/17/21 06:00 Pulse 91 11/17/21 09:30 Resp 18 11/17/21 09:30 BP 103/67 11/17/21 09:30 Pulse Ox 89 L 11/17/21 09:30 11/16/21 11/17/21 11/17/21 22:59 06:59 14:59 Intake Total 720 / 1280 120 / 1400 Output Total 375 / 575 575 / 1150 Balance 345 / 705 -455 / 250 Weight last 48 hrs Weight 135 lb 9.349 oz Weight 63 lb 5 oz Physical Exam Narrative: GENERAL: Averagely built and averagely nourished in no acute distress HEENT: Extraocular movement intact, No pallor or icterus. NECK: No JVD, No carotid bruit. CARDIOVASCULAR SYSTEM: S1-S2 regular. No murmur rubs or gallops. Midline sternotomy incision dressed, wound VAC in place RESPIRATORY SYSTEM: Chest clear to auscultation. No wheezes rhonchi or rubs heard. No use of accessory muscles. ABDOMEN: Soft, nontender and nondistended. Normal bowel sounds present. EXTREMITIES: No cyanosis, trace edema. No signs of chronic venous insufficiency. AUDIENCE COORDINATOR: Patient is alert oriented ?3. No focal neurological deficits. PSYCH: Normal insight and judgment. No suicidal or homicidal ideations. Urinary Catheter Management: Hinson: Cath Placed During This Visit: yes, but has since been removed by the nurse Reason for Continuing Indwelling Catheter: Decision to DC Catheter Urinary Catheter Date of Insertion: 11/13/21 Urinary Catheter Time of Insertion: 13:18 Date Urinary Catheter Removed: 11/15/21 Time Urinary Catheter Discontinued: 05:54 Data : 11/17/21 10:39 11/16/21 02:22 A&P Assessment and plan (1) Status post aorto-coronary artery bypass graft: Patient doing well after CABG x1; POD #4 -Continue post CABG care per Dr. Wilson -He is due for to be transferred out of unit today Status: Acute (2) Atherosclerotic heart disease of [place] coronary artery with unstable angina pectoris: Patient status post single-vessel coronary bypass surgery, day #4, -Restart Plavix 75 mg daily, not on statins because of muscular symptoms. -We will start on Zetia. Plan to add PCSK9 inhibitor as an outpatient. -Preserved left ventricular systolic function. Status: Acute (3) Elevated blood pressure reading: continue current meds Status: Acute (4) Peripheral vascular disease with claudication: Status: Resolved Plan Postop anemia. Attestations Medical Necessity Statement*: Needs hospital stay post CABG Coding Level of Care Code Acute Head Mechanic for Denisse Gardner Diagnoses Atherosclerotic heart disease of [place] coronary artery with unstable angina pectoris I25.110 Status post aorto-coronary artery bypass graft Z95.1 Elevated blood pressure reading R03.0 Peripheral vascular disease with claudication I73.9
[2021-11-17 11:36] LABS: Anion Gap 13.2 (5-19); Blood Urea Nitrogen 14 mg/dL (8-23); Calcium 8.4 mg/dL (8.5-10.5); Carbon Dioxide 28 mmol/L (22-29); Chloride 98 mmol/L (98-107); Glucose 174 mg/dL (65-115); Osmolality Calculated 285 mOsm/kg (285-295); Potassium 4.2 mmol/L (3.5-5.1); Sodium 135 mmol/L (136-145)
[2021-11-17 11:39] LABS: Glucose Point of Care 138 mg/dL (70-110)
[2021-11-17] MEDS: clopidogrel 75 mg Tablet PO (12:10)
--- NOTE | 2021-11-17 16:45 | PC.NURSE ---
Patient HR noted to be sustaining in the 150's, see vital signs as documented. notified. This nurse suggested getting an EKG. Dr. Shelton stated, No, give him time to come down on his own. Patient denies chest pain at this time and BP noted to be WNL. and daughter noted to be at bedside.
[2021-11-17 17:35] LABS: Glucose Point of Care 134 mg/dL (70-110)
[2021-11-17 19:55] LABS: Glucose Point of Care 125 mg/dL (70-110)
[2021-11-17] MEDS: tamsulosin 0.4 mg Capsule PO (20:00)
[2021-11-18] VITALS (30 sets, daily range): BP systolic 113–167; BP diastolic 57–80; PULSE 78–108; RESP 15–24; TEMP 37–38; O2SAT 89–99
[2021-11-18] MEDS: oxyCODONE-APAP 5-325 mg Tablet PO ×3 (00:49→19:07)
[2021-11-18 03:58] LABS: Basophils # 0.1 10^3/uL (0.0-0.1); Basophils % 0.6 %; Eosinophils # 0.2 10^3/uL (0.0-0.8); Eosinophils % 1.8 %; Hematocrit 30.6 % (42.0-52.0); Hemoglobin 9.8 g/dL (11.7-16.6); Lymphocytes # 1.5 10^3/uL (0.8-4.8); Lymphocytes % 13.5 %; Mean Corpuscular Hemoglobin 29.3 pg (28.0-34.0); Mean Corpuscular Volume 91.3 fl (80-94); Monocytes # 1.6 10^3/uL (0.2-0.9); Monocytes % 14.6 %; Neutrophils # 7.51 10^3/uL (1.8-7.7); Neutrophils % 68.9 %; Nucleated Red Blood Cells % 0 %; Platelet Count 267 10^3/cmm (130-400); Red Blood Count 3.35 10^6/uL (4.1-5.3); Red Cell Distribution Width 14.9 % (12.1-15.1); White Blood Count 10.9 10^3/uL (4.0-10.0)
[2021-11-18 04:28] LABS: Anion Gap 13.3 (5-19); Blood Urea Nitrogen 15 mg/dL (8-23); Carbon Dioxide 27 mmol/L (22-29); Chloride 101 mmol/L (98-107); Glucose 121 mg/dL (65-115); Osmolality Calculated 288 mOsm/kg (285-295); Potassium 3.3 mmol/L (3.5-5.1); Sodium 138 mmol/L (136-145)
[2021-11-18] MEDS: potassium chloride ER 20 mEq Tablet 40 MEQ PO (05:35)
[2021-11-18 07:03] LABS: Glucose Point of Care 129 mg/dL (70-110)
[2021-11-18] MEDS: mupirocin oint 22 gm 1 APPLIC NASAL ×2 (08:36→18:36)
[2021-11-18] MEDS: aspirin 81 mg Chew Tablet PO (08:36)
[2021-11-18] MEDS: magnesium lactate 84 mg Tablet PO (08:36)
[2021-11-18] MEDS: chlorhexidine gluconate 0.12% Btl 473 mL 15 ML MUCOUS MEM ×2 (08:36→18:37)
[2021-11-18] MEDS: metoprolol tartrate 25 mg Tablet PO ×2 (08:36→20:30)
[2021-11-18] MEDS: clopidogrel 75 mg Tablet PO (08:36)
[2021-11-18] MEDS: ezetimibe 10 mg Tablet PO (08:36)
[2021-11-18 10:52] LABS: Glucose Point of Care 144 mg/dL (70-110)
[2021-11-18] MEDS: insulin lispro 100 unit/1 mL SUBCUT (11:00)
--- NOTE | 2021-11-18 11:51 | PM.PN ---
Subjective Subjective: Postop day #4 s/p CABG x1 (SVG to circumflex by Dr. Wilson) Patient was seen sitting in chair. No events on telemetry. Vitals/I&O/Wt Last Vital Signs Temp 98.7 F 11/18/21 05:47 Pulse 85 11/18/21 10:53 Resp 24 H 11/18/21 09:30 BP 113/80 11/18/21 10:00 Pulse Ox 97 11/18/21 10:53 11/17/21 11/18/21 11/18/21 22:59 06:59 14:59 Intake Total 150 / 750 400 / 1150 120 / 120 Output Total 300 / 300 300 / 600 Balance -150 / 450 100 / 550 120 / 120 Weight last 48 hrs Weight 135 lb 9.349 oz Physical Exam Narrative: GENERAL: Averagely built and averagely nourished in no acute distress HEENT: Extraocular movement intact, No pallor or icterus. NECK: No JVD, No carotid bruit. CARDIOVASCULAR SYSTEM: S1-S2 regular. No murmur rubs or gallops. Midline sternotomy incision dressed RESPIRATORY SYSTEM: Chest clear to auscultation. No wheezes rhonchi or rubs heard. No use of accessory muscles. ABDOMEN: Soft, nontender and nondistended. Normal bowel sounds present. EXTREMITIES: No cyanosis, trace edema. No signs of chronic venous insufficiency. CLIENT SERVICES COORDINATOR: Patient is alert oriented ?3. No focal neurological deficits. PSYCH: Normal insight and judgment. No suicidal or homicidal ideations. Urinary Catheter Management: Hinson: Cath Placed During This Visit: yes, but has since been removed by the nurse Reason for Continuing Indwelling Catheter: Decision to DC Catheter Urinary Catheter Date of Insertion: 11/13/21 Urinary Catheter Time of Insertion: 13:18 Date Urinary Catheter Removed: 11/15/21 Time Urinary Catheter Discontinued: 05:54 Data : 11/18/21 02:30 11/18/21 02:30 A&P Assessment and plan (1) Status post aorto-coronary artery bypass graft: Patient doing well after CABG x1; POD #5 -Continue post CABG care per Dr. Wilson -He is due for to be transferred out of unit today -Possible discharge tomorrow at Dr. Wilson's discretion Status: Acute (2) Atherosclerotic heart disease of [place] coronary artery with unstable angina pectoris: Patient status post single-vessel coronary bypass surgery, day #4, -Restart Plavix 75 mg daily, not on statins because of muscular symptoms. -continue Zetia. Tried atorvastatin, simvastatin with s/e of muscle ache, headache and HTN. -Plan to add PCSK9 inhibitor as an outpatient based on lipid panel results. -Preserved left ventricular systolic function. Status: Acute (3) Elevated blood pressure reading: continue current meds Status: Acute (4) Peripheral vascular disease with claudication: Status: Resolved Plan Postop anemia. Attestations Medical Necessity Statement*: Needs hospital stay post CABG Coding Level of Care Code Acute Computer Field Technician for Denisse Fwveronica Diagnoses Status post aorto-coronary artery bypass graft Z95.1 Atherosclerotic heart disease of [place] coronary artery with unstable angina pectoris I25.110 Elevated blood pressure reading R03.0 Peripheral vascular disease with claudication I73.9
[2021-11-18] MEDS: potassium chloride oral liq 20 mEq/15 mL UDC 40 MEQ PO (13:05)
--- NOTE | 2021-11-18 13:23 | P.PN_ITS ---
Subjective Subjective: Seen this morning. Patient has still not had a bowel movement. He is tolerating a cardiac diet just fine. He states he has a lot of aches and pains all over his body at different areas which he says are expected because he just had surgery. He is comfortable for the most part however. No acute events overnight. Patient will be transferred to the floor today. Vitals/I&O/Wt Last Vital Signs Temp 98.7 F 11/18/21 05:47 Pulse 84 11/18/21 13:00 Resp 23 H 11/18/21 13:00 BP 115/66 11/18/21 13:00 Pulse Ox 95 11/18/21 13:00 11/17/21 11/18/21 11/18/21 22:59 06:59 14:59 Intake Total 150 / 750 400 / 1150 360 / 360 Output Total 300 / 300 300 / 600 Balance -150 / 450 100 / 550 360 / 360 Weight last 48 hrs Weight 61.5 kg Physical Exam Narrative: General: Alert oriented x3, patient seen sitting up in in recliner. Wound VAC removed. HEENT: Normocephalic, atraumatic, EOMI, normal respiratory effort.? On room air at this time. Cardio: Regular rate rhythm, normal S1-S2, no murmurs, sternotomy covered with Band-Aid. Respiratory: Slightly diminished air entry bilaterally, no gross wheezes or rhon chi. GI: Abdomen soft, nontender, nondistended, bowel sounds normoactive. Behavior: Appropriate and cooperative Extremities: no edema, no cyanosis Urinary Catheter Management: Hinson: Cath Placed During This Visit: yes, but has since been removed by the nurse Reason for Continuing Indwelling Catheter: Decision to DC Catheter Urinary Catheter Date of Insertion: 11/13/21 Urinary Catheter Time of Insertion: 13:18 Date Urinary Catheter Removed: 11/15/21 Time Urinary Catheter Discontinued: 05:54 Data : 11/18/21 02:30 11/18/21 02:30 A&P Assessment and plan (1) Status post aorto-coronary artery bypass graft: Status: Acute (2) Dyslipidemia: Status: Acute (3) Atherosclerotic heart disease of [place] coronary artery with unstable angina pectoris: Status: Acute (4) CAD (coronary artery disease): Status: Acute (5) BPH loc w urin obs/LUTS: Status: Acute Plan #CABG 11/13/2021 #Unstable angina?resolved #Peripheral arterial disease #Sinus bradycardia?resolved #Abnormal angiogram, CABG candidate Complete 48 hours of ACS protocol.? Echo completed, cardiac angiogram completed.? Today's postop day 5.? Mediastinal and pleural drain discontinued.? Temporary pacing wire discontinued. Wound VAC removed 11/17/2021. Continue increasing activity and pulmonary toilet.? We will follow recommendations from CT surgery for further management. Transfer to floor today cardiac diet stool softener Continue on Plavix, aspirin, metoprolol 25 twice daily, tamsulosin, Zetia. Cardiology following Continue to work with physical therapy. We will wait for final evaluation recommendation. Home health to be set up Full code DVT prophylaxis: Lovenox Attestations Medical Necessity Statement*: Possible discharge Friday versus Friday. Coding Level of Care Code Acute Steel Pan Form Placing Supervisor for Chg Fwd Diagnoses Status post aorto-coronary artery bypass graft Z95.1 Dyslipidemia E78.5 Atherosclerotic heart disease of [place] coronary artery with unstable angina pectoris I25.110 CAD (coronary artery disease) I25.10 BPH loc w urin obs/LUTS N40.1
[2021-11-18] MEDS: enoxaparin 40 mg/0.4 mL Syringe SUBCUT (14:11)
--- NOTE | 2021-11-18 14:36 | PC.SOCIAL ---
IMM Updated Updated pt on IMM. No questions voiced. Provided pt a copy. Initialed, dated, & timed copy in chart.
--- NOTE | 2021-11-18 15:12 | PC.NURSE ---
Report called to HARISH Grider on [facility]. Patient to be transferred to room 269.
[2021-11-18 18:46] LABS: Glucose Point of Care 93 mg/dL (70-110)
[2021-11-18] MEDS: tamsulosin 0.4 mg Capsule PO (20:30)
[2021-11-19] VITALS (13 sets, daily range): BP systolic 105–147; BP diastolic 65–81; PULSE 85–112; RESP 16–20; TEMP 36.6–37.7; O2SAT 90–98
[2021-11-19] MEDS: oxyCODONE-APAP 5-325 mg Tablet 1 TAB PO ×3 (00:25→18:58)
[2021-11-19 05:02] LABS: Basophils # 0.1 10^3/uL (0.0-0.1); Basophils % 0.6 %; Eosinophils # 0.3 10^3/uL (0.0-0.8); Hemoglobin 9.3 g/dL (11.7-16.6); Lymphocytes # 1.9 10^3/uL (0.8-4.8); Lymphocytes % 18.1 %; Mean Corpuscular HGB Conc 32.1 g/dL (30.0-36.0); Mean Corpuscular Hemoglobin 29.7 pg (28.0-34.0); Mean Corpuscular Volume 92.7 fl (80-94); Mean Platelet Volume 11.2 fL (7.4-10.4); Monocytes # 1.9 10^3/uL (0.2-0.9); Monocytes % 18.2 %; Neutrophils # 6.27 10^3/uL (1.8-7.7); Neutrophils % 59.4 %; Nucleated Red Blood Cells % 0 %; Platelet Count 286 10^3/cmm (130-400); Red Blood Count 3.13 10^6/uL (4.1-5.3); Red Cell Distribution Width 15.1 % (12.1-15.1); White Blood Count 10.6 10^3/uL (4.0-10.0)
[2021-11-19 05:10] LABS: Anion Gap 13.7 (5-19); Blood Urea Nitrogen 17 mg/dL (8-23); Carbon Dioxide 26 mmol/L (22-29); Chloride 103 mmol/L (98-107); Glucose 90 mg/dL (65-115); Magnesium 2.1 mg/dL (1.7-2.3); Osmolality Calculated 289 mOsm/kg (285-295); Potassium 3.7 mmol/L (3.5-5.1); Sodium 139 mmol/L (136-145)
[2021-11-19 06:40] LABS: Glucose Point of Care 105 mg/dL (70-110)
--- NOTE | 2021-11-19 07:24 | P.PN_ITS ---
Subjective Subjective: Postop day #6 status post CABG. Nurses report no concerns overnight. Sleeping on rounds upon my arrival this morning. Vitals/I&O/Wt Last Vital Signs Temp 99.0 F 11/19/21 04:00 Pulse 87 11/19/21 05:44 Resp 20 H 11/19/21 05:01 BP 147/75 11/19/21 04:00 Pulse Ox 94 11/19/21 05:01 11/18/21 11/19/21 11/19/21 22:59 06:59 14:59 Intake Total 120 / 480 200 / 680 Output Total 300 / 300 Balance 120 / 480 -100 / 380 Weight last 48 hrs Weight 132 lb Physical Exam Chest: OTHER: Chest wall is stable. Dressing in place over sternotomy incision and drain sites. Resp: COMMON NORMALS: normal respiratory effort and clear to auscultation bilaterally AUSCULTATION: clear to auscultation bilaterally Cardio: COMMON NORMALS: regular rate, regular rhythm, S1 normal heart sound present and No murmurs present (Cardio) RATE: regular rate RHYTHM: regular rhythm HEART SOUNDS: S1 normal heart sound present Extremity: COMMON NORMALS: no clubbing, cyanosis or edema Urinary Catheter Management: Hinson: Cath Placed During This Visit: yes, but has since been removed by the nurse Reason for Continuing Indwelling Catheter: Decision to DC Catheter Urinary Catheter Date of Insertion: 11/13/21 Urinary Catheter Time of Insertion: 13:18 Date Urinary Catheter Removed: 11/15/21 Time Urinary Catheter Discontinued: 05:54 Data : 11/19/21 03:40 11/19/21 03:40 A&P Assessment and plan (1) Status post aorto-coronary artery bypass graft: Postop day #6 status post CABG Plan: Home O2 evaluation. Betasept shower today May discharge at discretion of our hospitalist and cardiology colleagues. Follow-up in [facility] to see me in 1 week Discharge instructions are listed on the discharge plan. Greatly appreciate expertise of our hospitalist and cardiology colleagues. Status: Acute Attestations Medical Necessity Statement*: Postop day #6 status post CABG Coding Level of Care Code Acute Branner Machine Tender for Chg Fwd Diagnoses Status post aorto-coronary artery bypass graft Z95.1
[2021-11-19] MEDS: magnesium lactate 84 mg Tablet PO (08:44)
[2021-11-19] MEDS: clopidogrel 75 mg Tablet PO (08:44)
[2021-11-19] MEDS: ezetimibe 10 mg Tablet PO (08:44)
[2021-11-19] MEDS: aspirin 81 mg Chew Tablet PO (08:44)
[2021-11-19] MEDS: metoprolol tartrate 25 mg Tablet PO ×2 (08:45→20:21)
[2021-11-19] MEDS: chlorhexidine gluconate 4% Btl 118 mL 1 APPLIC TOPICAL (08:45)
[2021-11-19] MEDS: mupirocin oint 22 gm 1 APPLIC NASAL ×2 (08:47→18:08)
[2021-11-19] MEDS: chlorhexidine gluconate 0.12% Btl 473 mL 15 ML MUCOUS MEM ×2 (08:47→18:09)
[2021-11-19 11:20] LABS: Glucose Point of Care 188 mg/dL (70-110)
[2021-11-19 13:16] LABS: Glucose Point of Care 104 mg/dL (70-110)
[2021-11-19 13:21] LABS: Hematocrit 31.3 % (42.0-52.0)
--- NOTE | 2021-11-19 15:21 | PM.PN ---
Subjective Subjective: The patient reports constipation. Reports hard stool this morning. He reports evidence of blood on toilet paper. Reports prior history of hemorrhoids. No abdominal pain. No nausea or vomiting. No chest pain or shortness of breath. No fever or chills. Medications: Medication Review Details: Generic Name Dose Route Start Last Admin Trade Name Freq PRN Reason Stop Dose Admin Aspirin 81 mg 11/14/21 09:00 11/19/21 08:44 Aspirin 81 Mg Ch ew Tablet PO 81 mg DAILY LATOYA Administration Chlorhexidine Gluc hema 15 ml 11/12/21 18:00 11/19/21 08:47 Chlorhexidine Gl uconate 0.12% Btl 473 Ml MUCOUS MEM 15 ml BID LATOYA Administration Chlorhexidine Gluc hema 1 applic 11/19/21 09:00 11/19/21 08:45 Chlorhexidine Gl uconate 4% Btl 118 Ml TOPICAL 1 applic DAILY LATOYA Administration Clopidogrel Bisulf ate 75 mg 11/17/21 12:00 11/19/21 08:44 Clopidogrel 75 M g Tablet PO 75 mg DAILY LATOYA Administration Ezetimibe 10 mg 11/18/21 09:00 11/19/21 08:44 Ezetimibe 10 Mg Tablet PO 10 mg DAILY LATOYA Administration Insulin Human Lisp ro 0 unit 11/14/21 12:00 11/19/21 13:56 Insulin Lispro 1 00 Unit/1 Ml SUBCUT Not Given WM&BEDTIME [facility] Protocol Magnesium Lactate 84 mg 11/16/21 12:00 11/19/21 08:44 Magnesium Lactat e 84 Mg Tablet PO 84 mg DAILY LATOYA Administration Metoprolol Tartrat e 25 mg 11/14/21 21:00 11/19/21 08:45 Metoprolol Tartr ate 25 Mg Tablet PO 25 mg BID@0900,2100 LATOYA Administration Mupirocin 1 applic 11/12/21 18:00 11/19/21 08:47 Mupirocin Oint 2 2 Gm NASAL 1 applic BID LATOYA Administration Oxycodone/Acetamin ophen 1 tab 11/18/21 19:43 11/19/21 05:01 Oxycodone-Apap 5 -325 Mg Tablet PO 1 tab Q3H PRN Administration MODERATE PAIN Tamsulosin HCl 0.4 mg 11/10/21 21:00 11/18/21 20:30 Tamsulosin 0.4 M g Capsule PO 0.4 mg BEDTIME LATOYA Administration Vitals/I&O/Wt Last Vital Signs Temp 98.1 F 11/19/21 12:05 Pulse 91 11/19/21 12:05 Resp 18 11/19/21 12:05 BP 109/70 11/19/21 12:05 Pulse Ox 95 11/19/21 12:05 11/19/21 11/19/21 11/19/21 06:59 14:59 22:59 Intake Total 200 / 680 Output Total 300 / 300 210 / 210 Balance -100 / 380 -210 / -210 Weight last 48 hrs Weight 59.874 kg Physical Exam Narrative: General: Alert oriented x3, patient seen sitting up in in recliner. Wound VAC removed. NAD Mood and affect are appropriate. Responses are adequate. HEENT: Normocephalic, atraumatic, EOMI, normal respiratory effort.? On room air at this time. Cardio: Regular rate rhythm, normal S1-S2, no murmurs Respiratory: Slightly diminished air entry bilaterally, no gross wheezes or rhonchi. GI: Abdomen soft, nontender, nondistended, bowel sounds normoactive. Extremities: no edema, no cyanosis Neuro exam is nonfocal. Urinary Catheter Management: Hinson: Cath Placed During This Visit: yes, but has since been removed by the nurse Reason for Continuing Indwelling Catheter: Decision to DC Catheter Urinary Catheter Date of Insertion: 11/13/21 Urinary Catheter Time of Insertion: 13:18 Date Urinary Catheter Removed: 11/15/21 Time Urinary Catheter Discontinued: 05:54 Data : 11/19/21 13:00 11/19/21 03:40 A&P Assessment and plan (1) Status post aorto-coronary artery bypass graft: Status: Acute (2) Dyslipidemia: Status: Acute (3) Atherosclerotic heart disease of [place] coronary artery with unstable angina pectoris: Status: Acute (4) CAD (coronary artery disease): Status: Acute (5) BPH loc w urin obs/LUTS: Status: Acute Plan #CABG 11/13/2021 #Unstable angina?resolved #Peripheral arterial disease #Sinus bradycardia?resolved #Abnormal angiogram, CABG candidate Complete 48 hours of ACS protocol.? Echo completed, cardiac angiogram completed.? Today's postop day 5.? Mediastinal and pleural drain discontinued.? Temporary pacing wire discontinued. Wound VAC removed 11/17/2021. Continue increasing activity and pulmonary toilet.? We will follow recommendations from CT surgery for further management. Transfer to floor today cardiac diet stool softener Continue on Plavix, aspirin, metoprolol 25 twice daily, tamsulosin, Zetia. Cardiology following Continue to work with physical therapy. We will wait for final evaluation recommendation. Home health to be set up Full code DVT prophylaxis: Lovenox [place] Coronary artery disease, status post CABG. Doing well. Continuing current management including dual antiplatelet therapy. Hypertension. Stable. Continuing current management including beta-cathy. Dyslipidemia. Did not tolerate statins. Continuing ezetimibe. Further management per Dr. Noble after DC Atelectasis. Instructed him to continue using incentive spirometry. Rectal blood. Most likely due to hemorrhoids. We will hold Lovenox for DVT prophylaxis. We will monitor H&H. We will consider GI consultation and transfusions if H&H drops. Starting PPI. Constipation. Ordering bowel regiment. DVT prophylaxis. SCDs. Lovenox is on hold due to concerns of possible bleeding. The plan of care was discussed with the patient. Her blood consent and agreement. Discussed with multidisciplinary team. Attestations Medical Necessity Statement*: The plan of care requires that he remains hospitalized. Coding Level of Care Code Acute Sash Assembler for Denisse Gardner Diagnoses Status post aorto-coronary artery bypass graft Z95.1 Dyslipidemia E78.5 Atherosclerotic heart disease of [place] coronary artery with unstable angina pectoris I25.110 CAD (coronary artery disease) I25.10 BPH loc w urin obs/LUTS N40.1
[2021-11-19 17:24] LABS: Glucose Point of Care 132 mg/dL (70-110)
[2021-11-19] MEDS: docusate sodium 100 mg Capsule PO (18:08)
[2021-11-19] MEDS: pantoprazole DR 40 mg Tablet PO (18:08)
[2021-11-19 18:45] LABS: Hematocrit 31.9 % (42.0-52.0); Hemoglobin 9.6 g/dL (11.7-16.6)
--- NOTE | 2021-11-19 21:10 | P.PN_ITS ---
Subjective Subjective: Patient is slowly recuperating. He still has difficulty in getting out of the bed without help. Denies any unusual shortness of breath. No fever or chills. Medications: Medication Review Details: Current Medications Aspirin (Aspirin 81 Mg Chew Tablet) 81 mg PO DAILY [facility] Last Admin: 11/19/21 08:44 Dose: 81 mg Documented by: Chlorhexidine Gluconate (Chlorhexidine Gluconate 0.12% Btl 473 Ml) 15 ml MUCOUS MEM BID [facility] Last Admin: 11/19/21 18:09 Dose: 15 ml Documented by: Chlorhexidine Gluconate (Chlorhexidine Gluconate 4% Btl 118 Ml) 1 applic TOPICAL DAILY [facility] Last Admin: 11/19/21 08:45 Dose: 1 applic Documented by: Clopidogrel Bisulfate (Clopidogrel 75 Mg Tablet) 75 mg PO DAILY [facility] Last Admin: 11/19/21 08:44 Dose: 75 mg Documented by: Dextrose (Dextrose 50% Syringe 50 Ml) 25 ml IVP ONCE PRN; Protocol PRN Reason: hypoglycemia protocol Dextrose (Dextrose 50% Syringe 50 Ml) 50 ml IVP PRN PRN; Protocol PRN Reason: hypoglycemia protocol Docusate Sodium (Docusate Sodium 100 Mg Capsule) 100 mg PO BID [facility] Last Admin: 11/19/21 18:08 Dose: 100 mg Documented by: Ezetimibe (Ezetimibe 10 Mg Tablet) 10 mg PO DAILY [facility] Last Admin: 11/19/21 08:44 Dose: 10 mg Documented by: Glucagon (Glucagon 1 Mg/Ml Inj 1 Ml) 1 mg IM ONCE PRN; Protocol PRN Reason: Adult Acute Hypoglycemia Prot Dextrose (D5w) 500 mls @ 100 mls/hr IV ONCE PRN; Protocol PRN Reason: Adult Acute Hypoglycemia Prot Insulin Human Lispro (Insulin Lispro 100 Unit/1 Ml) 0 unit SUBCUT WM&BEDTIME [facility]; Protocol Last Admin: 11/19/21 17:50 Dose: Not Given Documented by: Lactulose (Lactulose Oral Liq 20 Gm/30 Ml Udc) 10 gm PO DAILY [facility] Magnesium Lactate (Magnesium Lactate 84 Mg Tablet) 84 mg PO DAILY [facility] Last Admin: 11/19/21 08:44 Dose: 84 mg Documented by: Metoprolol Tartrate (Metoprolol Tartrate 25 Mg Tablet) 25 mg PO BID@0900,2100 [facility] Last Admin: 11/19/21 20:21 Dose: 25 mg Documented by: Mupirocin (Mupirocin Oint 22 Gm) 1 applic NASAL BID [facility] Last Admin: 11/19/21 18:08 Dose: 1 applic Documented by: Naloxone HCl (Naloxone 0.4 Mg/Ml Sdv) 0.1 mg IVP Q2M PRN PRN Reason: OPIATERV Nitroglycerin (Nitroglycerin 0.4 Mg Sublingual Tablet) 0.4 mg SUBLINGUAL Q5M PRN PRN Reason: CHEST PAIN Ondansetron HCl (Ondansetron 2 Mg/Ml Sdv 2 Ml) 4 mg IVP Q6H PRN PRN Reason: NAUSEA Oxycodone/Acetaminophen (Oxycodone-Apap 5-325 Mg Tablet) 1 tab PO Q3H PRN PRN Reason: MODERATE PAIN Last Admin: 11/19/21 18:58 Dose: 1 tab Documented by: Pantoprazole Sodium (Pantoprazole Dr 40 Mg Tablet) 40 mg PO BID [facility] Last Admin: 11/19/21 18:08 Dose: 40 mg Documented by: Tamsulosin HCl (Tamsulosin 0.4 Mg Capsule) 0.4 mg PO BEDTIME [facility] Last Admin: 11/19/21 20:21 Dose: Not Given Documented by: Vitals/I&O/Wt Last Vital Signs Temp 99.8 F H 11/19/21 20:00 Pulse 100 11/19/21 20:00 Resp 17 11/19/21 20:00 BP 105/72 11/19/21 20:00 Pulse Ox 90 11/19/21 20:00 11/19/21 11/19/21 11/19/21 06:59 14:59 22:59 Intake Total 200 / 680 120 / 120 Output Total 300 / 300 210 / 210 Balance -100 / 380 -210 / -210 120 / -90 Weight last 48 hrs Weight 132 lb Physical Exam Narrative: GENERAL: The patient is alert and oriented times three. Not in any acute distress. HEENT: No significant pallor, icterus or lymphadenopathy.Oral cavity: There are no mucous membrane lesions. NECK: Trachea appears to be central. No masses noted. No JVD or thyromegaly appreciated. RESPIRATORY: The sternotomy site appears to be healing okay. No signs of infection or bleeding. BREASTS: Deferred. HEART: The heart sounds are normal. No S3 or S4. No significant murmurs. No pericardial rub ABDOMEN: No vessel pulsations or distention. No tenderness. No organomegaly appreciated. Bowel sounds are normally heard. : Deferred. RECTAL: Deferred. LYMPHATIC: No lymphadenopathy noted in the neck. EXTREMITIES: No edema or cyanosis. No clubbing. MUSCULOSKELETAL: No acute joint deformities or swelling SKIN: There are no significant rashes or ecchymosis NEUROPSYCHIATRIC: The patient is alert and oriented x3. Appears to be in a good mood. No tremors or rigidity noted. Urinary Catheter Management: Hinson: Cath Placed During This Visit: yes, but has since been removed by the nurse Reason for Continuing Indwelling Catheter: Decision to DC Catheter Urinary Catheter Date of Insertion: 11/13/21 Urinary Catheter Time of Insertion: 13:18 Date Urinary Catheter Removed: 11/15/21 Time Urinary Catheter Discontinued: 05:54 Data : 11/19/21 18:20 11/19/21 03:40 Other Labs: Laboratory Last Values WBC 10.6 10^3/uL (4.0-10.0) H 11/19/21 03:40 RBC 3.13 10^6/uL (4.1-5.3) L 11/19/21 03:40 Hgb 9.6 g/dL (11.7-16.6) L 11/19/21 18:20 Hct 31.9 % (42.0-52.0) L 11/19/21 18:20 MCV 92.7 fl (80-94) 11/19/21 03:40 MCH 29.7 pg (28.0-34.0) 11/19/21 03:40 MCHC 32.1 g/dL (30.0-36.0) 11/19/21 03:40 RDW 15.1 % (12.1-15.1) 11/19/21 03:40 Plt Count 286 10^3/cmm (130-400) 11/19/21 03:40 MPV 11.2 fL (7.4-10.4) H 11/19/21 03:40 Neut % (Auto) 59.4 % 11/19/21 03:40 Lymph % (Auto) 18.1 % 11/19/21 03:40 [place] % (Auto) 18.2 % 11/19/21 03:40 Eos % (Auto) 3.0 % 11/19/21 03:40 Baso % (Auto) 0.6 % 11/19/21 03:40 Neut # (Auto) 6.27 10^3/uL (1.8-7.7) 11/19/21 03:40 Lymph # (Auto) 1.9 10^3/uL (0.8-4.8) 11/19/21 03:40 [place] # (Auto) 1.9 10^3/uL (0.2-0.9) H 11/19/21 03:40 Eos # (Auto) 0.3 10^3/uL (0.0-0.8) 11/19/21 03:40 Baso # (Auto) 0.1 10^3/uL (0.0-0.1) 11/19/21 03:40 Nucleated RBC % (auto) 0 % 11/19/21 03:40 Nucleated RBCs # 0.0 /100WBC 11/19/21 03:40 PT 15.70 SECONDS (12.1-14.9) H 11/14/21 02:10 PT Cancelled 11/14/21 02:10 INR 1.22 (0.8-1.2) H 11/14/21 02:10 INR Cancelled 11/14/21 02:10 APTT 27.9 SECONDS (23.9-36.7) 11/14/21 02:10 D-Dimer 0.71 ug/mIFEU (0-0.59) H 11/10/21 18:45 Specimen Type Arterial 11/14/21 03:05 Sample Site Femoral, left 11/14/21 03:05 ABG pH 7.49 (7.35-7.45) H 11/14/21 03:05 ABG pCO2 25.4 mmHg (35-45) L 11/14/21 03:05 ABG pO2 69.7 mmHg (80.0-100.0) L 11/14/21 03:05 ABG HCO3 19.5 mmol/L (22-26) L 11/14/21 03:05 ABG O2 Saturation 96.8 11/14/21 03:05 ABG Base Excess -2.9 mmol/L (-2.0-2.0) L 11/14/21 03:05 Russel Test N/a 11/14/21 03:05 A-a O2 Gradient 9.5 mmHg (5-10) 11/14/21 03:05 Hematocrit 28.0 % (42-52) L 11/14/21 03:05 Hgb O2 Saturation 94.8 % (95-100) L 11/14/21 03:05 Carboxyhemoglobin 1.1 %THgb (0.4-20.1) 11/14/21 03:05 Methemoglobin 1.0 % (0.4-1.5) 11/14/21 03:05 Total Hemoglobin 9.1 g/dL (14-18) L 11/14/21 03:05 Sodium 144.0 mmol/L (131-143) H 11/14/21 03:05 Potassium 3.6 mmol/L (3.5-5.0) 11/14/21 03:05 Glucose 90.0 mg/dL (70-115) 11/14/21 03:05 Ionized Calcium 1.1 mmol/L (1.1-1.4) 11/14/21 03:05 O2 Delivery Device Vent 11/14/21 03:05 SIMV 14.0 11/13/21 20:20 FiO2 25.0 % 11/14/21 03:05 Tidal Volume 0.60 11/14/21 03:05 PEEP 5.0 cmH20 11/14/21 03:05 Talent Acquisition Lead ID [email or web address] 11/14/21 03:05 Sodium 139 mmol/L (136-145) 11/19/21 03:40 Potassium 3.7 mmol/L (3.5-5.1) 11/19/21 03:40 Chloride 103 mmol/L (98-107) 11/19/21 03:40 Carbon Dioxide 26 mmol/L (22-29) 11/19/21 03:40 Anion Gap 13.7 (5-19) 11/19/21 03:40 BUN 17 mg/dL (8-23) 11/19/21 03:40 Creatinine 0.8 mg/dL (0.7-1.2) 11/19/21 03:40 GFR Calculation Not Reportable 11/19/21 03:40 Glucose 90 mg/dL (65-115) 11/19/21 03:40 POC Glucose 132 mg/dL (70-110) H 11/19/21 17:17 Fasting Glucose 96 mg/dL (74-106) 11/14/21 02:10 Calculated Osmolality 289 mOsm/kg (285-295) 11/19/21 03:40 Calcium 8.0 mg/dL (8.5-10.5) L 11/19/21 03:40 Magnesium 2.1 mg/dL (1.7-2.3) 11/19/21 03:40 Total Bilirubin 0.3 mg/dL (0.15-1.2) 11/12/21 13: Direct Bilirubin 0.20 mg/dL (0.00-0.30) 11/12/21 13:22 AST 13 U/L (0-40) 11/12/21 13: ALT 10 U/L (0-41) 11/12/21 13: Alkaline Phosphatase 126 IU/L (40-130) 11/12/21 13:22 Troponin T Baseline 23 ng/L (0-15) H 11/10/21 12:50 Troponin T 120 Minute 26.93 ng/L (0-15) H 11/10/21 14:45 Delta Troponin T 3.93 ABS# (0-10) 11/10/21 14:45 Troponin T Hi Sens 6Hr 27.28 ng/L (0-15) H 11/10/21 18:45 Troponin T Hi Sens 6Hr Delta 4.28 ng/L (0-12) 11/10/21 18:45 Total Protein 6.0 g/dL (6.6-8.7) L 11/12/21 13:22 Albumin 3.6 g/dL (3.5-5.2) 11/12/21 13:22 Globulin 2.4 g/dL (1.3-4.6) 11/12/21 13:22 TSH 1.97 uIU/mL (0.27-4.20) 11/12/21 13:22 Free T4 1.03 ng/dL (0.82-1.77) 11/12/21 13:22 Urine Color Yellow (Yellow) 11/12/21 18:02 Urine Appearance Clear (CLEAR) 11/12/21 18:02 Urine pH 7 (5-7) 11/12/21 18:02 Ur Specific [place] 1.015 (1.005-1.030) 11/12/21 18:02 Urine Protein Neg (Negative) 11/12/21 18:02 Urine Glucose (UA) Norm (Normal) 11/12/21 18:02 Urine Ketones Negative (Negative) 11/12/21 18:02 Urine Blood Neg (Negative) 11/12/21 18:02 Urine Nitrate Negative (Negative) 11/12/21 18:02 Urine Bilirubin Neg (Negative) 11/12/21 18:02 Urine Urobilinogen Norm mg/dL (Negative) 11/12/21 18:02 Ur Leukocyte Esterase Negative (Negative) 11/12/21 18:02 Urine Opiates Screen Negative ng/mL (Negative) 11/10/21 19:00 Ur Barbiturates Screen Negative ng/mL (Negative) 11/10/21 19:00 Ur Phencyclidine Scrn Negative ng/mL (Negative) 11/10/21 19:00 Ur Amphetamines Screen Negative ng/mL (Negative) 11/10/21 19:00 U Benzodiazepines Scrn Negative ng/mL (Negative) 11/10/21 19:00 Urine Cocaine Screen Negative ng/mL (Negative) 11/10/21 19:00 U Marijuana (THC) Screen Negative ng/mL (Negative) 11/10/21 19:00 Blood Type O Positive 11/12/21 13:22 Rho(D) Type Positive 11/12/21 13:22 Antibody Screen Negative 11/12/21 13:22 Crossmatch See Detail 11/12/21 13:22 A&P Assessment and plan (1) Status post aorto-coronary artery bypass graft: Clinically improving. Status: Acute (2) Unstable angina: Has not had a recurrence of chest pain. May continue on the current medications. Status: Acute (3) Dyslipidemia: We will continue on the current medications. Status: Acute Plan [id number] Attestations Medical Necessity Statement*: Disposition as per the primary Coding Level of Care Code Acute Steel Erector for Denisse Fwd History Detailed Exam Detailed Medical Decision Making Low Complexity Diagnoses Status post aorto-coronary artery bypass graft Z95.1 Unstable angina I20.0 Dyslipidemia E78.5
[2021-11-20] VITALS (13 sets, daily range): BP systolic 99–162; BP diastolic 61–82; PULSE 81–116; RESP 16–18; TEMP 36.5–37.7; O2SAT 90–96
[2021-11-20 00:15] LABS: Hematocrit 28.8 % (42.0-52.0); Hemoglobin 9.2 g/dL (11.7-16.6)
[2021-11-20] MEDS: oxyCODONE-APAP 5-325 mg Tablet 1 TAB PO ×4 (03:51→22:54)
[2021-11-20 06:18] LABS: Basophils # 0.1 10^3/uL (0.0-0.1); Basophils % 0.6 %; Eosinophils # 0.3 10^3/uL (0.0-0.8); Eosinophils % 2.3 %; Lymphocytes # 1.7 10^3/uL (0.8-4.8); Lymphocytes % 13.4 %; Mean Corpuscular HGB Conc 32.3 g/dL (30.0-36.0); Mean Corpuscular Hemoglobin 29.6 pg (28.0-34.0); Mean Corpuscular Volume 91.7 fl (80-94); Monocytes # 1.8 10^3/uL (0.2-0.9); Monocytes % 14.8 %; Neutrophils # 8.45 10^3/uL (1.8-7.7); Neutrophils % 68.1 %; Nucleated Red Blood Cells % 0 %; Platelet Count 393 10^3/cmm (130-400); Red Blood Count 3.38 10^6/uL (4.1-5.3); Red Cell Distribution Width 14.9 % (12.1-15.1); White Blood Count 12.4 10^3/uL (4.0-10.0)
[2021-11-20 06:37] LABS: Albumin Level 3.2 g/dL (3.5-5.2); Anion Gap 15.6 (5-19); Blood Urea Nitrogen 14 mg/dL (8-23); Calcium 9.3 mg/dL (8.5-10.5); Carbon Dioxide 23 mmol/L (22-29); Chloride 101 mmol/L (98-107); Glucose 130 mg/dL (65-115); Magnesium 2.1 mg/dL (1.7-2.3); Phosphorus 2.9 mg/dL (2.5-4.5); Potassium 3.6 mmol/L (3.5-5.1); Sodium 136 mmol/L (136-145)
[2021-11-20 08:16] LABS: Glucose Point of Care 110 mg/dL (70-110)
[2021-11-20 08:16] LABS: Glucose Point of Care 109 mg/dL (70-110)
[2021-11-20] MEDS: magnesium lactate 84 mg Tablet PO (09:13)
[2021-11-20] MEDS: docusate sodium 100 mg Capsule PO ×2 (09:13→17:32)
[2021-11-20] MEDS: aspirin 81 mg Chew Tablet PO (09:13)
[2021-11-20] MEDS: pantoprazole DR 40 mg Tablet PO ×2 (09:13→17:32)
[2021-11-20] MEDS: clopidogrel 75 mg Tablet PO (09:13)
[2021-11-20] MEDS: ezetimibe 10 mg Tablet PO (09:13)
[2021-11-20] MEDS: chlorhexidine gluconate 4% Btl 118 mL 1 APPLIC TOPICAL (09:14)
[2021-11-20] MEDS: mupirocin oint 22 gm 1 APPLIC NASAL (09:14)
[2021-11-20] MEDS: chlorhexidine gluconate 0.12% Btl 473 mL 15 ML MUCOUS MEM ×2 (09:14→17:34)
--- NOTE | 2021-11-20 09:25 | PC.OT ---
OT tx attempted at this time for shower training. Pts significant other in room and requests therapist come back at later time as she states he needs to take his pills and eat his breakfast . Pt requires extra time to complete these tasks as observed yesterday ( 30+ minutes). Therapist to return later today to assist with shower.
--- NOTE | 2021-11-20 11:17 | P.DS_ITS ---
Discharge Providers Date of Admission: 11/11/21 15:08 Date of Discharge: November 20, 2021 Attending Provider at Admission: Tomasa Hughes MD Attending Provider at Discharge: Dandy Vo Primary Care Provider: Otoniel Yu DO Diagnoses at Discharge Discharge Diagnosis (1) Status post aorto-coronary artery bypass graft: Status: Acute (2) Unstable angina: Status: Acute (3) Dyslipidemia: Status: Acute Reason for Visit Reason for Visit: chest pain Hospital Course Hospital Course Please see patient's H&P, consult notes, progress notes and procedure notes for more details. Discharge diagnoses and problem list. Coronary artery disease, status post CABG.? Doing well.? Continuing current management including dual antiplatelet therapy. Stable and cleared for dis charge. Denies any chest pain, shortness of breath, diaphoresis, dizziness or lightheadedness. Eager to go home. He is instructed to come back to emergency room if he develops any new chest pain, shortness of breath, diaphoresis, dizziness or lightheadedness, any signs of bleeding, black stool or rectal blood or any other new complaints. Outpatient follow-up with manager interface and Dr. Wilson. Hypertension.? Stable.? Continuing current management including beta-cathy. Dyslipidemia.? Did not tolerate statins.? Continuing ezetimibe.? Further management per Dr. Noble after DC Atelectasis.? Instructed him to continue using incentive spirometry. Constipation. Still no bowel movements since yesterday. We will wait for a bowel movement before discharge. If he remains in the hospital this summary will be considered as progress note for billing purposes. Rectal blood.? Most likely due to hemorrhoids.? No new evidence of bleeding since yesterday. Hemoglobin remained stable. Will wait for bowel movements. If there is blood in the stool but will hold the discharge. DVT prophylaxis.? SCDs.? Lovenox is on hold due to concerns of possible bleeding. The plan of care was discussed with the patient and family. They verbalized understanding and agreement. Discussed with multidisciplinary team. 35 minutes were spent on this encounter today Physical Exam Narrative: General: Alert oriented x3, patient seen sitting up in in recliner. Wound VAC removed. NAD Mood and affect are appropriate. Responses are adequate. HEENT: Normocephalic, atraumatic, EOMI, normal respiratory effort.? On room air at this time. Cardio: Regular rate rhythm, normal S1-S2, no murmurs Respiratory: Slightly diminished air entry bilaterally, no gross wheezes or rhonchi. GI: Abdomen soft, nontender, nondistended, bowel sounds normoactive. Extremities: no edema, no cyanosis Neuro exam is nonfocal. Urinary Catheter Management: Hinson: Cath Placed During This Visit: yes, but has since been removed by the nurse Reason for Continuing Indwelling Catheter: Decision to DC Catheter Urinary Catheter Date of Insertion: 11/13/21 Urinary Catheter Time of Insertion: 13:18 Date Urinary Catheter Removed: 11/15/21 Time Urinary Catheter Discontinued: 05:54 Discharge Data Studies Completed and Pending Completed Studies During Hospitalization Category Date Time Status MIRROR POLISHER request for service Routine Exams 11/11/21 13:35 Completed XR chest 1V portable [id number] Routine Exams 11/13/21 11:25 Completed XR chest 1V portable [id number] Routine Exams 11/14/21 06:00 Completed XR chest 1V portable [id number] Routine Exams 11/15/21 06:00 Completed XR chest 1V portable [id number] Routine Exams 11/16/21 06:00 Completed XR chest 1V portable [id number] Stat Exams 11/10/21 12:11 [place] [id number] Routine Ultrasound 11/12/21 13:05 Completed US echo complete [CV. echo complete* [id number]] Routine Ultrasound 11/10/21 16:07 Completed Pending at discharge Category Date Time Status Complete Crossmatch Routine Lab 11/12/21 13:22 Results Leukocyte Reduced RBC Routine Lab 11/12/21 13:22 Results Leukrd/Plat Pheresis 1st Cont Routine Lab 11/12/21 13:22 Results Type and Screen Routine Lab 11/12/21 13:22 Results Radiology Impressions Chest X-Ray 11/16/21 06:00 Impression: 1. No change in bibasilar atelectasis. 2. Removal of right internal jugular venous catheter. Laboratory Results WBC 12.4 10^3/uL (4.0-10.0) H 11/20/21 04:40 RBC 3.38 10^6/uL (4.1-5.3) L 11/20/21 04:40 Hgb 10.0 g/dL (11.7-16.6) L 11/20/21 04:40 Hct 31.0 % (42.0-52.0) L 11/20/21 04:40 MCV 91.7 fl (80-94) 11/20/21 04:40 MCH 29.6 pg (28.0-34.0) 11/20/21 04:40 MCHC 32.3 g/dL (30.0-36.0) 11/20/21 04:40 RDW 14.9 % (12.1-15.1) 11/20/21 04:40 Plt Count 393 10^3/cmm (130-400) D 11/20/21 04:40 MPV 11.0 fL (7.4-10.4) H 11/20/21 04:40 Neut % (Auto) 68.1 % 11/20/21 04:40 Lymph % (Auto) 13.4 % 11/20/21 04:40 [place] % (Auto) 14.8 % 11/20/21 04:40 Eos % (Auto) 2.3 % 11/20/21 04:40 Baso % (Auto) 0.6 % 11/20/21 04:40 Neut # (Auto) 8.45 10^3/uL (1.8-7.7) H 11/20/21 04:40 Lymph # (Auto) 1.7 10^3/uL (0.8-4.8) 11/20/21 04:40 [place] # (Auto) 1.8 10^3/uL (0.2-0.9) H 11/20/21 04:40 Eos # (Auto) 0.3 10^3/uL (0.0-0.8) 11/20/21 04:40 Baso # (Auto) 0.1 10^3/uL (0.0-0.1) 11/20/21 04:40 Nucleated RBC % (auto) 0 % 11/20/21 04:40 Nucleated RBCs # 0.0 /100WBC 11/20/21 04:40 PT 15.70 SECONDS (12.1-14.9) H 11/14/21 02:10 PT Cancelled 11/14/21 02:10 INR 1.22 (0.8-1.2) H 11/14/21 02:10 INR Cancelled 11/14/21 02:10 APTT 27.9 SECONDS (23.9-36.7) 11/14/21 02:10 D-Dimer 0.71 ug/mIFEU (0-0.59) H 11/10/21 18:45 Specimen Type Arterial 11/14/21 03:05 Sample Site Femoral, left 11/14/21 03:05 ABG pH 7.49 (7.35-7.45) H 11/14/21 03:05 ABG pCO2 25.4 mmHg (35-45) L 11/14/21 03:05 ABG pO2 69.7 mmHg (80.0-100.0) L 11/14/21 03:05 ABG HCO3 19.5 mmol/L (22-26) L 11/14/21 03:05 ABG O2 Saturation 96.8 11/14/21 03:05 ABG Base Excess -2.9 mmol/L (-2.0-2.0) L 11/14/21 03:05 Russel Test N/a 11/14/21 03:05 A-a O2 Gradient 9.5 mmHg (5-10) 11/14/21 03:05 Hematocrit 28.0 % (42-52) L 11/14/21 03:05 Hgb O2 Saturation 94.8 % (95-100) L 11/14/21 03:05 Carboxyhemoglobin 1.1 %THgb (0.4-20.1) 11/14/21 03:05 Methemoglobin 1.0 % (0.4-1.5) 11/14/21 03:05 Total Hemoglobin 9.1 g/dL (14-18) L 11/14/21 03:05 Sodium 144.0 mmol/L (131-143) H 11/14/21 03:05 Potassium 3.6 mmol/L (3.5-5.0) 11/14/21 03:05 Glucose 90.0 mg/dL (70-115) 11/14/21 03:05 Ionized Calcium 1.1 mmol/L (1.1-1.4) 11/14/21 03:05 O2 Delivery Device Vent 11/14/21 03:05 SIMV 14.0 11/13/21 20:20 FiO2 25.0 % 11/14/21 03:05 Tidal Volume 0.60 11/14/21 03:05 PEEP 5.0 cmH20 11/14/21 03:05 Outdoor Adventure Instructor ID [email or web address] 11/14/21 03:05 Sodium 136 mmol/L (136-145) 11/20/21 04:40 Potassium 3.6 mmol/L (3.5-5.1) 11/20/21 04:40 Chloride 101 mmol/L (98-107) 11/20/21 04:40 Carbon Dioxide 23 mmol/L (22-29) 11/20/21 04:40 Anion Gap 15.6 (5-19) 11/20/21 04:40 BUN 14 mg/dL (8-23) 11/20/21 04:40 Creatinine 0.7 mg/dL (0.7-1.2) 11/20/21 04:40 GFR Calculation Not Reportable 11/20/21 04:40 Glucose 130 mg/dL (65-115) H 11/20/21 04:40 POC Glucose 110 mg/dL (70-110) 11/20/21 06:49 Fasting Glucose 96 mg/dL (74-106) 11/14/21 02:10 Calculated Osmolality 289 mOsm/kg (285-295) 11/19/21 03:40 Calcium 9.3 mg/dL (8.5-10.5) 11/20/21 04:40 Phosphorus 2.9 mg/dL (2.5-4.5) 11/20/21 04:40 Magnesium 2.1 mg/dL (1.7-2.3) 11/20/21 04:40 Total Bilirubin 0.3 mg/dL (0.15-1.2) 11/12/21 13:22 Direct Bilirubin 0.20 mg/dL (0.00-0.30) 11/12/21 13:22 AST 13 U/L (0-40) 11/12/21 13:22 ALT 10 U/L (0-41) 11/12/21 13:22 Alkaline Phosphatase 126 IU/L (40-130) 11/12/21 13:22 Troponin T Baseline 23 ng/L (0-15) H 11/10/21 12:50 Troponin T 120 Minute 26.93 ng/L (0-15) H 11/10/21 14:45 Delta Troponin T 3.93 ABS# (0-10) 11/10/21 14:45 Troponin T Hi Sens 6Hr 27.28 ng/L (0-15) H 11/10/21 18:45 Troponin T Hi Sens 6Hr Delta 4.28 ng/L (0-12) 11/10/21 18:45 Total Protein 6.0 g/dL (6.6-8.7) L 11/12/21 13:22 Albumin 3.2 g/dL (3.5-5.2) L 11/20/21 04:40 Globulin 2.4 g/dL (1.3-4.6) 11/12/21 13:22 TSH 1.97 uIU/mL (0.27-4.20) 11/12/21 13:22 Free T4 1.03 ng/dL (0.82-1.77) 11/12/21 13:22 Urine Color Yellow (Yellow) 11/12/21 18:02 Urine Appearance Clear (CLEAR) 11/12/21 18:02 Urine pH 7 (5-7) 11/12/21 18:02 Ur Specific [place] 1.015 (1.005-1.030) 11/12/21 18:02 Urine Protein Neg (Negative) 11/12/21 18:02 Urine Glucose (UA) Norm (Normal) 11/12/21 18:02 Urine Ketones Negative (Negative) 11/12/21 18:02 Urine Blood Neg (Negative) 11/12/21 18:02 Urine Nitrate Negative (Negative) 11/12/21 18:02 Urine Bilirubin Neg (Negative) 11/12/21 18:02 Urine Urobilinogen Norm mg/dL (Negative) 11/12/21 18:02 Ur Leukocyte Esterase Negative (Negative) 11/12/21 18:02 Urine Opiates Screen Negative ng/mL (Negative) 11/10/21 19:00 Ur Barbiturates Screen Negative ng/mL (Negative) 11/10/21 19:00 Ur Phencyclidine Scrn Negative ng/mL (Negative) 11/10/21 19:00 Ur Amphetamines Screen Negative ng/mL (Negative) 11/10/21 19:00 U Benzodiazepines Scrn Negative ng/mL (Negative) 11/10/21 19:00 Urine Cocaine Screen Negative ng/mL (Negative) 11/10/21 19:00 U Marijuana (THC) Screen Negative ng/mL (Negative) 11/10/21 19:00 Blood Type O Positive 11/12/21 13:22 Rho(D) Type Positive 11/12/21 13:22 Antibody Screen Negative 11/12/21 13:22 Crossmatch See Detail 11/12/21 13:22 Vitals Last Vital Signs Temp 97.7 F 11/20/21 10:51 Pulse 98 11/20/21 10:51 Resp 18 11/20/21 10:51 BP 118/75 11/20/21 10:51 Pulse Ox 95 11/20/21 10:51 Discharge Plan Discharge Patient Disposition: Home Condition: Stable Prescriptions: No Action nitroglycerin 0.4 mg tablet, sublingual 0.4 mg sublingual Q5M PRN (Reason: Chest Pain) 0RF Rx Instructions: do not exceed 3 doses per episode clear lungs 1 tab PO DAILY 0RF isosorbide mononitrate 30 mg tablet extended release 24 hr 15 mg PO DAILY Qty: 90 1RF coenzyme Q10 [Co Q-10] 10 mg Capsule 10 mg PO DAILY@0900 0RF vitamin B complex Capsule 1 cap PO DAILY@0900 0RF Cardio For Life 1 tab PO DAILY@0900 0RF Vitamin D3 1 tab PO DAILY@0900 0RF Vitamin E Complex 1 tab PO DAILY@0900 0RF saw palmetto 1 tab PO DAILY@0900 0RF selenium 1 tab PO DAILY@0900 0RF vitamin K 1 tab PO DAILY@0900 0RF garlic oil 1,000 mg capsule 5,000 mg PO DAILY@0900 PRN (Reason: unknown) 0RF aspirin 81 mg Tablet,Chewable 81 mg PO DAILY 0RF Other Ambulatory Orders: DME: Jhonny (Order) Location: None Selected Ordered By: Ethel Elise Referrals: [facility] [Outside] [facility] Home Care ([facility]) [Outside] Otoniel Yu DO [Primary Care Provider] - Milton Wilson MD [Physician] - 1 week Discharge Diet: Cardiac Discharge Activity: Limit activity as instructed Patient Instructions: Opioid Safety Activity Restrictions/Additional Instructions: May shower with dressings off Dry incisions completely after showering. May recover if desired to prevent irritation from clothing. No swimming or tub baths x2 weeks No lifting, pulling, or pushing with upper extremities more than 5 pounds for the next 6 weeks Report any fever, incisional redness, swelling, drainage, or increasing pain. Report any increasing shortness of breath or weight gain over 10 pounds Use incentive spirometer frequently Keep heart pillow readily available to assist with coughing, deep breathing, or sneezing Discharge Attestations Time Spent in Discharge Care*: greater than 30 min Status at Discharge: Cognitive status at discharge: cognitively intact , Behavioral status at discharge: cooperative and independent in ADL's , Quality Metrics Clinical Quality Measures [ Acute Myocardial Infaction { Clinical Trial Participant: No; Contraindication to aspirin: None; Aspirin prescribed; Contraindication to statin: Drug intolerance; Contraindication to PCI: Other (CABG);}] Coding Level of Care Code Acute Chg FW DC note Diagnoses Status post aorto-coronary artery bypass graft Z95.1 Unstable angina I20.0 Dyslipidemia E78.5
[2021-11-20 11:49] LABS: Glucose Point of Care 115 mg/dL (70-110)
--- NOTE | 2021-11-20 12:55 | PC.SOCIAL ---
IMM update IMM updated with patient and family. Copy Pg 2 provided. Verbalized an understanding. Initialled, dated, timed, and placed in chart.
[2021-11-20 16:47] LABS: Glucose Point of Care 102 mg/dL (70-110)
[2021-11-20] MEDS: metoprolol tartrate 25 mg Tablet PO (20:39)
[2021-11-20 20:49] LABS: Glucose Point of Care 168 mg/dL (70-110)
[2021-11-21 04:00] VITALS: BP 144/72; PULSE 90; RESP 18; TEMP 36.9; O2SAT 93
[2021-11-21 06:03] VITALS: RESP 18
[2021-11-21] MEDS: oxyCODONE-APAP 5-325 mg Tablet 1 TAB PO (06:03)
[2021-11-21 07:03] VITALS: BP 117/68; PULSE 89; RESP 18; TEMP 36.8; O2SAT 94
[2021-11-21] MEDS: aspirin 81 mg Chew Tablet PO (08:43)
[2021-11-21] MEDS: clopidogrel 75 mg Tablet PO (08:43)
[2021-11-21] MEDS: lactulose oral liq 20 gm/30 mL UDC 10 GM PO (08:43)
[2021-11-21] MEDS: docusate sodium 100 mg Capsule PO (08:43)
[2021-11-21] MEDS: pantoprazole DR 40 mg Tablet PO (08:43)
[2021-11-21] MEDS: ezetimibe 10 mg Tablet PO (08:43)
[2021-11-21] MEDS: magnesium lactate 84 mg Tablet PO (08:43)
[2021-11-21] MEDS: metoprolol tartrate 25 mg Tablet PO (08:44)
--- NOTE | 2021-11-21 09:00 | PC.OT ---
OT tx attempted at this time. Pt sitting up in chair eating and taking his pills. He states I have to eat, take my pills and have a normal poop so I can go home . Therapist reminded pt he also needs to shower and pt states not again, I can do it when I get home . Pt requiring extra time to complete most tasks so therapist will return later today to see if he still needs to shower.
--- NOTE | 2021-11-21 11:20 | PC.NURSE ---
Notified Dr. Vo about patient having a bowel movement and it was formed brown with no obvious blood.
--- NOTE | 2021-11-21 11:24 | P.DS_ITS ---
Discharge Providers Date of Admission: 11/11/21 15:08 Date of Discharge: November 21, 2021 Attending Provider at Admission: Tomasa Hughes MD Attending Provider at Discharge: Dandy Vo Primary Care Provider: Otoniel Yu DO Diagnoses at Discharge Discharge Diagnosis (1) Status post aorto-coronary artery bypass graft: Status: Acute (2) Unstable angina: Status: Acute (3) Dyslipidemia: Status: Acute Reason for Visit Reason for Visit: chest pain Hospital Course Hospital Course Please see patient's H&P, consult notes, progress notes and procedure notes for more details. Discharge diagnoses and problem list. Coronary artery disease, status post CABG.? Doing well.? Continuing current management including dual antiplatelet therapy. Stable and cleared for dis charge. Denies any chest pain, shortness of breath, diaphoresis, dizziness or lightheadedness. He had a bowel movement. No evidence of bleeding. The stool was brown. No blood. Eager to go home. He is instructed to come back to emergency room if he develops any new chest pain, shortness of breath, diaphoresis, dizziness or lightheadedness, any signs of bleeding, black stool or rectal blood or any other new complaints. Outpatient follow-up with pediatric nurse practitioner and Dr. Wilson. Hypertension.? Stable.? Continuing current management including beta-cathy. Dyslipidemia.? Did not tolerate statins.? Continuing ezetimibe.? Further management per Dr. Noble after DC Atelectasis.? Instructed him to continue using incentive spirometry. Constipation. Resolved. Continue bowel regiment at home. Rectal blood.? Most likely due to hemorrhoids.? No new evidence of bleeding. Hemodynamically stable. The plan of care was discussed with the patient. He verbalized understanding and agreement. Discussed with multidisciplinary team. Physical Exam Narrative: General: Alert oriented x3, patient seen sitting up in in recliner. Wound VAC removed. NAD Mood and affect are appropriate. Responses are adequate. HEENT: Normocephalic, atraumatic, EOMI, normal respiratory effort.? On room air at this time. Cardio: Regular rate rhythm, normal S1-S2, no murmurs Respiratory: Slightly diminished air entry bilaterally, no gross wheezes or rhonchi. GI: Abdomen soft, nontender, nondistended, bowel sounds normoactive. Extremities: no edema, no cyanosis Neuro exam is nonfocal. 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 echo complete* [id number]] Routine Ultrasound 11/10/21 16:07 Completed Pending at discharge Category Date Time Status Complete Blood Count w/Auto AM LABS Lab 11/22/21 04:00 Ordered Complete Crossmatch Routine Lab 11/12/21 13:22 Results Leukocyte Reduced RBC Routine Lab 11/12/21 13:22 Results Leukrd/Plat Pheresis 1st Cont Routine Lab 11/12/21 13:22 Results Magnesium AM LABS Lab 11/22/21 04:00 Ordered Renal Function Panel AM LABS Lab 11/22/21 04:00 Ordered Type and Screen Routine Lab 11/12/21 13:22 Results Radiology Impressions Chest X-Ray 11/16/21 06:00 Impression: 1. No change in bibasilar atelectasis. 2. Removal of right internal jugular venous catheter. Laboratory Results WBC 12.4 10^3/uL (4.0-10.0) H 11/20/21 04:40 RBC 3.38 10^6/uL (4.1-5.3) L 11/20/21 04:40 Hgb 10.0 g/dL (11.7-16.6) L 11/20/21 04:40 Hct 31.0 % (42.0-52.0) L 11/20/21 04:40 MCV 91.7 fl (80-94) 11/20/21 04:40 MCH 29.6 pg (28.0-34.0) 11/20/21 04:40 MCHC 32.3 g/dL (30.0-36.0) 11/20/21 04:40 RDW 14.9 % (12.1-15.1) 11/20/21 04:40 Plt Count 393 10^3/cmm (130-400) D 11/20/21 04:40 MPV 11.0 fL (7.4-10.4) H 11/20/21 04:40 Neut % (Auto) 68.1 % 11/20/21 04:40 Lymph % (Auto) 13.4 % 11/20/21 04:40 [place] % (Auto) 14.8 % 11/20/21 04:40 Eos % (Auto) 2.3 % 11/20/21 04:40 Baso % (Auto) 0.6 % 11/20/21 04:40 Neut # (Auto) 8.45 10^3/uL (1.8-7.7) H 11/20/21 04:40 Lymph # (Auto) 1.7 10^3/uL (0.8-4.8) 11/20/21 04:40 [place] # (Auto) 1.8 10^3/uL (0.2-0.9) H 11/20/21 04:40 Eos # (Auto) 0.3 10^3/uL (0.0-0.8) 11/20/21 04:40 Baso # (Auto) 0.1 10^3/uL (0.0-0.1) 11/20/21 04:40 Nucleated RBC % (auto) 0 % 11/20/21 04:40 Nucleated RBCs # 0.0 /100WBC 11/20/21 04:40 PT 15.70 SECONDS (12.1-14.9) H 11/14/21 02:10 PT Cancelled 11/14/21 02:10 INR 1.22 (0.8-1.2) H 11/14/21 02:10 INR Cancelled 11/14/21 02:10 APTT 27.9 SECONDS (23.9-36.7) 11/14/21 02:10 D-Dimer 0.71 ug/mIFEU (0-0.59) H 11/10/21 18:45 Specimen Type Arterial 11/14/21 03:05 Sample Site Femoral, left 11/14/21 03:05 ABG pH 7.49 (7.35-7.45) H 11/14/21 03:05 ABG pCO2 25.4 mmHg (35-45) L 11/14/21 03:05 ABG pO2 69.7 mmHg (80.0-100.0) L 11/14/21 03:05 ABG HCO3 19.5 mmol/L (22-26) L 11/14/21 03:05 ABG O2 Saturation 96.8 11/14/21 03:05 ABG Base Excess -2.9 mmol/L (-2.0-2.0) L 11/14/21 03:05 Russel Test N/a 11/14/21 03:05 A-a O2 Gradient 9.5 mmHg (5-10) 11/14/21 03:05 Hematocrit 28.0 % (42-52) L 11/14/21 03:05 Hgb O2 Saturation 94.8 % (95-100) L 11/14/21 03:05 Carboxyhemoglobin 1.1 %THgb (0.4-20.1) 11/14/21 03:05 Methemoglobin 1.0 % (0.4-1.5) 11/14/21 03:05 Total Hemoglobin 9.1 g/dL (14-18) L 11/14/21 03:05 Sodium 144.0 mmol/L (131-143) H 11/14/21 03:05 Potassium 3.6 mmol/L (3.5-5.0) 11/14/21 03:05 Glucose 90.0 mg/dL (70-115) 11/14/21 03:05 Ionized Calcium 1.1 mmol/L (1.1-1.4) 11/14/21 03:05 O2 Delivery Device Vent 11/14/21 03:05 SIMV 14.0 11/13/21 20:20 FiO2 25.0 % 11/14/21 03:05 Tidal Volume 0.60 11/14/21 03:05 PEEP 5.0 cmH20 11/14/21 03:05 Field Service Tech ID [email or web address] 11/14/21 03:05 Sodium 136 mmol/L (136-145) 11/20/21 04:40 Potassium 3.6 mmol/L (3.5-5.1) 11/20/21 04:40 Chloride 101 mmol/L (98-107) 11/20/21 04:40 Carbon Dioxide 23 mmol/L (22-29) 11/20/21 04:40 Anion Gap 15.6 (5-19) 11/20/21 04:40 BUN 14 mg/dL (8-23) 11/20/21 04:40 Creatinine 0.7 mg/dL (0.7-1.2) 11/20/21 04:40 GFR Calculation Not Reportable 11/20/21 04:40 Glucose 130 mg/dL (65-115) H 11/20/21 04:40 POC Glucose 168 mg/dL (70-110) H 11/20/21 20:45 Fasting Glucose 96 mg/dL (74-106) 11/14/21 02:10 Calculated Osmolality 289 mOsm/kg (285-295) 11/19/21 03:40 Calcium 9.3 mg/dL (8.5-10.5) 11/20/21 04:40 Phosphorus 2.9 mg/dL (2.5-4.5) 11/20/21 04:40 Magnesium 2.1 mg/dL (1.7-2.3) 11/20/21 04:40 Total Bilirubin 0.3 mg/dL (0.15-1.2) 11/12/21 13:22 Direct Bilirubin 0.20 mg/dL (0.00-0.30) 11/12/21 13:22 AST 13 U/L (0-40) 11/12/21 13:22 ALT 10 U/L (0-41) 11/12/21 13:22 Alkaline Phosphatase 126 IU/L (40-130) 11/12/21 13:22 Troponin T Baseline 23 ng/L (0-15) H 11/10/21 12:50 Troponin T 120 Minute 26.93 ng/L (0-15) H 11/10/21 14:45 Delta Troponin T 3.93 ABS# (0-10) 11/10/21 14:45 Troponin T Hi Sens 6Hr 27.28 ng/L (0-15) H 11/10/21 18:45 Troponin T Hi Sens 6Hr Delta 4.28 ng/L (0-12) 11/10/21 18:45 Total Protein 6.0 g/dL (6.6-8.7) L 11/12/21 13:22 Albumin 3.2 g/dL (3.5-5.2) L 11/20/21 04:40 Globulin 2.4 g/dL (1.3-4.6) 11/12/21 13:22 TSH 1.97 uIU/mL (0.27-4.20) 11/12/21 13:22 Free T4 1.03 ng/dL (0.82-1.77) 11/12/21 13:22 Urine Color Yellow (Yellow) 11/12/21 18:02 Urine Appearance Clear (CLEAR) 11/12/21 18:02 Urine pH 7 (5-7) 11/12/21 18:02 Ur Specific [place] 1.015 (1.005-1.030) 11/12/21 18:02 Urine Protein Neg (Negative) 11/12/21 18:02 Urine Glucose (UA) Norm (Normal) 11/12/21 18:02 Urine Ketones Negative (Negative) 11/12/21 18:02 Urine Blood Neg (Negative) 11/12/21 18:02 Urine Nitrate Negative (Negative) 11/12/21 18:02 Urine Bilirubin Neg (Negative) 11/12/21 18:02 Urine Urobilinogen Norm mg/dL (Negative) 11/12/21 18:02 Ur Leukocyte Esterase Negative (Negative) 11/12/21 18:02 Urine Opiates Screen Negative ng/mL (Negative) 11/10/21 19:00 Ur Barbiturates Screen Negative ng/mL (Negative) 11/10/21 19:00 Ur Phencyclidine Scrn Negative ng/mL (Negative) 11/10/21 19:00 Ur Amphetamines Screen Negative ng/mL (Negative) 11/10/21 19:00 U Benzodiazepines Scrn Negative ng/mL (Negative) 11/10/21 19:00 Urine Cocaine Screen Negative ng/mL (Negative) 11/10/21 19:00 U Marijuana (THC) Screen Negative ng/mL (Negative) 11/10/21 19:00 Blood Type O Positive 11/12/21:22 Rho(D) Type Positive 11/12/21 13:22 Antibody Screen Negative 11/12/21 13:22 Crossmatch See Detail 11/12/21 13:22 Vitals Last Vital Signs Temp 98.2 F 11/21/21 07:03 Pulse 89 11/21/21 07:03 Resp 18 11/21/21 07:03 BP 117/68 11/21/21 07:03 Pulse Ox 94 11/21/21 07:03 Discharge Plan Discharge Patient Disposition: Home Condition: Stable Prescriptions: New clopidogrel 75 mg Tablet 75 mg PO DAILY Qty: 30 0RF tamsulosin 0.4 mg Capsule 0.4 mg PO BEDTIME Qty: 30 0RF docusate sodium 100 mg Capsule 100 mg PO BID Qty: 60 0RF ezetimibe 10 mg Tablet 10 mg PO DAILY Qty: 30 0RF metoprolol tartrate 25 mg Tablet 25 mg PO BID@0900,2100 Qty: 30 0RF hydrocodone-acetaminophen 10-325 mg tablet 1 tab PO Q6H PRN (Reason: pain) Qty: 30 0RF Rx Instructions: Take only half a tablet if the pain is moderate. Continued nitroglycerin 0.4 mg tablet, sublingual 0.4 mg sublingual Q5M PRN (Reason: Chest Pain) 0RF Rx Instructions: do not exceed 3 doses per episode clear lungs 1 tab PO DAILY 0RF coenzyme Q10 [Co Q-10] 10 mg Capsule 10 mg PO DAILY@0900 0RF vitamin B complex Capsule 1 cap PO DAILY@0900 0RF Cardio For Life 1 tab PO DAILY@0900 0RF Vitamin D3 1 tab PO DAILY@0900 0RF Vitamin E Complex 1 tab PO DAILY@0900 0RF saw palmet[place] 1 tab PO DAILY@0900 0RF selenium 1 tab PO DAILY@0900 0RF vitamin K 1 tab PO DAILY@0900 0RF garlic oil 1,000 mg capsule 5,000 mg PO DAILY@0900 PRN (Reason: unknown) 0RF aspirin 81 mg Tablet,Chewable 81 mg PO DAILY 0RF Discontinued isosorbide mononitrate 30 mg tablet extended release 24 hr 15 mg PO DAILY Qty: 90 1RF Discharge Orders: Discharge Order (Routine); Ordered 11/21/21 Ordered By: Dandy Vo Other Ambulatory Orders: Basic Metabolic Panel (Routine) Timeframe: 1 Week Facility: [facility] - Location: Lab - Main Lab Ordered By: Dandy Vo Complete Blood Count w/Auto (Routine) Timeframe: 1 Week Location: Determined by Patient Ordered By: Dandy oV DME: Jhonny (Order) Location: None Selected Ordered By: Ethel Elise Referrals: [facility] [Outside] [facility] Home Care ([facility]) [Outside] Otoniel Yu DO [Primary Care Provider] - Milton Wilson MD [Physician] - 1 week Discharge Diet: Cardiac Discharge Activity: Limit activity as instructed Patient Instructions: Anemia, Rectal Bleeding (GEN), CABG (Coronary Artery Bypass Graft) (DC), Opioid Safety Activity Restrictions/Additional Instructions: May shower with dressings off Dry incisions completely after showering. May recover if desired to prevent irritation from clothing. No swimming or tub baths x2 weeks No lifting, pulling, or pushing with upper extremities more than 5 pounds for the next 6 weeks Report any fever, incisional redness, swelling, drainage, or increasing pain. Report any increasing shortness of breath or weight gain over 10 pounds Use incentive spirometer frequently Keep heart pillow readily available to assist with coughing, deep breathing, or sneezing Please follow-up with your primary care physician in 1 week. Please come back to emergency room if you develop any chest pain, shortness of breath, diaphoresis, dizziness or lightheadedness, abdominal pain, black stool or rectal blood, or any other new complaints. Discharge Attestations Time Spent in Discharge Care*: greater than 30 min Status at Discharge: Cognitive status at discharge: cognitively intact , Behavioral status at discharge: cooperative and independent in ADL's , Quality Metrics Clinical Quality Measures [ Acute Myocardial Infaction { Clinical Trial Participant: No; Contraindication to aspirin: None; Aspirin prescribed; Contraindication to statin: Adverse reaction to drug; Contraindication to PCI: Other (CABG);}] Coding Level of Care Code Acute Chg FW DC note Diagnoses Status post aorto-coronary artery bypass graft Z95.1 Unstable angina I20.0 Dyslipidemia E78.5
[2021-11-21 12:00] VITALS: BP 112/65; PULSE 84; RESP 18; TEMP 36.7; O2SAT 98
[2021-11-21 12:33] LABS: Glucose Point of Care 141 mg/dL (70-110)
--- NOTE | 2021-11-21 15:00 | PC.NURSE ---
IV removed intact. Patient tolerated well. Patient is A&Ox3. Respirations even and non-labored on room air. Reviewed discharge with patient and significant other at bedside. Patient and significant other verbalized understanding of discharge instructions including medications and follow up appointments. Patient assisted into wheel chair and pushed to private car.
[2021-11-21 15:25] VITALS: BP 112/65; PULSE 84; RESP 18; TEMP 36.7; O2SAT 98
--- NOTE | 2021-11-21 17:13 | P.PN_ITS ---
Subjective Subjective: Patient is feeling better. Vital signs remained stable. Denies any unusual shortness of breath. Vitals/I&O/Wt Last Vital Signs Temp 98.0 F 11/21/21 15:25 Pulse 84 11/21/21 15:25 Resp 18 11/21/21 15:25 BP 112/65 11/21/21 15:25 Pulse Ox 98 11/21/21 15:25 11/21/21 11/21/21 11/21/21 06:59 14:59 22:59 Intake Total 240 / 600 120 / 120 Output Total 700 / 700 900 / 900 Balance -460 / -100 -780 / -780 Weight last 48 hrs Weight 122 lb 7 oz Weight 133 lb 3.2 oz Physical Exam Narrative: Narrative GENERAL: The patient is alert and oriented times three. Not in any acute distress. HEENT: No significant pallor, icterus or lymphadenopathy.Oral cavity: There are no mucous membrane lesions. NECK: Trachea appears to be central. No masses noted. No JVD or thyromegaly appreciated. RESPIRATORY: The sternotomy site appears to be healing okay.? No signs of infection or bleeding. BREASTS: Deferred. HEART: The heart sounds are normal.? No S3 or S4. ? No significant murmurs.? No pericardial rub ABDOMEN: No vessel pulsations or distention. No tenderness. No organomegaly appreciated.? Bowel sounds are normally heard. : Deferred. RECTAL: Deferred. LYMPHATIC: No lymphadenopathy noted in the neck. EXTREMITIES: No edema or cyanosis. MUSCULOSKELETAL: No acute joint deformities or swelling SKIN: There are no significant rashes or ecchymosis NEUROPSYCHIATRIC: The patient is alert and oriented x3. Appears to be in a good mood. No tremors or rigidity noted. Urinary Catheter Management: Hinson: Cath Placed During This Visit: yes, but has since been removed by the nurse Reason for Continuing Indwelling Catheter: Decision to DC Catheter Urinary Catheter Date of Insertion: 11/13/21 Urinary Catheter Time of Insertion: 13:18 Date Urinary Catheter Removed: 11/15/21 Time Urinary Catheter Discontinued: 05:54 Data : 11/20/21 04:40 11/20/21 04:40 Other Labs: Laboratory Last Values WBC 12.4 10^3/uL (4.0-10.0) H 11/20/21 04:40 RBC 3.38 10^6/uL (4.1-5.3) L 11/20/21 04:40 Hgb 10.0 g/dL (11.7-16.6) L 11/20/21 04:40 Hct 31.0 % (42.0-52.0) L 11/20/21 04:40 MCV 91.7 fl (80-94) 11/20/21 04:40 MCH 29.6 pg (28.0-34.0) 11/20/21 04:40 MCHC 32.3 g/dL (30.0-36.0) 11/20/21 04:40 RDW 14.9 % (12.1-15.1) 11/20/21 04:40 Plt Count 393 10^3/cmm (130-400) D 11/20/21 04:40 MPV 11.0 fL (7.4-10.4) H 11/20/21 04:40 Neut % (Auto) 68.1 % 11/20/21 04:40 Lymph % (Auto) 13.4 % 11/20/21 04:40 [place] % (Auto) 14.8 % 11/20/21 04:40 Eos % (Auto) 2.3 % 11/20/21 04:40 Baso % (Auto) 0.6 % 11/20/21 04:40 Neut # (Auto) 8.45 10^3/uL (1.8-7.7) H 11/20/21 04:40 Lymph # (Auto) 1.7 10^3/uL (0.8-4.8) 11/20/21 04:40 [place] # (Auto) 1.8 10^3/uL (0.2-0.9) H 11/20/21 04:40 Eos # (Auto) 0.3 10^3/uL (0.0-0.8) 11/20/21 04:40 Baso # (Auto) 0.1 10^3/uL (0.0-0.1) 11/20/21 04:40 Nucleated RBC % (auto) 0 % 11/20/21 04:40 Nucleated RBCs # 0.0 /100WBC 11/20/21 04:40 PT 15.70 SECONDS (12.1-14.9) H 11/14/21 02:10 PT Cancelled 11/14/21 02:10 INR 1.22 (0.8-1.2) H 11/14/21 02:10 INR Cancelled 11/14/21 02:10 APTT 27.9 SECONDS (23.9-36.7) 11/14/21 02:10 D-Dimer 0.71 ug/mIFEU (0-0.59) H 11/10/21 18:45 Specimen Type Arterial 11/14/21 03:05 Sample Site Femoral, left 11/14/21 03:05 ABG pH 7.49 (7.35-7.45) H 11/14/21 03:05 ABG pCO2 25.4 mmHg (35-45) L 11/14/21 03:05 ABG pO2 69.7 mmHg (80.0-100.0) L 11/14/21 03:05 ABG HCO3 19.5 mmol/L (22-26) L 11/14/21 03:05 ABG O2 Saturation 96.8 11/14/21 03:05 ABG Base Excess -2.9 mmol/L (-2.0-2.0) L 11/14/21 03:05 Russel Test N/a 11/14/21 03:05 A-a O2 Gradient 9.5 mmHg (5-10) 11/14/21 03:05 Hematocrit 28.0 % (42-52) L 11/14/21 03:05 Hgb O2 Saturation 94.8 % (95-100) L 11/14/21 03:05 Carboxyhemoglobin 1.1 %THgb (0.4-20.1) 11/14/21 03:05 Methemoglobin 1.0 % (0.4-1.5) 11/14/21 03:05 Total Hemoglobin 9.1 g/dL (14-18) L 11/14/21 03:05 Sodium 144.0 mmol/L (131-143) H 11/14/21 03:05 Potassium 3.6 mmol/L (3.5-5.0) 11/14/21 03:05 Glucose 90.0 mg/dL (70-115) 11/14/21 03:05 Ionized Calcium 1.1 mmol/L (1.1-1.4) 11/14/21 03:05 O2 Delivery Device Vent 11/14/21 03:05 SIMV 14.0 11/13/21 20:20 FiO2 25.0 % 11/14/21 03:05 Tidal Volume 0.60 11/14/21 03:05 PEEP 5.0 cmH20 11/14/21 03:05 Tape Controlled Machine Stitcher ID [email or web address] 11/14/21 03:05 Sodium 136 mmol/L (136-145) 11/20/21 04:40 Potassium 3.6 mmol/L (3.5-5.1) 11/20/21 04:40 Chloride 101 mmol/L (98-107) 11/20/21 04:40 Carbon Dioxide 23 mmol/L (22-29) 11/20/21 04:40 Anion Gap 15.6 (5-19) 11/20/21 04:40 BUN 14 mg/dL (8-23) 11/20/21 04:40 Creatinine 0.7 mg/dL (0.7-1.2) 11/20/21 04:40 GFR Calculation Not Reportable 11/20/21 04:40 Glucose 130 mg/dL (65-115) H 11/20/21 04:40 POC Glucose 141 mg/dL (70-110) H 11/21/21 12:13 Fasting Glucose 96 mg/dL (74-106) 11/14/21 02:10 Calculated Osmolality 289 mOsm/kg (285-295) 11/19/21 03:40 Calcium 9.3 mg/dL (8.5-10.5) 11/20/21 04:40 Phosphorus 2.9 mg/dL (2.5-4.5) 11/20/21 04:40 Magnesium 2.1 mg/dL (1.7-2.3) 11/20/21 04:40 Total Bilirubin 0.3 mg/dL (0.15-1.2) 11/12/21 13:22 Direct Bilirubin 0.20 mg/dL (0.00-0.30) 11/12/21 13:22 AST 13 U/L (0-40) 11/12/21 13:22 ALT 10 U/L (0-41) 11/12/21 13:22 Alkaline Phosphatase 126 IU/L (40-130) 11/12/21 13:22 Troponin T Baseline 23 ng/L (0-15) H 11/10/21 12:50 Troponin T 120 Minute 26.93 ng/L (0-15) H 11/10/21 14:45 Delta Troponin T 3.93 ABS# (0-10) 11/10/21 14:45 Troponin T Hi Sens 6Hr 27.28 ng/L (0-15) H 11/10/21 18:45 Troponin T Hi Sens 6Hr Delta 4.28 ng/L (0-12) 11/10/21 18:45 Total Protein 6.0 g/dL (6.6-8.7) L 11/12/21 13:22 Albumin 3.2 g/dL (3.5-5.2) L 11/20/21 04:40 Globulin 2.4 g/dL (1.3-4.6) 11/12/21 13:22 TSH 1.97 uIU/mL (0.27-4.20) 11/12/21 13:22 Free T4 1.03 ng/dL (0.82-1.77) 11/12/21 13:22 Urine Color Yellow (Yellow) 11/12/21 18:02 Urine Appearance Clear (CLEAR) 11/12/21 18:02 Urine pH 7 (5-7) 11/12/21 18:02 Ur Specific [place] 1.015 (1.005-1.030) 11/12/21 18:02 Urine Protein Neg (Negative) 11/12/21 18:02 Urine Glucose (UA) Norm (Normal) 11/12/21 18:02 Urine Ketones Negative (Negative) 11/12/21 18:02 Urine Blood Neg (Negative) 11/12/21 18:02 Urine Nitrate Negative (Negative) 11/12/21 18:02 Urine Bilirubin Neg (Negative) 11/12/21 18:02 Urine Urobilinogen Norm mg/dL (Negative) 11/12/21 18:02 Ur Leukocyte Esterase Negative (Negative) 11/12/21 18:02 Urine Opiates Screen Negative ng/mL (Negative) 11/10/21 19:00 Ur Barbiturates Screen Negative ng/mL (Negative) 11/10/21 19:00 Ur Phencyclidine Scrn Negative ng/mL (Negative) 11/10/21 19:00 Ur Amphetamines Screen Negative ng/mL (Negative) 11/10/21 19:00 U Benzodiazepines Scrn Negative ng/mL (Negative) 11/10/21 19:00 Urine Cocaine Screen Negative ng/mL (Negative) 11/10/21 19:00 U Marijuana (THC) Screen Negative ng/mL (Negative) 11/10/21 19:00 Blood Type O Positive 11/12/21 13:22 Rho(D) Type Positive 11/12/21 13:22 Antibody Screen Negative 11/12/21 13:22 Crossmatch See Detail 11/12/21 13:22 A&P Assessment and plan (1) Status post aorto-coronary artery bypass graft: Patient is recuperating fairly well. May continue on the current measures. Status: Acute (2) Unstable angina: Has not had a recurrence of chest pain. May continue on the current dose of aspirin, Plavix, statin and other medications Status: Acute (3) Dyslipidemia: We will continue on the current medications. Status: Acute Plan Other problems are Mild anemia Once discharged, I may see the patient in the office in a month. Attestations Medical Necessity Statement*: Disposition as per the primary Coding Level of Care Code Acute Geospatial Specialist for Denisse Gardner Diagnoses Status post aorto-coronary artery bypass graft Z95.1 Unstable angina I20.0 Dyslipidemia E78.5
[2021-11-22 06:29] LABS: Glucose Point of Care 107 mg/dL (70-110)
== END 2021-11-21 15:00 | disposition home health service (06) | DRG 233 ==
LOC: ER 13:57 → CSU 14:17 → ICU 11-13 13:03 → MEDSURG 11-18 15:42
PROVIDERS: Emergency Medicine; Internal Medicine; Internal Medicine Cardiovascular Disease; Thoracic Surgery (Cardiothoracic Vascular Surgery); Admitting Provider Internal Medicine; Emergency Provider Family Medicine; PCP Emergency Medicine Emergency Medical Services; Visit Provider Internal Medicine
PROC: 4A023N7 Measurement of Cardiac Sampling and Pressure, Left Heart, Percutaneous Approach (ICD-10-PCS; principal; 2021-11-11 14:00)
PROC: 021009W Bypass Coronary Artery, One Artery from Aorta with Autologous Venous Tissue, Open Approach (ICD-10-PCS; principal; 2021-11-13 10:10)
DX: T82.855A Stenosis of coronary artery stent, initial encounter (principal); I21.4 Non-ST elevation (NSTEMI) myocardial infarction; I25.110 Atherosclerotic heart disease of native coronary artery with unstable angina pectoris; Y71.8 Miscellaneous cardiovascular devices associated with adverse incidents, not elsewhere classified; F17.210 Nicotine dependence, cigarettes, uncomplicated; J43.9 Emphysema, unspecified; I73.9 Peripheral vascular disease, unspecified; I10 Essential (primary) hypertension; Z85.46 Personal history of malignant neoplasm of prostate; R97.21 Rising PSA following treatment for malignant neoplasm of prostate; N52.9 Male erectile dysfunction, unspecified; N40.1 Benign prostatic hyperplasia with lower urinary tract symptoms; Z91.14 Patient's other noncompliance with medication regimen; E78.5 Hyperlipidemia, unspecified; R00.1 Bradycardia, unspecified; K59.00 Constipation, unspecified; Z79.82 Long term (current) use of aspirin; K64.9 Unspecified hemorrhoids
CPT/HCPCS: 36415; 36416; 36430; 36592; 36600; 51702; 71045; 80048; 80051; 80069; 80076; 80306; 81003; 82330; 82805; 82947; 82962; 83735; 84439; 84443; 84484; 85014; 85018; 85025; 85378; 85610; 85730; 86850; 86900; 86920; 93005; 93306; 93458; 93970; 94640; 94799; 96372; 97110; 97116; 97161; 97167; 97530; 97535; 99285; C1769; C1887; C1894; C9113; G0378; J0171; J0697; J1170; J1200; J1250; J1644; J1650; J1815; J1940; J2250; J2270; J2370; J2440; J2704; J3010; J3370; J3480; J3490; J7030; J7040; J7050; J7799; P9016; P9035; P9041; Q9967

== ENCOUNTER 2021-11-24 08:42 | Emergency (ER) | payer OTHER, SELFPAY ==
[2021-11-24 08:54] VITALS: BP 115/69; PULSE 88; RESP 17; O2SAT 95; BMI 17.9
--- NOTE | 2021-11-24 09:35 | W.ED.GENADLT ---
Documented by User: RONALD Levy 11/24/21 10:11 HPI - General Adult General: Chief complaint: General Medical Stated complaint: Can't take his pain meds because of reaction Time Seen by Provider: 11/24/21 09:07 Source: patient and family Mode of arrival: ambulatory Limitations: no limitations History of Present Illness: Patient is a nice 75-year-old male who presents to ED today with a complaint of adverse/unwanted side effects of hydrocodone and is requesting a prescription for the oxycodone that he was being prescribed while hospitalized. Patient states he was recently hospitalized and underwent a CABG by Dr. Wilson. He was discharged home yesterday. Patient states while in the hospital following the surgery he was being given oxycodone 5mg tabs initially 2 tabs every 4-6 hours. He states by the time he was discharged they had weaned him down to 1 tab every 12 hours which was working well for controlling his pain. States when he was discharged they gave him hydrocodone and states when he took this medication it made him very loopy headed and zombie like . He states he is unwilling to tolerate the side effects. In addition he states it was not controlling his pain very well. Is requesting to be placed back on his oxycodone 1 tab every 12 hours. Patient has a follow-up visit with Dr. Wilson on . Patient is having home health come and dress his surgical wounds and states they are doing well. Onset (ago): day(s) Pain Consistency: constant Relieving factors: other (oxycodone) Associated symptoms: Reports chest pain (over sternotomy site); Deny dyspnea, headache(s), malaise, palpitations or syncope Review of Systems Const: Denies: fever(s), chills, body aches, fatigue or malaise Card: Reports: chest pain (over sternotomy site); Denies: palpitations, irregular heart rhythm, edema, swelling of feet/ankles, lightheadedness, syncope or pre-syncope Resp: Denies: dyspnea GI: Denies: abdominal pain Neuro: Denies: headache(s) or dizziness PFS ED PFSH: Medical History Abnormal prostate exam Abnormal stress test Anxiety BPH (benign prostatic hyperplasia) BPH loc w urin obs/LUTS CAD (coronary artery disease) -has known hx of CAD s/p stenting x 3 COPD (chronic obstructive pulmonary disease) Depression Elevated PSA Erectile dysfunction HLD (hyperlipidemia) HTN (hypertension) Hypercholesterolemia Leg weakness, bilateral Peripheral vascular disease with claudication PTSD (post-traumatic stress disorder) Spermatocele of epididymis, multiple Surgical History History of coronary artery stent placement Family History Father , at age 64 Myocardial infarction Mother , in her 80's Dementia Social History Smoking and tobacco status: current every day smoker Alcohol intake: never Household members: none Marital status: Single Current occupational status: retired History of recent travel: No Physical Exam Const: COMMON NORMALS: no acute distress, average body habitus, patient oriented x3, no limitations, healthy appearing, alert and well nourished GENERAL APPEARANCE: cooperative ORIENTATION/CONSCIOUSNESS: Yes awake, Yes oriented to person, Yes oriented to place and Yes oriented to time HENMT: COMMON NORMALS: normocephalic and atraumatic HEAD & SCALP: normal to inspection, normocephalic and atraumatic Chest: OTHER: sternotomy site appears clean and infection free Resp: COMMON NORMALS: normal respiratory effort and clear to auscultation bilaterally AUSCULTATION: clear to auscultation bilaterally Cardio: COMMON NORMALS: regular rate and regular rhythm RATE: regular rate RHYTHM: regular rhythm GI: COMMON NORMALS: Normal to inspection, nondistended, normoactive bowel sounds present, Soft to palpation and non-tender PALPATION: Yes Soft to palpation Extremity: COMMON NORMALS: normal to inspection GENERAL: Yes normal exam except as noted OTHER: vein harvest incisions look clean/infection free; bilateral inguinal incisions are clean/infection free as well Neuro: COMMON NORMALS: patient oriented x3, moves all extremities, no focal motor deficits and no sensory deficits noted SENSORIUM/ORIENTATION: Yes alert, Yes oriented to person, Yes oriented to place and Yes oriented to time Skin: NARRATIVE SKIN EXAM: pertinent skin findings documented above Course Vital Signs: Vital signs: Vital Signs Pulse Rate 86 11/24/21 11:17 Respiratory Rate 18 11/24/21 11:17 Blood Pressure 118/57 11/24/21 11:17 Pulse Oximetry 92 11/24/21 11:17 MDM - General Adult Medical Decision Making I am comfortable placing patient back on his oxycodone 1 tab every 12 hours. Recommendations to follow-up with Dr. Wilson on as scheduled. Recommend when he fills his oxycodone prescription that he give the hydrocodone bottle/tablets back to the pharmacist so they may dispose of them appropriately. Discharge Plan Discharge Patient Disposition: Home Clinical Impression: Adverse reaction to narcotic drug Qualifiers: Encounter type: initial encounter Qualified Code(s): T40.605A - Adverse effect of unspecified narcotics, initial encounter Condition: Stable Prescriptions: New Percocet 5-325 mg tablet 1 tab PO .q12 PRN (Reason: pain) Qty: 14 0RF Discontinued hydrocodone-acetaminophen 10-325 mg tablet 1 tab PO Q6H PRN (Reason: pain) Qty: 30 0RF Rx Instructions: Take only half a tablet if the pain is moderate. No Action nitroglycerin 0.4 mg tablet, sublingual 0.4 mg sublingual Q5M PRN (Reason: Chest Pain) 0RF Rx Instructions: do not exceed 3 doses per episode clear lungs 1 tab PO DAILY 0RF coenzyme Q10 [Co Q-10] 10 mg Capsule 10 mg PO DAILY@0900 0RF vitamin B complex Capsule 1 cap PO DAILY@0900 0RF Cardio For Life 1 tab PO DAILY@0900 0RF Vitamin D3 1 tab PO DAILY@0900 0RF Vitamin E Complex 1 tab PO DAILY@0900 0RF saw palmetto 1 tab PO DAILY@0900 0RF selenium 1 tab PO DAILY@0900 0RF vitamin K 1 tab PO DAILY@0900 0RF garlic oil 1,000 mg capsule 5,000 mg PO DAILY@0900 PRN (Reason: unknown) 0RF aspirin 81 mg Tablet,Chewable 81 mg PO DAILY 0RF clopidogrel 75 mg Tablet 75 mg PO DAILY Qty: 30 0RF tamsulosin 0.4 mg Capsule 0.4 mg PO BEDTIME Qty: 30 0RF docusate sodium 100 mg Capsule 100 mg PO BID Qty: 60 0RF ezetimibe 10 mg Tablet 10 mg PO DAILY Qty: 30 0RF metoprolol tartrate 25 mg Tablet 25 mg PO BID@0900,2100 Qty: 30 0RF Discharge Orders: Discharge ED (Routine); Ordered 11/24/21 Ordered By: Danelle Salazar Referrals: Otoniel Yu DO [Primary Care Provider] - Patient Instructions: Opioid Safety Coding Level of Care Code ED 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 Documented by User: Coy Scott DO 11/24/21 14:50 HPI - General Adult General: Chief complaint: General Medical Stated complaint: Can't take his pain meds because of reaction Time Seen by Provider: 11/24/21 09:07 PFSH ED PFSH: Medical History Abnormal prostate exam Abnormal stress test Anxiety BPH (benign prostatic hyperplasia) BPH loc w urin obs/LUTS CAD (coronary artery disease) -has known hx of CAD s/p stenting x 3 COPD (chronic obstructive pulmonary disease) Depression Elevated PSA Erectile dysfunction HLD (hyperlipidemia) HTN (hypertension) Hypercholesterolemia Leg weakness, bilateral Peripheral vascular disease with claudication PTSD (post-traumatic stress disorder) Spermatocele of epididymis, multiple Surgical History History of coronary artery stent placement Family History Father , at age 64 Myocardial infarction Mother , in her 80's Dementia Social History Smoking and tobacco status: current every day smoker Alcohol intake: never Household members: none Marital status: Single Current occupational status: retired History of recent travel: No Course Vital Signs: Vital signs: Vital Signs Pulse Rate 86 11/24/21 11:17 Respiratory Rate 18 11/24/21 11:17 Blood Pressure 118/57 11/24/21 11:17 Pulse Oximetry 92 11/24/21 11:17 MDM - General Adult Medical Decision Making I am comfortable placing patient back on his oxycodone 1 tab every 12 hours. Recommendations to follow-up with Dr. Wilson on as scheduled. Recommend when he fills his oxycodone prescription that he give the hydrocodone bottle/tablets back to the pharmacist so they may dispose of them appropriately. Chart reviewed and patient discussed with midlevel. Agree with assessment and plan. Discharge Plan Discharge Patient Disposition: Home Clinical Impression: Adverse reaction to narcotic drug Qualifiers: Encounter type: initial encounter Qualified Code(s): T40.605A - Adverse effect of unspecified narcotics, initial encounter Condition: Stable Prescriptions: New Percocet 5-325 mg tablet 1 tab PO .q12 PRN (Reason: pain) Qty: 14 0RF Discontinued hydrocodone-acetaminophen 10-325 mg tablet 1 tab PO Q6H PRN (Reason: pain) Qty: 30 0RF Rx Instructions: Take only half a tablet if the pain is moderate. No Action nitroglycerin 0.4 mg tablet, sublingual 0.4 mg sublingual Q5M PRN (Reason: Chest Pain) 0RF Rx Instructions: do not exceed 3 doses per episode clear lungs 1 tab PO DAILY 0RF coenzyme Q10 [Co Q-10] 10 mg Capsule 10 mg PO DAILY@0900 0RF vitamin B complex Capsule 1 cap PO DAILY@0900 0RF Cardio For Life 1 tab PO DAILY@0900 0RF Vitamin D3 1 tab PO DAILY@0900 0RF Vitamin E Complex 1 tab PO DAILY@0900 0RF saw palmetto 1 tab PO DAILY@0900 0RF selenium 1 tab PO DAILY@0900 0RF vitamin K 1 tab PO DAILY@0900 0RF garlic oil 1,000 mg capsule 5,000 mg PO DAILY@0900 PRN (Reason: unknown) 0RF aspirin 81 mg Tablet,Chewable 81 mg PO DAILY 0RF clopidogrel 75 mg Tablet 75 mg PO DAILY Qty: 30 0RF tamsulosin 0.4 mg Capsule 0.4 mg PO BEDTIME Qty: 30 0RF docusate sodium 100 mg Capsule 100 mg PO BID Qty: 60 0RF ezetimibe 10 mg Tablet 10 mg PO DAILY Qty: 30 0RF metoprolol tartrate 25 mg Tablet 25 mg PO BID@0900,2100 Qty: 30 0RF Discharge Orders: Discharge ED (Routine); Ordered 11/24/21 Ordered By: Danelle Salazar Referrals: Otoniel Yu DO [Primary Care Provider] - Patient Instructions: Opioid Safety Coding Level of Care Code ED 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
[2021-11-24 11:17] VITALS: BP 118/57; PULSE 86; RESP 18; O2SAT 92
== END 2021-11-24 11:16 | disposition home or self-care (01) ==
PROVIDERS: Emergency Provider Physician Assistant; PCP Emergency Medicine Emergency Medical Services
DX: R07.9 Chest pain, unspecified (principal); T40.2X5A Adverse effect of other opioids, initial encounter
CPT/HCPCS: 99281

== ENCOUNTER 2021-11-28 12:30 | Outpatient (CLI) | payer OTHER, SELFPAY ==
[2021-11-28 12:44] LABS: Basophils # 0.1 10^3/uL (0.0-0.1); Basophils % 0.5 %; Eosinophils # 0.5 10^3/uL (0.0-0.8); Eosinophils % 3.1 %; Hematocrit 37.5 % (42.0-52.0); Hemoglobin 11.6 g/dL (11.7-16.6); Lymphocytes # 1.7 10^3/uL (0.8-4.8); Lymphocytes % 11.6 %; Mean Corpuscular HGB Conc 30.9 g/dL (30.0-36.0); Mean Corpuscular Hemoglobin 29.7 pg (28.0-34.0); Mean Corpuscular Volume 96.2 fl (80-94); Mean Platelet Volume 10.4 fL (7.4-10.4); Monocytes # 1.6 10^3/uL (0.2-0.9); Monocytes % 10.3 %; Neutrophils # 11.13 10^3/uL (1.8-7.7); Neutrophils % 73.8 %; Nucleated Red Blood Cells % 0 %; Platelet Count 672 10^3/cmm (130-400); Red Cell Distribution Width 14.8 % (12.1-15.1); White Blood Count 15.1 10^3/uL (4.0-10.0)
[2021-11-28 13:24] LABS: Blood Urea Nitrogen 12 mg/dL (8-23); Calcium 8.8 mg/dL (8.5-10.5); Carbon Dioxide 27 mmol/L (22-29); Chloride 101 mmol/L (98-107); Glucose 73 mg/dL (65-115); Osmolality Calculated 288 mOsm/kg (285-295); Sodium 140 mmol/L (136-145)
[2021-11-28 13:37] LABS: Anion Gap 16.5 (5-19); Potassium 4.5 mmol/L (3.5-5.1)
== END 2021-11-28 12:31 | disposition home or self-care (01) ==
LOC: LAB 12:33
PROVIDERS: Internal Medicine; Urology; PCP Emergency Medicine Emergency Medical Services; Visit Provider Thoracic Surgery (Cardiothoracic Vascular Surgery)
DX: Z48.812 Encounter for surgical aftercare following surgery on the circulatory system (principal); I10 Essential (primary) hypertension; D64.9 Anemia, unspecified; R97.20 Elevated prostate specific antigen [PSA]
CPT/HCPCS: 80048; 84153; 85025

== ENCOUNTER 2021-11-29 12:28 | Outpatient (CLI) | payer OTHER, SELFPAY ==
--- NOTE | 2021-11-29 12:36 | XRR_ITS ---
PROCEDURE INFORMATION: Exam: XR Chest Exam date and time: 11/29/2021 12:47 PM Age: 75 years old Clinical indication: Shortness of breath; Prior surgery; Surgery date: <1 month; Surgery type: Cabg TECHNIQUE: Imaging protocol: XR of the chest. Views: 2 views. COMPARISON: CR XR chest 1V portable [id number] 11/16/2021 4:36 AM FINDINGS: Lungs: Been hyperexpanded lungs consistent with COPD No consolidation. Pleural spaces: Right lower lobe loculated pleural effusion. No pneumothorax. Heart/Mediastinum: Unremarkable. No cardiomegaly. Bones/joints: Metallic sternotomy wires are in place. XR/XR chest 2V* [id number] IMPRESSION: 1. COPD 2. Loculated right lower lobe pleural effusion. 3. Metallic sternotomy wires are in place.
== END 2021-11-29 12:29 | disposition home or self-care (01) ==
LOC: RAD 12:30
PROVIDERS: PCP Emergency Medicine Emergency Medical Services; Visit Provider Thoracic Surgery (Cardiothoracic Vascular Surgery)
DX: R06.02 Shortness of breath (principal); J44.9 Chronic obstructive pulmonary disease, unspecified; J90 Pleural effusion, not elsewhere classified
CPT/HCPCS: 71046

== ENCOUNTER → 2021-12-06 13:51 | Outpatient (BNVA) | payer OTHER, SELFPAY | PROVIDERS: PCP Emergency Medicine Emergency Medical Services; Visit Provider Thoracic Surgery (Cardiothoracic Vascular Surgery) | DX: Z98.890 Other specified postprocedural states (principal) | CPT/HCPCS: 99024 ==

== ENCOUNTER 2021-12-10 14:58 | Outpatient (CLI) | payer OTHER, SELFPAY | END 2021-12-10 14:59 | disposition home or self-care (01) | LOC: LAB 15:03 | PROVIDERS: PCP Emergency Medicine Emergency Medical Services; Visit Provider Urology | DX: R97.20 Elevated prostate specific antigen [PSA] (principal); N40.1 Benign prostatic hyperplasia with lower urinary tract symptoms; R39.89 Other symptoms and signs involving the genitourinary system | CPT/HCPCS: 81003; 84153; 99213 ==

== ENCOUNTER 2021-12-13 12:50 | Emergency (ER) | payer OTHER, SELFPAY ==
[2021-12-13] VITALS (7 sets, daily range): BP systolic 107–150; BP diastolic 67–88; PULSE 83–101; RESP 18–22; TEMP 36.9; O2SAT 95–99; BMI 17.4
--- NOTE | 2021-12-13 14:04 | XR_ITS ---
WS: [id number] PORTABLE CHEST HISTORY: chest pain COMPARISON: 11/29/2021 Lungs are hyperinflated. Nodule in the central LEFT lung has been present on multiple prior examinati ons. No pneumonia. No pleural effusion or pneumothorax. Prior CABG. No pneumothorax. Cardiac size: Normal. Mediastinum/Aorta: Mild atherosclerosis aorta. No osseous abnormality seen. XR/XR chest 1V portable [id number] IMPRESSION: 1. Prior CABG and emphysema. 2. No pneumonia. Normal vasculature.
--- NOTE | 2021-12-13 14:04 | ECG_ITS ---
[facility] Test Date: 2021-12-13 Pat Name: Dae Gupta Department: Room: Gender: Male [employer]: : 1945 Requested By: Danelle Salazar Order Number: [id number] Donna MD: Anjel Spear M.D. Measurements Intervals [place] Rate: 80 P: 76 NJ: 142 QRS: 37 QRSD: 98 T: 70 QT: 398 QTc: 461 Interpretive Statements SINUS RHYTHM LEFT ATRIAL ENLARGEMENT [-0.15mV P-WAVE IN V1/V2] NONSPECIFIC T-WAVE ABNORMALITY Compared to ECG 12/13/2021 16:49:06 No significant changes Electronically Signed On 12-14-2021 0:00:56 CDT by Anjel Spear M.D. [id number]
--- NOTE | 2021-12-13 14:57 | ED_ITS ---
Documented by User: Ja Nagy MD 12/18/21 07:29 HPI - SOB/Dyspnea General: Chief Complaint: Shortness of Breath/Dyspnea Stated Complaint: [facility] Time Seen by Provider: 12/13/21 14:55 History of Present Illness: HPI Narrative: Mr. Gupta is a with significant past medical history of being approximately 1 month postop from CABG x1 who presents to the emergency department due to shortness of breath. He reports he was doing well as far as recovery goes until approximately 2 days ago when he had onset of shortness of breath. Onset was gradual and he denies associated chest pain. Symptoms are worse with exertion. He denies associated infectious symptoms. He was on amoxicillin prophylactically and subsequently stopped that upon completion of therapy. Onset (ago): day(s) Context: other Timing: constant Severity: moderate Exacerbating factors: exertion Relieving factors: rest Review of Systems General: Reports: 10 or more systems reviewed and unremarkable except in HPI and below PFSH ED PFSH: Medical History Abnormal prostate exam Abnormal stress test Anxiety BPH (benign prostatic hyperplasia) BPH loc w urin obs/LUTS CAD (coronary artery disease) -has known hx of CAD s/p stenting x 3 COPD (chronic obstructive pulmonary disease) Depression Elevated PSA Erectile dysfunction HLD (hyperlipidemia) HTN (hypertension) Hypercholesterolemia Leg weakness, bilateral Peripheral vascular disease with claudication PTSD (post-traumatic stress disorder) Spermatocele of epididymis, multiple Surgical History History of coronary artery stent placement Family History Father , at age 64 Myocardial infarction Mother , in her 80's Dementia Social History Smoking and tobacco status: former smoker Quit status (tobacco): has quit using tobacco Year quit tobacco: 11/12/21 Alcohol intake: never Household members: none Marital status: Single Current occupational status: retired History of recent travel: No Physical Exam Const: COMMON NORMALS: alert GENERAL APPEARANCE: cooperative and well developed HENMT: COMMON NORMALS: normocephalic and atraumatic HEAD & SCALP: normocephalic and atraumatic Eye: COMMON NORMALS: conjunctivae normal CONJUNCTIVA: Yes conjunctivae normal SCLERA: sclerae normal Neck/C-Spine: COMMON NORMALS: supple GENERAL: Yes trachea midline Resp: COMMON NORMALS: clear to auscultation bilaterally EFFORT & INSPECTION: Yes able to speak in complete sentences AUSCULTATION: clear to auscultation bilaterally Cardio: COMMON NORMALS: regular rate and regular rhythm RATE: regular rate RHYTHM: regular rhythm GI: COMMON NORMALS: Soft to palpation PALPATION: Yes Soft to palpation and No Tenderness to palpation present (GI) PERCUSSION: normal to percussion Extremity: GENERAL: Yes normal exam except as noted and No edema Neuro: COMMON NORMALS: moves all extremities SENSORIUM/ORIENTATION: Yes alert and No Orientation impaired Psych: COMMON NORMALS: mental status grossly normal and Normal thought process present THOUGHT PROCESS: Normal thought process present Course ED course: - Patient was seen and evaluated by me at bedside - Patient placed on cardiac monitors, IV access obtained - Initial evaluation notable for exam as above - Labs and xrays personally interpreted by me. EKGs reviewed with no STEMI - Labs notable for mild leukocytosis, similar hemoglobin to prior. Metabolic panel with perhaps mild intravascular depletion. BNP is mildly elevated. Delta troponin pending. - Imaging notable for no lobar consolidation or pneumothorax. Emphysema is pre sent. - Upon serial reexamination after treatment the patient was similar. -Case discussed with Dr. Wilson who recommended diuresis - Based on patient history, evaluation, and testing as interpreted the most likely cause of the patient's condition is shortness of breath of uncertain etiology, given mildly elevated BNP it is reasonable to attempt gentle diuresis for few days as Dr. Macias discussed. Additionally given patient's history of emphysema reasonable to treat for COPD exacerbation - The results of ED evaluation were discussed with the patient including prescriptions and/or symptomatic cares (if applicable) including appropriate and responsible use, followup plan, and return precautions. The patient verbalized understanding and felt safe for discharge. - Patient discharged in satisfactory condition. Note: Click bubbles or prepopulated lebron in note writing are used for assistance with data collection and billing and are inherently more limited than narrative and other text portions of this note. Please use narrative for additional clinical history and defer to narrative/free test for any case of contradictory information. If information appears in only free text or click bubble it should be considered present or absent as reported. Please contact note group underwriter for clarifications of clinical information or contradictory information. MDM is a brief summary, contradictory or erroneous seeming information should be clarified and full note should be reviewed. Vital Signs: Vital signs: Vital Signs Temperature 98.5 F 12/13/21 13:50 Pulse Rate 101 H 12/13/21 19:26 Respiratory Rate 22 H 12/13/21 19:26 Blood Pressure 150/88 12/13/21 19:26 Pulse Oximetry 95 12/13/21 19:26 MDM - SOB/Dyspnea Medical Decision Making 75-year-old gentleman presenting 1 month after CABG for shortness of breath. No clear etiology identified on ED evaluation, mild elevation in BNP and after discussion with Dr. Macias we will plan for few days of gentle diuresis. Additionally given history of emphysema we will treat for COPD exacerbation. Signed out to Dr. Gonzalez pending repeat troponin. Took patient over from Dr. Bejarano he is here with some dyspnea he has been well-appearing here feels improved repeat troponin here is negative he is stable for discharge she is to follow-up with Dr. Wilson return if worsening he understands agrees to plan. Medical Records I reviewed the patient's medical records. Lab Data I reviewed the patient's lab results. : 12/13/21 15:20 12/13/21 15:20 Labs/Radiology: Radiology Impressions Chest X-Ray 12/13/21 14:04 IMPRESSION: 1. Prior CABG and emphysema. 2. No pneumonia. Normal vasculature. Laboratory Results WBC 12.2 10^3/uL (4.0-10.0) H 12/13/21 15:20 RBC 3.92 10^6/uL (4.1-5.3) L 12/13/21 15:20 Hgb 11.6 g/dL (11.7-16.6) L 12/13/21 15:20 Hct 37.4 % (42.0-52.0) L 12/13/21 15:20 MCV 95.4 fl (80-94) H 12/13/21 15:20 MCH 29.6 pg (28.0-34.0) 12/13/21 15:20 MCHC 31.0 g/dL (30.0-36.0) 12/13/21 15:20 RDW 15.0 % (12.1-15.1) 12/13/21 15:20 Plt Count 307 10^3/cmm (130-400) 12/13/21 15:20 MPV 10.5 fL (7.4-10.4) H 12/13/21 15:20 Neut % (Auto) 48.6 % 12/13/21 15:20 Lymph % (Auto) 18.3 % 12/13/21 15:20 [place] % (Auto) 12.6 % 12/13/21 15:20 Eos % (Auto) 19.3 % 12/13/21 15:20 Baso % (Auto) 0.7 % 12/13/21 15:20 Neut # (Auto) 5.93 10^3/uL (1.8-7.7) 12/13/21 15:20 Lymph # (Auto) 2.2 10^3/uL (0.8-4.8) 12/13/21 15:20 [place] # (Auto) 1.5 10^3/uL (0.2-0.9) H 12/13/21 15:20 Eos # (Auto) 2.4 10^3/uL (0.0-0.8) H 12/13/21 15:20 Baso # (Auto) 0.1 10^3/uL (0.0-0.1) 12/13/21 15:20 Nucleated RBC % (auto) 0 % 12/13/21 15:20 Nucleated RBCs # 0.0 /100WBC 12/13/21 15:20 Sodium 134 mmol/L (136-145) L 12/13/21 15:20 Potassium 4.1 mmol/L (3.5-5.1) 12/13/21 15:20 Chloride 97 mmol/L (98-107) L 12/13/21 15:20 Carbon Dioxide 27 mmol/L (22-29) 12/13/21 15:20 Anion Gap 14.1 (5-19) 12/13/21 15:20 BUN 19 mg/dL (8-23) 12/13/21 15:20 Creatinine 0.7 mg/dL (0.7-1.2) 12/13/21 15:20 GFR Calculation Not Reportable 12/13/21 15:20 Glucose 125 mg/dL (65-115) H 12/13/21 15:20 Calculated Osmolality 282 mOsm/kg (285-295) L 12/13/21 15:20 Calcium 9.0 mg/dL (8.5-10.5) 12/13/21 15:20 Total Bilirubin 0.2 mg/dL (0.15-1.2) 12/13/21 15:20 AST 13 U/L (0-40) 12/13/21 15:20 ALT 9 U/L (0-41) 12/13/21 15:20 Alkaline Phosphatase 153 IU/L (40-130) H 12/13/21 15:20 Troponin T Baseline 17 ng/L (0-15) H 12/13/21 15:20 Troponin T 120 Minute 16.46 ng/L (0-15) H 12/13/21 17:23 Delta Troponin T -0.54 ABS# (0-10) L 12/13/21 17:23 NT-Pro-B Natriuret Pep 925 pg/mL (0-125) H 12/13/21 15:20 Total Protein 7.6 g/dL (6.6-8.7) 12/13/21 15:20 Albumin 3.8 g/dL (3.5-5.2) 12/13/21 15:20 Globulin 3.8 g/dL (1.3-4.6) 12/13/21 15:20 Discharge Plan Discharge Patient Disposition: Home Clinical Impression: Acute exacerbation of chronic obstructive airways disease, Status post coronary artery bypass graft, Elevated brain natriuretic peptide (BNP) level Condition: Stable Prescriptions: New doxycycline hyclate 100 mg tablet 100 mg PO BID 10 Days Qty: 20 0RF Lasix 20 mg tablet 20 mg PO QAM Qty: 3 0RF No Action nitroglycerin 0.4 mg tablet, sublingual 0.4 mg sublingual Q5M PRN (Reason: Chest Pain) 0RF Rx Instructions: do not exceed 3 doses per episode diphenhydramine HCl [Benadryl] 25 mg capsule 25 mg PO QPM PRN (Reason: Allergy Symptoms) 0RF oxycodone-acetaminophen 5-325 mg tablet 1 tab PO Q8H PRN (Reason: pain) 7 Days Qty: 20 0RF coenzyme Q10 [Co Q-10] 10 mg Capsule 10 mg PO DAILY@0900 0RF vitamin B complex Capsule 1 cap PO DAILY@0900 0RF garlic oil 1,000 mg capsule 5,000 mg PO DAILY@0900 PRN (Reason: unknown) 0RF aspirin 81 mg Tablet,Chewable 81 mg PO DAILY 0RF clopidogrel 75 mg Tablet 75 mg PO DAILY Qty: 30 0RF tamsulosin 0.4 mg Capsule 0.4 mg PO BEDTIME Qty: 30 0RF docusate sodium 100 mg Capsule 100 mg PO BID Qty: 60 0RF ezetimibe 10 mg Tablet 10 mg PO DAILY Qty: 30 0RF metoprolol tartrate 25 mg Tablet 25 mg PO BID@0900,2100 Qty: 30 0RF oxycodone-acetaminophen [Percocet] 5-325 mg tablet 1 tab PO .q12 PRN (Reason: pain) Qty: 14 0RF Vitamin D3 10 mcg (400 unit) Tablet 10 mcg PO DAILY 0RF Vitamin E Complex 1,000 unit Capsule 1,000 unit PO DAILY 0RF albuterol sulfate 90 mcg/actuation Hfa Aerosol Inhaler 2 puff INHALATION Q6H PRN (Reason: Shortness Of Breath) 0RF Discharge Orders: Discharge ED (Routine); Ordered 12/13/21 Ordered By: Lizzy Gonzalez Referrals: Otoniel Yu DO [Primary Care Provider] - Discharge Diet: Usual diet Discharge Activity: Increase activity as tolerated Activity Restrictions/Additional Instructions: Thank you for visiting the emergency department. You were seen evaluated for sh ortness of breath. The exact cause of your symptoms is unclear, you do have evidence of mild increased fluid with elevated BNP. As discussed this will be treated with Lasix. Additionally, given history of underlying lung disease he likely have mild exacerbation of COPD. This will be treated with steroids and antibiotics. Please follow-up with your primary care provider. Please follow-up with Dr. Wilson. I will message case management for assistance in follow-up with Dr. Wilson. Please return to the emergency department for worsening symptoms or anything else that you are concerned about and feel needs emergency department evaluation. Coding Level of Care Code ED Top Spotter for Chg Fwd Documented by User: Lizzy Gonzalez MD 12/13/21 19:17 HPI - SOB/Dyspnea General: Chief Complaint: Shortness of Breath/Dyspnea Stated Complaint: [facility] Time Seen by Provider: 12/13/21 14:55 PFSH ED PFSH: Medical History Abnormal prostate exam Abnormal stress test Anxiety BPH (benign prostatic hyperplasia) BPH loc w urin obs/LUTS CAD (coronary artery disease) -has known hx of CAD s/p stenting x 3 COPD (chronic obstructive pulmonary disease) Depression Elevated PSA Erectile dysfunction HLD (hyperlipidemia) HTN (hypertension) Hypercholesterolemia Leg weakness, bilateral Peripheral vascular disease with claudication PTSD (post-traumatic stress disorder) Spermatocele of epididymis, multiple Surgical History History of coronary artery stent placement Family History Father , at age 64 Myocardial infarction Mother , in her 80's Dementia Social History Smoking and tobacco status: former smoker Quit status (tobacco): has quit using tobacco Year quit tobacco: 11/12/21 Alcohol intake: never Household members: none Marital status: Single Current occupational status: retired History of recent travel: No Course Vital Signs: Vital signs: Vital Signs Temperature 98.5 F 12/13/21 13:50 Pulse Rate 101 H 12/13/21 19:26 Respiratory Rate 22 H 12/13/21 19:26 Blood Pressure 150/88 12/13/21 19:26 Pulse Oximetry 95 12/13/21 19:26 MDM - SOB/Dyspnea Medical Decision Making Took patient over from Dr. Bejarano he is here with some dyspnea he has been well-appearing here feels improved repeat troponin here is negative he is stable for discharge she is to follow-up with Dr. Wilson return if worsening he understands agrees to plan. Lab Data : 12/13/21 15:20 12/13/21 15:20 Labs/Radiology: Radiology Impressions Chest X-Ray 12/13/21 14:04 IMPRESSION: 1. Prior CABG and emphysema. 2. No pneumonia. Normal vasculature. Laboratory Results WBC 12.2 10^3/uL (4.0-10.0) H 12/13/21 15:20 RBC 3.92 10^6/uL (4.1-5.3) L 12/13/21 15:20 Hgb 11.6 g/dL (11.7-16.6) L 12/13/21 15:20 Hct 37.4 % (42.0-52.0) L 12/13/21 15:20 MCV 95.4 fl (80-94) H 12/13/21 15:20 MCH 29.6 pg (28.0-34.0) 12/13/21 15:20 MCHC 31.0 g/dL (30.0-36.0) 12/13/21 15:20 RDW 15.0 % (12.1-15.1) 12/13/21 15:20 Plt Count 307 10^3/cmm (130-400) 12/13/21 15:20 MPV 10.5 fL (7.4-10.4) H 12/13/21 15:20 Neut % (Auto) 48.6 % 12/13/21 15:20 Lymph % (Auto) 18.3 % 12/13/21 15:20 [place] % (Auto) 12.6 % 12/13/21 15:20 Eos % (Auto) 19.3 % 12/13/21 15:20 Baso % (Auto) 0.7 % 12/13/21 15:20 Neut # (Auto) 5.93 10^3/uL (1.8-7.7) 12/13/21 15:20 Lymph # (Auto) 2.2 10^3/uL (0.8-4.8) 12/13/21 15:20 [place] # (Auto) 1.5 10^3/uL (0.2-0.9) H 12/13/21 15:20 Eos # (Auto) 2.4 10^3/uL (0.0-0.8) H 12/13/21 15:20 Baso # (Auto) 0.1 10^3/uL (0.0-0.1) 12/13/21 15:20 Nucleated RBC % (auto) 0 % 12/13/21 15:20 Nucleated RBCs # 0.0 /100WBC 12/13/21 15:20 Sodium 134 mmol/L (136-145) L 12/13/21 15:20 Potassium 4.1 mmol/L (3.5-5.1) 12/13/21 15:20 Chloride 97 mmol/L (98-107) L 12/13/21 15:20 Carbon Dioxide 27 mmol/L (22-29) 12/13/21 15:20 Anion Gap 14.1 (5-19) 12/13/21 15:20 BUN 19 mg/dL (8-23) 12/13/21 15:20 Creatinine 0.7 mg/dL (0.7-1.2) 12/13/21 15:20 GFR Calculation Not Reportable 12/13/21 15:20 Glucose 125 mg/dL (65-115) H 12/13/21 15:20 Calculated Osmolality 282 mOsm/kg (285-295) L 12/13/21 15:20 Calcium 9.0 mg/dL (8.5-10.5) 12/13/21 15:20 Total Bilirubin 0.2 mg/dL (0.15-1.2) 12/13/21 15:20 AST 13 U/L (0-40) 12/13/21 15:20 ALT 9 U/L (0-41) 12/13/21 15:20 Alkaline Phosphatase 153 IU/L (40-130) H 12/13/21 15:20 Troponin T Baseline 17 ng/L (0-15) H 12/13/21 15:20 Troponin T 120 Minute 16.46 ng/L (0-15) H 12/13/21 17:23 Delta Troponin T -0.54 ABS# (0-10) L 12/13/21 17:23 NT-Pro-B Natriuret Pep 925 pg/mL (0-125) H 12/13/21 15:20 Total Protein 7.6 g/dL (6.6-8.7) 12/13/21 15:20 Albumin 3.8 g/dL (3.5-5.2) 12/13/21 15:20 Globulin 3.8 g/dL (1.3-4.6) 12/13/21 15:20 Discharge Plan Discharge Patient Disposition: Home Clinical Impression: Acute exacerbation of chronic obstructive airways disease, Status post coronary artery bypass graft, Elevated brain natriuretic peptide (BNP) level Condition: Stable Prescriptions: New doxycycline hyclate 100 mg tablet 100 mg PO BID 10 Days Qty: 20 0RF Lasix 20 mg tablet 20 mg PO QAM Qty: 3 0RF No Action nitroglycerin 0.4 mg tablet, sublingual 0.4 mg sublingual Q5M PRN (Reason: Chest Pain) 0RF Rx Instructions: do not exceed 3 doses per episode diphenhydramine HCl [Benadryl] 25 mg capsule 25 mg PO QPM PRN (Reason: Allergy Symptoms) 0RF oxycodone-acetaminophen 5-325 mg tablet 1 tab PO Q8H PRN (Reason: pain) 7 Days Qty: 20 0RF coenzyme Q10 [Co Q-10] 10 mg Capsule 10 mg PO DAILY@0900 0RF vitamin B complex Capsule 1 cap PO DAILY@0900 0RF garlic oil 1,000 mg capsule 5,000 mg PO DAILY@0900 PRN (Reason: unknown) 0RF aspirin 81 mg Tablet,Chewable 81 mg PO DAILY 0RF clopidogrel 75 mg Tablet 75 mg PO DAILY Qty: 30 0RF tamsulosin 0.4 mg Capsule 0.4 mg PO BEDTIME Qty: 30 0RF docusate sodium 100 mg Capsule 100 mg PO BID Qty: 60 0RF ezetimibe 10 mg Tablet 10 mg PO DAILY Qty: 30 0RF metoprolol tartrate 25 mg Tablet 25 mg PO BID@0900,2100 Qty: 30 0RF oxycodone-acetaminophen [Percocet] 5-325 mg tablet 1 tab PO .q12 PRN (Reason: pain) Qty: 14 0RF Vitamin D3 10 mcg (400 unit) Tablet 10 mcg PO DAILY 0RF Vitamin E Complex 1,000 unit Capsule 1,000 unit PO DAILY 0RF albuterol sulfate 90 mcg/actuation Hfa Aerosol Inhaler 2 puff INHALATION Q6H PRN (Reason: Shortness Of Breath) 0RF Discharge Orders: Discharge ED (Routine); Ordered 12/13/21 Ordered By: Lizzy Gonzalez Referrals: Otoniel Yu DO [Primary Care Provider] - Discharge Diet: Usual diet Discharge Activity: Increase activity as tolerated Activity Restrictions/Additional Instructions: Thank you for visiting the emergency department. You were seen evaluated for shortness of breath. The exact cause of your symptoms is unclear, you do have evidence of mild increased fluid with elevated BNP. As discussed this will be treated with Lasix. Additionally, given history of underlying lung disease he likely have mild exacerbation of COPD. This will be treated with steroids and antibiotics. Please follow-up with your primary care provider. Please follow-up with Dr. Wilson. I will message case management for assistance in follow-up with Dr. Wilson. Please return to the emergency department for worsening symptoms or anything else that you are concerned about and feel needs emergency department evaluation. Coding Level of Care Code ED Top Spotter for Denisse Gardner
[2021-12-13 15:36] LABS: Basophils # 0.1 10^3/uL (0.0-0.1); Basophils % 0.7 %; Eosinophils # 2.4 10^3/uL (0.0-0.8); Eosinophils % 19.3 %; Hematocrit 37.4 % (42.0-52.0); Hemoglobin 11.6 g/dL (11.7-16.6); Lymphocytes # 2.2 10^3/uL (0.8-4.8); Lymphocytes % 18.3 %; Mean Corpuscular Hemoglobin 29.6 pg (28.0-34.0); Mean Corpuscular Volume 95.4 fl (80-94); Mean Platelet Volume 10.5 fL (7.4-10.4); Monocytes # 1.5 10^3/uL (0.2-0.9); Monocytes % 12.6 %; Neutrophils # 5.93 10^3/uL (1.8-7.7); Neutrophils % 48.6 %; Nucleated Red Blood Cells % 0 %; Platelet Count 307 10^3/cmm (130-400); Red Blood Count 3.92 10^6/uL (4.1-5.3); White Blood Count 12.2 10^3/uL (4.0-10.0)
[2021-12-13 16:02] LABS: Troponin(5th) Baseline 17 ng/L (0-15)
--- NOTE | 2021-12-13 16:04 | ECG_ITS ---
[facility] Test Date: 2021-12-13 Pat Name: Dae Gupta Department: Room: Gender: Male Position Clerk: : 1945 Requested By: Danelle Salazar Order Number: [id number] Donna MD: Anjel Spear M.D. Measurements Intervals [place] Rate: 82 P: 78 MA: 141 QRS: 39 QRSD: 95 T: 64 QT: 385 QTc: 451 Interpretive Statements SINUS RHYTHM WITH OCCASIONAL SUPRAVENTRICULAR PREMATURE COMPLEXES LEFT ATRIAL ENLARGEMENT [-0.15mV P-WAVE IN V1/V2] NONSPECIFIC T-WAVE ABNORMALITY Compared to ECG 12/13/2021 14:05:25 No significant changes Electronically Signed On 12-14-2021 0:23:01 CDT by Anjel Spear M.D. [id number]
[2021-12-13 16:11] LABS: Alanine Aminotransferase 9 U/L (0-41); Albumin Level 3.8 g/dL (3.5-5.2); Alkaline Phosphatase 153 IU/L (40-130); Anion Gap 14.1 (5-19); Aspartate Amino Transferase 13 U/L (0-40); Blood Urea Nitrogen 19 mg/dL (8-23); Carbon Dioxide 27 mmol/L (22-29); Chloride 97 mmol/L (98-107); Globulin 3.8 g/dL (1.3-4.6); Glucose 125 mg/dL (65-115); NT Pro B Type Natriuretic Pept 925 pg/mL (0-125); Osmolality Calculated 282 mOsm/kg (285-295); Potassium 4.1 mmol/L (3.5-5.1); Sodium 134 mmol/L (136-145); Total Bilirubin 0.2 mg/dL (0.15-1.2); Total Protein 7.6 g/dL (6.6-8.7)
[2021-12-13 18:50] LABS: Troponin 5 2HR 16.46 ng/L (0-15)
[2021-12-13 18:55] LABS: Troponin 5 2HR Delta -0.54 ABS# (0-10)
[2021-12-13] MEDS: doxycycline 100 mg Tablet PO (19:08)
[2021-12-13] MEDS: predniSONE 20 mg Tablet 40 MG PO (19:08)
[2021-12-13] MEDS: FUROsemide 20 mg Tablet PO (19:14)
--- NOTE | 2021-12-13 20:04 | ECG_ITS ---
[facility] Test Date: 2021-12-13 Pat Name: Dae Gupta Department: Room: Gender: Male Operations Research Manager: : 1945 Requested By: Danelle Salazar Order Number: [id number] Donna MD: Anjel Spear M.D. Measurements Intervals [place] Rate: 85 P: 80 LA: 134 QRS: 56 QRSD: 94 T: 65 QT: 353 QTc: 422 Interpretive Statements SINUS RHYTHM LEFT ATRIAL ENLARGEMENT [-0.15mV P-WAVE IN V1/V2] NONSPECIFIC T-WAVE ABNORMALITY Compared to ECG 11/16/2021 08:05:04 Atrial abnormality now present T-wave abnormality still present Electronically Signed On 12-14-2021 0:20:45 CDT by Anjel Spear M.D. [id number]
== END 2021-12-13 19:28 | disposition home or self-care (01) ==
PROVIDERS: Physician Assistant; Emergency Provider Emergency Medicine; PCP Emergency Medicine Emergency Medical Services
DX: J43.9 Emphysema, unspecified (principal); Z95.1 Presence of aortocoronary bypass graft; Z98.890 Other specified postprocedural states; R79.89 Other specified abnormal findings of blood chemistry; Z87.891 Personal history of nicotine dependence; I10 Essential (primary) hypertension; I25.10 Atherosclerotic heart disease of native coronary artery without angina pectoris
CPT/HCPCS: 36415; 71045; 80053; 83880; 84484; 85025; 93005; 99284; J7512

== ENCOUNTER → 2022-01-10 12:53 | Outpatient (BNVA) | payer OTHER, SELFPAY | PROVIDERS: PCP Emergency Medicine Emergency Medical Services; Visit Provider Thoracic Surgery (Cardiothoracic Vascular Surgery) | DX: I25.10 Atherosclerotic heart disease of native coronary artery without angina pectoris (principal); I10 Essential (primary) hypertension; Z87.891 Personal history of nicotine dependence; Z95.1 Presence of aortocoronary bypass graft; Z79.82 Long term (current) use of aspirin | CPT/HCPCS: 99024; 99214 ==

== ENCOUNTER 2022-02-20 13:57 | Outpatient (CLI) | payer OTHER, SELFPAY ==
[2022-02-20 15:34] LABS: Prostate Specific AG Urology 16.54 ng/mL (0-4)
== END 2022-02-20 13:58 | disposition home or self-care (01) ==
LOC: LAB 14:00
PROVIDERS: PCP Emergency Medicine Emergency Medical Services; Visit Provider Urology
DX: R97.20 Elevated prostate specific antigen [PSA] (principal)
CPT/HCPCS: 84153

== ENCOUNTER → 2022-02-21 16:06 | Outpatient (BNVA) | payer OTHER, SELFPAY | PROVIDERS: PCP Emergency Medicine Emergency Medical Services; Visit Provider Urology | DX: N40.1 Benign prostatic hyperplasia with lower urinary tract symptoms (principal); R97.20 Elevated prostate specific antigen [PSA]; R39.89 Other symptoms and signs involving the genitourinary system | CPT/HCPCS: 81003; 99214 ==

== ENCOUNTER 2022-03-27 14:05 | Outpatient (CLI) | payer OTHER, SELFPAY ==
--- NOTE | 2022-03-27 14:19 | USCV_ITS ---
Dae Gupta Age: 76 Gender: M : 1945 Exam Date: 03/27/2022 14:35 Ordering Phys: Otoniel Yu DO Technologist: Maliha Benites Exam Location: [facility] Indication: Numbness Rt. Leg Risk Factors: 1 pack smoker 50 years Previous Vascular Surgery: Rt GSV harvest for CABG RIGHT LEFT BP: 147.0 / 99.00 BP: 113.0/ 77.00 0 0 Waveform Velocity (cm/s) Velocity (cm/s) Waveform Biphasic 73.0 Iliac Prox 120.3 Biphasic Biphasic Iliac Mid Biphasic 74.4 69.1 Biphasic 69.2 Iliac Distal 81.9 Biphasic Biphasic 90.5 THERAPEUTIC SPECIALIST 84.0 Biphasic Biphasic 37.2 SFA Prox 65.0 Biphasic Biphasic 52.9 SFA Mid 58.2 Biphasic Biphasic 67.8 SFA Dist 67.7 Biphasic Biphasic 65.5 POP 70.2 Biphasic Monophasic 43.2 AIRLINE FLIGHT ATTENDANT 49.0 Biphasic Monophasic 20.5 DPA 19.5 Monophasic 0.5 NICK 1.0 FINDINGS Rt AIRLINE FLIGHT ATTENDANT 80 RT DPA 40 LT AIRLINE FLIGHT ATTENDANT 110 LT DPA 60 Moderate heterogenous plaques of the iliac and femoral arteries on the right side. Mild to moderate diffuse plaque in the iliac and femoral arteries on the left side. Resting NICK 0.5 on the right and 1.0 on the left side. CONCLUSIONS 1. Abnormal resting NICK of 0.5 consistent with severe obstructive arterial disease on the right side, possibly infrapopliteal disease. 2. Normal resting NICK of 1.0 on the left side, suggesting no significant arterial obstruction. Mild to moderate diffuse plaques are noted in the iliac and femoral arteries Dr Anjel Spear MD [facility] (Electronically Signed) Final Date: 27 March 2022 23:37 S
== END 2022-03-27 14:06 | disposition home or self-care (01) ==
PROVIDERS: PCP Emergency Medicine Emergency Medical Services; Visit Provider Emergency Medicine Emergency Medical Services
DX: R20.0 Anesthesia of skin (principal); I70.203 Unspecified atherosclerosis of native arteries of extremities, bilateral legs
CPT/HCPCS: 93925

== ENCOUNTER → 2022-07-03 08:55 | Outpatient (BNVA) | payer OTHER, SELFPAY | PROVIDERS: PCP Emergency Medicine Emergency Medical Services; Visit Provider Nurse Practitioner Family | DX: I73.9 Peripheral vascular disease, unspecified (principal) | CPT/HCPCS: 99214 ==

== ENCOUNTER 2022-07-11 15:01 | Outpatient (CLI) | payer OTHER, SELFPAY ==
--- NOTE | 2022-07-11 15:30 | CT_ITS ---
WS: [id number] CT scan of the abdominal aorta and the lower extremities.. Additional two-dimensional coronal and sag ittal reconstruction was performed. MIP images were also performed. 07/11/2022 Clinical Data: NICK 0.5 on the right leg Comparison: CTA of the abdominal aorta and the lower extremities. DLP: 717.[address] scans at [facility] use at least one of these dose optimization techniques: automated e xposure control; mA and/or kV adjustment per patient size (includes targeted exams where dose is matc hed to clinical indication); or iterative reconstruction. Findings: Vascular findings: The abdominal aorta shows atherosclerotic change with moderate atherosclerotic dilatation. There is m ural thrombosis, occlusion or extravasation. The renal arteries, celiac artery, SMA and REYNOLD show no o cclusions. The common iliac, internal iliac, external iliac and common femoral arteries show atherosc lerotic change with no occlusions. Both common femoral, deep femoral and superficial femoral arteries are patent. The popliteal arteries are patent. The arteries of the trifurcations show no occlusions or stenoses. The runoff is seen bilaterally into the feet. Soft tissue abnormalities: There is bilateral interstitial atelectasis in the lower lobes consistent with chronic emphysematous change. The liver, spleen, gallbladder, pancreas and adrenal glands are normal. The kidneys show no m asses but there is a 2.7 cm simple left renal cyst. The stomach, small bowel and colon are not remark able. No abscess, adenopathy, ascites, obstruction or free air is seen. The bladder shows a left post erior diverticulum unchanged. The prostate is enlarged. There is osteoarthritic spurring of the L2-L5 vertebral bodies. CT/CT angio abd aorta runof [id number] Impression: 1. Diffuse atherosclerotic disease of the abdominal aorta and iliac arteries un changed. 2. Normal runoff into the lower extremities.
[2022-07-11 15:53] LABS: Blood Urea Nitrogen 17 mg/dL (8-23)
[2022-07-11] MEDS: iohexol 350 mg/mL 500 mL Btl (per mL) IV (16:04)
== END 2022-07-11 15:02 | disposition home or self-care (01) ==
PROVIDERS: PCP Emergency Medicine Emergency Medical Services; Visit Provider Nurse Practitioner Family
DX: I73.9 Peripheral vascular disease, unspecified (principal)
CPT/HCPCS: 75635; 82565; 84520; Q9967

== ENCOUNTER → 2022-07-18 14:55 | Outpatient (BNVA) | payer OTHER, SELFPAY | PROVIDERS: PCP Emergency Medicine Emergency Medical Services; Visit Provider Internal Medicine | DX: I25.10 Atherosclerotic heart disease of native coronary artery without angina pectoris (principal); I73.9 Peripheral vascular disease, unspecified; I10 Essential (primary) hypertension; F17.200 Nicotine dependence, unspecified, uncomplicated | CPT/HCPCS: 99214 ==

== ENCOUNTER 2022-07-23 05:51 | Outpatient (CLI) | payer OTHER, SELFPAY ==
[2022-07-23] VITALS (41 sets, daily range): BP systolic 123–167; BP diastolic 62–96; PULSE 57–119; RESP 10–26; TEMP 36.6; O2SAT 91–97; BMI 20.7
--- NOTE | 2022-07-23 06:00 | XACV_ITS ---
Ht: 175 cm Wt: 64 kg BSA: 1.75 m2 Any Known Allergies: Other Gender: Male : 1945 Exam Type: Invasive Peripheral Vascular Procedure(s): Procedure Description: Peripheral Cath Diagnostic Procedure Procedure Description: Abdominal aortic angiography Procedure Description: Lower extremities' angiography Procedure Description: Peripheral vascular Intervention Procedure Description: PV Balloon Exam Priority: Routine Abdominal Diagnostic Findings Distal abdominal aorta: Patent. Lower Extremity Diagnostic Findings INDICATION:Lifestyle limiting claudication. Patient has been having worsening right lower extremity discomfort and numbness. There is discrepancy between NICK and CTA findings. CTA does not show significant stenosis on the right lower extremity however symptoms are worsening in that leg and has significantly abnormal NICK. We will proceed with peripheral angiogram with possible percutaneous intervention if he has significant stenosis.. Right lower extremity findings: Right common iliac artery: Patent Right external iliac artery: Has severe 80% stenosis. Right common femoral artery: Patent Right SFA: Patent Right profunda: Patent Right popliteal artery: Patent Right TP trunk: Patent. Below the knee on right side, patient has three-vessel runoff to the foot. Anterior tibial artery has 60 to 70% stenosis . Left lower extremity findings: Left common iliac artery: Has some mild to moderate luminal irregularities. Left external iliac artery: Patent Left common femoral artery: Patent Left profunda artery: Patent Left SFA: Patent Left popliteal artery: Patent Left TP segment: Patent Remaining patient has three-vessel runoff to the foot.. Lower Extremity Interventional Findings Procedure details: Access was obtained in the left common femoral artery. We switched short sheath to long sheath and obtained selective runoff of her right lower extremity. Right external iliac artery stenosis was confirmed to be severe by putting multipurpose catheter across it and measuring gradients with systolic gradient of more than 50 mmHg. We predilated the stenosis with 6.0 x 40 mm balloon. Angiogram showed minimal residual stenosis. This was again dilated with a 7.0 x 40 mm balloon. At this time final angiogram was performed that showed excellent vessel expansion with no significant residual stenosis and elimination of gradient. Patient left the Records Management Director in a stable condition.. Conclusions Severe right external iliac artery stenosis s/p successful revascularization with balloon angioplasty. Recommendations We will start patient on dual antiplatelet therapy. Aggressive risk factor modification. Outpatient cardiology follow-up in 4-week. Hemodynamic Data Phase:Rest AO : 79.0 / 62.0 ( 71.0 ) @ 8:23:00 AM 131.0 / 63.0 ( 88.0 ) @ 8:24:00 AM 121.0 / 69.0 ( 91.0 ) @ 8:36:00 AM 137.0 / 71.0 ( 98.0 ) @ 8:36:00 AM 125.0 / 70.0 ( 93.0 ) @ 8:45:00 AM 136.0 / 76.0 ( 101.0 ) @ 8:45:00 AM Access Site Site: Left Femoral artery Sheath Size: 6 Fr Hemost... Method: Suture Hemost... Success: Successful Procedure Details Findings Procedure Consent Obtained. Admit Source: Out Patient. Pre-Procedure Time Out. Identified patient by full name and date of as verbalized by the patient/guarantor. Does the consent match the physician's order: Yes. Accurate & Complete Informed Consent: Yes. Inpatient/Outpatient History & Physical on Chart: Yes. If H&P is completed, is and addenduem needed: No; If yes, is the addendum complete: N/A. Visualize and Verify Site with Patient/Guarantor: N/A. Relevant Radiology Images available: Yes. The risks, benefits, and alternatives of sedation and/or procedure were discussed by physician. The patient agrees to continue. Procedure started. PERRLA. Strong, equal hand costume technician bilaterally. Lungs clear x 5 lobes. IV Site on Arrival: 18 gauge in the right anticubital. IV Fluids: 0.9% NaCl at KVO. 0 mL infused prior to builder's labourer. Pre Procedural Pulses: bilateral radial was 2+. Pre Procedural Pulses: bilateral posterior tibial was Doppled. Pre Procedural Pulses: bilateral dorsalis pedis was Doppled. Oxygen started at 2liters/min via nasal canula. bilateral groins was prepped with chloroprep then draped in the usual sterile fashion. Physician notified. Baseline sample Acquired. HR: 87 BPM. Physician arrived. Physician scrubbed in. Time out performed with cath team. Lidocaine 1% infiltrated to the left groin. Arterial access obtained with micropuncture set. A 5FrFr UF catheter in over wire. Abdominal aortogram performed in AP @ 10 mL/sec for a total of 30 mL. Glidewire inserted though UF catheter. Glidewire advanced down SFA. UF catherter out over wire. Sheath upsized to a 6 Fr. Right external iliac selected and arteriogram with runoff performed @ 10 mL/sec for a total of 30 mL. A 6 irish MPA1 catheter in over glidewire. MPA1 catherter advanced over the wire across the lesion in the Right External Illiac. Glidewire removed. Glidewire inserted. Catheter out over the glidewire. Inflation number : 1 A AB ARMADA 35 OTW [id number] was prepped and advanced across the External Iliac, Right External Iliac, Right , then inflated to 6 BRYNN for 1:30 seconds. Inflation number: 2 The AB ARMADA 35 OTW [id number] was reinflated across the External Iliac, Right External Iliac, Right, to 6 BRYNN for 1:00 seconds. Balloon out. Right external iliac selected and arteriogram using DSA performed @ 5 mL/sec for a total of 10 mL. Glidewire inserted. MPA1 catherter advanced over the wire across the lesion in the Right External Illiac. Glidewire inserted, MPA1 catheter out. Inflation number : 3 A AB ARMADA 35 OTW [id number] was prepped and advanced across the External Iliac, Right External Iliac, Right , then inflated to 6 BRYNN for 1:30 seconds. Balloon out. Right external iliac selected and arteriogram in DSA performed @ 10 mL/sec for a total of 30 mL. Flexor dilator inserted over glidewire. Sheath advanced past lesion in right external illiac. Dilator removed. Flexor naveen exchanged for 6FR short sheath. Glidewire out. Sheath injected in Left common femoral artery and runoff performed @10ml/sec for a total of 30 mls. ACT drawn. Results 178 seconds. Therapeutic limits - pre-heparin administration 90-150 seconds and monitoring heparin during a vascular procedure >250 seconds. Post Procedure: Pulses reassessed and unchanged. PERRLA. Strong, equal hand costume technician bilaterally. No VTE prophylaxis required. A Suture was successful obtaining hemostatsis at the Left Femoral artery insertion site. Medication's Wasted: Other = versed 2 mg. Medication's Wasted: Heparin = 3000 units. Total IV fluids: 75 mL. Post-op diagnosis: status post angiplasty of right external illiac. Complications: none. Estimated blood loss: 5mL-10mL. Responsiveness - Normal response to verbal stimuli; alert and oriented, PERRLA. Airway - Unaffected, no intervention required; spontaneous ventilation. Circulation: W/N/L, pulses unchanged. Nausea/Vomiting: No. Procedure completed. Patient transferred by bed to CPRU. Vital chart was stopped. Procedure Medications Start: 7:57 AM Stop: 7:57 AM Medication: Versed Amount: 1 mg Route: I.V. Start: 7:57 AM Stop: 7:57 AM Medication: Fentanyl Amount: 50 mcg Route: I.V. Start: 8:10 AM Stop: 8:10 AM Medication: Versed Amount: 1 mg Route: I.V. Start: 8:14 AM Stop: 8:14 AM Medication: Fentanyl Amount: 50 mcg Route: I.V. Start: 8:26 AM Stop: 8:26 AM Medication: Heparin Amount: 5000 units Route: I.V. Start: 8:53 AM Stop: 8:53 AM Medication: Heparin Amount: 1000 units Route: I.V. I, the attending physician, have reviewed and verified all procedure medications. Yes, all medications given per verbal order History/Risk Factors Hypertension: Yes Dyslipidemia: Yes Peripheral Arterial Disease (PAD): Yes Obesity: No Tobacco Use: Current/Recent(w/in 1 year) Prior Interventions PCI: Yes CABG: Yes Valve Surgery: No Report Signatures Finalized by Juanjose Drake MD on 08/02/2022 10:51 AM
[2022-07-23] MEDS: diphenhydrAMINE 50 mg Capsule PO (06:08)
[2022-07-23 06:31] LABS: Basophils # 0.1 10^3/uL (0.0-0.1); Basophils % 0.8 %; Eosinophils # 0.6 10^3/uL (0.0-0.8); Eosinophils % 5.1 %; Hematocrit 43.6 % (42.0-52.0); Hemoglobin 13.9 g/dL (11.7-16.6); Lymphocytes # 3.5 10^3/uL (0.8-4.8); Lymphocytes % 31.5 %; Mean Corpuscular HGB Conc 31.9 g/dL (30.0-36.0); Mean Corpuscular Hemoglobin 29.4 pg (28.0-34.0); Mean Corpuscular Volume 92.4 fl (80-94); Mean Platelet Volume 10.6 fL (7.4-10.4); Monocytes # 1.4 10^3/uL (0.2-0.9); Neutrophils # 5.65 10^3/uL (1.8-7.7); Neutrophils % 50.3 %; Nucleated Red Blood Cells % 0 %; Platelet Count 300 10^3/cmm (130-400); Red Blood Count 4.72 10^6/uL (4.1-5.3); Red Cell Distribution Width 15.1 % (12.1-15.1); White Blood Count 11.2 10^3/uL (4.0-10.0)
[2022-07-23 06:41] LABS: INR 0.98 (0.8-1.2)
[2022-07-23 06:53] LABS: Anion Gap 14.9 (5-19); Blood Urea Nitrogen 15 mg/dL (8-23); Calcium 9.6 mg/dL (8.5-10.5); Carbon Dioxide 26 mmol/L (22-29); Chloride 106 mmol/L (98-107); Glucose 102 mg/dL (65-115); Osmolality Calculated 297 mOsm/kg (285-295); Potassium 3.9 mmol/L (3.5-5.1); Sodium 143 mmol/L (136-145)
--- NOTE | 2022-07-23 07:57 | W.PM.OPSUD ---
Surgery/Procedure H&P Update DATE OF PROCEDURE: July 23, 2022 DATE H&P PERFORMED: 07/18/22 H&P UPDATE INFORMATION: I have reviewed H&P completed within last 30 days, I have examined patient prior to procedure and No changes to prior documentation PREOP DIAGNOSIS: Lifestyle limiting claudication PRIMARY INDICATION FOR PROCEDURE: Lifestyle limiting claudication PLANNED PROCEDURE: Operation Date: 07/23/22 07:00 Proposed Procedures p Peripheral Diagnostic 67364,I73.9(Not Applicable) - Juanjose Drake M.D Possible percutaneous intervention PATIENT REASSESSED PRIOR TO SEDATION, WITH NO CHANGE NOTED: Yes PHYSICAL EXAM: alert, oriented x 3, clear to auscultation bilaterally and regular rate & rhythm AIRWAY EVAL/ANESTHESIA PLAN: ASA III, Local Anesthesia, Risks, benefits & alternatives of sedation and/or procedure discussed and Patient agrees to continue as planned ADDITIONAL INFORMATION: Moderate sedation
--- NOTE | 2022-07-23 09:38 | SUR.EXTENDED ---
Received the patient back from the catholic priest S/P intervention of the right Iliac via cot. Patient drowsy from sedation but awakens easily to verbal commands. Alert and oriented x 3. vehicle monitor technician placed and vital signs obtained. 6fr. naveen intact to the left groin to pressure bag. Groin soft with no bleeding or hematoma noted. Dressing dry and intact. NS infusing at 75ml/hr to the right AC access site from the catholic priest. No other assessment changes from pre cath assessment noted. Will transfer to ICU 12 when the bed has been cleaned.
--- NOTE | 2022-07-23 10:44 | SUR.EXTENDED ---
Dr. Drake notified that the patient would be moving to ICU 12. New orders received for Aspirin and Plavix administration. See MAR.
[2022-07-23] MEDS: clopidogrel 300 mg Tablet 600 MG PO (10:52)
[2022-07-23] MEDS: aspirin 325 mg Tablet PO (10:52)
--- NOTE | 2022-07-23 10:52 | SUR.EXTENDED ---
Report called to [facility] [employer]. Patient then transferred to ICU 12 via bed.
[2022-07-23 11:51] LABS: Partial Thromboplastin Time 94.6 SECONDS (23.9-36.7)
[2022-07-23 14:57] LABS: Partial Thromboplastin Time 27.4 SECONDS (23.9-36.7)
[2022-07-23] MEDS: tamsulosin 0.4 mg Capsule PO (20:53)
[2022-07-24] VITALS (45 sets, daily range): BP systolic 131–172; BP diastolic 69–99; PULSE 56–88; RESP 11–21; TEMP 36.6–36.9; O2SAT 93–97
[2022-07-24] MEDS: sodium chloride 0.9% 1,000 ML 100 ML IV (00:14)
--- NOTE | 2022-07-24 00:41 | PC.NURSE ---
Suicidal Evaluation Upon completing the Suicide Risk Assessment, patient states that he does have suicidal thoughts. When inquiring about these thoughts and asking patient if these are active, patient stated No, I don't want to end things right now, but I do have 3 plans in case I do need to end things. After asking patient about said plans, he states that he does not intend to act on any of his plans currently for he just likes to have them in case he needs to end it. Dr. Alegre contacted and notified of suicide risk; order received to reassess suicidal risk in the AM.
--- NOTE | 2022-07-24 08:41 | PM.DCS ---
Discharge Providers Date of Admission: 07/23/2022 Date of Discharge: July 24, 2022 Attending Provider at Admission: Juanjose Drake MD Attending Provider at Discharge: Juanjose Drake M.D Consults: Dr Smiley, Pshyciatry Primary Care Provider: Otoniel Yu DO Reason for Visit Reason for Visit: Brief History: 76-year-old man who has been having worsening right lower extremity discomfort and numbness.? There is discrepancy between NICK and CTA findings.? CTA does not show significant stenosis on the right lower extremity however symptoms are worsening in that leg and has abnormal NICK.? We will proceed with peripheral angiogram with possible percutaneous intervention if he has significant stenosis. Hospital course Patient underwent peripheral angiogram that showed severe right external iliac artery stenosis that underwent successful revascularization with balloon angioplasty. He was put on aspirin and Plavix. Nighttime nursing team raised concern regarding patient having possible suicidal ideation with a plan. On my discussion with patient he denied any suicidal ideation. We consulted psychiatry and Dr. Smiley evaluated him in detail. He gave clearance for patient to be discharged home safely. Patient was discharged home in a stable condition. Physical Exam Narrative: GENERAL: Patient is alert, awake and oriented x3. [] NECK: No jugular vein distension. [] HEENT: No cyanosis. No icterus. No pallor. [] HEART: Regular S1 and S2. No murmur, rub or gallop. [] LUNGS: Clear to auscultate bilaterally. [] ABDOMEN: Soft, nontender and nondistended. Positive bowel sounds. No guarding, rebound or tenderness. [] CENTRAL NERVOUS SYSTEM: Grossly nonfocal. [] EXTREMITIES: Lower extremities with no edema bilaterally. Pulses palpable in lower extremities. Discharge Data Studies Completed and Pending Pending at discharge Category Date Time Status VEHICLE DETAILER request for service Routine Exams 07/23/22 06:00 Taken Laboratory Results WBC 11.2 10^3/uL (4.0-10.0) H 07/23/22 06:20 RBC 4.72 10^6/uL (4.1-5.3) 07/23/22 06:20 Hgb 13.9 g/dL (11.7-16.6) 07/23/22 06:20 Hct 43.6 % (42.0-52.0) 07/23/22 06:20 MCV 92.4 fl (80-94) 07/23/22 06:20 MCH 29.4 pg (28.0-34.0) 07/23/22 06:20 MCHC 31.9 g/dL (30.0-36.0) 07/23/22 06:20 RDW 15.1 % (12.1-15.1) 07/23/22 06:20 Plt Count 300 10^3/cmm (130-400) 07/23/22 06:20 MPV 10.6 fL (7.4-10.4) H 07/23/22 06:20 Neut % (Auto) 50.3 % 07/23/22 06:20 Lymph % (Auto) 31.5 % 07/23/22 06:20 Bacon % (Auto) 12.0 % 07/23/22 06:20 Eos % (Auto) 5.1 % 07/23/22 06:20 Baso % (Auto) 0.8 % 07/23/22 06:20 Neut # (Auto) 5.65 10^3/uL (1.8-7.7) 07/23/22 06:20 Lymph # (Auto) 3.5 10^3/uL (0.8-4.8) 07/23/22 06:20 Bacon # (Auto) 1.4 10^3/uL (0.2-0.9) H 07/23/22 06:20 Eos # (Auto) 0.6 10^3/uL (0.0-0.8) 07/23/22 06:20 Baso # (Auto) 0.1 10^3/uL (0.0-0.1) 07/23/22 06:20 Nucleated RBC % (auto) 0 % 07/23/22 06:20 Nucleated RBCs # 0.0 /100WBC 07/23/22 06:20 PT 13.30 SECONDS (12.1-14.9) 07/23/22 06:20 INR 0.98 (0.8-1.2) 07/23/22 06:20 APTT 27.4 SECONDS (23.9-36.7) D 07/23/22 14:30 Sodium 143 mmol/L (136-145) 07/23/22 06:20 Potassium 3.9 mmol/L (3.5-5.1) 07/23/22 06:20 Chloride 106 mmol/L (98-107) 07/23/22 06:20 Carbon Dioxide 26 mmol/L (22-29) 07/23/22 06:20 Anion Gap 14.9 (5-19) 07/23/22 06:20 BUN 15 mg/dL (8-23) 07/23/22 06:20 Creatinine 1.0 mg/dL (0.7-1.2) 07/23/22 06:20 GFR Calculation Not Reportable 07/23/22 06:20 Glucose 102 mg/dL (65-115) 07/23/22 06:20 Calculated Osmolality 297 mOsm/kg (285-295) H 07/23/22 06:20 Calcium 9.6 mg/dL (8.5-10.5) 07/23/22 06:20 Vitals Last Vital Signs Temp 97.8 F 07/24/22 07:35 Pulse 71 07/24/22 07:35 Resp 15 07/24/22 07:35 BP 133/71 07/24/22 07:35 Pulse Ox 93 07/24/22 07:35 O2 Del Method 07/24/22 06:00 Discharge Attestations Time Spent in Discharge Care*: greater than 30 min Status at Discharge: Cognitive status at discharge: cognitively intact, Behavioral status at discharge: cooperative and independent in ADL's, Quality Metrics Clinical Quality Measures [ No reported AMI, CVA or VTE this stay] Coding Level of Care Code Acute Chg FW DC note
[2022-07-24] MEDS: clopidogrel 75 mg Tablet PO (09:14)
[2022-07-24] MEDS: aspirin 81 mg EC Tablet PO (09:14)
[2022-07-24] MEDS: docusate sodium 100 mg Capsule PO (09:14)
--- NOTE | 2022-07-24 10:54 | P.NPUCON_ITS ---
Providers/Reason for Consult Consulting Physican/Specialty*: Jalil Smiley MD Reason for Consult*: suicidal ideation Attending Physician: Juanjose Drake M.D Primary Care Provider: Otoniel Yu DO Psych Consult HPI History of Present Illness Dae Gupta is a 76 year old male admitted for a percutaneous vascular angioplasty who was reporting earlier last night about some reported thoughts of hurting himself. The patient on interview had reported that he had no current thoughts of harming himself or others. He acknowledged a history of PTSD secondary to combat related trauma during the [place] War. He reports currently having no nightmares nor does he endorse any flashbacks. He does report an extended history of avoidance and reports that he lives in relative isolation secondary to his previous war-related trauma. He reports that he has had a significant amount of medical issues over the past few years and states that he has been a bit more frustrated. He reports having periods of intermittent depression but minimized having problems with sleep. He reported no change in energy and reported no anhedonia. He reports that he had previously tried antidepressants but reported not liking the side effects. He reports that he is currently not receiving any psychotherapy and states that he chooses to consider alternatives to manage his depression. He had reported occasional use of marijuana to help him manage some PTSD related symptoms. He reports no history of inpatient psychiatric hospitalizations. He reports that he does struggle with anxiety and after his recent medical issues he has resumed smoking cigarettes approximately 1 pack a day and stated that he would genuinely like some help with managing and stopping smoking. Past psychiatric history: He had reported a past history of previous medication trials but states he is currently not take any psychotropic medications. He has reported being service- connected for PTSD after her diagnosis approximately 18 years ago. He reports no past history of suicide attempt. Medical Hx/Allergies/Surgical History: see below Social History: Patient resides alone in his home in [place] he has been retired and reports living on a property with another woman. He reports that he has been on disability for several years. He minimizes any drug or alcohol use currently other than occasional marijuana use. Meds Home Medications and Allergies Home Medications Medication Instructions Recorded Confirmed Last Taken Type coenzyme Q10 10 mg capsule (Co 10 mg PO DAILY@0900 09/20/19 07/22/22 07/22/22 21:00 History Q-10) vitamin B complex 1 cap PO DAILY@0900 01/06/21 12/19/22 12/19/22 21:00 History nitroglycerin 0.4 mg sublingual 0.4 mg sublingual Q5M PRN Chest 10/25/21 07/22/22 12/13/21 History tablet Pain docusate sodium 100 mg capsule 100 mg PO BID #60 caps 11/21/21 07/22/22 07/22/22 21:00 Rx oxycodone-acetaminophen 5 mg-325 1 tab PO .q12 PRN pain #14 tabs 11/24/21 07/22/22 Unknown Rx mg tablet (Percocet) oxycodone-acetaminophen 5 mg-325 1 tab PO Q8H PRN pain 1 week #20 11/29/21 07/22/22 12/11/21 Rx mg tablet tabs albuterol sulfate 90 mcg/actuation 2 puff inhalation Q6H PRN 12/13/21 07/22/22 Unknown History aerosol inhaler Shortness Of Breath cholecalciferol (vitamin D3) 10 10 mcg PO DAILY 12/13/21 07/22/22 07/22/22 21:00 History mcg (400 unit) tablet (Vitamin D3) tamsulosin 0.4 mg capsule 0.4 mg PO .at bedtime #90 caps 02/01/22 07/22/22 07/22/22 21:00 Rx ezetimibe 10 mg tablet 10 mg PO BEDTIME 07/22/22 07/22/22 07/22/22 21:00 History aspirin 81 mg chewable tablet 81 mg PO DAILY #90 tabs 07/24/22 Unknown Rx aspirin 81 mg tablet,delayed 81 mg PO DAILY #30 tabs 07/24/22 Unknown Rx release clopidogrel 75 mg tablet 75 mg PO DAILY #30 tabs 07/24/22 Unknown Rx Allergies Allergy/AdvReac Type Severity Reaction Status Date / Time cilostazol Allergy Unknown ADR-Migrain Verified 07/23/22 06:48 e hydrocodone Allergy ADR-Agitate Verified 07/24/22 00:17 d Ezfpezd-PSS-EwV Reductase AdvReac Intermediate ADR-Cramping Verified 07/23/22 06:48 Inhibitor of the [Elppuio-Dfd-Rse Reductase Muscles Inhibitor] Current Medications Current Medications Generic Name Dose Route Start Last Admin Trade Name Freq PRN Reason Stop Dose Admin Aspirin 81 mg 07/24/22 09:00 07/24/22 09:14 Aspirin 81 Mg Ec Tablet PO 81 mg DAILY LATOYA Administration Clopidogrel Bisulfate 75 mg 07/24/22 09:00 07/24/22 09:14 Clopidogrel 75 Mg Tablet PO 75 mg DAILY LATOYA Administration Docusate Sodium 100 mg 07/23/22 18:00 07/24/22 09:14 Docusate Sodium 100 Mg Capsule PO 100 mg BID LATOYA Administration Sodium Chloride 1,000 mls @ 100 mls/hr 07/23/22 10:45 07/24/22 07:36 Sodium Chloride 0.9% IV Not Given .Q10H LATOYA Tamsulosin HCl 0.4 mg 07/23/22 21:00 07/23/22 20:53 Tamsulosin 0.4 Mg Capsule PO 0.4 mg BEDTIME LATOYA Administration PFSH NPU PFSH: Medical History Abnormal prostate exam Abnormal stress test Anxiety BPH (benign prostatic hyperplasia) BPH loc w urin obs/LUTS CAD (coronary artery disease) -has known hx of CAD s/p stenting x 3 COPD (chronic obstructive pulmonary disease) Depression Elevated PSA Erectile dysfunction HLD (hyperlipidemia) HTN (hypertension) Hypercholesterolemia Leg weakness, bilateral Peripheral vascular disease with claudication PTSD (post-traumatic stress disorder) Spermatocele of epididymis, multiple Surgical History History of coronary artery stent placement Family History Father , at age 64 Myocardial infarction Mother , in her 80's Dementia Social History Smoking and tobacco status: current some day smoker Quit status (tobacco): has quit using tobacco Alcohol intake: never Household members: none Marital status: Single Current occupational status: retired History of recent travel: No Mental Status Exam MSE Comments: Is a casually dressed white male was alert and oriented to person place and time. He was friendly and cooperative on interview. There was no evidence of any abnormal involuntary motor movements tics or tremors rodriguez reciated. His speech was normal in regards to rate rhythm and prosody. His attention span was excellent. His gait was within normal limits. His hygiene was fair. His mood was described as a little depressed. His affect appeared bright and mood incongruent. He appeared goal oriented and goal-directed. There was no clear evidence of any delusional thinking. He did not appear to be responding to internal stimuli. His insight appeared fair. His judgment appeared fair. His impulse control appeared adequate. Vitals/I&O/Wt Last Vital Signs Temp 97.8 F 07/24/22 07:35 Pulse 71 07/24/22 07:35 Resp 15 07/24/22 07:35 BP 133/71 07/24/22 07:35 Pulse Ox 93 07/24/22 07:35 O2 Del Method 07/24/22 06:00 07/23/22 07/24/22 07/24/22 22:59 06:59 14:59 Intake Total 730 / 730 Output Total 425 / 425 200 / 200 Balance 305 / 305 -200 / -200 Weight last 48 hrs Weight 63.503 kg Weight 63.503 kg Weight 63.503 kg Data NPU 07/23/22 06:20 07/23/22 06:20 A&P Assessment and plan (1) Peripheral vascular disease with claudication: (2) Leg weakness, bilateral: (3) Elevated PSA: (4) Abnormal prostate exam: (5) BPH loc w urin obs/LUTS: (6) Spermatocele of epididymis, multiple: (7) Atherosclerotic heart disease of [place] coronary artery with unstable angina pectoris: (8) Dyslipidemia: (9) Status post aorto-coronary artery bypass graft: (10) Anemia: (11) HTN (hypertension) with goal to be determined: (12) Nicotine dependence: Plan Patient is 76 year old white male with PTSD reporting depressed mood and no suicidal ideation currently requesting help with smoking cessation. 1. Gave patient information on smoking cessation hypnotherapy in [place] 2. Patient able to return home. Attestations NPU Medical Necessity Statement*: not applicable Coding Level of Care Code New Pt Acute Surface Grinder Tender for Denisse Fwd Patient Type New History Problem Focused Exam Problem Focused Medical Decision Making Straight Forward Diagnoses Peripheral vascular disease with claudication I73.9 Leg weakness, bilateral R29.898 Elevated PSA R97.20 Abnormal prostate exam R39.89 BPH loc w urin obs/LUTS N40.1 Spermatocele of epididymis, multiple N43.42 Atherosclerotic heart disease of [place] coronary artery with unstable angina pectoris I25.110 Dyslipidemia E78.5 Status post aorto-coronary artery bypass graft Z95.1 Anemia D64.9 HTN (hypertension) with goal to be determined I10 Nicotine dependence F17.200
--- NOTE | 2022-07-24 11:07 | PC.NURSE ---
Suicidal ideation follow up Pt still admits to having suicidal ideations but stated that he should have just stayed quiet and not told anyone. This nurse did let him know that the we want him to be safe and take all precautions. Pt is very adamant on leaving AMA. Dr Drake notified and Dr Smiley notified. Dr Drake came and spoke with the pt who stated he would wait thirty minutes and would leave whether anyone came to speak with him or not. Dr Smiley called and spoke with Dr Drake who gave a 10min eta to the unit. Pt is in full view to this nurse and is currently sitting up in the chair fully dressed.
--- NOTE | 2022-07-24 12:16 | PC.NURSE ---
Meds Meds sent to [facility] cancelled and scripts called in to main campus [facility] pharmacy.
--- NOTE | 2022-07-24 12:30 | PC.NURSE ---
Pt d/c Pt given d/c instructions after session with Dr Smiley. Pt was given resources from Dr Smiley. Dr Drake notified and d/c orders placed and processed. Pt's iv taken out. D/c instructions given and all questions answered. Pt walked out to outpt pharm by KATHLEEN Arevalo.
== END 2022-07-24 12:34 | disposition home or self-care (01) ==
LOC: CCL 06:34 → ICU 10:52
PROVIDERS: PCP Emergency Medicine Emergency Medical Services; Visit Provider Internal Medicine
DX: I70.201 Unspecified atherosclerosis of native arteries of extremities, right leg (principal); Z95.1 Presence of aortocoronary bypass graft; R29.898 Other symptoms and signs involving the musculoskeletal system; R97.20 Elevated prostate specific antigen [PSA]; R39.89 Other symptoms and signs involving the genitourinary system; N40.1 Benign prostatic hyperplasia with lower urinary tract symptoms; N13.8 Other obstructive and reflux uropathy; N43.42 Spermatocele of epididymis, multiple; F17.200 Nicotine dependence, unspecified, uncomplicated; I10 Essential (primary) hypertension; D64.9 Anemia, unspecified; E78.5 Hyperlipidemia, unspecified; I25.110 Atherosclerotic heart disease of native coronary artery with unstable angina pectoris; Z79.82 Long term (current) use of aspirin; F17.210 Nicotine dependence, cigarettes, uncomplicated
CPT/HCPCS: 36415; 37220; 75625; 75716; 80048; 85025; 85347; 85610; 85730; 96361; 96365; 99152; 99153; C1725; C1769; C1887; C1894; J1644; J2250; J3010; J7030; Q0163; Q9967

== ENCOUNTER → 2022-08-13 10:35 | Outpatient (BNVA) | payer OTHER, SELFPAY | PROVIDERS: PCP Emergency Medicine Emergency Medical Services; Visit Provider Nurse Practitioner Family | DX: I73.9 Peripheral vascular disease, unspecified (principal); N40.0 Benign prostatic hyperplasia without lower urinary tract symptoms; R97.20 Elevated prostate specific antigen [PSA]; R39.89 Other symptoms and signs involving the genitourinary system; N40.1 Benign prostatic hyperplasia with lower urinary tract symptoms; F17.200 Nicotine dependence, unspecified, uncomplicated | CPT/HCPCS: 36415; 80048; 99214; G0103 ==

== ENCOUNTER → 2022-10-08 13:46 | Outpatient (BNVA) | payer OTHER, SELFPAY | PROVIDERS: PCP Emergency Medicine Emergency Medical Services; Visit Provider Nurse Practitioner Family | DX: I73.9 Peripheral vascular disease, unspecified (principal); F17.200 Nicotine dependence, unspecified, uncomplicated | CPT/HCPCS: 99213 ==

== ENCOUNTER → 2023-04-10 15:49 | Outpatient (BNVA) | payer OTHER, SELFPAY | PROVIDERS: PCP Emergency Medicine Emergency Medical Services; Visit Provider Internal Medicine | DX: I10 Essential (primary) hypertension (principal); I25.10 Atherosclerotic heart disease of native coronary artery without angina pectoris; I73.9 Peripheral vascular disease, unspecified; F17.210 Nicotine dependence, cigarettes, uncomplicated | CPT/HCPCS: 99214 ==

== ENCOUNTER 2023-10-06 12:50 | Emergency (ER) | payer OTHER, SELFPAY ==
[2023-10-06 12:55] VITALS: BP 86/57; PULSE 105; RESP 16; TEMP 36.4; O2SAT 98; BMI 17.7
--- NOTE | 2023-10-06 13:00 | ECG_ITS ---
[facility] Test Date: 2023-10-06 Pat Name: Dae Gupta Department: Room: Gender: Male Tiler: : 1945 Requested By: Lizzy Gonzalez Order Number: [id number] Donna MD: Juanjose Drake M.D. Measurements Intervals [place] Rate: 73 P: 83 OK: 155 QRS: 41 QRSD: 94 T: 62 QT: 394 QTc: 434 Interpretive Statements SINUS RHYTHM WITH OCCASIONAL SUPRAVENTRICULAR PREMATURE COMPLEXES POSSIBLE LEFT ATRIAL ENLARGEMENT [-0.1mV P-WAVE IN V1/V2] Compared to ECG 12/13/2021 17:05:17 T-wave abnormality no longer present Electronically Signed On 10-06-2023 16:16:09 RESEARCH TECH by Juanjose Drake M.D. [email or web address] That Talkparkwood behavioral health systemBrickell Biotechmercy health all[facility].Fridge/store/OM/[id number]/[id number]
--- NOTE | 2023-10-06 13:00 | XRR_ITS ---
PROCEDURE INFORMATION: Exam: XR Chest Exam date and time: 10/06/2023 1:19 PM Age: 77 years old Clinical indication: Shortness of breath; Additional info: SOB TECHNIQUE: Imaging protocol: Radiologic exam of the chest. Views: 1 view. COMPARISON: CR XR chest 1V portable [id number] 12/13/2021 2:12 PM FINDINGS: Lungs: Similar nodular opacity in the left midlung. No focal consolidation. Pleural spaces: No sizable pleural effusion or pneumothorax. Heart/Mediastinum: Coronary artery stent noted. Bones/joints: Status post median sternotomy. XR/XR chest 1V portable [id number] IMPRESSION: No acute intrathoracic findings.
--- NOTE | 2023-10-06 13:21 | ED_ITS ---
HPI - General Adult 2 General: Chief complaint: General Medical Stated complaint: [facility] bp Time Seen by Provider: 10/06/23 13:20 Source: patient Mode of arrival: ambulatory History of Present Illness: 77-year-old male presents emergency room complaining of shortness of breath and low blood pressure he went to the [place] today his blood pressure is low is complaining of shortness of breath he was referred here denies any chest pain he has had some lower left rib pains worse with palpation and deep inhalation, and pain at the right hip. Not associated with exertion. Patient has known lung CA with mets to the liver that he is opted to not treat. Refers pain to the left lateral lower ribs. No pain radiating to the neck back or arms. Onset (ago): week(s) Relieving factors: none Exacerbating factors: none Associated symptoms: Reports chest pain (Left lower ribs); Deny confusion, cough, diaphoresis, decreased appetite, dyspnea, fevers/chills, headache(s), malaise, nausea, rash, palpitations, seizures, short of breath, syncope, vomiting or weakness Treatments prior to arrival: none Review of Systems 2 Const: Denies: fever(s), chills, malaise or diaphoresis Card: Reports: chest pain (Left lower ribs); Denies: palpitations or syncope Resp: Denies: dyspnea GI: Denies: abdominal pain, nausea or vomiting : Denies: dysuria, urinary frequency or urinary urgency Musc: Denies: neck pain or back pain Skin/Breast: Denies: rash Neuro: Denies: headache(s) or confusion PFSH ED 2 PFSH: Medical History Erectile dysfunction Spermatocele of epididymis, multiple BPH loc w urin obs/LUTS Abnormal prostate exam Elevated PSA Abnormal stress test Anxiety Depression Hypercholesterolemia PTSD (post-traumatic stress disorder) COPD (chronic obstructive pulmonary disease) BPH (benign prostatic hyperplasia) Leg weakness, bilateral CAD (coronary artery disease) -has known hx of CAD s/p stenting x 3 HLD (hyperlipidemia) HTN (hypertension) Peripheral vascular disease with claudication Surgical History History of coronary artery stent placement Family History Father , at age 64 Myocardial infarction Mother , in her 80's Dementia Social History Smoking and tobacco/nicotine status: current some day tobacco/nicotine user Quit status (tobacco/nicotine): has quit using Alcohol intake: never Substance/Drug Use: current Household members: none Marital status: Single Current occupational status: retired Physical Exam 2 Const: COMMON NORMALS: no acute distress GENERAL APPEARANCE: cooperative and comfortable ORIENTATION/CONSCIOUSNESS: Yes awake, Yes oriented to person, Yes oriented to place and Yes oriented to time HENMT: COMMON NORMALS: normocephalic, atraumatic and hearing grossly normal bilaterally HEAD & SCALP: normocephalic and atraumatic Resp: COMMON NORMALS: normal respiratory effort, No retractions, No use of accessory muscles and clear to auscultation bilaterally AUSCULTATION: clear to auscultation bilaterally Cardio: COMMON NORMALS: regular rate, regular rhythm and No murmurs present (Cardio) RATE: regular rate RHYTHM: regular rhythm GI: COMMON NORMALS: Soft to palpation and No hepatosplenomegaly present A USCULTATION: Yes normoactive bowel sounds PALPATION: Yes Soft to palpation, No Tenderness to palpation present (GI), No Guarding due to palpation present (GI) and Yes No hepatosplenomegaly present Extremity: COMMON NORMALS: normal to inspection, capillary refill normal, no clubbing, cyanosis or edema, no calf tenderness and no pedal edema Neuro: SENSORIUM/ORIENTATION: Yes oriented to person, Yes oriented to place and Yes oriented to time Skin: COMMON NORMALS: no rashes or lesions noted GENERAL SKIN EXAM: no rashes or lesions noted Course 2 Vital Signs: Vital signs: Vital Signs Temperature 97.5 F L 10/06/23 12:55 Pulse Rate 82 10/06/23 13:40 Respiratory Rate 18 10/06/23 14:29 Blood Pressure 132/72 10/06/23 14:33 Pulse Oximetry 99 10/06/23 14:33 Oxygen Delivery Me thod Room Air 10/06/23 14:33 MDM - General Adult Medical Decision Making Troponin is 13. Alk phos is elevated and he has changes in the right superior iliac crest consistent with lytic bone lesion. At this point he has decided not to treat his cancer other than doing some homeopathic holistic treatments. Discussion with the patient that it would be appropriate to treat with pain medicines as needed. If he wants to confirm that this is indeed a metastatic lesion in the hip and the ribs a bone scan would be necessary. Also discussed that even if he opted not to pursue other treatments that palliative treatment for the bone lesions might at some point be necessary if the pain became difficult to control. His daughter is with him at this time as well. Based on his report of the symptoms the other findings and normal EKG and normal troponin I do not believe that this is acute coronary syndrome. Discharge patient home he [facility] regarding this if he decides to pursue it we did give him a prescription for Percocet for pain. Medical Records I reviewed the patient's medical records. Lab Data I reviewed the patient's lab results. 10/06/23 13:18 10/06/23 13:18 Radiology Impressions Chest X-Ray 10/06/23 13:00 IMPRESSION: No acute intrathoracic findings. Pelvis X-Ray 10/06/23 14:27 IMPRESSION: No acute findings. ADDENDUM: 10/06/23 1553 There is irregularity along the superolateral margin of the right iliac crest which may represent an area of osteolysis or lytic metastasis. Laboratory Results WBC 7.18 10^3/uL (3.29-11.43) 10/06/23 13:18 RBC 3.92 10^6/uL (3.85-5.65) 10/06/23 13:18 Hgb 12.00 g/dL (11.27-16.99) 10/06/23 13:18 Hct 37.3 % (37-53) 10/06/23 13:18 MCV 95.2 fl (82-101) 10/06/23 13:18 MCH 30.6 pg (27-33) 10/06/23 13:18 MCHC 32.2 g/dL (30-55) 10/06/23 13:18 RDW 14.8 % (12.1-15.1) 10/06/23 13:18 Plt Count 274 10^3/cmm (157-399) 10/06/23 13:18 MPV 10.8 fL (7.4-10.4) H 10/06/23 13:18 Neut % (Auto) 75.0 % 10/06/23 13:18 Lymph % (Auto) 8.1 % 10/06/23 13:18 [place] % (Auto) 15.5 % 10/06/23 13:18 Eos % (Auto) 0.7 % 10/06/23 13:18 Baso % (Auto) 0.3 % 10/06/23 13:18 Neut # (Auto) 5.39 10^3/uL (1.8-7.7) 10/06/23 13:18 Lymph # (Auto) 0.6 10^3/uL (0.8-4.8) L 10/06/23 13:18 [place] # (Auto) 1.1 10^3/uL (0.2-0.9) H 10/06/23 13:18 Eos # (Auto) 0.1 10^3/uL (0.0-0.8) 10/06/23 13:18 Baso # (Auto) 0.0 10^3/uL (0.0-0.1) 10/06/23 13:18 Nucleated RBC % (auto) 0 % 10/06/23 13:18 Nucleated RBCs # 0.0 /100WBC 10/06/23 13:18 PT 13.00 SECONDS (12.1-14.9) 10/06/23 13:18 INR 0.96 (0.8-1.2) 10/06/23 13:18 Sodium 138 mmol/L (136-145) 10/06/23 13:18 Potassium 4.7 mmol/L (3.5-5.1) 10/06/23 13:18 Chloride 100 mmol/L (98-107) 10/06/23 13:18 Carbon Dioxide 26 mmol/L (22-29) 10/06/23 13:18 Anion Gap 16.7 (5-19) 10/06/23 13:18 BUN 10 mg/dL (8-23) 10/06/23 13:18 Creatinine 1.1 mg/dL (0.7-1.2) 10/06/23 13:18 GFR Calculation Not Reportable 10/06/23 13:18 Glucose 94 mg/dL (65-115) 10/06/23 13:18 Calculated Osmolality 285 mOsm/kg (285-295) 10/06/23 13:18 Lactic Acid 1.5 mmol/L (0.5-2.2) 10/06/23 13:18 Calcium 10.9 mg/dL (8.5-10.5) H 10/06/23 13:18 Total Bilirubin 0.3 mg/dL (0.15-1.2) 10/06/23 13:18 AST 106 U/L (0-40) H 10/06/23 13:18 ALT 93 U/L (0-41) H 10/06/23 13:18 Alkaline Phosphatase 290 U/L (40-130) H 10/06/23 13:18 Troponin T Baseline 13 ng/L (0-15) 10/06/23 13:18 NT-Pro-B Natriuret Pep 912 pg/mL (0-450) H 10/06/23 13:18 Total Protein 6.4 g/dL (6.6-8.7) L 10/06/23 13:18 Albumin 4.0 g/dL (3.5-5.2) 10/06/23 13:18 Globulin 2.4 g/dL (1.3-4.6) 10/06/23 13:18 All radiology interpretation(s) finalized by discharge Discharge Plan Discharge Patient Disposition: Home Clinical Impression: Lung cancer, Cancer, metastatic to bone Condition: Stable Prescriptions: New oxycodone 5 mg tablet 5 mg PO Q6H PRN (Reason: pain) Qty: 30 0RF No Action nitroglycerin 0.4 mg tablet, sublingual 0.4 mg sublingual Q5M PRN (Reason: Chest Pain) Rx Instructions: do not exceed 3 doses per episode zinc sulfate 25 mg zinc (110 mg) tablet 25 mg PO DAILY coenzyme Q10 [Co Q-10] 10 mg Capsule 10 mg PO DAILY@0900 vitamin B complex Capsule 1 cap PO DAILY@0900 ezetimibe 10 mg tablet 10 mg PO QAM albuterol sulfate 90 mcg/actuation Hfa Aerosol Inhaler 2 puff INHALATION Q6H PRN (Reason: Shortness Of Breath) tamsulosin 0.4 mg capsule 0.4 mg PO BEDTIME Ginkoba 40 mg Tablet 40 mg PO TID Rx Instructions: give with meal/snack Azo 95 mg Tablet 95 mg PO TID goldenseal 200 mg Capsule 200 mg PO BID Fish Oil 300-1,000 mg Capsule 1 cap PO DAILY oxybutynin chloride 10 mg tablet extended release 24hr 10 mg PO DAILY docusate sodium 100 mg Capsule 100 mg PO BID cholecalciferol (vitamin D3) 25 mcg (1,000 unit) Capsule 25 mcg PO DAILY fenofibrate nanocrystallized 48 mg Tablet 48 mg PO DAILY Discharge Orders: Discharge ED (Routine); Ordered 10/06/23 Ordered By: Coy Scott Referrals: Otoniel Yu, DO [Primary Care Provider] - Discharge Diet: Usual diet Discharge Activity: Resume usual activity Patient Instructions: Opioid Safety, Pain Management Activity Restrictions/Additional Instructions: Thank you for choosing [facility] for your healthcare needs today. Please realize this is an emergency room and that we are providing you with a medical screening exam and this may not be complete and all inclusive of all the testing and or work up that you may need to determine your ailment or severity of your illness. It is very important that you follow up as instructed or that you return to the Emergency Department should you have concerns or if your condition changes or worsens in any way. You were seen today for complaint of pain in your left lower ribs and the right pelvic area. The x-ray of the pelvis showed an area of bone erosion along the iliac crest that was not present on previous imaging. You are alkaline phosphatase was also elevated. Given your overall history this is suspicious for metastasis to the bone. To confirm that she would need to have bone scan done. If you wish to follow-up with these findings recommend you see your oncology team or your primary care physician to have further imaging done such as a bone scan. Coding Level of Care Code ED Filter Cleaner for Denisse Gardner
[2023-10-06 13:37] LABS: Basophils % 0.3 %; Eosinophils # 0.1 10^3/uL (0.0-0.8); Eosinophils % 0.7 %; Hematocrit 37.3 % (37-53); Lymphocytes # 0.6 10^3/uL (0.8-4.8); Lymphocytes % 8.1 %; Mean Corpuscular HGB Conc 32.2 g/dL (30-55); Mean Corpuscular Hemoglobin 30.6 pg (27-33); Mean Corpuscular Volume 95.2 fl (82-101); Mean Platelet Volume 10.8 fL (7.4-10.4); Monocytes # 1.1 10^3/uL (0.2-0.9); Monocytes % 15.5 %; Neutrophils # 5.39 10^3/uL (1.8-7.7); Nucleated Red Blood Cells % 0 %; Platelet Count 274 10^3/cmm (157-399); Red Blood Count 3.92 10^6/uL (3.85-5.65); Red Cell Distribution Width 14.8 % (12.1-15.1); White Blood Count 7.18 10^3/uL (3.29-11.43)
[2023-10-06 13:40] VITALS: BP 93/55; PULSE 82; RESP 18; O2SAT 98
[2023-10-06 13:51] LABS: INR 0.96 (0.8-1.2)
[2023-10-06 13:58] LABS: Lactic Sepsis W/Reflex 1.5 mmol/L (0.5-2.2)
[2023-10-06] MEDS: sodium chloride 0.9% 1,000 ML 999 ML IV (14:00)
[2023-10-06 14:02] LABS: Troponin(5th) Baseline 13 ng/L (0-15)
[2023-10-06 14:11] LABS: Alanine Aminotransferase 93 U/L (0-41); Alkaline Phosphatase 290 U/L (40-130); Anion Gap 16.7 (5-19); Aspartate Amino Transferase 106 U/L (0-40); Blood Urea Nitrogen 10 mg/dL (8-23); Calcium 10.9 mg/dL (8.5-10.5); Carbon Dioxide 26 mmol/L (22-29); Chloride 100 mmol/L (98-107); Creatinine Clr Calc Pharmacy 43.9846; Globulin 2.4 g/dL (1.3-4.6); Glucose 94 mg/dL (65-115); NT Pro B Type Natriuretic Pept 912 pg/mL (0-450); Osmolality Calculated 285 mOsm/kg (285-295); Potassium 4.7 mmol/L (3.5-5.1); Sodium 138 mmol/L (136-145); Total Bilirubin 0.3 mg/dL (0.15-1.2); Total Protein 6.4 g/dL (6.6-8.7)
--- NOTE | 2023-10-06 14:27 | XRR_ITS ---
PROCEDURE INFORMATION: Exam: XR Pelvis Exam date and time: 10/06/2023 2:50 PM Age: 77 years old Clinical indication: Hip pain and pelvic pain; Right hip; Patient HX: No known trauma TECHNIQUE: Imaging protocol: Radiologic exam of the pelvis. Views: 1 or 2 view. COMPARISON: CT angio abd aorta runof [id number] 07/11/2022 3:55 PM FINDINGS: Bones/joints: Unremarkable. No acute fracture. Soft tissues: Unremarkable. XR/XR pelvis 1-2V* [id number] IMPRESSION: No acute findings.
[2023-10-06 14:29] VITALS: BP 144/69; RESP 18
[2023-10-06 14:33] VITALS: BP 132/72; O2SAT 99
--- NOTE | 2023-10-06 15:15 | ECG_ITS ---
[facility] Test Date: 2023-10-06 Pat Name: Dae Gupta Department: Room: Gender: Male [employer] [address] Justice: : 1945 Requested By: Lizzy Gonzalez Order Number: [id number] Donna MD: Juanjose Drake M.D. Measurements Intervals [place] Rate: 72 P: 76 ID: [id number] QRS: 25 QRSD: 84 T: 57 QT: 385 QTc: 422 Interpretive Statements SINUS RHYTHM WITH SINUS ARRHYTHMIA POSSIBLE LEFT ATRIAL ENLARGEMENT [-0.1mV P-WAVE IN V1/V2] Compared to ECG 10/06/2023 14:00:08 No significant changes Electronically Signed On 10-06-2023 16:16:12 BLACK OXIDE OPERATOR by Juanjose Drake M.D. [email or web address] river oaksMegadynemercy [facility].Zap[employer]/store/OM/[id number]
== END 2023-10-06 16:00 | disposition home or self-care (01) ==
PROVIDERS: Emergency Medicine; Emergency Provider Family Medicine; PCP Emergency Medicine Emergency Medical Services
DX: C34.90 Malignant neoplasm of unspecified part of unspecified bronchus or lung (principal); C79.51 Secondary malignant neoplasm of bone; Z72.0 Tobacco use; J44.9 Chronic obstructive pulmonary disease, unspecified; I25.10 Atherosclerotic heart disease of native coronary artery without angina pectoris; E78.5 Hyperlipidemia, unspecified; I10 Essential (primary) hypertension
CPT/HCPCS: 36415; 71045; 72170; 80053; 83605; 83880; 84484; 85025; 85610; 87040; 93005; 99285; J7030

== ENCOUNTER → 2023-10-08 15:29 | Outpatient (BNVA) | payer OTHER, SELFPAY | PROVIDERS: PCP Emergency Medicine Emergency Medical Services; Visit Provider Internal Medicine | DX: I10 Essential (primary) hypertension (principal); I25.10 Atherosclerotic heart disease of native coronary artery without angina pectoris; I73.9 Peripheral vascular disease, unspecified; F17.210 Nicotine dependence, cigarettes, uncomplicated | CPT/HCPCS: 99214 ==

== ENCOUNTER 2023-10-17 12:57 | Outpatient (CLI) | payer OTHER, SELFPAY ==
--- NOTE | 2023-10-17 13:00 | USCV_ITS ---
Dae Gupta Age: 77 Gender: M : 1945 Exam Date: 10/17/2023 13:05 Ordering Phys: Juanjose Drake M.D ([email or web address]) Technologist: TRE Exam Location: [facility] Indication: PAIN Risk Factors: Previous Vascular Surgery: RIGHT LEFT BP: 111.0 / 55.00 BP: 85.00/ 59.00 0 Waveform Velocity (cm/s) Velocity (cm/s) Waveform Triphasic 83.3 Iliac Prox 59.6 Triphasic Triphasic 129.3 Iliac Mid 70.6 Triphasic Triphasic 115.6 Iliac Distal 145.8 Triphasic Triphasic 158.0 PROJECT INTERN 150.0 Biphasic Triphasic 129.0 SFA Prox 46.0 Biphasic Biphasic 80.0 SFA Mid 74.0 Biphasic Biphasic 90.0 SFA Dist 92.0 Biphasic Biphasic 46.0 POP 84.0 Biphasic Biphasic 64.0 TARIFF EXPERT 66.0 Biphasic Biphasic 37.0 DPA 65.0 Biphasic 0.9 NICK 0.9 FINDINGS Mild diffuse plaque in the iliac, femoral and popliteal arteries bilaterally Resting NICK 0.9 bilaterally Normal/near normal arterial Doppler waveforms and velocities The systolic pressure at the right brachial artery was 111 and on the left side, it was 85 CONCLUSIONS 1. Minimally diminished resting ABIs bilaterally suggesting mild peripheral arterial disease. 2. Mild diffuse plaques bilaterally. 3. Significant drop in the systolic blood pressure on the left side, may suggest subclavian stenosis Revised report on the study from 10/17/2023 Dr Anjel Spear MD [facility] (Electronically Signed) Final Date: 17 October 2023 19:20 Amended: 17 October 2023 19:26 C
== END 2023-10-17 12:58 | disposition home or self-care (01) ==
LOC: RAD 12:58
PROVIDERS: PCP Emergency Medicine Emergency Medical Services; Visit Provider Internal Medicine
DX: I70.203 Unspecified atherosclerosis of native arteries of extremities, bilateral legs (principal); R93.6 Abnormal findings on diagnostic imaging of limbs; R03.1 Nonspecific low blood-pressure reading
CPT/HCPCS: 93925